=== PATIENT | male | born 1980 | race Asian ===

== ENCOUNTER 2024-07-21 19:34 | Inpatient (IN) | payer MEDICAID, SELFPAY ==
[2024-07-21 19:35] VITALS: BMI 18.2
[2024-07-21 20:04] VITALS: BP 151/125; BP 169/122; PULSE 150; RESP 22; TEMP 36.8; O2SAT 97
--- NOTE | 2024-07-21 20:17 | XR_ITS ---
Examination: PA lateral chest 2 views Technique: Upright PA lateral chest 2 views Exam date and time: July 21, 20242053 hrs. Indications: Shortness of breath today. Findings: Significant hyperexpansion The heart is small No lobar pneumonia or pulmonary edema Impression: Prominent hyperexpansion, consider asthma, COPD
--- NOTE | 2024-07-21 20:17 | EKG_ITS ---
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
--- NOTE | 2024-07-21 20:18 | PD.EDRME ---
Rapid Medical Screening Exam RME Arrival date/time: 07/21/24 19:34 44-year-old male past medical history of asthma presents emergency department complaining of shortness of breath that started today. Patient reports use inhaler with no relief. Chief Complaint: General Adult/Misc Complain Time Seen by Provider: 07/21/24 20:11 Vital signs: Vital Signs Temperature 98.3 F 07/21/24 20:04 Pulse Rate 150 H 07/21/24 20:04 Respiratory Rate 22 H 07/21/24 20:04 Blood Pressure 169/122 H 07/21/24 20:04 Pulse Oximetry (%) 97 07/21/24 20:04 Oxygen Delivery Method Room Air 07/21/24 20:04 Vital signs reviewed by provider: Yes
[2024-07-21 21:08] LABS: Basophils # (Auto) 0.1 Thou/mm3 (0.0-0.2); Basophils % (Auto) 1 % (0-2.5); Eosinophils # (Auto) 0.1 Thou/mm3 (0.0-0.5); Eosinophils % (Auto) 1 % (0-10); Hematocrit 35.3 % (41.0-53.0); Hemoglobin 12.5 g/dL (13.5-16.0); Immature Granulocytes % (Auto) 0 % (0-0); Immature Granulocytes Auto 0.01 Thou/mm3 (0.00-0.00); Lymphocytes % (Auto) 41 % (10-50); Mean Corpuscular HGB Conc 35.4 g/dl (31.0-37.0); Mean Corpuscular Hemoglobin 30.6 pg (25.0-35.0); Mean Corpuscular Volume 87 fL (80-100); Monocytes # (Auto) 0.4 Thou/mm3 (0.0-0.8); Monocytes % (Auto) 8 % (0-12); Neutrophils # (Auto) 2.4 Thou/mm3 (1.8-7.7); Neutrophils % (Auto) 49 % (37-80); Nucleated Red Blood Cell % 0 /100 WBC (0); Platelet Count 240 Thou/mm3 (140-440); RDW Standard Deviation 42.2 fL (35.1-43.9); Red Blood Count 4.08 Miln/mm3 (4.50-5.90)
[2024-07-21] MEDS: predniSONE 20 MG TABLET 60 MG PO (21:17)
[2024-07-21 21:29] LABS: Alanine Aminotransferase 20 U/L (10-49); Albumin, Serum 3.7 gm/dL (3.5-5.0); Albumin/Globulin Ratio 1.2 (1.2-2.2); Alkaline Phosphatase 264 U/L (46-116); Anion Gap 13 (7-16); Aspartate Amino Transferase 56 U/L (0-34); BUN/Creatinine Ratio 6 Ratio (12-20); Bilirubin,Total 1.3 mg/dL (0.3-1.2); Blood Urea Nitrogen 7 mg/dL (9-23); Calcium 8.9 mg/dL (8.3-10.6); Calcium (Corrected) 9.1 mg/dL (8.5-10.1); Chloride 102 mMol/L (98-107); Creatinine (Component) 1.1 mg/dL (0.6-1.3); Glucose 114 mg/dL (74-106); Osmolality,Calculated 282 (275-295); Sodium 142 mMol/L (136-145); Total Protein 6.7 gm/dL (5.7-8.2); Troponin I < 0.020 ng/mL (0.0-0.045); eGFR > 60 See Note
[2024-07-21 21:31] LABS: Potassium 2.7 mMol/L (3.4-5.1)
[2024-07-21] MEDS: SODIUM CHLORIDE RT SOL 0.9% 3 ML NEBU INH (21:31)
[2024-07-21] MEDS: IPRATROPIUM RT 0.5 MG/ 2.5 ML NEBU 1 MG INH (21:32)
[2024-07-21 21:33] VITALS: PULSE 121
[2024-07-21] MEDS: ALBUTEROL RT 2.5 MG/0.5 ML NEBU 10 MG INH (21:33)
[2024-07-21 21:34] LABS: B-Type Natriuretic Peptide 26 pg/mL (0-100)
[2024-07-21 21:41] VITALS: PULSE 121; RESP 19; O2SAT 100
[2024-07-22] VITALS (33 sets, daily range): BP systolic 110–174; BP diastolic 78–149; PULSE 86–149; RESP 13–27; TEMP 36.5–37.4; O2SAT 84–100
--- NOTE | 2024-07-22 02:14 | PD.EDADULT ---
ED General RME/HPI General Chief complaint: General Adult/Misc Complain Stated complaint: SHAKING, NOT EATING, ASTHMA Time Seen by Provider: 07/21/24 20:11 Arrival date/time: 07/21/24 19:34 Limitations: no limitations RME / HPI RME / HPI narrative: 07/21/24 19:34 44-year-old male past medical history of asthma presents emergency department complaining of shortness of breath that started today. Patient reports use inhaler with no relief. -------- Dr. Covarrubias's Main ED Evaluation: 44yo male with a history of alcoholism, HTN, asthma presents to the ED for a chief complaint of shortness of breath x today. Patient states he's had generalized body aches, cough, and shortness of breath that worsened after he smoked cigarettes today. He endorses having shakiness. He denies any nausea, vomiting, diarrhea, fever, chills, hallucinations or any other associated symptoms. Patient states he drinks heavily daily, and smokes cigarettes and marijuana. Related Data Previous Rx's ?Medication ?Instructions ?Recorded albuterol sulfate 90 mcg/actuation 2 puff inhalation PRN #1 g 01/24/18 aerosol inhaler albuterol sulfate 90 mcg/actuation 1 puff inhalation PRN #6.7 grams 01/24/18 aerosol inhaler (ProAir HFA) acetaminophen 650 mg 650 mg PO Q8H PRN fever or pain 12/11/22 tablet,extended release #30 tabs diphenhydramine HCl 50 mg capsule 50 mg PO Q6H PRN allergic reaction 03/13/24 #20 caps prednisone 10 mg tablet 30 mg (3 x 10 mg) PO BID #18 tabs 03/13/24 Allergies Allergy/AdvReac Type Severity Reaction Status Date / Time bee venom protein (honey bee) Allergy Verified 03/12/24 23:09 Review of Systems Review of Systems Systems Reviewed: All systems reviewed, normal except as documented Past Medical History Past Medical History NEUROLOGIC: Negative Neurological Disorders CARDIAC: Positive Cardiac Disorders and Hypertension; Negative Congestive Heart Failure RESPIRATORY: Positive Asthma; Negative Chronic Obstructive Pulmonary Disease (COPD) GASTROINTESTINAL: Negative Gastrointestinal Disorders GENITOURINARY: Negative Genitourinary Disorders or Renal Disease MUSCULOSKELETAL: Negative Musculoskeletal Disorders ENDOCRINE: Negative Endocrine Disorders, Diabetes Mellitus Type 1 or Diabetes Mellitus Type 2 HEMATOLOGIC: Negative Blood Disorders or Sickle Cell Disease OTHER HISTORY: Negative Autoimmune Disease, Blood Transfusions, Anesthesia Reactions or MRSA Family History FAMILY HISTORY: Negative Family Cardiac Disorders Surgical History SURGICAL: Negative Cardiac Surgery, Endocrine Surgery, Ear Surgery, Abdominal Surgery, Nephrectomy or Neurologic Surgery Social History SMOKING STATUS: Current every day smoker SECOND HAND EXPOSURE: Yes SUBSTANCE USE: marijuana ED Exam General Limitations: Present no limitations General appearance: Present alert, in no apparent distress, cachectic and other (very thin) Head Head exam: Present atraumatic Eye Eye exam: Present PERRL, EOMI and other (eyes are sunken in) ENT ENT exam: Present normal exam, normal oropharynx and mucous membranes dry Neck Neck exam: Present normal inspection, full ROM and trachea midline Chest Chest inspection: Present normal inspection and symmetric chest wall rise Respiratory Respiratory exam: Present normal lung sounds bilaterally Cardiovascular Cardiovascular exam: Present regular rate, normal rhythm and normal heart sounds Abdominal Exam Abdominal exam: Present soft and normal bowel sounds; Absent tenderness or rebound Extremities Exam Extremities exam: Present normal inspection and full ROM Back Exam Back exam: Present normal inspection and full ROM Neurological Exam Neurological exam: Present alert, oriented X3 and CN II-XII intact Psychiatric Psychiatric exam: Present normal affect and normal mood Skin Skin exam: Present warm, dry, intact and normal color; Absent rash Course Quality Measures none Orders Category Date Time Status Bedside Influenza A&B Antigen Test NOW Care 07/21/24 20:18 Completed COVID-19 Screening Questionnaire NOW Care 07/22/24 04:31 Active Decision to Admit X1 Care 07/22/24 04:31 Active EKG (ED ONLY) *Do not use* NOW Care 07/21/24 20:17 Completed EKG (ED Only) Stat Exams 07/21/24 20:17 Draft XR chest 2V Stat Exams 07/21/24 20:17 Completed Alcohol, Blood Medical Stat Lab 07/22/24 00:00 Completed BNP [B-Type Natriuretic Peptide] Stat Lab 07/21/24 20:36 Completed CBC Stat Lab 07/21/24 20:36 Completed Comprehensive Metabolic Panel Stat Lab 07/21/24 20:36 Completed Drug Screen,Urine Stat Lab 07/21/24 20:17 Ordered Troponin I Stat Lab 07/21/24 20:36 Completed ALBUTEROL RT 0.5ml [Proventil Rt 0.5ml] Med 07/21/24 20:16 Discontinued 10 mg INH X1 ONE Dexamethasone Inj [Decadron Inj] Med 07/22/24 02:10 Discontinued 10 mg IVP X1 ONE Folic Acid Inj Med 07/22/24 03:50 Discontinued 1 mg IVP X1 ONE Ipratropium [place] Rt Rosalina [Atrovent Rt Rosalina] Med 07/21/24 20:16 Discontinued 1 mg INH X1 ONE LORazepam [Ativan Inj] Med 07/22/24 02:25 Discontinued 2 mg IVP X1 ONE LORazepam [Ativan] Med 07/22/24 01:53 Discontinued 2 mg PO X1 ONE Metoprolol Tartrate Inj [Lopressor Inj] Med 07/22/24 02:12 Discontinued 5 mg IVP X1 ONE PHENobarbitaL Med 07/22/24 02:27 Discontinued 130 mg PO X1 ONE Potassium Chloride [K-Dur] Med 07/22/24 02:11 Discontinued 40 meq PO X1 ONE Sodium Chloride Rt [place]al[place] 0.9% [NS Rt Rosalina 0.9%] Med 07/21/24 20:16 Active 3 ml INH PRN PRN Thiamine Inj [Vitamin B-1 Inj] 100 mg Med 07/22/24 03:50 Discontinued Sodium Chloride 0.9% [Ns] 100 ml IV X1 predniSONE Med 07/21/24 20:16 Discontinued 60 mg PO X1 ONE Vital Signs Vital signs: Vital Signs Temperature 98.3 F 07/21/24 20:04 Pulse Rate 150 H 07/21/24 20:04 Respiratory Rate 22 H 07/21/24 20:04 Blood Pressure 169/122 H 07/21/24 20:04 Pulse Oximetry (%) 97 07/21/24 20:04 Oxygen Delivery Method Room Air 07/21/24 20:04 Pulse ox is 97% on room air, which is normal according to my interpretation. Procedures -ED Smoking Cessation Time Spent Discussing Smoking Cessation w/Patient (min): 5 Patient Acknowledges Need for Cessation: Yes Additional Comments: The patient was counseled as to the multiple risks to their health from continued use of tobacco products. It was explained that continuing to smoke may lead to multiple short and snf negative health consequences, including but not limited to mouth/esophageal/lung cancer, COPD, and heart disease. The patient states she/he understands these risks and also understands the options and resources available to them to help them stop smoking. Nicotine replacement therapy, local hotlines, and local resources were discussed as viable options for helping them stop their tobacco use. The total time spent counseling the patient regarding tobacco cessation was 5 minutes. [facility] Patient data External records reviewed:: [facility] previous records (Per chart review, patient was seen here on 03/12/24 for chronic alcoholism.) Clinical information provided by:: patient Social determinants that could affect healthcare access:: alcohol use Patient has the following chronic illnesses:: HTN, asthma How is presenting disease/condition affected by chronic disease/condition?: exacerbated by Evaluation data The following diagnostics were reviewed and interpreted by me:: lab results, radiology exam(s) and EKG tracing(s) Lab and/or radiology exams considered but not ordered:: none Interpretation Summary: CBC is normal, Potassium is low at 2.7, troponin is normal, BNP is normal, AST and Alkaline Phosphatase are elevated, Bedside Influenza is negative, Blood Alcohol is negative, according to my interpretation. EKG done at 2022, sinus tachycardia, rate of 150, ST-T changes in V2 and V3, no ST elevations, QTc: 402, according to my interpretation. Repeat EKG done at 404, sinus tachycardia, rate of 118, VT interval improved at 126, nonspecific ST-T wave changes improved, according to my interpretation. ---- [place] [facility] Report Signed Patient: JONATHON VALLE. Record#: [id number] Birthdate: 1980 Age/Sex: 44 / M Location: [facility] Attending Dr: Ordering Physician: Bela ROBLEDO)Oleksandr Date of Service: 07/21/24 Procedure(s): XR chest 2V Accession Number(s): [id number] cc: Phoenix Combs MD; Oleksandr Lopez (FNP)~ Examination: PA lateral chest 2 views Technique: Upright PA lateral chest 2 views Exam date and time: July 21, 20242053 hrs. Indications: Shortness of breath today. Findings: Significant hyperexpansion The heart is small No lobar pneumonia or pulmonary edema Impression: Prominent hyperexpansion, consider asthma, COPD Dictated By: Phoenix Combs MD Signed By: <Electronically signed by Phoenix Combs MD in OV> 07/21/240 Medications Medications considered but not ordered:: none Medication administrations:: Medication Administration History Sodium Chloride (Sodium Chloride Rt Rosalina 0.9% 3 Ml Nebu) 3 ml INH PRN PRN PRN Reason: SOLN Stop: 08/20/24 20:15 Last Admin: 07/21/24 21:31 Dose: 3 ml Documented By: FLORIN Discontinued Medications Albuterol (Albuterol Rt 2.5 Mg/0.5 Ml Nebu) 10 mg INH X1 ONE Stop: 07/21/24 20:17 Last Admin: 07/21/24 21:33 Dose: 10 mg Documented By: FLORIN Dexamethasone Sodium Phosphate (Dexamethasone Sod Phos Inj 4 Mg/Ml Vial) 10 mg IVP X1 ONE; Protocol Stop: 07/22/24 02:11 Last Admin: 07/22/24 02:19 Dose: 10 mg Documented By: TC Folic Acid (Folic Acid Inj 1 Mg/0.2 Ml) 1 mg IVP X1 ONE Stop: 07/22/24 03:51 Last Admin: 07/22/24 04:15 Dose: 1 mg Documented By: NICOLA Thiamine HCl 100 mg/ Sodium (Chloride) 101 mls @ 202 mls/hr IV X1 ONE Stop: 07/22/24 04:19 Last Admin: 07/22/24 04:15 Dose: 202 mls/hr Documented By: NICOLA Ipratropium [place] (Ipratropium Rt 0.5 Mg/ 2.5 Ml Nebu) 1 mg INH X1 ONE Stop: 07/21/24 20:17 Last Admin: 07/21/24 21:32 Dose: 1 mg Documented By: FLORIN Comments: Lorazepam (Lorazepam 0.5 Mg Tablet) 2 mg PO X1 ONE Stop: 07/22/24 01:54 Last Admin: 07/22/24 02:13 Dose: Not Given Documented By: TC Non-Admin Reason: Discontinued Lorazepam (Lorazepam 2 Mg/Ml Vial) 2 mg IVP X1 ONE Stop: 07/22/24 02:26 Last Admin: 07/22/24 02:29 Dose: 2 mg Documented By: TC Metoprolol Tartrate (Metoprolol Tartrate Inj 1 Mg/Ml Amp 5 Ml) 5 mg IVP X1 ONE Stop: 07/22/24 02:13 Last Admin: 07/22/24 03:11 Dose: Not Given Documented By: TC Non-Admin Reason: Contraindicated Phenobarbital (Phenobarbital Elix 20 Mg/5 Ml Udc) 130 mg PO X1 ONE Stop: 07/22/24 02:28 Last Admin: 07/22/24 04:16 Dose: Not Given Documented By: TC Non-Admin Reason: Contraindicated Potassium Chloride (Potassium Chloride 20 Meq Tabcr) 40 meq PO X1 ONE Stop: 07/22/24 02:12 Last Admin: 07/22/24 02:19 Dose: 40 meq Documented By: TC Prednisone (Prednisone 20 Mg Tablet) 60 mg PO X1 ONE Stop: 07/21/24 20:17 Last Admin: 07/21/24 21:17 Dose: 60 mg Documented By: NICOLA Comments: pt moved to room 14 for tx at this time see above Consultations Consultation(s) initiated? (list below): Yes Consultation #1 (Physician, Specialty, Details): Discussed case with [Dr. Nash] from Hospitalist service regarding admission. Discussed patients ED course, exam findings, labs, and radiology results. The Hospitalist [agrees] to accept the patient for admission. Time: 04:30 Diagnosis Differential Diagnosis ED Complaint MDM: alcohol withdrawal, dehydration, STEMI, NSTEMI, pneumonia Most likely diagnosis given after review of the tests above:: see below Admission Indicated Admission indicated?: indicated Explain why admission is indicated or not indicated:: Admission criteria met. Admission Request Was there a request for admission?: Yes Admission Attestation Admission request attestation: Discussed case with [] from Hospitalist service regarding admission. Discussed patients ED course, exam findings, labs, and radiology results. The Hospitalist [agrees,declines] to accept the patient for admission. Disposition Plan Disposition Plan: Admit Medical Decision Making MDM Narrative MDM Narrative: This is a 44-year-old male with history of heavy alcohol use drinking greater than a bottle of samson per day coming in with asthma-like symptoms for 24 hours which caused him to decrease and/or stop drinking, initial CIWA is 2 but then patient started having hypertension and significant trembling. Ativan is given with heart rate improved from the 140s down to 115. Potassium is replaced orally. Throughout [place], non-STEMI, pulmonary embolism, and chest x-ray is showing chronic COPD changes. Patient is treated with banana bag and IV fluids. Repeat EKG initially showed some ST-T wave changes inferiorly but on repeat EKG patient is sinus tach with now normal VT interval with improved heart rate down to 115. No chest pain at this time. Differential Diagnosis Differential Diagnosis: alcohol withdrawal, dehydration, STEMI, NSTEMI, pneumonia Lab Data 07/21/24 20:36 07/21/24 20:36 Labs: Lab Results 07/21/24 07/22/24 Range/Units 20:36 00:00 WBC 5.0 (3.8-10.6) Thou/mm3 RBC 4.08 L (4.50-5.90) Miln/mm3 Hgb 12.5 L (13.5-16.0) g/dL Hct 35.3 L (41.0-53.0) % MCV 87 (80-100) fL MCH 30.6 (25.0-35.0) pg MCHC 35.4 (31.0-37.0) g/dl RDW Std Deviation 42.2 (35.1-43.9) fL Plt Count 240 (140-440) Thou/mm3 Neut % (Auto) 49 (37-80) % Lymph % (Auto) 41 (10-50) % [place] % (Auto) 8 (0-12) % Eos % (Auto) 1 (0-10) % Baso % (Auto) 1 (0-2.5) % Neut # (Auto) 2.4 (1.8-7.7) Thou/mm3 Lymph # (Auto) 2.0 (1.0-4.8) Thou/mm3 [place] # (Auto) 0.4 (0.0-0.8) Thou/mm3 Eos # (Auto) 0.1 (0.0-0.5) Thou/mm3 Baso # (Auto) 0.1 (0.0-0.2) Thou/mm3 Immature Gran # (Auto) 0.01 H (0.00-0.00) Thou/mm3 Absolute Nucleated RBC 0.00 (0.00-0.00) Thou/mm3 Immature Gran % 0 (0-0) % Nucleated RBC % 0 (0) /100 WBC Sodium 142 (136-145) mMol/L Potassium 2.7 L* (3.4-5.1) mMol/L Chloride 102 (98-107) mMol/L Carbon Dioxide 27.0 (20.0-31.0) mMol/L Anion Gap 13 (7-16) BUN 7 L (9-23) mg/dL Creatinine 1.1 (0.6-1.3) mg/dL Estim Creat Clear Calc 66.0 (>60) mL/min eGFR > 60 (60 - ) See Note BUN/Creatinine Ratio 6 L (12-20) Ratio Glucose 114 H (74-106) mg/dL Calculated Osmolality 282 (275-295) Calcium 8.9 (8.3-10.6) mg/dL Corrected Calcium 9.1 (8.5-10.1) mg/dL Total Bilirubin 1.3 H (0.3-1.2) mg/dL AST 56 H (0-34) U/L ALT 20 (10-49) U/L Alkaline Phosphatase 264 H (46-116) U/L Troponin I < 0.020 (0.0-0.045) ng/mL B-Natriuretic Peptide 26 (0-100) pg/mL Total Protein 6.7 (5.7-8.2) gm/dL Albumin 3.7 (3.5-5.0) gm/dL Globulin 3.0 (2.3-3.5) gm/dL Albumin/Globulin Ratio 1.2 (1.2-2.2) Ethyl Alcohol < 3.0 (0-10.0) mg/dL Discharge Plan Plan Patient Disposition: HOME (Self Care) Patient condition on transfer: Stable Prescriptions/Referrals Prescriptions/Med Rec: No Action albuterol sulfate [ProAir HFA] 8.5 GM HFA aerosol inhaler 1 puff Inhalation PRN Qty: 6.7 0RF albuterol sulfate 90 mcg/actuation HFA aerosol inhaler 2 puff Inhalation PRN Qty: 1 0RF prednisone 10 mg tablet 30 mg PO BID Qty: 18 0RF Rx Instructions: administer with food or milk diphenhydramine HCl 50 mg capsule 50 mg PO Q6H PRN (Reason: allergic reaction) Qty: 20 0RF acetaminophen 650 mg tablet extended release 650 mg PO Q8H PRN (Reason: fever or pain) Qty: 30 0RF Rx Instructions: swallow whole; do not chew/break/dissolve/open Referrals: Martine Man PA-C [Primary Care Provider] - In 1 week Problem List Clinical Impression: Alcohol withdrawal, Tachycardia Patient/Caregiver Discharge Instructions Print Language: Spanish Stand Alone Forms: Verena Award Info., Patient Portal Info Letter
[2024-07-22] MEDS: DEXAMETHASONE SOD PHOS INJ 4 MG/ML VIAL 10 MG IVP (02:19)
[2024-07-22] MEDS: POTASSIUM CHLORIDE 20 mEq TABCR 40 MEQ PO (02:19)
[2024-07-22] MEDS: LORazepam 2 MG/ML VIAL IVP (02:29)
[2024-07-22] MEDS: THIAMINE INJ 100 MG in SODIUM CHLORIDE 0.9% 100 ML 202 MG IV (04:15)
[2024-07-22] MEDS: FOLIC ACID INJ 1 MG/0.2 ML IVP (04:15)
[2024-07-22 04:20] LABS: Alcohol, Blood Medical < 3.0 mg/dL (0-10.0)
--- NOTE | 2024-07-22 05:33 | PD.RESHP ---
Documentation for date of: 07/22/24 [facility] History of Present Illness Chief complaint: Shortness of breath History of present illness: At the time of examining the patient, patient is completely lethargic and not able to provide history. So most of the history is taken from chart review A 44-year-old male with significant past medical history of smoking, alcohol abuse, hypertension, asthma presented to the hospital with chief complaints of shortness of breath since 1 day. Also endorsed that he is having generalized bodyaches, cough and shortness of breath that got worsened after he smoked cigarettes. Denies fever, nausea, vomiting, diarrhea. In the ED, patient received prednisone, nebulizations and later received a dose of lorazepam 2 Mg as patient is agitated due to alcohol withdrawal and at the time of examination by hospitalist team, patient is lethargic able to respond to his name, follow verbal commands and on assessment GCS is 11. Discussed about the patient's condition with the ED doctor, Mike Barreto who reported that patient is having GCS of 15 and alert awake oriented x 3 before getting lorazepam. As the patient is agitated with elevated blood pressure, tachycardia and being restless, received a dose of lorazepam in the ED. Not unsure of his last alcohol drink. As GCS is 11 and the altered sensorium is due to lorazepam IV push, no need of ICU level of care for now. Will monitor on the floors ED Course: -Initial vitals were blood pressure 169/122 mmHg, pulse rate 150/min, respiratory rate 22/min, temperature 98.3 ?F, SpO2 97% with room air. -Labs significant for Hb 12.5, sodium 142, potassium 2.7, glucose 114, total bilirubin 1.3, AST 56, ALT 20, ALP 264, ethyl alcohol <3. -Chest x-ray showed significant hyperexpansion of bilateral lung moore. EKG showed sinus tachycardia. -In the ED, patient was given DuoNebs nebulization, dexamethasone, lorazepam, potassium, metoprolol tartrate, prednisone 60 Mg, thiamine. -Patient was admitted for acute exacerbation of COPD/asthma, alcohol withdrawal. Past medical history: Hypertension, asthma Past surgical history: Unknown Social history: Smoking, alcohol, marijuana abuse Review of Systems Review of Systems ROS Unobtainable: unobtainable due to mental status Exam Vital Signs Temp Pulse Resp BP Pulse Ox O2 Del Method 98.7 F 105 H 27 H 111/82 100 Room Air 07/22/24 01:37 07/22/24 05:07 07/22/24 05:07 07/22/24 03:04 07/22/24 05:07 07/22/24 03:04 Narrative Exam General: Awake. cachectic HEENT: Normocephalic, atraumatic, mucous membranes moist. Heart: Regular rate and rhythm, no murmurs. Lungs: Clear to auscultation with decreased breath sounds bilaterally Abdomen: Soft, nondistended, nontender, positive bowel sounds. ?No guarding or rebound tenderness. Neurologic: lethargic, no gross neurological deficit, and patient able to move all 4 extremities. Extremities: No edema. Skin: No rash or ecchymoses. Results: Labs 07/22/24 07:56 07/22/24 18:11 Labs: Short CBC 07/21/24 Range/Units 20:36 WBC 5.0 (3.8-10.6) Thou/mm3 Hgb 12.5 L (13.5-16.0) g/dL Hct 35.3 L (41.0-53.0) % Plt Count 240 (140-440) Thou/mm3 BMP 07/21/24 20:36 Sodium 142 Potassium 2.7 L* Chloride 102 Carbon Dioxide 27.0 BUN 7 L Creatinine 1.1 Glucose 114 H Calcium 8.9 Cardiac Enzymes 07/21/24 Range/Units 20:36 Troponin I < 0.020 (0.0-0.045) ng/mL Liver Function 07/21/24 Range/Units 20:36 Total Bilirubin 1.3 H (0.3-1.2) mg/dL AST 56 H (0-34) U/L ALT 20 (10-49) U/L Alkaline Phosphatase 264 H (46-116) U/L Albumin 3.7 (3.5-5.0) gm/dL Quality Measures Quality Measures none Medications Home Medications and Allergies Allergies Allergy/AdvReac Type Severity Reaction Status Date / Time bee venom protein (honey bee) Allergy Verified 03/12/24 23:09 Visit Medications Acetaminophen (Acetaminophen 325 Mg Tablet) 650 mg PO Q6H PRN PRN Reason: Fever >101.5 Stop: 08/21/24 04:55 Albuterol/Ipratropium (Albuterol/Ipratropium (Duoneb) Rt Rosalina 3 Ml Nebu) 3 ml INH Q6HRRT PRN PRN Reason: sob or wheeze Stop: 08/21/24 06:59 Enoxaparin Sodium (Enoxaparin Sod Inj 40 Mg/0.4 Ml Syringe) 40 mg SC QDAY [facility] Stop: 08/05/24 08:59 Potassium Chloride (Kcl Ivpb) 10 meq in 100 mls @ 100 mls/hr IV Q1H [facility]ICK Stop: 07/22/24 09:00 Lorazepam (Lorazepam 0.5 Mg Tablet) 0.5 mg PO Q4HR PRN PRN Reason: CIWA Score 2-6 Stop: 07/27/24 05:01 Lorazepam (Lorazepam 0.5 Mg Tablet) 1 mg PO Q4HR PRN PRN Reason: CIWA SCORE 7-11 Stop: 07/27/24 05:01 Lorazepam (Lorazepam 0.5 Mg Tablet) 2 mg PO Q4HR PRN PRN Reason: CIWA SCORE 12-15 Stop: 07/27/24 05:01 Magnesium Hydroxide (Milk Of Magnesia Susp 30 Ml Udc) 30 ml PO QDAY PRN; Protocol PRN Reason: CONSTIPATION Stop: 08/21/24 04:55 Ondansetron HCl (Ondansetron Inj 2 Mg/Ml Inj 2 Ml) 4 mg IV Q6H PRN; Protocol PRN Reason: NAUSEA OR VOMITING Stop: 08/21/24 04:55 Pantoprazole Sodium (Pantoprazole 40 Mg Tablet) 40 mg PO QDAY [facility] Stop: 08/21/24 08:59 Sodium Chloride (Sodium Chloride Rt Rosalina 0.9% 3 Ml Nebu) 3 ml INH PRN PRN PRN Reason: SOLN Stop: 08/20/24 20:15 Last Admin: 07/21/24 21:31 Dose: 3 ml Thiamine HCl (Thiamine 100 Mg Tablet) 100 mg PO QDAY [facility] Stop: 08/21/24 08:59 Discontinued Medications Albuterol (Albuterol Rt 2.5 Mg/0.5 Ml Nebu) 10 mg INH X1 ONE Stop: 07/21/24 20:17 Last Admin: 07/21/24 21:33 Dose: 10 mg Dexamethasone Sodium Phosphate (Dexamethasone Sod Phos Inj 4 Mg/Ml Vial) 10 mg IVP X1 ONE; Protocol Stop: 07/22/24 02:11 Last Admin: 07/22/24 02:19 Dose: 10 mg Folic Acid (Folic Acid Inj 1 Mg/0.2 Ml) 1 mg IVP X1 ONE Stop: 07/22/24 03:51 Last Admin: 07/22/24 04:15 Dose: 1 mg Thiamine HCl 100 mg/ Sodium (Chloride) 101 mls @ 202 mls/hr IV X1 ONE Stop: 07/22/24 04:19 Last Admin: 07/22/24 04:15 Dose: 202 mls/hr Ipratropium Fisher (Ipratropium Rt 0.5 Mg/ 2.5 Ml Nebu) 1 mg INH X1 ONE Stop: 07/21/24 20:17 Last Admin: 07/21/24 21:32 Dose: 1 mg Lorazepam (Lorazepam 0.5 Mg Tablet) 2 mg PO X1 ONE Stop: 07/22/24 01:54 Last Admin: 07/22/24 02:13 Dose: Not Given Lorazepam (Lorazepam 2 Mg/Ml Vial) 2 mg IVP X1 ONE Stop: 07/22/24 02:26 Last Admin: 07/22/24 02:29 Dose: 2 mg Metoprolol Tartrate (Metoprolol Tartrate Inj 1 Mg/Ml Amp 5 Ml) 5 mg IVP X1 ONE Stop: 07/22/24 02:13 Last Admin: 07/22/24 03:11 Dose: Not Given Multivitamins/Minerals (Multivitamin Inj 10 Ml Vial) 10 ml IV X1 ONE Stop: 07/22/24 05:03 Phenobarbital (Phenobarbital Elix 20 Mg/5 Ml Udc) 130 mg PO X1 ONE Stop: 07/22/24 02:28 Last Admin: 07/22/24 04:16 Dose: Not Given Potassium Chloride (Potassium Chloride 20 Meq Tabcr) 40 meq PO X1 ONE Stop: 07/22/24 02:12 Last Admin: 07/22/24 02:19 Dose: 40 meq Prednisone (Prednisone 20 Mg Tablet) 60 mg PO X1 ONE Stop: 07/21/24 20:17 Last Admin: 07/21/24 21:17 Dose: 60 mg Assessment & Plan Plan A 44-year-old male with significant past medical history of smoking, alcohol abuse, hypertension, asthma presented to the hospital with chief complaints of shortness of breath since 1 day and admitted for acute exacerbation of asthma/COPD and alcohol withdrawal. # Acute exacerbation of asthma/COPD # History of asthma # Smoker -Presented to the ED with chief complaints of shortness of breath since 1 day after smoking -Patient had history of smoking 1 pack/day, unsure of duration -In the ED, patient was found to have wheeze on examination -Patient was treated with nebulizations, steroids in the ED -Vitals at the time of admission showed blood pressure 169/122 mmHg, pulse rate 150 bpm, respiratory rate 22/min. -On examination, noted bilateral decreased breath sounds without any wheeze -Labs showed Hb 12.5. -Chest x-ray showed prominent hyperexpansion of both lung moore without any infiltrates Plan -Started on 20 Mg prednisone p.o. for 5 days -oxygen as needed -Nicotine patches ordered -Nebulizations as needed -Smoking cessation counseling # Hypokalemia Likely due to poor oral intake and alcohol abuse -Potassium at the time of admission is 2.7 -Ordered 40 mEq of IV potassium and patient received 40 mill equivalents of oral in the ED -Monitor electrolytes and replete accordingly -Magnesium is ordered, follow-up with results. # Hyperbilirubinemia # Mild transaminitis Likely due to alcohol liver disease -Bilirubin at the time of admission is 1.3 and AST is 56, ALT 20 -CT abdomen done in 2022 showed fatty liver -Ultrasound liver is ordered to look for liver size and texture -Recommended alcohol cessation # Alcohol withdrawal # Alcohol abuse -Patient had history of alcohol abuse, samson -In the ED, patient was found to have elevated blood pressures, tachycardia and agitated for which patient was given 2 Mg of IV lorazepam -Patient is lethargic at the time of examination by hospitalist team due to medications, so unsure of last alcohol drink Plan -CIWA protocol ordered -Thiamine p.o. daily 100 Mg -A dose of multivitamin injection is given -Recommended social sciences chair referral # Normocytic normochromic anemia, likely nutritional # Cachexia, failure to thrive -Hemoglobin at the time of admission is 12.5 -A dose of multivitamin injection is given -Follow-up in the outpatient basis # Hypertension -Blood pressure at the time of admission is 169/122 mmHg, likely due to alcohol and nicotine withdrawal -Patient is using lisinopril 5 Mg at home, unsure of compliance -CIWA protocol and nicotine patch was ordered -Monitor blood pressures and add medications accordingly. Hospital Maintenance: Dispo: Tele DVT ppx: lovenox GI ppx: Pantoprazole Diet: N.p.o. for now in view of patient's mental status, resume feeds once it improves IV lines: peripheral Code status: Full Patient plan of care was discussed with the attending physician, Dr. Charity Reich, PGY1 Attending Provider Attestation/Addendum I have discussed and was present for the essential components of the history, physical examination, diagnosis, and treatment plan with the resident. I agree with the patient's care as documented by the resident and amended herein by me. Collin Nash, DO. Although this document has been carefully reviewed, there may still be some phonetic and other typographical errors. These errors are purely grammatical due to imperfections in the software program and should not be construed in any way to compromise the substance of the patient's medical care during this visit.
[2024-07-22] MEDS: POTASSIUM CHL 10 mEq IVPB 10 MEQ/100 ML BAG 100 MEQ IV ×4 (06:03→14:00)
--- NOTE | 2024-07-22 06:05 | XR_ITS ---
Examination: Abdomen sonogram, Limited Date and time of exam: July 22, 2024 0738 hours INDICATIONS: Diagnosis liver disease, elevated liver function tests on laboratory examination today Technique: Real-time lyon scale transabdominal sonographic images of the upper abdomen obtained. Findings: Gallbladder sludge Negative for gallstones Gallbladder wall is thickened 0.36 cm Common bile duct 0.37 cm Pancreatic head 1.6 cm Liver 13.8 cm fatty infiltration no focal liver lesions Normal hepatopedal portal venous flow Patent IVC IMPRESSION: Gallbladder sludge Borderline thickening gallbladder wall, clinical correlation advised, consider HIDA scan or MRCP follow-up to exclude cholecystitis Fatty liver
[2024-07-22 08:33] LABS: Basophils % (Auto) 0 % (0-2.5); Eosinophils % (Auto) 0 % (0-10); Hematocrit 27.8 % (41.0-53.0); Hemoglobin 9.9 g/dL (13.5-16.0); Immature Granulocytes % (Auto) 0 % (0-0); Immature Granulocytes Auto 0.02 Thou/mm3 (0.00-0.00); Lymphocytes # (Auto) 0.3 Thou/mm3 (1.0-4.8); Lymphocytes % (Auto) 5 % (10-50); Mean Corpuscular HGB Conc 35.6 g/dl (31.0-37.0); Mean Corpuscular Hemoglobin 31.2 pg (25.0-35.0); Mean Corpuscular Volume 88 fL (80-100); Monocytes # (Auto) 0.1 Thou/mm3 (0.0-0.8); Monocytes % (Auto) 1 % (0-12); Neutrophils % (Auto) 94 % (37-80); Nucleated Red Blood Cell % 0 /100 WBC (0); Platelet Count 184 Thou/mm3 (140-440); RDW Standard Deviation 45.1 fL (35.1-43.9); Red Blood Count 3.17 Miln/mm3 (4.50-5.90); White Blood Count 6.4 Thou/mm3 (3.8-10.6)
[2024-07-22 09:05] LABS: Alanine Aminotransferase 11 U/L (10-49); Albumin, Serum 2.9 gm/dL (3.5-5.0); Albumin/Globulin Ratio 1.3 (1.2-2.2); Alkaline Phosphatase 200 U/L (46-116); Anion Gap 9 (7-16); Aspartate Amino Transferase 34 U/L (0-34); BUN/Creatinine Ratio 9 Ratio (12-20); Bilirubin,Total 0.9 mg/dL (0.3-1.2); Blood Urea Nitrogen 8 mg/dL (9-23); Calcium 7.5 mg/dL (8.3-10.6); Calcium (Corrected) 8.4 mg/dL (8.5-10.1); Carbon Dioxide 23.3 mMol/L (20.0-31.0); Chloride 109 mMol/L (98-107); Creatinine (Component) 0.9 mg/dL (0.6-1.3); Estimated Creatinine Clearance 80.6 mL/min (>60); Globulin 2.3 gm/dL (2.3-3.5); Glucose 183 mg/dL (74-106); Magnesium 1.6 mg/dL (1.6-2.6); Osmolality,Calculated 284 (275-295); Potassium 3.1 mMol/L (3.4-5.1); Sodium 141 mMol/L (136-145); Total Protein 5.2 gm/dL (5.7-8.2); eGFR > 60 See Note
--- NOTE | 2024-07-22 10:12 | PC.CC ---
Patient is a 44 year-old male who presents to the hospital for alcohol withdrawl. ASWJanice made [id number] contact with patient. ASW introduced self, role, and reason for visit. Patient was not responsive and when asked if ASW could make contact with his brother, Connor listed on demographics patient stated yes. ASW made telephone contact with patient's brother, Connor Jaramillo . Per patient's brother the patient lives with his Brittnee . Patient is able to ambulate independently but struggles as he is unsteadily. Patient is able to complete his own ADLs. Patient has been drinking for multiple years, the brother is unsure how much the patient drinks on average per day. Patient receives primary care with Martine Man. Patient was unable to verbally state to ASW who his medical decision maker is should he be unable to make his own medical decisions. Upon discharge patient will be returning home. Patient was provided with community resource guide. ASW to follow-up with any discharge needs.
[2024-07-22] MEDS: PANTOPRAZOLE 40 MG TABLET PO (11:50)
[2024-07-22] MEDS: chlordiazePOXIDE HCl 25 MG CAPSULE PO ×3 (11:50→21:04)
[2024-07-22] MEDS: ENOXAPARIN SOD INJ 40 MG/0.4 ML SYRINGE SC (11:50)
[2024-07-22] MEDS: predniSONE 20 MG TABLET PO (11:50)
[2024-07-22] MEDS: THIAMINE 100 MG TABLET PO (11:50)
[2024-07-22 12:25] LABS: Amphetamine/Methamp Scrn,U Negative (Negative); Barbiturate Screen,Urine Negative (Negative); Benzodiazepines Screen,Urine Negative (Negative); Benzoylecgonine Screen, Ur Negative (Negative); Fentanyl Screen,Urine Negative (Negative); Opiate Screen,Urine Negative (Negative); THC Screen,Urine Negative (Negative)
--- NOTE | 2024-07-22 12:54 | PC.NURSE ---
Report given to ABDON Cazares
--- NOTE | 2024-07-22 13:21 | ESPR_ITS ---
<Statement entered by Alfa Guadarrama MD - 07/22/24 14:36> I saw and examined the patient, and I agree with current management stated by Dr Phil Baca MD,PGY1. Plan of care was discussed with the attending physician and resident physician. Disclaimer: Despite multiple revisions, due to the dictation software being used, the document bellow may not be free of grammatical errors including phonetic/typographic errors. However, this does not deter from our commitment to providing health care in the patient's best interest in mind. Dr. Chiara MD, PGY 2 Documentation for date of: 07/22/24 Subjective Subjective Interval history: No overnight events. Patient seen and examined at bedside. Patient was extremely lethargic, alert and oriented. Patient complained of shortness of breath, chills. Patient denied headache, nausea, vomiting, chest pain. CIWA protocol. Librium 3 times daily, will taper. Continue asthma exacerbation treatment. Exam Vital Signs Temp Pulse Resp BP Pulse Ox O2 Del Method 97.7 F 98 18 138/103 H 100 Room Air 07/22/24 12:37 07/22/24 12:37 07/22/24 12:37 07/22/24 12:37 07/22/24 12:37 07/22/24 12:37 Narrative Exam PE: Gen: Well-developed and well-nourished. Extremely cachectic. HEENT: NCAT, PERRLA, EOMI, MMM, anicteric conjunctivae. CVS: normal S1 and S2. RRR. No M/R/G. Resp: CTA B/L. No rhonchi, rales, crackles or wheezing. Abd: soft, non-tender, non-distended. BS+ in all 4 quadrants. MSK: Good ROM in BUE & BLE. No edema or rash. Neuro: CN II-XII grossly intact. Strength 5/5 in BUE & BLE. Alert and oriented x3. Tremors, mild diaphoresis. Psych: appropriate mood and affect. Objective Labs 07/22/24 07:56 07/22/24 18:11 Labs: Laboratory Results - last 24 hr 07/21/24 07/21/24 07/22/24 11:51 20:36 00:00 WBC 5.0 RBC 4.08 L Hgb 12.5 L Hct 35.3 L MCV 87 MCH 30.6 MCHC 35.4 RDW Std Deviation 42.2 Plt Count 240 Neut % (Auto) 49 Lymph % (Auto) 41 [place] % (Auto) 8 Eos % (Auto) 1 Baso % (Auto) 1 Neut # (Auto) 2.4 Lymph # (Auto) 2.0 [place] # (Auto) 0.4 Eos # (Auto) 0.1 Baso # (Auto) 0.1 Immature Gran # (Auto) 0.01 H Absolute Nucleated RBC 0.00 Immature Gran % 0 Nucleated RBC % 0 Sodium 142 Potassium 2.7 L* Chloride 102 Carbon Dioxide 27.0 Anion Gap 13 BUN 7 L Creatinine 1.1 Estim Creat Clear Calc 66.0 eGFR > 60 BUN/Creatinine Ratio 6 L Glucose 114 H Calculated Osmolality 282 Calcium 8.9 Corrected Calcium 9.1 Magnesium Total Bilirubin 1.3 H AST 56 H ALT 20 Alkaline Phosphatase 264 H Troponin I < 0.020 B-Natriuretic Peptide 26 Total Protein 6.7 Albumin 3.7 Globulin 3.0 Albumin/Globulin Ratio 1.2 Urine Opiates Screen Negative Urine Fentanyl Screen Negative Ur Barbiturates Screen Negative U Amphetamin/Meth Scrn Negative U Benzodiazepines Scrn Negative U Cocaine Metab Screen Negative U Marijuana (THC) Screen Negative Ethyl Alcohol < 3.0 07/22/24 07:56 WBC 6.4 RBC 3.17 L Hgb 9.9 L D Hct 27.8 L MCV 88 MCH 31.2 MCHC 35.6 RDW Std Deviation 45.1 H Plt Count 184 D Neut % (Auto) 94 H Lymph % (Auto) 5 L [place] % (Auto) 1 Eos % (Auto) 0 Baso % (Auto) 0 Neut # (Auto) 6.0 Lymph # (Auto) 0.3 L [place] # (Auto) 0.1 Eos # (Auto) 0.0 Baso # (Auto) 0.0 Immature Gran # (Auto) 0.02 H Absolute Nucleated RBC 0.00 Immature Gran % 0 Nucleated RBC % 0 Sodium 141 Potassium 3.1 L Chloride 109 H Carbon Dioxide 23.3 Anion Gap 9 BUN 8 L Creatinine 0.9 Estim Creat Clear Calc 80.6 eGFR > 60 BUN/Creatinine Ratio 9 L Glucose 183 H D Calculated Osmolality 284 Calcium 7.5 L Corrected Calcium 8.4 L Magnesium 1.6 Total Bilirubin 0.9 AST 34 ALT 11 Alkaline Phosphatase 200 H D Troponin I B-Natriuretic Peptide Total Protein 5.2 L Albumin 2.9 L D Globulin 2.3 Albumin/Globulin Ratio 1.3 Urine Opiates Screen Urine Fentanyl Screen Ur Barbiturates Screen U Amphetamin/Meth Scrn U Benzodiazepines Scrn U Cocaine Metab Screen U Marijuana (THC) Screen Ethyl Alcohol Quality Measures Quality Measures none Assessment & Plan Assessment Current Active Medications: Generic Name Dose Route Start Last Admin Trade Name Freq PRN Reason Stop Dose Admin Acetaminophen 650 mg 07/22/24 09:38 Acetaminophen 325 Mg Tablet PO 08/21/24 04:55 Q6H PRN Fever >100.3 Albuterol/Ipratropium 3 ml 07/22/24 04:56 Albuterol/Ipratropium (Duoneb) Rt Rosalina 3 Ml Nebu INH 08/21/24 06:59 Q6HRRT PRN sob or wheeze Chlordiazepoxide HCl 25 mg 07/22/24 09:45 07/22/24 11:50 Chlordiazepoxide Hcl 25 Mg Capsule PO 07/27/24 09:44 25 mg TID FREDERICK Administration Enoxaparin Sodium 40 mg 07/22/24 09:00 07/22/24 11:50 Enoxaparin Sod Inj 40 Mg/0.4 Ml Syringe SC 08/05/24 08:59 40 mg QDAY [facility]ICK Administration Lorazepam 0.5 mg 07/22/24 05:02 Lorazepam 0.5 Mg Tablet PO 07/27/24 05:01 Q4HR PRN CIWA Score 2-6 Lorazepam 1 mg 07/22/24 05:02 Lorazepam 0.5 Mg Tablet PO 07/27/24 05:01 Q4HR PRN CIWA SCORE 7-11 Lorazepam 2 mg 07/22/24 05:02 Lorazepam 0.5 Mg Tablet PO 07/27/24 05:01 Q4HR PRN CIWA SCORE 12-15 Magnesium Hydroxide 30 ml 07/22/24 04:56 Milk Of Magnesia Susp 30 Ml Udc PO 08/21/24 04:55 QDAY PRN CONSTIPATION Protocol Ondansetron HCl 4 mg 07/22/24 04:56 Ondansetron Inj 2 Mg/Ml Inj 2 Ml IV 08/21/24 04:55 Q6H PRN NAUSEA OR VOMITING Protocol Pantoprazole Sodium 40 mg 07/22/24 09:00 07/22/24 11:50 Pantoprazole 40 Mg Tablet PO 08/21/24 08:59 40 mg QDAY [facility]ICK Administration Prednisone 20 mg 07/22/24 09:00 07/22/24 11:50 Prednisone 20 Mg Tablet PO 07/25/24 06:00 20 mg QDAY [facility] Administration Scopolamine 1 mg 07/22/24 08:42 Scopolamine 1 Mg Tdsy TOP 08/21/24 08:41 Q72H PRN NAUSEA OR VOMITING Sodium Chloride 3 ml 07/21/24 20:16 07/21/24 21:31 Sodium Chloride Rt Rosalina 0.9% 3 Ml Nebu INH 08/20/24 20:15 3 ml PRN PRN Administration SOLN Thiamine HCl 100 mg 07/22/24 09:00 07/22/24 11:50 Thiamine 100 Mg Tablet PO 08/21/24 08:59 100 mg QDAY [facility] Administration Plan 44-year-old male with significant past medical history of smoking, alcohol abuse, hypertension, asthma presented to the hospital with chief complaints of shortness of breath since 1 day and admitted for acute exacerbation of asthma/COPD and alcohol withdrawal. #Alcohol withdrawal #Alcohol abuse Patient has history of alcohol abuse, states he drinks every day. In the ED, patient was found to have elevated blood pressures, tachycardia and agitated for which patient was given 2 Mg of IV lorazepam. Patient is unsure of last drink levels <3.0. -[facility] protocol ordered -Librium 25 mg p.o. 3 times daily, will taper -Thiamine p.o. daily 100 Mg -A dose of multivitamin injection is given -Recommended social services specialist referral -QTc prolonged (501), scopolamine patch used instead of Zofran for nausea #Acute exacerbation of asthma/COPD, improving #History of asthma #Smoker Presented to the ED with chief complaints of shortness of breath since 1 day after smoking. Patient had history of smoking 1 pack/day, unsure of duration. In the ED, patient was found to have wheeze on examination Patient was treated with nebulizations, steroids in the ED. Vitals at the time of admission showed blood pressure 169/122 mmHg, pulse rate 150 bpm, respiratory rate 22/min. On examination, noted bilateral decreased breath sounds without any wheeze. Chest x-ray showed prominent hyperexpansion of both lung moore without any infiltrates. Patient saturating well on room air. -Started on 20 Mg prednisone p.o. for 5 days -oxygen as needed -Nicotine patches ordered -Nebulizations as needed -Smoking cessation counseling #Hypokalemia Likely due to poor oral intake and alcohol abuse. Potassium at the time of admission is 2.7. Ordered 40 mEq of IV potassium and patient received 40 mill equivalents of oral in the ED. -Monitor electrolytes and replete accordingly -Magnesium is ordered, follow-up with results. #Hyperbilirubinemia #Mild transaminitis Likely due to alcohol liver disease. Bilirubin at the time of admission is 1.3 and AST is 56, ALT 20. CT abdomen done in 2022 showed fatty liver. Ultrasound liver showed fatty liver. -Recommended alcohol cessation #Normocytic normochromic anemia, likely nutritional #Cachexia, failure to thrive Hemoglobin at the time of admission is 12.5 . A dose of multivitamin injection is given. -Dietary consult, appreciate recommendations -Follow-up in the outpatient basis #Hypertension Blood pressure at the time of admission is 169/122 mmHg, likely due to alcohol and nicotine withdrawal. Patient is using lisinopril 5 Mg at home, unsure of compliance. CIWA protocol and nicotine patch was ordered -Resume home lisinopril. DVT prophylaxis: GI prophylaxis: Protonix Diet: Regular Lines: Peripheral IV Code status: Full code Plan of care discussed with senior resident Dr. Guadarrama PGY?[address] Jimenez. Caleb Bustamante MD PGY?1 Attending Provider Attestation/Addendum I have examined the patient, reviewed labs and imaging findings, discussed the case with the resident(s), and reviewed entered orders. I agree with the plan of care as outlined in this note, with these additional summaries/recommendations: Patient seen at bedside. Patient admitted for alcohol withdrawal. CIWA 8 on admission. Continue CIWA protocol and scheduled Librium. We will wean as tolerated. He does appear alert and oriented this morning although significant bilateral hand tremor present. Continue treatment for COPD exacerbation with DuoNebs & oral prednisone. Chest x-ray shows significant hyperexpansion. Mild hypokalemia and replacement given. We will consult social services specialist for alcohol resources once alcohol withdrawal more improved. Dr. Jimenez
[2024-07-22 18:50] LABS: Anion Gap 9 (7-16); BUN/Creatinine Ratio 11 Ratio (12-20); Blood Urea Nitrogen 9 mg/dL (9-23); Carbon Dioxide 24.4 mMol/L (20.0-31.0); Chloride 108 mMol/L (98-107); Creatinine (Component) 0.8 mg/dL (0.6-1.3); Estimated Creatinine Clearance 90.7 mL/min (>60); Glucose 131 mg/dL (74-106); Potassium 3.9 mMol/L (3.4-5.1); Sodium 141 mMol/L (136-145); eGFR > 60 See Note
[2024-07-22 18:51] LABS: Calcium 8.4 mg/dL (8.3-10.6); Osmolality,Calculated 281 (275-295)
[2024-07-22] MEDS: LORazepam 0.5 MG TABLET 1 MG PO (20:00)
[2024-07-23] VITALS (9 sets, daily range): BP systolic 130–159; BP diastolic 98–119; PULSE 87–116; RESP 12–21; TEMP 36.2–36.9; O2SAT 97–100; BMI 13.8; BMI 12.0
[2024-07-23] MEDS: LORazepam 0.5 MG TABLET 2 MG PO ×3 (00:04→16:29)
[2024-07-23] MEDS: NICOTINE PATCH 21 MG/24 HR PATCH.TD24 TOP ×2 (01:04→08:19)
[2024-07-23] MEDS: LORazepam 2 MG/ML VIAL IVP ×2 (01:18→01:41)
--- NOTE | 2024-07-23 07:00 | PC.NURSE ---
PT SLEEPING WELL SINCE LAST DOSE OF ATIVAN IV (AT 01:41). 1:1 SITTER IN ROOM. WHEN PT ARRIVED FROM MED SURG (AT 2316), PT WAS DISORIENTED TO PLACE (DID NOT KNOW HE WAS IN THE HOSPITAL NOR WHAT TOWN HE WAS IN, DIDN'T KNOW THE DATE OR MONTH.). PT WANTED TO GO OUTSIDE TO SMOKE, DIFFICULTLY REORIENTING PT. DR AWARE. DR PRESENT BY 0110. SEVERAL DOSES OF ATIVAN GIVEN ( PER ORDERS), LAST DOSE AT 0141. 0600 PO MED HELD (PT SLEEPING).
[2024-07-23] MEDS: Lisinopril 2.5 MG TABLET 5 MG PO (08:20)
[2024-07-23] MEDS: ENOXAPARIN SOD INJ 40 MG/0.4 ML SYRINGE SC (08:21)
[2024-07-23] MEDS: PANTOPRAZOLE 40 MG TABLET PO (08:21)
[2024-07-23] MEDS: predniSONE 20 MG TABLET PO (08:21)
[2024-07-23] MEDS: THIAMINE 100 MG TABLET PO (08:21)
[2024-07-23 10:18] LABS: Basophils % (Auto) 0 % (0-2.5); Eosinophils % (Auto) 0 % (0-10); Hematocrit 34.7 % (41.0-53.0); Hemoglobin 11.8 g/dL (13.5-16.0); Immature Granulocytes % (Auto) 1 % (0-0); Immature Granulocytes Auto 0.05 Thou/mm3 (0.00-0.00); Lymphocytes # (Auto) 1.3 Thou/mm3 (1.0-4.8); Lymphocytes % (Auto) 13 % (10-50); Mean Corpuscular Hemoglobin 30.3 pg (25.0-35.0); Mean Corpuscular Volume 89 fL (80-100); Monocytes # (Auto) 0.7 Thou/mm3 (0.0-0.8); Monocytes % (Auto) 7 % (0-12); Neutrophils # (Auto) 7.9 Thou/mm3 (1.8-7.7); Neutrophils % (Auto) 80 % (37-80); Nucleated Red Blood Cell # 0.04 Thou/mm3 (0.00-0.00); Nucleated Red Blood Cell % 0 /100 WBC (0); Platelet Count 167 Thou/mm3 (140-440); RDW Standard Deviation 44.1 fL (35.1-43.9); Red Blood Count 3.89 Miln/mm3 (4.50-5.90)
[2024-07-23 12:58] LABS: Alanine Aminotransferase 13 U/L (10-49); Albumin, Serum 2.9 gm/dL (3.5-5.0); Albumin/Globulin Ratio 1.4 (1.2-2.2); Alkaline Phosphatase 158 U/L (46-116); Anion Gap 6 (7-16); Aspartate Amino Transferase 19 U/L (0-34); BUN/Creatinine Ratio 16 Ratio (12-20); Bilirubin,Total 0.9 mg/dL (0.3-1.2); Blood Urea Nitrogen 11 mg/dL (9-23); Calcium 8.1 mg/dL (8.3-10.6); Carbon Dioxide 28.9 mMol/L (20.0-31.0); Chloride 107 mMol/L (98-107); Creatinine (Component) 0.7 mg/dL (0.6-1.3); Estimated Creatinine Clearance 78.9 mL/min (>60); Globulin 2.1 gm/dL (2.3-3.5); Glucose 100 mg/dL (74-106); Magnesium 1.9 mg/dL (1.6-2.6); Osmolality,Calculated 282 (275-295); Phosphorous 2.5 mg/dL (2.4-5.1); Potassium 3.6 mMol/L (3.4-5.1); Sodium 142 mMol/L (136-145); eGFR > 60 See Note
[2024-07-23] MEDS: chlordiazePOXIDE HCl 25 MG CAPSULE PO (13:09)
[2024-07-23] MEDS: LORazepam 2 MG/ML VIAL IV (13:09)
--- NOTE | 2024-07-23 14:20 | ESPR_ITS ---
<Statement entered by Alfa Guadarrama MD - 07/23/24 15:30> Patient was seen and examined at the bedside. Patient overnight had an elevated CIWA score and was altered and withdrawing badly. Night team adjusted this patient's CIWA score. We discontinued Librium and started phenobarbital 180 mg TID along with CIWA protocol. Hemoglobin stable at 11.8. Electrolytes unremarkable. Liver ultrasound showed fatty liver. Kidney functions remained stable. Blood pressure was elevated with tachycardia most likely due to withdrawal. Will continue with CIWA protocol and anticipate clinical improvement in next couple of days. All labs and orders were reviewed. I saw and examined the patient, and I agree with current management stated by Dr Dr Dianna MD,PGY1. Plan of care was discussed with the attending physician and resident physician. Disclaimer: Despite multiple revisions, due to the dictation software being used, the document bellow may not be free of grammatical errors including phonetic/typographic errors. However, this does not deter from our commitment to providing health care in the patient's best interest in mind. Dr. Chiara MD, PGY 2 Documentation for date of: 07/23/24 Subjective Subjective Interval history: Overnight: Patient was agitated and combative, CIWA score ranged 8?18. Patient required multiple doses of lorazepam. At bedside, patient was found to be altered, delirious, believed he was at home. Patient was extremely lethargic. Had notable weakness bilateral lower extremities. Noticeable tremors. Discontinue Librium, initiated phenobarbital scheduled. Continue to closely monitor. Exam Vital Signs Temp Pulse Resp BP Pulse Ox O2 Del Method 97.5 F 116 H 16 159/119 H 98 Room Air 07/23/24 08:00 07/23/24 08:20 07/23/24 08:00 07/23/24 08:20 07/23/24 08:00 07/23/24 08:00 Narrative Exam PE: Gen: Well-developed and well-nourished. Extremely cachectic. HEENT: NCAT, PERRLA, EOMI, MMM, anicteric conjunctivae. CVS: normal S1 and S2. RRR. No M/R/G. Resp: CTA B/L. No rhonchi, rales, crackles or wheezing. Abd: soft, non-tender, non-distended. BS+ in all 4 quadrants. MSK: Good ROM in BUE & BLE. No edema or rash. Neuro: CN II-XII grossly intact. Strength 5/5 in BUE. Alert and oriented x1. Tremors, mild diaphoresis. Bilateral lower extremity weakness. Psych: appropriate mood and affect. Objective Labs 07/24/24 05:50 07/24/24 05:50 Labs: Laboratory Results - last 24 hr 07/22/24 07/23/24 07/23/24 18:11 09:46 11:45 WBC 10.0 D RBC 3.89 L Hgb 11.8 L Hct 34.7 L MCV 89 MCH 30.3 MCHC 34.0 RDW Std Deviation 44.1 H Plt Count 167 Neut % (Auto) 80 Lymph % (Auto) 13 [place] % (Auto) 7 Eos % (Auto) 0 Baso % (Auto) 0 Neut # (Auto) 7.9 H Lymph # (Auto) 1.3 [place] # (Auto) 0.7 Eos # (Auto) 0.0 Baso # (Auto) 0.0 Immature Gran # (Auto) 0.05 H Absolute Nucleated RBC 0.04 H Immature Gran % 1 H Nucleated RBC % 0 Sodium 141 142 Potassium 3.9 D 3.6 Chloride 108 H 107 Carbon Dioxide 24.4 28.9 Anion Gap 9 6 L BUN 9 11 Creatinine 0.8 0.7 Estim Creat Clear Calc 90.7 78.9 eGFR > 60 > 60 BUN/Creatinine Ratio 11 L 16 Glucose 131 H D 100 Calculated Osmolality 281 282 Calcium 8.4 8.1 L Corrected Calcium 9.0 Phosphorus 2.5 Magnesium 1.9 Total Bilirubin 0.9 AST 19 ALT 13 Alkaline Phosphatase 158 H D Total Protein 5.0 L Albumin 2.9 L Globulin 2.1 L Albumin/Globulin Ratio 1.4 Quality Measures Quality Measures VTE prophylaxis Assessment & Plan Assessment Current Active Medications: Generic Name Dose Route Start Last Admin Trade Name Freq PRN Reason Stop Dose Admin Acetaminophen 650 mg 07/22/24 09:38 Acetaminophen 325 Mg Tablet PO 08/21/24 04:55 Q6H PRN Fever >100.3 Albuterol/Ipratropium 3 ml 07/22/24 04:56 Albuterol/Ipratropium (Duoneb) Rt Rosalina 3 Ml Nebu INH 08/21/24 06:59 Q6HRRT PRN sob or wheeze Chlordiazepoxide HCl 25 mg 07/22/24 09:45 07/23/24 13:09 Chlordiazepoxide Hcl 25 Mg Capsule PO 07/27/24 09:44 25 mg TID FREDERICK Administration Enoxaparin Sodium 40 mg 07/22/24 09:00 07/23/24 08:21 Enoxaparin Sod Inj 40 Mg/0.4 Ml Syringe SC 08/05/24 08:59 40 mg QDAY FREDERICK Administration Lisinopril 5 mg 07/23/24 09:00 07/23/24 08:20 Lisinopril 2.5 Mg Tablet PO 08/22/24 08:59 5 mg QDAY FREDERICK Administration Lorazepam 0.5 mg 07/22/24 05:02 Lorazepam 0.5 Mg Tablet PO 07/27/24 05:01 Q4HR PRN CIWA Score 2-6 Lorazepam 1 mg 07/22/24 05:02 07/22/24 20:00 Lorazepam 0.5 Mg Tablet PO 07/27/24 05:01 1 mg Q4HR PRN Administration CIWA SCORE 7-11 Lorazepam 2 mg 07/22/24 05:02 07/23/24 08:20 Lorazepam 0.5 Mg Tablet PO 07/27/24 05:01 2 mg Q4HR PRN Administration CIWA SCORE 12-15 Lorazepam 0.5 mg 07/23/24 01:03 Lorazepam 2 Mg/Ml Vial IV 07/28/24 01:02 Q2HR PRN CIWA SCORE 8-13 Lorazepam 1 mg 07/23/24 01:03 Lorazepam 2 Mg/Ml Vial IV 07/28/24 01:02 Q2HR PRN CIWA SCORE 14-19 Lorazepam 2 mg 07/23/24 01:03 07/23/24 13:09 Lorazepam 2 Mg/Ml Vial IV 07/28/24 01:02 2 mg Q2HR PRN Administration CIWA SCORE 20-25 Lorazepam 2 mg 07/23/24 01:03 Lorazepam 2 Mg/Ml Vial IVP X1 PRN Breakthrough Agitation Magnesium Hydroxide 30 ml 07/22/24 04:56 Milk Of Magnesia Susp 30 Ml Udc PO 08/21/24 04:55 QDAY PRN CONSTIPATION Protocol Nicotine 21 mg 07/23/24 00:39 07/23/24 08:19 Nicotine Patch 21 Mg/24 Hr Patch.Td24 TOP 08/22/24 00:38 21 mg QDAY FREDERICK Administration Ondansetron HCl 4 mg 07/22/24 04:56 Ondansetron Inj 2 Mg/Ml Inj 2 Ml IV 08/21/24 04:55 Q6H PRN NAUSEA OR VOMITING Protocol Pantoprazole Sodium 40 mg 07/22/24 09:00 07/23/24 08:21 Pantoprazole 40 Mg Tablet PO 08/21/24 08:59 40 mg QDAY FREDERICK Administration Prednisone 20 mg 07/22/24 09:00 07/23/24 08:21 Prednisone 20 Mg Tablet PO 07/25/24 06:00 20 mg QDAY FREDERICK Administration Scopolamine 1 mg 07/22/24 08:42 Scopolamine 1 Mg Tdsy TOP 08/21/24 08:41 Q72H PRN NAUSEA OR VOMITING Sennosides 1 tab 07/23/24 10:10 Senna Tablet PO 08/22/24 10:09 QDAY PRN CONSTIPATION Protocol Sodium Chloride 3 ml 07/21/24 20:16 07/21/24 21:31 Sodium Chloride Rt Rosalina 0.9% 3 Ml Nebu INH 08/20/24 20:15 3 ml PRN PRN Administration SOLN Thiamine HCl 100 mg 07/22/24 09:00 07/23/24 08:21 Thiamine 100 Mg Tablet PO 08/21/24 08:59 100 mg QDAY FREDERICK Administration Plan 44-year-old male with significant past medical history of smoking, alcohol abuse, hypertension, asthma presented to the hospital with chief complaints of shortness of breath since 1 day and admitted for acute exacerbation of asthma/COPD and alcohol withdrawal. #Alcohol withdrawal #Alcohol abuse #Delirium tremens Patient has history of alcohol abuse, states he drinks every day. In the ED, patient was found to have elevated blood pressures, tachycardia and agitated for which patient was given 2 Mg of IV lorazepam. Patient is unsure of last drink levels <3.0. Patient continued to have elevated CIWA score levels despite scheduled Librium. Patient tremulous, delirious on exam. Believes he is at his home. -CIWA protocol ordered -Phenobarbital 130 mg IV 3 times daily -Thiamine p.o. daily 100 Mg -A dose of multivitamin injection is given -Recommended protective services social worker referral -QTc prolonged (501), scopolamine patch used instead of Zofran for nausea #Acute exacerbation of asthma/COPD, resolved #History of asthma #Smoker Presented to the ED with chief complaints of shortness of breath since 1 day after smoking. Patient had history of smoking 1 pack/day, unsure of duration. In the ED, patient was found to have wheeze on examination Patient was treated with nebulizations, steroids in the ED. Vitals at the time of admission showed blood pressure 169/122 mmHg, pulse rate 150 bpm, respiratory rate 22/min. On examination, noted bilateral decreased breath sounds without any wheeze. Chest x-ray showed prominent hyperexpansion of both lung moore without any infiltrates. Patient saturating well on room air. -Started on 20 Mg prednisone p.o. for 5 days -oxygen as needed -Nicotine patches ordered -Nebulizations as needed -Smoking cessation counseling #Normocytic normochromic anemia, likely nutritional #Cachexia, failure to thrive Hemoglobin at the time of admission is 12.5 . A dose of multivitamin injection is given. -Dietary consult, appreciate recommendations -PT eval -Every 6 hour blood sugar checks -Follow-up in the outpatient basis #Hyperbilirubinemia #Mild transaminitis Likely due to alcohol liver disease. Bilirubin at the time of admission is 1.3 and AST is 56, ALT 20. CT abdomen done in 2022 showed fatty liver. Ultrasound liver showed fatty liver. -Recommended alcohol cessation #Hypokalemia, resolved Likely due to poor oral intake and alcohol abuse. Potassium at the time of admission is 2.7. Ordered 40 mEq of IV potassium and patient received 40 mill equivalents of oral in the ED. -Monitor electrolytes and replete accordingly. #Hypertension Blood pressure at the time of admission is 169/122 mmHg, likely due to alcohol and nicotine withdrawal. Patient is using lisinopril 5 Mg at home, unsure of compliance. CIWA protocol and nicotine patch was ordered -Resume home lisinopril. DVT prophylaxis: GI prophylaxis: Protonix Diet: Regular Lines: Peripheral IV Code status: Full code Plan of care discussed with senior resident Dr. Guadarrama PGY?[address] Jimenez. Caleb Bustamante MD PGY?1 Attending Provider Attestation/Addendum I have examined the patient, reviewed labs and imaging findings, discussed the case with the resident(s), and reviewed entered orders. I agree with the plan of care as outlined in this note, with these additional summaries/recommendations: Patient seen at bedside. Overnight patient was agitated and required extra doses of benzodiazepines. Today at bedside his alcohol withdrawal appears worsened and appears delirious with significant bilateral hand tremor. CIWA has now up trended to 18 and 20. We will DC scheduled Librium and start phenobarbital. Continue CIWA with Ativan. We will continue to monitor patient closely and peer financial counselor on cessation once mentation is improved. Continue treatment for COPD exacerbation with DuoNebs & oral prednisone. Chest x-ray shows significant hyperexpansion. Repeat hematology and chemistry panel in AM. Dr. Jimenez
[2024-07-23] MEDS: PHENobarbital Inj 130 MG, SODIUM CHLORIDE 0.9% FLUSH 12 ML IVP (21:25)
[2024-07-24] VITALS (8 sets, daily range): BP systolic 120–141; BP diastolic 93–109; PULSE 90–104; RESP 15–19; TEMP 36.3–37; O2SAT 96–99; BMI 14.6
[2024-07-24] MEDS: PHENobarbital Inj 130 MG, SODIUM CHLORIDE 0.9% FLUSH 12 ML IVP ×2 (05:35→21:19)
[2024-07-24 06:29] LABS: Basophils % (Auto) 0 % (0-2.5); Eosinophils % (Auto) 0 % (0-10); Hematocrit 31.1 % (41.0-53.0); Hemoglobin 10.6 g/dL (13.5-16.0); Immature Granulocytes % (Auto) 0 % (0-0); Immature Granulocytes Auto 0.03 Thou/mm3 (0.00-0.00); Lymphocytes # (Auto) 1.4 Thou/mm3 (1.0-4.8); Lymphocytes % (Auto) 20 % (10-50); Mean Corpuscular HGB Conc 34.1 g/dl (31.0-37.0); Mean Corpuscular Hemoglobin 30.6 pg (25.0-35.0); Mean Corpuscular Volume 90 fL (80-100); Monocytes # (Auto) 0.5 Thou/mm3 (0.0-0.8); Monocytes % (Auto) 7 % (0-12); Neutrophils # (Auto) 5.2 Thou/mm3 (1.8-7.7); Neutrophils % (Auto) 72 % (37-80); Nucleated Red Blood Cell # 0.02 Thou/mm3 (0.00-0.00); Nucleated Red Blood Cell % 0 /100 WBC (0); Platelet Count 171 Thou/mm3 (140-440); RDW Standard Deviation 44.7 fL (35.1-43.9); Red Blood Count 3.46 Miln/mm3 (4.50-5.90); White Blood Count 7.1 Thou/mm3 (3.8-10.6)
[2024-07-24 07:03] LABS: Alanine Aminotransferase 17 U/L (10-49); Albumin, Serum 2.9 gm/dL (3.5-5.0); Albumin/Globulin Ratio 1.4 (1.2-2.2); Alkaline Phosphatase 157 U/L (46-116); Anion Gap 7 (7-16); Aspartate Amino Transferase 51 U/L (0-34); BUN/Creatinine Ratio 13 Ratio (12-20); Bilirubin,Total 0.6 mg/dL (0.3-1.2); Blood Urea Nitrogen 9 mg/dL (9-23); Calcium 8.2 mg/dL (8.3-10.6); Calcium (Corrected) 9.1 mg/dL (8.5-10.1); Chloride 107 mMol/L (98-107); Creatinine (Component) 0.7 mg/dL (0.6-1.3); Estimated Creatinine Clearance 83.5 mL/min (>60); Globulin 2.1 gm/dL (2.3-3.5); Glucose 115 mg/dL (74-106); Magnesium 1.8 mg/dL (1.6-2.6); Osmolality,Calculated 286 (275-295); Phosphorous 1.8 mg/dL (2.4-5.1); Potassium 3.5 mMol/L (3.4-5.1); Sodium 144 mMol/L (136-145); eGFR > 60 See Note
[2024-07-24] MEDS: THIAMINE 100 MG TABLET PO (08:41)
[2024-07-24] MEDS: Lisinopril 2.5 MG TABLET 5 MG PO (08:41)
[2024-07-24] MEDS: PANTOPRAZOLE 40 MG TABLET PO (08:41)
[2024-07-24] MEDS: NICOTINE PATCH 21 MG/24 HR PATCH.TD24 TOP (08:41)
[2024-07-24] MEDS: predniSONE 20 MG TABLET PO (08:41)
[2024-07-24] MEDS: ENOXAPARIN SOD INJ 40 MG/0.4 ML SYRINGE SC (08:42)
[2024-07-24] MEDS: LORazepam 0.5 MG TABLET 2 MG PO (08:53)
[2024-07-24] MEDS: POTASSIUM PHOS IV (09:14)
[2024-07-24] MEDS: SODIUM CHLORIDE 0.9% IV (09:14)
[2024-07-24 11:59] LABS: Hepatitis A Antibody IgM Non Reactive (Non React); Hepatitis B Core Antibody IgM Non Reactive (Non React); Hepatitis B Surface Antigen Non Reactive (Non React); Hepatitis C Antibody Non Reactive (Non React)
[2024-07-24 12:38] LABS: HIV (1&2) Antibody Rapid Non-Reactive
--- NOTE | 2024-07-24 13:37 | ESPR_ITS ---
<Statement entered by Alfa Guadarrama MD - 07/24/24 17:09> Patient was seen and examined at the bedside. Patient was seen drowsy most likely due to phenobarb therefore we decrease the dose of phenobarb to twice daily. Continue CIWA protocol. Patient reported to nurse overnight that [facility] [place] Patient appears cachectic therefore we ordered HIV and hep panel. Hemoglobin remained stable. Electrolytes were repleted. Dietitian is on board. PT recommended SNF .all labs and orders were reviewed. I saw and examined the patient, and I agree with current management stated by Dr Dianna MD,PGY1. Plan of care was discussed with the attending physician and resident physician. Disclaimer: Despite multiple revisions, due to the dictation software being used, the document bellow may not be free of grammatical errors including phonetic/typographic errors. However, this does not deter from our commitment to providing health care in the patient's best interest in mind. Dr. Chiara MD, PGY 2 Documentation for date of: 07/24/24 Subjective Subjective Interval history: No overnight events. Patient seen and examined at bedside. Patient resting comfortably bed, eating breakfast, tolerating well. Patient is lethargic, continues to complain of bilateral lower extremity weakness. Denies hallucinations, anxiety, tremors. Continue CIWA protocol. Phenobarbital titrated down to 130 twice daily. HIV and hepatitis panel negative. Exam Vital Signs Temp Pulse Resp BP Pulse Ox O2 Del Method 97.5 F 98 17 126/97 H 98 Room Air 07/24/24 08:00 07/24/24 09:12 07/24/24 09:12 07/24/24 08:41 07/24/24 09:12 07/24/24 08:00 Narrative Exam PE: Gen: Well-developed and well-nourished. Extremely cachectic. HEENT: NCAT, PERRLA, EOMI, MMM, anicteric conjunctivae. CVS: normal S1 and S2. RRR. No M/R/G. Resp: CTA B/L. No rhonchi, rales, crackles or wheezing. Abd: soft, non-tender, non-distended. BS+ in all 4 quadrants. MSK: Good ROM in BUE & BLE. No edema or rash. Neuro: CN II-XII grossly intact. Strength 5/5 in BUE. Alert and oriented x3. Lethargic. Bilateral lower extremity weakness. Psych: appropriate mood and affect. Objective Labs 07/25/24 05:35 07/25/24 05:35 Labs: Laboratory Results - last 24 hr 07/24/24 07/24/24 05:40 05:50 WBC 7.1 RBC 3.46 L Hgb 10.6 L Hct 31.1 L MCV 90 MCH 30.6 MCHC 34.1 RDW Std Deviation 44.7 H Plt Count 171 Neut % (Auto) 72 Lymph % (Auto) 20 [place] % (Auto) 7 Eos % (Auto) 0 Baso % (Auto) 0 Neut # (Auto) 5.2 Lymph # (Auto) 1.4 [place] # (Auto) 0.5 Eos # (Auto) 0.0 Baso # (Auto) 0.0 Immature Gran # (Auto) 0.03 H Absolute Nucleated RBC 0.02 H Immature Gran % 0 Nucleated RBC % 0 Sodium 144 Potassium 3.5 Chloride 107 Carbon Dioxide 30.0 Anion Gap 7 BUN 9 Creatinine 0.7 Estim Creat Clear Calc 83.5 eGFR > 60 BUN/Creatinine Ratio 13 Glucose 115 H Calculated Osmolality 286 Calcium 8.2 L Corrected Calcium 9.1 Phosphorus 1.8 L Magnesium 1.8 Total Bilirubin 0.6 AST 51 H ALT 17 Alkaline Phosphatase 157 H Total Protein 5.0 L Albumin 2.9 L Globulin 2.1 L Albumin/Globulin Ratio 1.4 Hepatitis A IgM Ab Non Reactive Hep Bs Antigen Non Reactive Hep B Core IgM Ab Non Reactive Hepatitis C Antibody Non Reactive HIV 1&2 Antibody Rapid Non-Reactive Quality Measures Quality Measures VTE prophylaxis Assessment & Plan Assessment Current Active Medications: Generic Name Dose Route Start Last Admin Trade Name Freq PRN Reason Stop Dose Admin Acetaminophen 650 mg 07/22/24 09:38 Acetaminophen 325 Mg Tablet PO 08/21/24 04:55 Q6H PRN Fever >100.3 Albuterol/Ipratropium 3 ml 07/22/24 04:56 Albuterol/Ipratropium (Duoneb) Rt Rosalina 3 Ml Nebu INH 08/21/24 06:59 Q6HRRT PRN sob or wheeze Phenobarbital Sodium 130 mg/ 0 mg 07/24/24 21:00 Sodium Chloride 12 ml IVP 08/07/24 20:59 BID FREDERICK Enoxaparin Sodium 40 mg 07/22/24 09:00 07/24/24 08:42 Enoxaparin Sod Inj 40 Mg/0.4 Ml Syringe SC 08/05/24 08:59 40 mg QDAY FREDERICK Administration Potassium Phosphate 30 mmol/ 510 mls @ 85 mls/hr 07/24/24 07:42 07/24/24 09:14 Sodium Chloride IV 07/24/24 13:41 85 mls/hr X1 ONE Administration Lisinopril 5 mg 07/23/24 09:00 07/24/24 08:41 Lisinopril 2.5 Mg Tablet PO 08/22/24 08:59 5 mg QDAY FREDERICK Administration Lorazepam 0.5 mg 07/22/24 05:02 Lorazepam 0.5 Mg Tablet PO 07/27/24 05:01 Q4HR PRN CIWA Score 2-6 Lorazepam 1 mg 07/22/24 05:02 07/22/24 20:00 Lorazepam 0.5 Mg Tablet PO 07/27/24 05:01 1 mg Q4HR PRN Administration CIWA SCORE 7-11 Lorazepam 2 mg 07/22/24 05:02 07/24/24 08:53 Lorazepam 0.5 Mg Tablet PO 07/27/24 05:01 2 mg Q4HR PRN Administration CIWA SCORE 12-15 Lorazepam 0.5 mg 07/23/24 01:03 Lorazepam 2 Mg/Ml Vial IV 07/28/24 01:02 Q2HR PRN CIWA SCORE 8-13 Lorazepam 1 mg 07/23/24 01:03 Lorazepam 2 Mg/Ml Vial IV 07/28/24 01:02 Q2HR PRN CIWA SCORE 14-19 Lorazepam 2 mg 07/23/24 01:03 07/23/24 13:09 Lorazepam 2 Mg/Ml Vial IV 07/28/24 01:02 2 mg Q2HR PRN Administration CIWA SCORE 20-25 Lorazepam 2 mg 07/23/24 01:03 Lorazepam 2 Mg/Ml Vial IVP X1 PRN Breakthrough Agitation Magnesium Hydroxide 30 ml 07/22/24 04:56 Milk Of Magnesia Susp 30 Ml Udc PO 08/21/24 04:55 QDAY PRN CONSTIPATION Protocol Nicotine 21 mg 07/23/24 00:39 07/24/24 08:41 Nicotine Patch 21 Mg/24 Hr Patch.Td24 TOP 08/22/24 00:38 21 mg QDAY FREDERICK Administration Ondansetron HCl 4 mg 07/22/24 04:56 Ondansetron Inj 2 Mg/Ml Inj 2 Ml IV 08/21/24 04:55 Q6H PRN NAUSEA OR VOMITING Protocol Pantoprazole Sodium 40 mg 07/22/24 09:00 07/24/24 08:41 Pantoprazole 40 Mg Tablet PO 08/21/24 08:59 40 mg QDAY FREDERICK Administration Prednisone 20 mg 07/22/24 09:00 07/24/24 08:41 Prednisone 20 Mg Tablet PO 07/25/24 06:00 20 mg QDAY FREDERICK Administration Scopolamine 1 mg 07/22/24 08:42 Scopolamine 1 Mg Tdsy TOP 08/21/24 08:41 Q72H PRN NAUSEA OR VOMITING Sennosides 1 tab 07/23/24 10:10 Senna Tablet PO 08/22/24 10:09 QDAY PRN CONSTIPATION Protocol Sodium Chloride 3 ml 07/21/24 20:16 07/21/24 21:31 Sodium Chloride Rt Rosalina 0.9% 3 Ml Nebu INH 08/20/24 20:15 3 ml PRN PRN Administration SOLN Thiamine HCl 100 mg 07/22/24 09:00 07/24/24 08:41 Thiamine 100 Mg Tablet PO 08/21/24 08:59 100 mg QDAY FREDERICK Administration Plan 44-year-old male with significant past medical history of smoking, alcohol abuse, hypertension, asthma presented to the hospital with chief complaints of shortness of breath since 1 day and admitted for acute exacerbation of asthma/COPD and alcohol withdrawal. #Alcohol withdrawal, improved #Alcohol abuse #Delirium tremens, resolved Patient has history of alcohol abuse, states he drinks every day. In the ED, patient was found to have elevated blood pressures, tachycardia and agitated for which patient was given 2 Mg of IV lorazepam. Patient is unsure of last drink levels <3.0. Patient continued to have elevated CIWA score levels despite scheduled Librium. Patient tremulous, delirious on exam. Believes he is at his home. -CIWA protocol ordered -Phenobarbital 130 mg IV 3 times daily -Thiamine p.o. daily 100 Mg -A dose of multivitamin injection is given -Recommended social services aide referral -QTc prolonged (501), scopolamine patch used instead of Zofran for nausea #Normocytic normochromic anemia, likely nutritional #Cachexia, failure to thrive Hemoglobin at the time of admission is 12.5 . A dose of multivitamin injection is given. Patient is extremely cachectic, chronic. Suspect malnutrition due to alcohol abuse. HIV test and hepatitis panel negative. -Dietary consult, appreciate recommendations -PT kevinal recommending SNF for rehab -Every 6 hour blood sugar checks -Follow-up in the outpatient basis #Acute exacerbation of asthma/COPD, resolved #History of asthma #Smoker Presented to the ED with chief complaints of shortness of breath since 1 day after smoking. Patient had history of smoking 1 pack/day, unsure of duration. In the ED, patient was found to have wheeze on examination Patient was treated with nebulizations, steroids in the ED. Vitals at the time of admission showed blood pressure 169/122 mmHg, pulse rate 150 bpm, respiratory rate 22/min. On examination, noted bilateral decreased breath sounds without any wheeze. Chest x-ray showed prominent hyperexpansion of both lung moore without any infiltrates. Patient saturating well on room air. -Started on 20 Mg prednisone p.o. for 5 days -oxygen as needed -Nicotine patches ordered -Nebulizations as needed -Smoking cessation counseling #Hyperbilirubinemia #Mild transaminitis Likely due to alcohol liver disease. Bilirubin at the time of admission is 1.3 and AST is 56, ALT 20. CT abdomen done in 2022 showed fatty liver. Ultrasound liver showed fatty liver. -Recommended alcohol cessation #Hypokalemia, resolved Likely due to poor oral intake and alcohol abuse. Potassium at the time of admission is 2.7. Ordered 40 mEq of IV potassium and patient received 40 mill equivalents of oral in the ED. -Monitor electrolytes and replete accordingly. #Hypertension Blood pressure at the time of admission is 169/122 mmHg, likely due to alcohol and nicotine withdrawal. Patient is using lisinopril 5 Mg at home, unsure of compliance. CIWA protocol and nicotine patch was ordered -Resume home lisinopril. DVT prophylaxis: Lovenox GI prophylaxis: Protonix Diet: Regular Lines: Peripheral IV Code status: Full code Plan of care discussed with senior resident Dr. Guadarrama PGY?[address] Jimenez. Caleb Bustamante MD PGY?1 Attending Provider Attestation/Addendum I have examined the patient, reviewed labs and imaging findings, discussed the case with the resident(s), and reviewed entered orders. I agree with the plan of care as outlined in this note, with these additional summaries/recommendations: Patient seen at bedside. No acute overnight events. Alcohol withdrawal appears somewhat improved this morning with CIWA 1 point. We will decrease phenobarbital today and continue to monitor CIWA closely. Continue CIWA with IV Ativan. Continue treatment for COPD exacerbation with DuoNebs & oral prednisone. Chest x-ray shows significant hyperexpansion. Repeat hematology and chemistry panel in AM. Dr. Jimenez
[2024-07-24] MEDS: LORazepam 0.5 MG TABLET 1 MG PO (16:16)
[2024-07-25] VITALS (9 sets, daily range): BP systolic 114–132; BP diastolic 87–99; PULSE 73–104; RESP 14–20; TEMP 36.1–36.8; O2SAT 96–99; BMI 14.7
[2024-07-25 05:55] LABS: Basophils % (Auto) 0 % (0-2.5); Eosinophils % (Auto) 0 % (0-10); Hematocrit 27.3 % (41.0-53.0); Hemoglobin 9.4 g/dL (13.5-16.0); Immature Granulocytes % (Auto) 0 % (0-0); Immature Granulocytes Auto 0.02 Thou/mm3 (0.00-0.00); Lymphocytes # (Auto) 1.3 Thou/mm3 (1.0-4.8); Lymphocytes % (Auto) 24 % (10-50); Mean Corpuscular HGB Conc 34.4 g/dl (31.0-37.0); Mean Corpuscular Hemoglobin 30.8 pg (25.0-35.0); Mean Corpuscular Volume 90 fL (80-100); Monocytes # (Auto) 0.5 Thou/mm3 (0.0-0.8); Monocytes % (Auto) 9 % (0-12); Neutrophils # (Auto) 3.5 Thou/mm3 (1.8-7.7); Neutrophils % (Auto) 67 % (37-80); Nucleated Red Blood Cell # 0.02 Thou/mm3 (0.00-0.00); Nucleated Red Blood Cell % 0 /100 WBC (0); Platelet Count 136 Thou/mm3 (140-440); RDW Standard Deviation 44.4 fL (35.1-43.9); Red Blood Count 3.05 Miln/mm3 (4.50-5.90); White Blood Count 5.3 Thou/mm3 (3.8-10.6)
[2024-07-25 06:22] LABS: Alanine Aminotransferase 21 U/L (10-49); Albumin, Serum 2.5 gm/dL (3.5-5.0); Albumin/Globulin Ratio 1.4 (1.2-2.2); Alkaline Phosphatase 128 U/L (46-116); Anion Gap 7 (7-16); Aspartate Amino Transferase 49 U/L (0-34); BUN/Creatinine Ratio 23 Ratio (12-20); Bilirubin,Total 0.3 mg/dL (0.3-1.2); Blood Urea Nitrogen 9 mg/dL (9-23); Calcium 7.7 mg/dL (8.3-10.6); Calcium (Corrected) 8.9 mg/dL (8.5-10.1); Chloride 108 mMol/L (98-107); Creatinine (Component) 0.4 mg/dL (0.6-1.3); Estimated Creatinine Clearance 146.7 mL/min (>60); Globulin 1.8 gm/dL (2.3-3.5); Glucose 109 mg/dL (74-106); Magnesium 1.8 mg/dL (1.6-2.6); Osmolality,Calculated 284 (275-295); Phosphorous 3.3 mg/dL (2.4-5.1); Potassium 3.7 mMol/L (3.4-5.1); Sodium 143 mMol/L (136-145); Total Protein 4.3 gm/dL (5.7-8.2); eGFR > 60 See Note
[2024-07-25] MEDS: ENOXAPARIN SOD INJ 40 MG/0.4 ML SYRINGE SC (08:09)
[2024-07-25] MEDS: Magnesium Sulfate 2 GM Ivpb 2 GM/50 ML BAG IV (08:09)
[2024-07-25] MEDS: PANTOPRAZOLE 40 MG TABLET PO (08:09)
[2024-07-25] MEDS: THIAMINE 100 MG TABLET PO (08:09)
[2024-07-25] MEDS: NICOTINE PATCH 21 MG/24 HR PATCH.TD24 TOP (08:09)
[2024-07-25] MEDS: POTASSIUM CHLORIDE 20 mEq TABCR PO (08:09)
[2024-07-25] MEDS: PHENobarbital Inj 130 MG, SODIUM CHLORIDE 0.9% FLUSH 12 ML IVP (08:10)
[2024-07-25] MEDS: Lisinopril 2.5 MG TABLET 5 MG PO (08:10)
[2024-07-25] MEDS: FOLIC ACID 1 MG TABLET PO (10:40)
--- NOTE | 2024-07-25 13:12 | ESPR_ITS ---
Documentation for date of: 07/25/24 Subjective Subjective Interval history: No overnight events reported. Patient examined at bedside this morning. Patient appeared somnolent but arousable. CIWA for this morning 12. Phenobarbital x 1 last dose given this morning. Phenobarbital DC'd for tomorrow. Continue CIWA protocol. Follow-up on folate levels. Previous B12 within limits on previous admission. Potassium repleted. Patient is Alert but not orientated. Stated he was invisible to others. Exam Vital Signs Temp Pulse Resp BP Pulse Ox O2 Del Method 97.2 F 79 17 117/87 H 96 Room Air 07/25/24 12:00 07/25/24 12:00 07/25/24 12:00 07/25/24 12:00 07/25/24 12:07/25/24 12:00 Narrative Exam General Appearance: Alert & Oriented X0, well-nourished male who is lying in bed in no acute distress HEENT: Skull symmetrical and atraumatic. Conjunctivae pin and moist. Pupils equal, round, reactive to light and accommodation (PERRL). External ear without lesion or discharge. Straight, nares patient, mucosa pink, no discharge. Cardio: Normal Rate and Rhythm with S1 and S2 heart sounds. No murmurs or extra heart sounds auscultated. No bruits on carotid auscultation. No peripheral edema or cyanosis. Lungs: Symmetric with good expansion. Chest and back non-tender. Breath sounds vesicular without crackles, wheezing or rhonchi Abdomen: Non-tender, Non-distended, Normal Reactive Bowel Sounds Neuro: Yes Alert, No cooperative, No oriented to person, No place, and No time. Speech clear. CN grossly intact. Upper motor strength 5/5 and Lower motor strength 5/5. Sensation intact. Objective Labs 07/25/24 05:35 07/25/24 05:35 Labs: Laboratory Results - last 24 hr 07/25/24 05:35 WBC 5.3 RBC 3.05 L Hgb 9.4 L Hct 27.3 L MCV 90 MCH 30.8 MCHC 34.4 RDW Std Deviation 44.4 H Plt Count 136 L D Neut % (Auto) 67 Lymph % (Auto) 24 Swisher % (Auto) 9 Eos % (Auto) 0 Baso % (Auto) 0 Neut # (Auto) 3.5 Lymph # (Auto) 1.3 Swisher # (Auto) 0.5 Eos # (Auto) 0.0 Baso # (Auto) 0.0 Immature Gran # (Auto) 0.02 H Absolute Nucleated RBC 0.02 H Immature Gran % 0 Nucleated RBC % 0 Sodium 143 Potassium 3.7 Chloride 108 H Carbon Dioxide 28.0 Anion Gap 7 BUN 9 Creatinine 0.4 L Estim Creat Clear Calc 146.7 eGFR > 60 BUN/Creatinine Ratio 23 H Glucose 109 H Calculated Osmolality 284 Calcium 7.7 L Corrected Calcium 8.9 Phosphorus 3.3 Magnesium 1.8 Total Bilirubin 0.3 AST 49 H ALT 21 Alkaline Phosphatase 128 H D Total Protein 4.3 L Albumin 2.5 L Globulin 1.8 L Albumin/Globulin Ratio 1.4 Quality Measures Quality Measures VTE prophylaxis Assessment & Plan Assessment Current Active Medications: Generic Name Dose Route Start Last Admin Trade Name Freq PRN Reason Stop Dose Admin Acetaminophen 650 mg 07/22/24 09:38 Acetaminophen 325 Mg Tablet PO 08/21/24 04:55 Q6H PRN Fever >100.3 Albuterol/Ipratropium 3 ml 07/22/24 04:56 Albuterol/Ipratropium (Duoneb) Rt Rosalina 3 Ml Nebu INH 08/21/24 06:59 Q6HRRT PRN sob or wheeze Enoxaparin Sodium 40 mg 07/22/24 09:00 07/25/24 08:09 Enoxaparin Sod Inj 40 Mg/0.4 Ml Syringe SC 08/05/24 08:59 40 mg QDAY FREDERICK Administration Folic Acid 1 mg 07/25/24 10:00 07/25/24 10:40 Folic Acid 1 Mg Tablet PO 08/24/24 09:59 1 mg QDAY FREDERICK Administration Lisinopril 5 mg 07/23/24 09:00 07/25/24 08:10 Lisinopril 2.5 Mg Tablet PO 08/22/24 08:59 5 mg QDAY FREDERICK Administration Lorazepam 0.5 mg 07/22/24 05:02 Lorazepam 0.5 Mg Tablet PO 07/27/24 05:01 Q4HR PRN CIWA Score 2-6 Lorazepam 1 mg 07/22/24 05:02 07/24/24 16:16 Lorazepam 0.5 Mg Tablet PO 07/27/24 05:01 1 mg Q4HR PRN Administration CIWA SCORE 7-11 Lorazepam 1 mg 07/23/24 01:03 Lorazepam 2 Mg/Ml Vial IV 07/28/24 01:02 Q2HR PRN CIWA SCORE 14-19 Lorazepam 2 mg 07/23/24 01:03 07/23/24 13:09 Lorazepam 2 Mg/Ml Vial IV 07/28/24 01:02 2 mg Q2HR PRN Administration CIWA SCORE 20-25 Lorazepam 2 mg 07/23/24 01:03 Lorazepam 2 Mg/Ml Vial IVP X1 PRN Breakthrough Agitation Lorazepam 2 mg 07/25/24 11:07 Lorazepam 0.5 Mg Tablet PO 07/27/24 05:01 Q4HR PRN CIWA SCORE 12-13 Lorazepam 0.5 mg 07/25/24 11:10 Lorazepam 2 Mg/Ml Vial IV 07/28/24 01:02 Q2HR PRN CIWA SCORE 8-11 Protocol Magnesium Hydroxide 30 ml 07/22/24 04:56 Milk Of Magnesia Susp 30 Ml Udc PO 08/21/24 04:55 QDAY PRN CONSTIPATION Protocol Nicotine 21 mg 07/23/24 00:39 07/25/24 08:09 Nicotine Patch 21 Mg/24 Hr Patch.Td24 TOP 08/22/24 00:38 21 mg QDAY FREDERICK Administration Pantoprazole Sodium 40 mg 07/22/24 09:00 07/25/24 08:09 Pantoprazole 40 Mg Tablet PO 08/21/24 08:59 40 mg QDAY FREDERICK Administration Scopolamine 1 mg 07/22/24 08:42 Scopolamine 1 Mg Tdsy TOP 08/21/24 08:41 Q72H PRN NAUSEA OR VOMITING Sennosides 1 tab 07/23/24 10:10 Senna Tablet PO 08/22/24 10:09 QDAY PRN CONSTIPATION Protocol Sodium Chloride 3 ml 07/21/24 20:16 07/21/24 21:31 Sodium Chloride Rt Rosalina 0.9% 3 Ml Nebu INH 08/20/24 20:15 3 ml PRN PRN Administration SOLN Thiamine HCl 100 mg 07/22/24 09:00 07/25/24 08:09 Thiamine 100 Mg Tablet PO 08/21/24 08:59 100 mg QDAY FREDERICK Administration Plan 44-year-old male with significant past medical history of smoking, alcohol abuse, hypertension, asthma presented to the hospital with chief complaints of shortness of breath since 1 day and admitted for acute exacerbation of asthma/COPD and alcohol withdrawal. #Alcohol withdrawal, improving #Alcohol Use Disorder #Delirium tremens, resolved Patient has history of alcohol abuse, states he drinks every day. In the ED, patient was found to have elevated blood pressures, tachycardia and agitated for which patient was given 2 Mg of IV lorazepam. Patient is unsure of last drink levels <3.0. Patient continued to have elevated CIWA score levels despite scheduled Librium. Patient tremulous, delirious on exam. Patient appeared altered this morning but arousable. -CIWA protocol ordered -Thiamine p.o. daily 100 Mg -Folate Qday -A dose of multivitamin injection is given -Recommended social worker assistant referral -QTc prolonged (501), scopolamine patch used instead of Zofran for nausea #Normocytic normochromic anemia, likely nutritional #Cachexia, failure to thrive Hemoglobin at the time of admission is 12.5 . A dose of multivitamin injection is given. Patient is extremely cachectic, chronic. Suspect malnutrition due to alcohol abuse. HIV test and hepatitis panel negative. -Dietary consult, appreciate recommendations -PT eval recommending SNF for rehab -Every 6 hour blood sugar checks -Follow-up in the outpatient basis #Acute exacerbation of asthma/COPD, resolved #History of asthma #Smoker Presented to the ED with chief complaints of shortness of breath since 1 day after smoking. Patient had history of smoking 1 pack/day, unsure of duration. In the ED, patient was found to have wheeze on examination Patient was treated with nebulizations, steroids in the ED. Vitals at the time of admission showed blood pressure 169/122 mmHg, pulse rate 150 bpm, respiratory rate 22/min. On examination, noted bilateral decreased breath sounds without any wheeze. Chest x-ray showed prominent hyperexpansion of both lung moore without any infiltrates. Patient saturating well on room air. -Started on 20 Mg prednisone p.o. for 5 days -oxygen as needed -Nicotine patches ordered -Nebulizations as needed -Smoking cessation counseling #Mild transaminitis, improving #Hyperbilirubinemia, Resolved. Likely due to alcohol liver disease. Bilirubin at the time of admission is 1.3 and AST is 56, ALT 20. CT abdomen done in 2022 showed fatty liver. Ultrasound liver showed fatty liver. -Recommended alcohol cessation #Hypokalemia, resolved Likely due to poor oral intake and alcohol abuse. Potassium at the time of admission is 2.7. Ordered 40 mEq of IV potassium and patient received 40 mill equivalents of oral in the ED. -Monitor electrolytes and replete accordingly. #Hypertension Blood pressure at the time of admission is 169/122 mmHg, likely due to alcohol and nicotine withdrawal. Patient is using lisinopril 5 Mg at home, unsure of compliance. CIWA protocol and nicotine patch was ordered -Resume home lisinopril. DVT prophylaxis: Lovenox GI prophylaxis: Protonix Diet: Regular Lines: Peripheral IV Code status: Full code - The patient's plan was discussed with attending Dr. Jimenez and senior residents Dr. Familia Manning MD PGY1 Internal Medicine Attending Provider Attestation/Addendum I have examined the patient, reviewed labs and imaging findings, discussed the case with the resident(s), and reviewed entered orders. I agree with the plan of care as outlined in this note, with these additional summaries/recommendations: Patient seen at bedside. No acute overnight events. Patient appears somnolent after receiving phenobarbital this morning. We will discontinue phenobarbital and continue CIWA protocol. Patient continues to be in significant alcohol withdrawal and we will monitor closely for worsening symptoms or hallucinations. Continue treatment for COPD exacerbation with DuoNebs & oral prednisone. Chest x-ray shows significant hyperexpansion. Repeat hematology and chemistry panel in AM. Dr. Jimenez
[2024-07-25 18:51] LABS: Folate 6.56 ng/mL (>5.38)
[2024-07-25] MEDS: LORazepam 0.5 MG TABLET PO (22:52)
[2024-07-26] VITALS (11 sets, daily range): BP systolic 103–137; BP diastolic 74–107; PULSE 81–137; RESP 12–78; TEMP 36.1–37.2; O2SAT 92–100; BMI 14.7
[2024-07-26] MEDS: LORazepam 2 MG/ML VIAL 1 MG IV (02:10)
[2024-07-26] MEDS: LORazepam 2 MG/ML VIAL IM (02:35)
--- NOTE | 2024-07-26 02:43 | PC.NURSE ---
patient became agitated when he began dressing to leave. I was trying to explain and reorient patient. He was agitated, and said he wanted to throw the tele box at me. he had it in his hand. I stepped out and called a beatriz lyon. Dr. Rose came to bedside and we gave im ativan and restrained patient. He is very confused, does not know where he is at. We were able to place another iv while he was restrained. he was begging security to shoot him in the head. He has a tele sitter and yelling out. will monitor closely.
[2024-07-26 06:42] LABS: Basophils % (Auto) 0 % (0-2.5); Eosinophils # (Auto) 0.2 Thou/mm3 (0.0-0.5); Eosinophils % (Auto) 3 % (0-10); Hematocrit 28.7 % (41.0-53.0); Hemoglobin 9.8 g/dL (13.5-16.0); Immature Granulocytes % (Auto) 1 % (0-0); Immature Granulocytes Auto 0.03 Thou/mm3 (0.00-0.00); Lymphocytes # (Auto) 1.8 Thou/mm3 (1.0-4.8); Lymphocytes % (Auto) 30 % (10-50); Mean Corpuscular HGB Conc 34.1 g/dl (31.0-37.0); Mean Corpuscular Hemoglobin 30.9 pg (25.0-35.0); Mean Corpuscular Volume 91 fL (80-100); Monocytes # (Auto) 0.5 Thou/mm3 (0.0-0.8); Monocytes % (Auto) 8 % (0-12); Neutrophils # (Auto) 3.4 Thou/mm3 (1.8-7.7); Neutrophils % (Auto) 58 % (37-80); Nucleated Red Blood Cell % 0 /100 WBC (0); Platelet Count 152 Thou/mm3 (140-440); RDW Standard Deviation 43.8 fL (35.1-43.9); Red Blood Count 3.17 Miln/mm3 (4.50-5.90); White Blood Count 5.9 Thou/mm3 (3.8-10.6)
[2024-07-26 07:16] LABS: Alanine Aminotransferase 28 U/L (10-49); Albumin, Serum 2.7 gm/dL (3.5-5.0); Albumin/Globulin Ratio 1.5 (1.2-2.2); Alkaline Phosphatase 122 U/L (46-116); Anion Gap 8 (7-16); Aspartate Amino Transferase 58 U/L (0-34); BUN/Creatinine Ratio 28 Ratio (12-20); Bilirubin,Total 0.5 mg/dL (0.3-1.2); Blood Urea Nitrogen 11 mg/dL (9-23); Calcium 7.7 mg/dL (8.3-10.6); Calcium (Corrected) 8.7 mg/dL (8.5-10.1); Carbon Dioxide 26.4 mMol/L (20.0-31.0); Chloride 110 mMol/L (98-107); Creatinine (Component) 0.4 mg/dL (0.6-1.3); Estimated Creatinine Clearance 146.7 mL/min (>60); Globulin 1.8 gm/dL (2.3-3.5); Glucose 70 mg/dL (74-106); Magnesium 1.9 mg/dL (1.6-2.6); Osmolality,Calculated 284 (275-295); Phosphorous 2.8 mg/dL (2.4-5.1); Potassium 3.9 mMol/L (3.4-5.1); Sodium 144 mMol/L (136-145); Total Protein 4.5 gm/dL (5.7-8.2); eGFR > 60 See Note
[2024-07-26] MEDS: ENOXAPARIN SOD INJ 40 MG/0.4 ML SYRINGE SC (09:29)
[2024-07-26] MEDS: NICOTINE PATCH 21 MG/24 HR PATCH.TD24 TOP (09:29)
[2024-07-26] MEDS: PANTOPRAZOLE 40 MG TABLET PO (09:30)
[2024-07-26] MEDS: THIAMINE 100 MG TABLET PO (09:30)
[2024-07-26] MEDS: Lisinopril 2.5 MG TABLET 5 MG PO (09:30)
[2024-07-26] MEDS: FOLIC ACID 1 MG TABLET PO (09:30)
[2024-07-26] MEDS: chlordiazePOXIDE HCl 25 MG CAPSULE PO ×3 (11:07→22:24)
--- NOTE | 2024-07-26 13:01 | PD.RESPRO ---
Documentation for date of: 07/26/24 Subjective Subjective Interval history: No overnight events. Patient seen and examined at bedside. Patient mildly tremulous, disoriented, able to follow commands. Alert and interactive. Denies anxiety, nausea, vomiting. Librium 3 times daily, will titrate down. Exam Vital Signs Temp Pulse Resp BP Pulse Ox O2 Del Method 97.0 F 81 18 128/99 H 99 Room Air 07/26/24 12:00 07/26/24 12:00 07/26/24 12:00 07/26/24 12:00 07/26/24 12:00 07/26/24 12:00 Narrative Exam PE: Gen: Well-developed and well-nourished. Extremely cachectic. HEENT: NCAT, PERRLA, EOMI, MMM, anicteric conjunctivae. CVS: normal S1 and S2. RRR. No M/R/G. Resp: CTA B/L. No rhonchi, rales, crackles or wheezing. Abd: soft, non-tender, non-distended. BS+ in all 4 quadrants. MSK: Good ROM in BUE & BLE. No edema or rash. Neuro: CN II-XII grossly intact. Strength 5/5 in BUE. Alert and oriented x1. Bilateral lower extremity weakness. Psych: appropriate mood and affect. Objective Labs 07/26/24 05:14 07/26/24 05:14 Labs: Laboratory Results - last 24 hr 07/25/24 07/26/24 05:35 05:14 WBC 5.9 RBC 3.17 L Hgb 9.8 L Hct 28.7 L MCV 91 MCH 30.9 MCHC 34.1 RDW Std Deviation 43.8 Plt Count 152 Neut % (Auto) 58 Lymph % (Auto) 30 Ray % (Auto) 8 Eos % (Auto) 3 Baso % (Auto) 0 Neut # (Auto) 3.4 Lymph # (Auto) 1.8 Ray # (Auto) 0.5 Eos # (Auto) 0.2 Baso # (Auto) 0.0 Immature Gran # (Auto) 0.03 H Absolute Nucleated RBC 0.00 Immature Gran % 1 H Nucleated RBC % 0 Sodium 144 Potassium 3.9 Chloride 110 H Carbon Dioxide 26.4 Anion Gap 8 BUN 11 Creatinine 0.4 L Estim Creat Clear Calc 146.7 eGFR > 60 BUN/Creatinine Ratio 28 H Glucose 70 L Calculated Osmolality 284 Calcium 7.7 L Corrected Calcium 8.7 Phosphorus 2.8 Magnesium 1.9 Total Bilirubin 0.5 AST 58 H ALT 28 Alkaline Phosphatase 122 H Total Protein 4.5 L Albumin 2.7 L Globulin 1.8 L Albumin/Globulin Ratio 1.5 Folate 6.56 Quality Measures Quality Measures VTE prophylaxis Assessment & Plan Assessment Current Active Medications: Generic Name Dose Route Start Last Admin Trade Name Freq PRN Reason Stop Dose Admin Acetaminophen 650 mg 07/22/24 09:38 Acetaminophen 325 Mg Tablet PO 08/21/24 04:55 Q6H PRN Fever >100.3 Albuterol/Ipratropium 3 ml 07/22/24 04:56 Albuterol/Ipratropium (Duoneb) Rt Rosalina 3 Ml Nebu INH 08/21/24 06:59 Q6HRRT PRN sob or wheeze Chlordiazepoxide HCl 25 mg 07/26/24 14:00 Chlordiazepoxide Hcl 25 Mg Capsule PO 07/31/24 13:59 TID FREDERICK Enoxaparin Sodium 40 mg 07/22/24 09:00 07/26/24 09:29 Enoxaparin Sod Inj 40 Mg/0.4 Ml Syringe SC 08/05/24 08:59 40 mg QDAY FREDERICK Administration Folic Acid 1 mg 07/25/24 10:00 07/26/24 09:30 Folic Acid 1 Mg Tablet PO 08/24/24 09:59 1 mg QDAY FREDERICK Administration Lisinopril 5 mg 07/23/24 09:00 07/26/24 09:30 Lisinopril 2.5 Mg Tablet PO 08/22/24 08:59 5 mg QDAY FREDERICK Administration Lorazepam 0.5 mg 07/22/24 05:02 07/25/24 22:52 Lorazepam 0.5 Mg Tablet PO 07/27/24 05:01 0.5 mg Q4HR PRN Administration CIWA Score 2-6 Lorazepam 1 mg 07/22/24 05:02 07/24/24 16:16 Lorazepam 0.5 Mg Tablet PO 07/27/24 05:01 1 mg Q4HR PRN Administration CIWA SCORE 7-11 Lorazepam 1 mg 07/23/24 01:03 07/26/24 02:10 Lorazepam 2 Mg/Ml Vial IV 07/28/24 01:02 1 mg Q2HR PRN Administration CIWA SCORE 14-19 Lorazepam 2 mg 07/23/24 01:03 07/23/24 13:09 Lorazepam 2 Mg/Ml Vial IV 07/28/24 01:02 2 mg Q2HR PRN Administration CIWA SCORE 20-25 Lorazepam 2 mg 07/23/24 01:03 Lorazepam 2 Mg/Ml Vial IVP X1 PRN Breakthrough Agitation Lorazepam 2 mg 07/25/24 11:07 Lorazepam 0.5 Mg Tablet PO 07/27/24 05:01 Q4HR PRN CIWA SCORE 12-13 Lorazepam 0.5 mg 07/25/24 11:10 Lorazepam 2 Mg/Ml Vial IV 07/28/24 01:02 Q2HR PRN CIWA SCORE 8-11 Protocol Magnesium Hydroxide 30 ml 07/22/24 04:56 Milk Of Magnesia Susp 30 Ml Udc PO 08/21/24 04:55 QDAY PRN CONSTIPATION Protocol Nicotine 21 mg 07/23/24 00:39 07/26/24 09:29 Nicotine Patch 21 Mg/24 Hr Patch.Td24 TOP 08/22/24 00:38 21 mg QDAY FREDERICK Administration Pantoprazole Sodium 40 mg 07/22/24 09:00 07/26/24 09:30 Pantoprazole 40 Mg Tablet PO 08/21/24 08:59 40 mg QDAY FREDERICK Administration Scopolamine 1 mg 07/22/24 08:42 Scopolamine 1 Mg Tdsy TOP 08/21/24 08:41 Q72H PRN NAUSEA OR VOMITING Sennosides 1 tab 07/23/24 10:10 Senna Tablet PO 08/22/24 10:09 QDAY PRN CONSTIPATION Protocol Sodium Chloride 3 ml 07/21/24 20:16 07/21/24 21:31 Sodium Chloride Rt Rosalina 0.9% 3 Ml Nebu INH 08/20/24 20:15 3 ml PRN PRN Administration SOLN Thiamine HCl 100 mg 07/22/24 09:00 07/26/24 09:30 Thiamine 100 Mg Tablet PO 08/21/24 08:59 100 mg QDAY FREDERICK Administration Plan 44-year-old male with significant past medical history of smoking, alcohol abuse, hypertension, asthma presented to the hospital with chief complaints of shortness of breath since 1 day and admitted for acute exacerbation of asthma/COPD and alcohol withdrawal. #Alcohol withdrawal, improving #Alcohol Use Disorder #Delirium tremens, resolved Patient has history of alcohol abuse, states he drinks every day. In the ED, patient was found to have elevated blood pressures, tachycardia and agitated for which patient was given 2 Mg of IV lorazepam. Patient is unsure of last drink levels <3.0. Patient continued to have elevated CIWA score levels despite scheduled Librium. Patient tremulous, delirious on exam. Patient appeared altered this morning but arousable. -Librium 25 mg p.o. 3 times daily -CIWA protocol ordered -Thiamine p.o. daily 100 Mg -Folate Qday -A dose of multivitamin injection is given -Recommended social sciences instructor referral -QTc prolonged (501), scopolamine patch used instead of Zofran for nausea #Normocytic normochromic anemia, likely nutritional #Cachexia, failure to thrive Hemoglobin at the time of admission is 12.5 . A dose of multivitamin injection is given. Patient is extremely cachectic, chronic. Suspect malnutrition due to alcohol abuse. HIV test and hepatitis panel negative. -Dietary consult, appreciate recommendations -PT eval recommending SNF for rehab -Every 6 hour blood sugar checks -Follow-up in the outpatient basis #Acute exacerbation of asthma/COPD, resolved #History of asthma #Smoker Presented to the ED with chief complaints of shortness of breath since 1 day after smoking. Patient had history of smoking 1 pack/day, unsure of duration. In the ED, patient was found to have wheeze on examination Patient was treated with nebulizations, steroids in the ED. Vitals at the time of admission showed blood pressure 169/122 mmHg, pulse rate 150 bpm, respiratory rate 22/min. On examination, noted bilateral decreased breath sounds without any wheeze. Chest x-ray showed prominent hyperexpansion of both lung moore without any infiltrates. Patient saturating well on room air. -Started on 20 Mg prednisone p.o. for 5 days -oxygen as needed -Nicotine patches ordered -Nebulizations as needed -Smoking cessation counseling #Mild transaminitis, improving #Hyperbilirubinemia, Resolved. Likely due to alcohol liver disease. Bilirubin at the time of admission is 1.3 and AST is 56, ALT 20. CT abdomen done in 2022 showed fatty liver. Ultrasound liver showed fatty liver. -Recommended alcohol cessation #Hypokalemia, resolved Likely due to poor oral intake and alcohol abuse. Potassium at the time of admission is 2.7. Ordered 40 mEq of IV potassium and patient received 40 mill equivalents of oral in the ED. -Monitor electrolytes and replete accordingly. #Hypertension Blood pressure at the time of admission is 169/122 mmHg, likely due to alcohol and nicotine withdrawal. Patient is using lisinopril 5 Mg at home, unsure of compliance. CIWA protocol and nicotine patch was ordered -Resume home lisinopril. DVT prophylaxis: Lovenox GI prophylaxis: Protonix Diet: Regular Lines: Peripheral IV Code status: Full code Plan of care discussed with attending Dr. Jimenez. Caleb Bustamante MD PGY-1 Attending Provider Attestation/Addendum I have examined the patient, reviewed labs and imaging findings, discussed the case with the resident(s), and reviewed entered orders. I agree with the plan of care as outlined in this note, with these additional summaries/recommendations: Patient seen at bedside. No acute overnight events. Overnight patient had episode of agitation and was given additional IV Ativan. Today at bedside patient continues to have significant alcohol withdrawal. Status post phenobarbital. We will resume scheduled Librium and continue CIWA protocol. Patient appears to still have altered mental status but overall improving. We will certified rehabilitation counselor patient on cessation of alcohol once mentation is more improved. Continue treatment for COPD exacerbation with DuoNebs & oral prednisone. Chest x-ray shows significant hyperexpansion. Repeat hematology and chemistry panel in AM. Dr. Jimenez
[2024-07-26] MEDS: ALBUTEROL/IPRATROPIUM (Duoneb) RT SOL 3 ML NEBU INH (14:54)
--- NOTE | 2024-07-26 15:18 | XR_ITS ---
Examination: AP chest single view TECHNIQUE: Portable AP upright chest single view Standing time: July 26, 2024 1529 hours INDICATIONS: Hypoxia difficulty breathing today. FINDINGS: Normal heart size Significant hyperexpansion No pneumonia or pulmonary edema Mild osteopenia IMPRESSION: COPD No pneumonia or pulmonary edema
[2024-07-26 16:18] LABS: Base Excess 2 (-3-3); HCO3 25 mEq/L (20-26); Inspired Oxygen, FIO2 21 %; O2 Saturation 101 % (91-98); PCO2 33 mmHg (32.0-48.0); PO2 187 mmHg (83-108); pH, Arterial 7.48 (7.35-7.45)
[2024-07-26 16:19] LABS: Allen Test Performed/OK; Puncture Site Right Radial
[2024-07-26] MEDS: LORazepam 2 MG/ML VIAL IV (20:02)
--- NOTE | 2024-07-26 22:31 | PC.NURSE ---
at 1999, patient was attempting to leave, tore off tele box, and was trying to climb out of bed. we attempted to redirect him without success. He became threatening and a beatriz lyon was called, Dr. Rose came to bedside, wrist restraints applied and ativan given. tolerating restriaints without a problem
[2024-07-27] VITALS (10 sets, daily range): BP systolic 121–145; BP diastolic 87–106; PULSE 90–133; RESP 12–18; TEMP 36.1–37.3; O2SAT 94–100; BMI 15.0
[2024-07-27 06:26] LABS: Basophils % (Auto) 0 % (0-2.5); Eosinophils % (Auto) 0 % (0-10); Hematocrit 30.2 % (41.0-53.0); Hemoglobin 10.4 g/dL (13.5-16.0); Immature Granulocytes % (Auto) 0 % (0-0); Immature Granulocytes Auto 0.04 Thou/mm3 (0.00-0.00); Lymphocytes # (Auto) 1.2 Thou/mm3 (1.0-4.8); Lymphocytes % (Auto) 9 % (10-50); Mean Corpuscular HGB Conc 34.4 g/dl (31.0-37.0); Mean Corpuscular Hemoglobin 30.7 pg (25.0-35.0); Mean Corpuscular Volume 89 fL (80-100); Monocytes # (Auto) 1.3 Thou/mm3 (0.0-0.8); Monocytes % (Auto) 10 % (0-12); Neutrophils # (Auto) 10.3 Thou/mm3 (1.8-7.7); Neutrophils % (Auto) 80 % (37-80); Nucleated Red Blood Cell % 0 /100 WBC (0); Platelet Count 139 Thou/mm3 (140-440); RDW Standard Deviation 44.5 fL (35.1-43.9); Red Blood Count 3.39 Miln/mm3 (4.50-5.90); White Blood Count 12.9 Thou/mm3 (3.8-10.6)
[2024-07-27 06:58] LABS: Alanine Aminotransferase 26 U/L (10-49); Albumin, Serum 2.8 gm/dL (3.5-5.0); Albumin/Globulin Ratio 1.4 (1.2-2.2); Alkaline Phosphatase 131 U/L (46-116); Anion Gap 7 (7-16); Aspartate Amino Transferase 39 U/L (0-34); BUN/Creatinine Ratio 26 Ratio (12-20); Bilirubin,Total 0.7 mg/dL (0.3-1.2); Blood Urea Nitrogen 13 mg/dL (9-23); Calcium 7.9 mg/dL (8.3-10.6); Calcium (Corrected) 8.9 mg/dL (8.5-10.1); Carbon Dioxide 26.7 mMol/L (20.0-31.0); Chloride 104 mMol/L (98-107); Creatinine (Component) 0.5 mg/dL (0.6-1.3); Estimated Creatinine Clearance 119.7 mL/min (>60); Glucose 85 mg/dL (74-106); Magnesium 1.8 mg/dL (1.6-2.6); Osmolality,Calculated 274 (275-295); Phosphorous 4.1 mg/dL (2.4-5.1); Potassium 4.4 mMol/L (3.4-5.1); Sodium 138 mMol/L (136-145); Total Protein 4.8 gm/dL (5.7-8.2); eGFR > 60 See Note
[2024-07-27] MEDS: Lisinopril 2.5 MG TABLET 5 MG PO (08:15)
[2024-07-27] MEDS: PANTOPRAZOLE 40 MG TABLET PO (08:15)
[2024-07-27] MEDS: THIAMINE 100 MG TABLET PO (08:15)
[2024-07-27] MEDS: NICOTINE PATCH 21 MG/24 HR PATCH.TD24 TOP (08:16)
[2024-07-27] MEDS: FOLIC ACID 1 MG TABLET PO (08:16)
[2024-07-27] MEDS: ENOXAPARIN SOD INJ 40 MG/0.4 ML SYRINGE SC (08:17)
[2024-07-27] MEDS: chlordiazePOXIDE HCl 25 MG CAPSULE PO ×2 (08:17→20:06)
[2024-07-27] MEDS: Magnesium Sulfate 2 GM Ivpb 2 GM/50 ML BAG IV (08:25)
--- NOTE | 2024-07-27 10:30 | PC.SS ---
Addendum entered by Yamila Castillo 07/28/24 15:13: SS met with patient at bedside to discuss discharge plan. SS informed him that PT and Doctors were recommending SNF. Patient refusing SNF and reported he was going to discharge home. SS contacted patient's brother, Connor and he informed SS that patient could not discharge home. SS informed him that patient was refusing PT and if he would not participate, insurance would not authorize. SS contacted Moreno from PT and he inform SS that he would attempt to perform PT evaluation again. SS will stand by for further needfs. Original Note: SS follow up note; Patient is on [facility] Protocol.
[2024-07-27 11:44] LABS: Vitamin B12 631 pg/mL (211-911)
--- NOTE | 2024-07-27 13:14 | ESPR_ITS ---
<Statement entered by Alfa Guadarrama MD - 07/27/24 14:32> Patient was seen and examined at the bedside this morning. Overnight, patient had no overnight events. Librium was reduced to twice daily and morning CIWA score was 3. Patient remains confused and was shaking. was present at bedside and she was explained that there is a concern for Warnicke's encephalopathy. Electrolytes were repleted. Kidney functions remained stable. White count improving. Will continue with CIWA protocol. Patient is tolerating diet. all labs and orders were reviewed. I saw and examined the patient, and I agree with current management stated by Dr Dianna MD,PGY1. Plan of care was discussed with the attending physician and resident physician. Disclaimer: Despite multiple revisions, due to the dictation software being used, the document bellow may not be free of grammatical errors including phonetic/typographic errors. However, this does not deter from our commitment to providing health care in the patient's best interest in mind. Dr. Chiara MD, PGY 2 Documentation for date of: 07/27/24 Subjective Subjective Interval history: No overnight events. Patient seen and examined at bedside. Patient lethargic, ANO x 2. Mildly tremulous. Denies chest pain, anxiety, nausea, vomiting. Librium decreased to twice daily. Exam Vital Signs Temp Pulse Resp BP Pulse Ox O2 Del Method O2 Flow Rate 97.9 F 107 H 17 123/93 H 95 Room Air 1 07/27/24 12:00 07/27/24 12:00 07/27/24 12:00 07/27/24 12:00 07/27/24 08:00 07/27/24 08:00 07/27/24 07:49 Narrative Exam PE: Gen: Well-developed and well-nourished. Extremely cachectic. HEENT: NCAT, PERRLA, EOMI, MMM, anicteric conjunctivae. CVS: normal S1 and S2. RRR. No M/R/G. Resp: CTA B/L. No rhonchi, rales, crackles or wheezing. Abd: soft, non-tender, non-distended. BS+ in all 4 quadrants. MSK: Good ROM in BUE & BLE. No edema or rash. Neuro: CN II-XII grossly intact. Strength 5/5 in BUE. Alert and oriented x2. Bilateral lower extremity weakness. Psych: appropriate mood and affect. Objective Labs 07/28/24 05:15 07/27/24 05:05 Labs: Laboratory Results - last 24 hr 07/26/24 07/27/24 16:03 05:05 WBC 12.9 H D RBC 3.39 L Hgb 10.4 L Hct 30.2 L MCV 89 MCH 30.7 MCHC 34.4 RDW Std Deviation 44.5 H Plt Count 139 L Neut % (Auto) 80 Lymph % (Auto) 9 L [place] % (Auto) 10 Eos % (Auto) 0 Baso % (Auto) 0 Neut # (Auto) 10.3 H Lymph # (Auto) 1.2 [place] # (Auto) 1.3 H Eos # (Auto) 0.0 Baso # (Auto) 0.0 Immature Gran # (Auto) 0.04 H Absolute Nucleated RBC 0.00 Immature Gran % 0 Nucleated RBC % 0 Puncture Site Right Radial ABG pH 7.48 H ABG pCO2 33 ABG pO2 187 H ABG HCO3 25 ABG O2 Saturation 101 H ABG Base Excess 2 FiO2 21 Sodium 138 Potassium 4.4 D Chloride 104 Carbon Dioxide 26.7 Anion Gap 7 BUN 13 Creatinine 0.5 L Estim Creat Clear Calc 119.7 eGFR > 60 BUN/Creatinine Ratio 26 H Glucose 85 Calculated Osmolality 274 L Calcium 7.9 L Corrected Calcium 8.9 Phosphorus 4.1 Magnesium 1.8 Total Bilirubin 0.7 AST 39 H ALT 26 Alkaline Phosphatase 131 H Total Protein 4.8 L Albumin 2.8 L Globulin 2.0 L Albumin/Globulin Ratio 1.4 Vitamin B12 631 ABG Interpretation ABG results: 07/26/24 16:03 ABG pH 7.48 H ABG pCO2 33 ABG pO2 187 H ABG HCO3 25 ABG O2 Saturation 101 H ABG Base Excess 2 Quality Measures Quality Measures VTE prophylaxis Assessment & Plan Assessment Current Active Medications: Generic Name Dose Route Start Last Admin Trade Name Freq PRN Reason Stop Dose Admin Acetaminophen 650 mg 07/22/24 09:38 Acetaminophen 325 Mg Tablet PO 08/21/24 04:55 Q6H PRN Fever >100.3 Albuterol/Ipratropium 3 ml 07/22/24 04:56 07/26/24 14:54 Albuterol/Ipratropium (Duoneb) Rt Rosalina 3 Ml Nebu INH 08/21/24 06:59 3 ml Q6HRRT PRN Administration sob or wheeze Chlordiazepoxide HCl 25 mg 07/27/24 21:00 Chlordiazepoxide Hcl 25 Mg Capsule PO 08/01/24 20:59 BID FREDERICK Enoxaparin Sodium 40 mg 07/22/24 09:00 07/27/24 08:17 Enoxaparin Sod Inj 40 Mg/0.4 Ml Syringe SC 08/05/24 08:59 40 mg QDAY FREDERICK Administration Folic Acid 1 mg 07/25/24 10:00 07/27/24 08:16 Folic Acid 1 Mg Tablet PO 08/24/24 09:59 1 mg QDAY FREDERICK Administration Lisinopril 5 mg 07/23/24 09:00 07/27/24 08:15 Lisinopril 2.5 Mg Tablet PO 08/22/24 08:59 5 mg QDAY FREDERICK Administration Lorazepam 1 mg 07/23/24 01:03 07/26/24 02:10 Lorazepam 2 Mg/Ml Vial IV 07/28/24 01:02 1 mg Q2HR PRN Administration CIWA SCORE 14-19 Lorazepam 2 mg 07/23/24 01:03 07/26/24 20:02 Lorazepam 2 Mg/Ml Vial IV 07/28/24 01:02 2 mg Q2HR PRN Administration CIWA SCORE 20-25 Lorazepam 2 mg 07/23/24 01:03 Lorazepam 2 Mg/Ml Vial IVP X1 PRN Breakthrough Agitation Lorazepam 0.5 mg 07/25/24 11:10 Lorazepam 2 Mg/Ml Vial IV 07/28/24 01:02 Q2HR PRN CIWA SCORE 8-11 Magnesium Hydroxide 30 ml 07/22/24 04:56 Milk Of Magnesia Susp 30 Ml Udc PO 08/21/24 04:55 QDAY PRN CONSTIPATION Protocol Nicotine 21 mg 07/23/24 00:39 07/27/24 08:16 Nicotine Patch 21 Mg/24 Hr Patch.Td24 TOP 08/22/24 00:38 21 mg QDAY FREDERICK Administration Pantoprazole Sodium 40 mg 07/22/24 09:00 07/27/24 08:15 Pantoprazole 40 Mg Tablet PO 08/21/24 08:59 40 mg QDAY FREDERICK Administration Scopolamine 1 mg 07/22/24 08:42 Scopolamine 1 Mg Tdsy TOP 08/21/24 08:41 Q72H PRN NAUSEA OR VOMITING Sennosides 1 tab 07/23/24 10:10 Senna Tablet PO 08/22/24 10:09 QDAY PRN CONSTIPATION Protocol Sodium Chloride 3 ml 07/21/24 20:16 07/21/24 21:31 Sodium Chloride Rt Rosalina 0.9% 3 Ml Nebu INH 08/20/24 20:15 3 ml PRN PRN Administration SOLN Thiamine HCl 100 mg 07/22/24 09:00 07/27/24 08:15 Thiamine 100 Mg Tablet PO 08/21/24 08:59 100 mg QDAY FREDERICK Administration Plan 44-year-old male with significant past medical history of smoking, alcohol abuse, hypertension, asthma presented to the hospital with chief complaints of shortness of breath since 1 day and admitted for acute exacerbation of asthma/COPD and alcohol withdrawal. #Alcohol withdrawal, improving #Alcohol Use Disorder #Delirium tremens, resolved Patient has history of alcohol abuse, states he drinks every day. In the ED, patient was found to have elevated blood pressures, tachycardia and agitated for which patient was given 2 Mg of IV lorazepam. Patient is unsure of last drink levels <3.0. Patient continued to have elevated CIWA score levels despite scheduled Librium. Patient tremulous, delirious on exam. Patient appeared altered this morning but arousable. Per patient's patient had symptoms of confusion, hallucination, weakness for 6 months. Concern for Warnicke's encephalopathy. -Librium 25 mg p.o. 2 times daily -CIWA protocol ordered -Thiamine p.o. daily 100 Mg -Folate Qday -A dose of multivitamin injection is given -Recommended manager social referral -QTc prolonged (501), scopolamine patch used instead of Zofran for nausea #Normocytic normochromic anemia, likely nutritional #Cachexia, failure to thrive Hemoglobin at the time of admission is 12.5 . A dose of multivitamin injection is given. Patient is extremely cachectic, chronic. Suspect malnutrition due to alcohol abuse. HIV test and hepatitis panel negative. -Dietary consult, appreciate recommendations -PT eval recommending SNF for rehab -Every 6 hour blood sugar checks -Follow-up in the outpatient basis #Acute exacerbation of asthma/COPD, resolved #History of asthma #Smoker Presented to the ED with chief complaints of shortness of breath since 1 day after smoking. Patient had history of smoking 1 pack/day, unsure of duration. In the ED, patient was found to have wheeze on examination Patient was treated with nebulizations, steroids in the ED. Vitals at the time of admission showed blood pressure 169/122 mmHg, pulse rate 150 bpm, respiratory rate 22/min. On examination, noted bilateral decreased breath sounds without any wheeze. Chest x-ray showed prominent hyperexpansion of both lung moore without any infiltrates. Patient saturating well on room air. 20 Mg prednisone p.o. for 5 days completed -oxygen as needed -Nicotine patches ordered -Nebulizations as needed -Smoking cessation counseling #Mild transaminitis, improving #Hyperbilirubinemia, Resolved. Likely due to alcohol liver disease. Bilirubin at the time of admission is 1.3 and AST is 56, ALT 20. CT abdomen done in 2022 showed fatty liver. Ultrasound liver showed fatty liver. -Recommended alcohol cessation #Hypokalemia, resolved Likely due to poor oral intake and alcohol abuse. Potassium at the time of admission is 2.7. Ordered 40 mEq of IV potassium and patient received 40 mill equivalents of oral in the ED. -Monitor electrolytes and replete accordingly. #Hypertension Blood pressure at the time of admission is 169/122 mmHg, likely due to alcohol and nicotine withdrawal. Patient is using lisinopril 5 Mg at home, unsure of compliance. CIWA protocol and nicotine patch was ordered -Resume home lisinopril. DVT prophylaxis: Lovenox GI prophylaxis: Protonix Diet: Regular Lines: Peripheral IV Code status: Full code Plan of care discussed with senior resident Dr. Guadarrama PGY?[address] Jimenez. Caleb Bustamante MD PGY-1 Attending Provider Attestation/Addendum I have examined the patient, reviewed labs and imaging findings, discussed the case with the resident(s), and reviewed entered orders. I agree with the plan of care as outlined in this note, with these additional summaries/recommendations: Patient seen at bedside. No acute overnight events. Today at bedside patient continues to have alcohol withdrawal. CIWA trending between 7 and 14. Status post phenobarbital. Decreased scheduled Librium to BID and continue CIWA protocol. Patient still has altered mental status but overall improving. We will social services counselor patient on cessation of alcohol once mentation is more improved. COPD exacerbation resolved, continue breathing treatments as needed. S/P steroids. Chest x-ray shows significant hyperexpansion. Patient was evaluated by PT and recommend SNF once medically cleared for discharge. Repeat hematology and chemistry panel in AM. Dr. Jimenez
[2024-07-28] VITALS (7 sets, daily range): BP systolic 129–146; BP diastolic 98–114; PULSE 76–118; RESP 16–18; TEMP 36.1–36.4; O2SAT 96–100; BMI 12.0
[2024-07-28 06:30] LABS: Basophils % (Auto) 0 % (0-2.5); Eosinophils # (Auto) 0.2 Thou/mm3 (0.0-0.5); Eosinophils % (Auto) 2 % (0-10); Hematocrit 32.1 % (41.0-53.0); Immature Granulocytes % (Auto) 1 % (0-0); Immature Granulocytes Auto 0.05 Thou/mm3 (0.00-0.00); Lymphocytes # (Auto) 1.2 Thou/mm3 (1.0-4.8); Lymphocytes % (Auto) 11 % (10-50); Mean Corpuscular HGB Conc 34.3 g/dl (31.0-37.0); Mean Corpuscular Hemoglobin 30.7 pg (25.0-35.0); Mean Corpuscular Volume 90 fL (80-100); Monocytes # (Auto) 1.3 Thou/mm3 (0.0-0.8); Monocytes % (Auto) 13 % (0-12); Neutrophils # (Auto) 7.7 Thou/mm3 (1.8-7.7); Neutrophils % (Auto) 74 % (37-80); Nucleated Red Blood Cell % 0 /100 WBC (0); Platelet Count 145 Thou/mm3 (140-440); RDW Standard Deviation 43.9 fL (35.1-43.9); Red Blood Count 3.58 Miln/mm3 (4.50-5.90); White Blood Count 10.4 Thou/mm3 (3.8-10.6)
[2024-07-28 07:31] LABS: Alanine Aminotransferase 27 U/L (10-49); Albumin, Serum 3.2 gm/dL (3.5-5.0); Albumin/Globulin Ratio 1.5 (1.2-2.2); Alkaline Phosphatase 150 U/L (46-116); Anion Gap 7 (7-16); Aspartate Amino Transferase 42 U/L (0-34); BUN/Creatinine Ratio 20 Ratio (12-20); Bilirubin,Total 0.7 mg/dL (0.3-1.2); Blood Urea Nitrogen 10 mg/dL (9-23); Calcium 8.5 mg/dL (8.3-10.6); Calcium (Corrected) 9.1 mg/dL (8.5-10.1); Chloride 104 mMol/L (98-107); Creatinine (Component) 0.5 mg/dL (0.6-1.3); Estimated Creatinine Clearance 119.7 mL/min (>60); Globulin 2.1 gm/dL (2.3-3.5); Glucose 71 mg/dL (74-106); Magnesium 2.1 mg/dL (1.6-2.6); Osmolality,Calculated 268 (275-295); Phosphorous 3.2 mg/dL (2.4-5.1); Potassium 4.1 mMol/L (3.4-5.1); Sodium 136 mMol/L (136-145); Total Protein 5.3 gm/dL (5.7-8.2); eGFR > 60 See Note
[2024-07-28] MEDS: THIAMINE 100 MG TABLET PO (08:39)
[2024-07-28] MEDS: chlordiazePOXIDE HCl 25 MG CAPSULE PO (08:39)
[2024-07-28] MEDS: FOLIC ACID 1 MG TABLET PO (08:39)
[2024-07-28] MEDS: Lisinopril 2.5 MG TABLET 5 MG PO (08:39)
[2024-07-28] MEDS: PANTOPRAZOLE 40 MG TABLET PO (08:39)
[2024-07-28] MEDS: NICOTINE PATCH 21 MG/24 HR PATCH.TD24 TOP (08:40)
[2024-07-28] MEDS: ENOXAPARIN SOD INJ 40 MG/0.4 ML SYRINGE SC (08:41)
--- NOTE | 2024-07-28 09:35 | PC.NURSE ---
[facility] downtime occurred on 07/28/24 from 0100 to 0700.
--- NOTE | 2024-07-28 13:19 | ESPR_ITS ---
<Statement entered by Alfa Guadarrama MD - 07/28/24 15:13> Patient was seen and examined at the bedside this morning. Patient was drowsy and had difficulty in answering questions. CIWA score was 6. We discontinued Librium and will continue CIWA protocol. Patient will likely going to SNF possibly tomorrow if he improves. Will likely hold on CIWA and evaluate for clinical improvement. Anticipating discharge in next 24-48 hours. I saw and examined the patient, and I agree with current management stated by Dr Miguel A MD,PGY1. Plan of care was discussed with the attending physician and resident physician. Disclaimer: Despite multiple revisions, due to the dictation software being used, the document bellow may not be free of grammatical errors including phonetic/typographic errors. However, this does not deter from our commitment to providing health care in the patient's best interest in mind. Dr. Maira MD, PGY 2 Documentation for date of: 07/28/24 Subjective Subjective Interval history: No overnight events. Patient seen and examined at bedside. Patient mildly lethargic, continues to be disoriented. Patient significantly improved in bilateral lower extremity strength. No specific complaints. Patient received 1 dose Librium today, DC'd. Will hold Ativan, give as needed. Exam Vital Signs Temp Pulse Resp BP Pulse Ox O2 Del Method O2 Flow Rate 97.2 F 94 16 139/103 H 100 Room Air 1 07/28/24 12:00 07/28/24 12:07/28/24 12:07/28/24 12:07/28/24 12:07/28/24 12:07/27/24 07:49 Narrative Exam PE: Gen: Well-developed and well-nourished. Extremely cachectic. HEENT: NCAT, PERRLA, EOMI, MMM, anicteric conjunctivae. CVS: normal S1 and S2. RRR. No M/R/G. Resp: CTA B/L. No rhonchi, rales, crackles or wheezing. Abd: soft, non-tender, non-distended. BS+ in all 4 quadrants. MSK: Good ROM in BUE & BLE. No edema or rash. Neuro: CN II-XII grossly intact. Strength 5/5 in BUE. Alert and oriented x2. Bilateral lower extremity weakness, significantly improved. Psych: appropriate mood and affect. Objective Labs 07/28/24 05:15 07/28/24 05:15 Labs: Laboratory Results - last 24 hr 07/28/24 05:15 WBC 10.4 RBC 3.58 L Hgb 11.0 L Hct 32.1 L MCV 90 MCH 30.7 MCHC 34.3 RDW Std Deviation 43.9 Plt Count 145 Neut % (Auto) 74 Lymph % (Auto) 11 [place] % (Auto) 13 H Eos % (Auto) 2 Baso % (Auto) 0 Neut # (Auto) 7.7 Lymph # (Auto) 1.2 [place] # (Auto) 1.3 H Eos # (Auto) 0.2 Baso # (Auto) 0.0 Immature Gran # (Auto) 0.05 H Absolute Nucleated RBC 0.00 Immature Gran % 1 H Nucleated RBC % 0 Sodium 136 Potassium 4.1 Chloride 104 Carbon Dioxide 25.0 Anion Gap 7 BUN 10 Creatinine 0.5 L Estim Creat Clear Calc 119.7 eGFR > 60 BUN/Creatinine Ratio 20 Glucose 71 L Calculated Osmolality 268 L Calcium 8.5 Corrected Calcium 9.1 Phosphorus 3.2 Magnesium 2.1 Total Bilirubin 0.7 AST 42 H ALT 27 Alkaline Phosphatase 150 H Total Protein 5.3 L Albumin 3.2 L Globulin 2.1 L Albumin/Globulin Ratio 1.5 ABG Interpretation ABG results: 07/26/24 16:03 ABG pH 7.48 H ABG pCO2 33 ABG pO2 187 H ABG HCO3 25 ABG O2 Saturation 101 H ABG Base Excess 2 Quality Measures Quality Measures VTE prophylaxis Assessment & Plan Assessment Current Active Medications: Generic Name Dose Route Start Last Admin Trade Name Prabhakar PRN Reason Stop Dose Admin Acetaminophen 650 mg 07/22/24 09:38 Acetaminophen 325 Mg Tablet PO 08/21/24 04:55 Q6H PRN Fever >100.3 Albuterol/Ipratropium 3 ml 07/22/24 04:56 07/26/24 14:54 Albuterol/Ipratropium (Duoneb) Rt Rosalina 3 Ml Nebu INH 08/21/24 06:59 3 ml Q6HRRT PRN Administration sob or wheeze Enoxaparin Sodium 40 mg 07/22/24 09:00 07/28/24 08:41 Enoxaparin Sod Inj 40 Mg/0.4 Ml Syringe SC 08/05/24 08:59 40 mg QDAY FREDERICK Administration Folic Acid 1 mg 07/25/24 10:00 07/28/24 08:39 Folic Acid 1 Mg Tablet PO 08/24/24 09:59 1 mg QDAY FREDERICK Administration Lisinopril 5 mg 07/23/24 09:00 07/28/24 08:39 Lisinopril 2.5 Mg Tablet PO 08/22/24 08:59 5 mg QDAY FREDERICK Administration Lorazepam 0.5 mg 07/28/24 00:13 Lorazepam 2 Mg/Ml Vial IV 08/02/24 00:12 Q2HR PRN CIWA SCORE 8-13 Lorazepam 1 mg 07/28/24 00:13 Lorazepam 2 Mg/Ml Vial IV 08/02/24 00:12 Q2HR PRN CIWA SCORE 14-19 Lorazepam 2 mg 07/28/24 00:13 Lorazepam 2 Mg/Ml Vial IV 08/02/24 00:12 Q2HR PRN CIWA SCORE 20-25 Lorazepam 2 mg 07/28/24 00:13 Lorazepam 2 Mg/Ml Vial IVP X1 PRN Breakthrough Agitation Magnesium Hydroxide 30 ml 07/22/24 04:56 Milk Of Magnesia Susp 30 Ml Udc PO 08/21/24 04:55 QDAY PRN CONSTIPATION Protocol Nicotine 21 mg 07/23/24 00:39 07/28/24 08:40 Nicotine Patch 21 Mg/24 Hr Patch.Td24 TOP 08/22/24 00:38 21 mg QDAY FREDERICK Administration Pantoprazole Sodium 40 mg 07/22/24 09:00 07/28/24 08:39 Pantoprazole 40 Mg Tablet PO 08/21/24 08:59 40 mg QDAY FREDERICK Administration Scopolamine 1 mg 07/22/24 08:42 Scopolamine 1 Mg Tdsy TOP 08/21/24 08:41 Q72H PRN NAUSEA OR VOMITING Sennosides 1 tab 07/23/24 10:10 Senna Tablet PO 08/22/24 10:09 QDAY PRN CONSTIPATION Protocol Sodium Chloride 3 ml 07/21/24 20:16 07/21/24 21:31 Sodium Chloride Rt Rosalina 0.9% 3 Ml Nebu INH 08/20/24 20:15 3 ml PRN PRN Administration SOLN Thiamine HCl 100 mg 07/22/24 09:00 07/28/24 08:39 Thiamine 100 Mg Tablet PO 08/21/24 08:59 100 mg QDAY FREDERICK Administration Plan 44-year-old male with significant past medical history of smoking, alcohol abuse, hypertension, asthma presented to the hospital with chief complaints of shortness of breath since 1 day and admitted for acute exacerbation of asthma/COPD and alcohol withdrawal. #Alcohol withdrawal, improving #Alcohol Use Disorder #Delirium tremens, resolved Patient has history of alcohol abuse, states he drinks every day. In the ED, patient was found to have elevated blood pressures, tachycardia and agitated for which patient was given 2 Mg of IV lorazepam. Patient is unsure of last drink levels <3.0. Patient continued to have elevated CIWA score levels despite scheduled Librium. Patient tremulous, delirious on exam. Patient appeared altered this morning but arousable. Per patient's patient had symptoms of confusion, hallucination, weakness for 6 months. Concern for Warnicke's encephalopathy. -Librium 25 mg p.o. x 1 today, held for tomorrow -CIWA protocol ordered, holding Ativan -Thiamine p.o. daily 100 Mg -Folate Qday -A dose of multivitamin injection is given -Recommended medical services coordinator referral -QTc prolonged (501), scopolamine patch used instead of Zofran for nausea #Normocytic normochromic anemia, likely nutritional #Cachexia, failure to thrive Hemoglobin at the time of admission is 12.5 . A dose of multivitamin injection is given. Patient is extremely cachectic, chronic. Suspect malnutrition due to alcohol abuse. HIV test and hepatitis panel negative. -Dietary consult, appreciate recommendations -PT eval recommending SNF for rehab -Every 6 hour blood sugar checks -Follow-up in the outpatient basis #Acute exacerbation of asthma/COPD, resolved #History of asthma #Smoker Presented to the ED with chief complaints of shortness of breath since 1 day after smoking. Patient had history of smoking 1 pack/day, unsure of duration. In the ED, patient was found to have wheeze on examination Patient was treated with nebulizations, steroids in the ED. Vitals at the time of admission showed blood pressure 169/122 mmHg, pulse rate 150 bpm, respiratory rate 22/min. On examination, noted bilateral decreased breath sounds without any wheeze. Chest x-ray showed prominent hyperexpansion of both lung moore without any infiltrates. Patient saturating well on room air. 20 Mg prednisone p.o. for 5 days completed -oxygen as needed -Nicotine patches ordered -Nebulizations as needed -Smoking cessation counseling #Mild transaminitis, improving #Hyperbilirubinemia, Resolved. Likely due to alcohol liver disease. Bilirubin at the time of admission is 1.3 and AST is 56, ALT 20. CT abdomen done in 2022 showed fatty liver. Ultrasound liver showed fatty liver. -Recommended alcohol cessation #Hypokalemia, resolved Likely due to poor oral intake and alcohol abuse. Potassium at the time of admission is 2.7. Ordered 40 mEq of IV potassium and patient received 40 mill equivalents of oral in the ED. -Monitor electrolytes and replete accordingly. #Hypertension Blood pressure at the time of admission is 169/122 mmHg, likely due to alcohol and nicotine withdrawal. Patient is using lisinopril 5 Mg at home, unsure of compliance. CIWA protocol and nicotine patch was ordered -Resume home lisinopril. DVT prophylaxis: Lovenox GI prophylaxis: Protonix Diet: Regular Lines: Peripheral IV Code status: Full code Plan of care discussed with senior resident Dr. Guadarrama PGY?[address] Jimenez. Caleb Bustamante MD PGY-1 Attending Provider Attestation/Addendum I have examined the patient, reviewed labs and imaging findings, discussed the case with the resident(s), and reviewed entered orders. I agree with the plan of care as outlined in this note, with these additional summaries/recommendations: Patient seen at bedside. No acute overnight events. Today at bedside patient continues to have alcohol withdrawal. CIWA trending between 7-10. Status post phenobarbital. We will discontinue CIWA and scheduled Librium today as we are concerned patient might have developed Warnicke's encephalopathy. Will continue thiamine and folic acid. Overall patient's mental status is significantly improved but not resolved as anticipated. We will delinquency counselor patient on cessation of alcohol once mentation is more improved. COPD exacerbation resolved, continue breathing treatments as needed. S/P steroids. Chest x-ray shows significant hyperexpansion. Patient was evaluated by PT and recommend SNF once medically cleared for discharge. Repeat hematology and chemistry panel in AM. Dr. Jimenez
[2024-07-28] MEDS: LORazepam 2 MG/ML VIAL 0.5 MG IV ×2 (16:36→23:57)
[2024-07-29] VITALS (8 sets, daily range): BP systolic 102–150; BP diastolic 74–114; PULSE 74–108; RESP 14–20; TEMP 35.9–36.2; O2SAT 95–99
--- NOTE | 2024-07-29 | XR_ITS ---
Examination: MRI of brain without intravenous contrast. MRI brain with intravenous contrast. Date and time of exam:July 29, 2024 at 2021 hours Comparison January 14, 2024 INDICATIONS: Confusion, clinical diagnosis of encephalopathy today Technique: Multiple axial and sagittal images of the brain to been obtained. Siemens high-resolution 1.52 Faustina short bore scanner utilized. Sagittal sections, T1 weighted images, TR 500, TE 14, are performed. Axial sections proton-density and T2-weighted images have been obtained. Inversion recovery axial images, TR 9260, TE 111, TR 2500. Diffusion weighted images, axial sections, TR 4800, TE 128, B value 1000. Axial sections, ADC map, TR 4800, TE 128. Axial and coronal images were also obtained post 7 cc gadolinium administered intravenously. Findings:: Enlargement of the sella turcica is not present. The optic chiasm and infundibular stalk are not remarkable. There is no localized enlargement of the medulla or karin. Fourth ventricle and cerebellar tonsils appear normal in position. No subacute area of hemorrhage density is seen. Fourth ventricle is midline. Mass in the cerebellopontine angle region is not evident. 7th and 8th nerve complexes exhibit symmetry Globes are symmetrical Orbital musculature including medial lateral rectus muscles do not exhibit abnormality Subtle hyperintense signal in cortical sulcal markings on the FLAIR image Effacement of the cortical sulcal markings is not identified. Mass effect upon the ventricular system is not identified. Diffusion-weighted images demonstrate no focus of restricted diffusion Contrast images demonstrate no abnormal enhancement Impression: Negative for acute hemorrhage mass effect or midline shift No acute infarct Subtle increased signal in the cerebral cortex diffusely on the FLAIR images, encephalopathy pattern, the appearance should be clinically correlated
--- NOTE | 2024-07-29 00:47 | PC.NURSE ---
MD Rose notified that pt is having breakthrough agitation, restlessness, confusion. I notified that I gave the 0.5 mg Ativan PRN almost an hour ago but it has no effect and patient's symptoms got worse.MD Rose said ok to give the 2mg ativan for breakthrough agitation. content manager Ashbey also made aware
[2024-07-29] MEDS: LORazepam 2 MG/ML VIAL IVP (00:50)
[2024-07-29 06:21] LABS: Basophils % (Auto) 1 % (0-2.5); Eosinophils # (Auto) 0.1 Thou/mm3 (0.0-0.5); Eosinophils % (Auto) 3 % (0-10); Hematocrit 30.7 % (41.0-53.0); Hemoglobin 10.5 g/dL (13.5-16.0); Immature Granulocytes % (Auto) 1 % (0-0); Immature Granulocytes Auto 0.02 Thou/mm3 (0.00-0.00); Lymphocytes % (Auto) 24 % (10-50); Mean Corpuscular HGB Conc 34.2 g/dl (31.0-37.0); Mean Corpuscular Hemoglobin 30.3 pg (25.0-35.0); Mean Corpuscular Volume 89 fL (80-100); Monocytes # (Auto) 0.8 Thou/mm3 (0.0-0.8); Monocytes % (Auto) 19 % (0-12); Neutrophils # (Auto) 2.2 Thou/mm3 (1.8-7.7); Neutrophils % (Auto) 54 % (37-80); Nucleated Red Blood Cell % 0 /100 WBC (0); Platelet Count 158 Thou/mm3 (140-440); Red Blood Count 3.47 Miln/mm3 (4.50-5.90); White Blood Count 4.1 Thou/mm3 (3.8-10.6)
[2024-07-29 06:39] LABS: Alanine Aminotransferase 23 U/L (10-49); Albumin, Serum 2.8 gm/dL (3.5-5.0); Albumin/Globulin Ratio 1.3 (1.2-2.2); Alkaline Phosphatase 115 U/L (46-116); Anion Gap 9 (7-16); Aspartate Amino Transferase 41 U/L (0-34); BUN/Creatinine Ratio 20 Ratio (12-20); Bilirubin,Total 0.4 mg/dL (0.3-1.2); Blood Urea Nitrogen 6 mg/dL (9-23); Calcium 8.8 mg/dL (8.3-10.6); Calcium (Corrected) 9.8 mg/dL (8.5-10.1); Carbon Dioxide 22.5 mMol/L (20.0-31.0); Chloride 113 mMol/L (98-107); Creatinine (Component) 0.3 mg/dL (0.6-1.3); Estimated Creatinine Clearance 174.5 mL/min (>60); Globulin 2.1 gm/dL (2.3-3.5); Glucose 71 mg/dL (74-106); Magnesium 2.1 mg/dL (1.6-2.6); Osmolality,Calculated 282 (275-295); Phosphorous 3.5 mg/dL (2.4-5.1); Potassium 4.2 mMol/L (3.4-5.1); Sodium 144 mMol/L (136-145); Total Protein 4.9 gm/dL (5.7-8.2); eGFR > 60 See Note
[2024-07-29] MEDS: ENOXAPARIN SOD INJ 40 MG/0.4 ML SYRINGE SC (09:38)
[2024-07-29] MEDS: NICOTINE PATCH 21 MG/24 HR PATCH.TD24 TOP (09:38)
--- NOTE | 2024-07-29 09:48 | PC.NURSE ---
Dr Barbosa notified that patient was asleep and didn't receive any of the 9am PO medications. Will attempt to give to patient once patient is awake and alert.
[2024-07-29] MEDS: DEXTROSE 50%-WATER INJ 50 ML SYRINGE IV (11:56)
--- NOTE | 2024-07-29 13:27 | ESPR_ITS ---
<Statement entered by Alfa Guadarrama MD - 07/29/24 14:16> Patient was seen and examined at the bedside this morning. Patient continues to remain confused despite being out of alcohol withdrawal timeline. We consulted neurology for further evaluation concern for Warnicke's Korsakoff encephalopathy. PT recommended SNF placement. was present at the bedside and she was explained that we will wait for neurology further recommendations and follow-up with MRI brain without contrast. Labs are unremarkable. Will continue with [facility] protocol. All labs and orders were reviewed. I saw and examined the patient, and I agree with current management stated by Dr Dianna MD,PGY1. Plan of care was discussed with the attending physician and resident physician. Disclaimer: Despite multiple revisions, due to the dictation software being used, the document bellow may not be free of grammatical errors including phonetic/typographic errors. However, this does not deter from our commitment to providing health care in the patient's best interest in mind. Dr. Chiara MD, PGY 2 Documentation for date of: 07/29/24 Subjective Subjective Interval history: Overnight: Patient extremely agitated, additional Ativan given. Patient seen and examined at bedside. Patient's somnolent, no specific complaints. Consulted neurology, ordered MRI to eval for Wernicke?Korsakoff encephalopathy. Exam Vital Signs Temp Pulse Resp BP Pulse Ox O2 Del Method O2 Flow Rate 96.7 F L 92 19 137/103 H 99 Room Air 1 07/29/24 12:00 07/29/24 12:00 07/29/24 12:07/29/24 12:07/29/24 12:07/29/24 08:00 07/27/24 07:49 Narrative Exam PE: Gen: Well-developed and well-nourished. Extremely cachectic. HEENT: NCAT, PERRLA, EOMI, MMM, anicteric conjunctivae. CVS: normal S1 and S2. RRR. No M/R/G. Resp: CTA B/L. No rhonchi, rales, crackles or wheezing. Abd: soft, non-tender, non-distended. BS+ in all 4 quadrants. MSK: Good ROM in BUE & BLE. No edema or rash. Neuro: CN II-XII grossly intact. Strength 5/5 in BUE. Alert and oriented x2. Bilateral lower extremity weakness, significantly improved. Somnolent. Psych: appropriate mood and affect. Objective Labs 07/29/24 05:26 07/29/24 05:26 Labs: Laboratory Results - last 24 hr 07/29/24 05:26 WBC 4.1 D RBC 3.47 L Hgb 10.5 L Hct 30.7 L MCV 89 MCH 30.3 MCHC 34.2 RDW Std Deviation 42.0 Plt Count 158 Neut % (Auto) 54 Lymph % (Auto) 24 [place] % (Auto) 19 H Eos % (Auto) 3 Baso % (Auto) 1 Neut # (Auto) 2.2 Lymph # (Auto) 1.0 [place] # (Auto) 0.8 Eos # (Auto) 0.1 Baso # (Auto) 0.0 Immature Gran # (Auto) 0.02 H Absolute Nucleated RBC 0.00 Immature Gran % 1 H Nucleated RBC % 0 Sodium 144 Potassium 4.2 Chloride 113 H Carbon Dioxide 22.5 Anion Gap 9 BUN 6 L Creatinine 0.3 L Estim Creat Clear Calc 174.5 eGFR > 60 BUN/Creatinine Ratio 20 Glucose 71 L Calculated Osmolality 282 Calcium 8.8 Corrected Calcium 9.8 Phosphorus 3.5 Magnesium 2.1 Total Bilirubin 0.4 AST 41 H ALT 23 Alkaline Phosphatase 115 D Total Protein 4.9 L Albumin 2.8 L Globulin 2.1 L Albumin/Globulin Ratio 1.3 ABG Interpretation ABG results: 07/26/24 16:03 ABG pH 7.48 H ABG pCO2 33 ABG pO2 187 H ABG HCO3 25 ABG O2 Saturation 101 H ABG Base Excess 2 Quality Measures Quality Measures VTE prophylaxis Assessment & Plan Assessment Current Active Medications: Generic Name Dose Route Start Last Admin Trade Name Freq PRN Reason Stop Dose Admin Acetaminophen 650 mg 07/22/24 09:38 Acetaminophen 325 Mg Tablet PO 08/21/24 04:55 Q6H PRN Fever >100.3 Albuterol/Ipratropium 3 ml 07/22/24 04:56 07/26/24 14:54 Albuterol/Ipratropium (Duoneb) Rt Rosalina 3 Ml Nebu INH 08/21/24 06:59 3 ml Q6HRRT PRN Administration sob or wheeze Enoxaparin Sodium 40 mg 07/22/24 09:00 07/29/24 09:38 Enoxaparin Sod Inj 40 Mg/0.4 Ml Syringe SC 08/05/24 08:59 40 mg QDAY FREDERICK Administration Folic Acid 1 mg 07/25/24 10:00 07/29/24 09:42 Folic Acid 1 Mg Tablet PO 08/24/24 09:59 Not Given QDAY FREDERICK Lisinopril 5 mg 07/23/24 09:00 07/29/24 09:43 Lisinopril 2.5 Mg Tablet PO 08/22/24 08:59 Not Given QDAY FREDERICK Lorazepam 0.5 mg 07/28/24 00:13 07/28/24 23:57 Lorazepam 2 Mg/Ml Vial IV 08/02/24 00:12 0.5 mg Q2HR PRN Administration CIWA SCORE 8-13 Lorazepam 1 mg 07/28/24 00:13 Lorazepam 2 Mg/Ml Vial IV 08/02/24 00:12 Q2HR PRN CIWA SCORE 14-19 Lorazepam 2 mg 07/28/24 00:13 Lorazepam 2 Mg/Ml Vial IV 08/02/24 00:12 Q2HR PRN CIWA SCORE 20-25 Magnesium Hydroxide 30 ml 07/22/24 04:56 Milk Of Magnesia Susp 30 Ml Udc PO 08/21/24 04:55 QDAY PRN CONSTIPATION Protocol Nicotine 21 mg 07/23/24 00:39 07/29/24 09:38 Nicotine Patch 21 Mg/24 Hr Patch.Td24 TOP 08/22/24 00:38 21 mg QDAY FREDERICK Administration Pantoprazole Sodium 40 mg 07/22/24 09:00 07/29/24 09:43 Pantoprazole 40 Mg Tablet PO 08/21/24 08:59 Not Given QDAY FREDERICK Scopolamine 1 mg 07/22/24 08:42 Scopolamine 1 Mg Tdsy TOP 08/21/24 08:41 Q72H PRN NAUSEA OR VOMITING Sennosides 1 tab 07/23/24 10:10 Senna Tablet PO 08/22/24 10:09 QDAY PRN CONSTIPATION Protocol Sodium Chloride 3 ml 07/21/24 20:16 07/21/24 21:31 Sodium Chloride Rt Rosalina 0.9% 3 Ml Nebu INH 08/20/24 20:15 3 ml PRN PRN Administration SOLN Thiamine HCl 100 mg 07/22/24 09:00 07/29/24 09:44 Thiamine 100 Mg Tablet PO 08/21/24 08:59 Not Given QDAY FREDERICK Plan 44-year-old male with significant past medical history of smoking, alcohol abuse, hypertension, asthma presented to the hospital with chief complaints of shortness of breath since 1 day and admitted for acute exacerbation of asthma/COPD and alcohol withdrawal. #Alcohol withdrawal, improving #Alcohol Use Disorder #Delirium tremens, resolved Patient has history of alcohol abuse, states he drinks every day. In the ED, patient was found to have elevated blood pressures, tachycardia and agitated for which patient was given 2 Mg of IV lorazepam. Patient is unsure of last drink levels <3.0. Patient continued to have elevated CIWA score levels despite scheduled Librium. Patient tremulous, delirious on exam. Patient appeared altered this morning but arousable. Per patient's patient had symptoms of confusion, hallucination, weakness for 6 months. Concern for Warnicke's encephalopathy. -Librium 25 mg p.o. x 1 today, held for tomorrow -CIWA protocol ordered, holding Ativan -Thiamine p.o. daily 100 Mg -Folate Qday -A dose of multivitamin injection is given -Recommended social science manager referral -QTc prolonged (501), scopolamine patch used instead of Zofran for nausea -Neuroconsult ordered, follow-up -MRI brain with and without contrast ordered, follow-up #Normocytic normochromic anemia, likely nutritional #Cachexia, failure to thrive Hemoglobin at the time of admission is 12.5 . A dose of multivitamin injection is given. Patient is extremely cachectic, chronic. Suspect malnutrition due to alcohol abuse. HIV test and hepatitis panel negative. -Dietary consult, appreciate recommendations -PT eval recommending SNF for rehab -Every 6 hour blood sugar checks -Follow-up in the outpatient basis #Acute exacerbation of asthma/COPD, resolved #History of asthma #Smoker Presented to the ED with chief complaints of shortness of breath since 1 day after smoking. Patient had history of smoking 1 pack/day, unsure of duration. In the ED, patient was found to have wheeze on examination Patient was treated with nebulizations, steroids in the ED. Vitals at the time of admission showed blood pressure 169/122 mmHg, pulse rate 150 bpm, respiratory rate 22/min. On examination, noted bilateral decreased breath sounds without any wheeze. Chest x-ray showed prominent hyperexpansion of both lung moore without any infiltrates. Patient saturating well on room air. 20 Mg prednisone p.o. for 5 days completed -oxygen as needed -Nicotine patches ordered -Nebulizations as needed -Smoking cessation counseling #Mild transaminitis, improving #Hyperbilirubinemia, Resolved. Likely due to alcohol liver disease. Bilirubin at the time of admission is 1.3 and AST is 56, ALT 20. CT abdomen done in 2022 showed fatty liver. Ultrasound liver showed fatty liver. -Recommended alcohol cessation #Hypokalemia, resolved Likely due to poor oral intake and alcohol abuse. Potassium at the time of admission is 2.7. Ordered 40 mEq of IV potassium and patient received 40 mill equivalents of oral in the ED. -Monitor electrolytes and replete accordingly. #Hypertension Blood pressure at the time of admission is 169/122 mmHg, likely due to alcohol and nicotine withdrawal. Patient is using lisinopril 5 Mg at home, unsure of compliance. CIWA protocol and nicotine patch was ordered -Resume home lisinopril. DVT prophylaxis: Lovenox GI prophylaxis: Protonix Diet: Regular Lines: Peripheral IV Code status: Full code Plan of care discussed with senior resident Dr. Guadarrama PGY?[address] Ross. Caleb Bustamante MD PGY-1 Attending Provider Attestation/Addendum I attest that I was physically present for the evaluation, physical examination, lab and imaging review of the patient with the residents. I discussed the case with the residents and agree with the findings and plans of care as documented above. At bedside today, patient was awake but confused. Unable to answer questions appropriately. Patient had a CIWA score of 6 this morning. Continues to be on folic acid, thiamine and multivitamin. Patient has been on CIWA protocol. Discussed with the at bedside, stated that patient has been having altered mentation on and off even at home for at least 2 months. Given that patient has been here for more than 7 days, continues to be confuse, had history of having altered mentation even at home, we will evaluate for further causes of encephalopathy including Warnicke's Korsakoff encephalopathy. We will obtain neurology consult and brain MRI. Teena Ross MD
--- NOTE | 2024-07-29 23:49 | PD.NEUROCONS ---
History of Present Illness Data of Consult Requesting Physician: Vladimir Jimenez MD Primary Care Provider: Martine Man PA-C Consult Narrative cc:: cc: Vladimir Jimenez MD Meds Home Medications and Allergies Allergies Allergy/AdvReac Type Severity Reaction Status Date / Time bee venom protein (honey bee) Allergy Verified 03/12/24 23:09 Exam - Neurology Vital Signs Temp Pulse Resp BP Pulse Ox O2 Del Method O2 Flow Rate 97.1 F 88 14 120/90 H 96 Room Air 1 07/29/24 20:00 07/29/24 20:00 07/29/24 20:00 07/29/24 20:00 07/29/24 20:00 07/29/24 20:00 07/29/24 20:00 Results Labs 07/29/24 05:26 07/29/24 05:26 Labs: Short CBC 07/29/24 Range/Units 05:26 WBC 4.1 D (3.8-10.6) Thou/mm3 Hgb 10.5 L (13.5-16.0) g/dL Hct 30.7 L (41.0-53.0) % Plt Count 158 (140-440) Thou/mm3 BMP 07/29/24 05:26 Sodium 144 Potassium 4.2 Chloride 113 H Carbon Dioxide 22.5 BUN 6 L Creatinine 0.3 L Glucose 71 L Calcium 8.8 Liver Function 07/29/24 Range/Units 05:26 Total Bilirubin 0.4 (0.3-1.2) mg/dL AST 41 H (0-34) U/L ALT 23 (10-49) U/L Alkaline Phosphatase 115 D (46-116) U/L Albumin 2.8 L (3.5-5.0) gm/dL ABG Interpretation ABG results: 07/26/24 16:03 ABG pH 7.48 H ABG pCO2 33 ABG pO2 187 H ABG HCO3 25 ABG O2 Saturation 101 H ABG Base Excess 2
[2024-07-30] VITALS (9 sets, daily range): BP systolic 88–133; BP diastolic 60–98; PULSE 82–115; RESP 14–99; TEMP 36.1–37.1; O2SAT 96–99; BMI 13.8; BMI 13.0
[2024-07-30] MEDS: ACETAMINOPHEN 325 MG TABLET 650 MG PO (03:06)
[2024-07-30] MEDS: THIAMINE INJ 500 MG in SODIUM CHLORIDE 0.9% 100 ML 205 MG IV ×3 (03:55→21:30)
[2024-07-30 05:55] LABS: Basophils % (Auto) 0 % (0-2.5); Eosinophils # (Auto) 0.1 Thou/mm3 (0.0-0.5); Eosinophils % (Auto) 2 % (0-10); Hematocrit 32.2 % (41.0-53.0); Immature Granulocytes % (Auto) 0 % (0-0); Immature Granulocytes Auto 0.02 Thou/mm3 (0.00-0.00); Lymphocytes # (Auto) 1.1 Thou/mm3 (1.0-4.8); Lymphocytes % (Auto) 20 % (10-50); Mean Corpuscular HGB Conc 34.2 g/dl (31.0-37.0); Mean Corpuscular Hemoglobin 30.5 pg (25.0-35.0); Mean Corpuscular Volume 89 fL (80-100); Monocytes # (Auto) 0.8 Thou/mm3 (0.0-0.8); Monocytes % (Auto) 14 % (0-12); Neutrophils # (Auto) 3.4 Thou/mm3 (1.8-7.7); Neutrophils % (Auto) 64 % (37-80); Nucleated Red Blood Cell % 0 /100 WBC (0); Platelet Count 196 Thou/mm3 (140-440); RDW Standard Deviation 42.6 fL (35.1-43.9); Red Blood Count 3.61 Miln/mm3 (4.50-5.90); White Blood Count 5.4 Thou/mm3 (3.8-10.6)
[2024-07-30 06:20] LABS: Alanine Aminotransferase 28 U/L (10-49); Albumin, Serum 2.8 gm/dL (3.5-5.0); Albumin/Globulin Ratio 1.2 (1.2-2.2); Alkaline Phosphatase 130 U/L (46-116); Anion Gap 9 (7-16); Aspartate Amino Transferase 39 U/L (0-34); BUN/Creatinine Ratio 20 Ratio (12-20); Bilirubin,Total 0.3 mg/dL (0.3-1.2); Blood Urea Nitrogen 10 mg/dL (9-23); Calcium 8.7 mg/dL (8.3-10.6); Calcium (Corrected) 9.7 mg/dL (8.5-10.1); Carbon Dioxide 24.5 mMol/L (20.0-31.0); Chloride 107 mMol/L (98-107); Creatinine (Component) 0.5 mg/dL (0.6-1.3); Estimated Creatinine Clearance 110.1 mL/min (>60); Globulin 2.3 gm/dL (2.3-3.5); Glucose 179 mg/dL (74-106); Magnesium 1.8 mg/dL (1.6-2.6); Osmolality,Calculated 282 (275-295); Phosphorous 3.4 mg/dL (2.4-5.1); Potassium 4.2 mMol/L (3.4-5.1); Sodium 140 mMol/L (136-145); Total Protein 5.1 gm/dL (5.7-8.2); eGFR > 60 See Note
[2024-07-30] MEDS: PANTOPRAZOLE 40 MG TABLET PO (09:04)
[2024-07-30] MEDS: FOLIC ACID 1 MG TABLET PO (09:04)
[2024-07-30] MEDS: Lisinopril 2.5 MG TABLET 5 MG PO (09:04)
[2024-07-30] MEDS: ENOXAPARIN SOD INJ 40 MG/0.4 ML SYRINGE SC (09:07)
--- NOTE | 2024-07-30 10:24 | PC.SS ---
Addendum entered by Yamial Castillo 07/30/24 14:36: SS contacted patient's and SS informed her that patient is still altered. SS informed them that authorization was peding to [facility]. Original Note: SS follow up note; AYDEE sent Passr through file exchange to [employer]. [employer] will submit for auth today.
--- NOTE | 2024-07-30 13:22 | ESPR_ITS ---
<Statement entered by Alfa Guadarrama MD - 07/30/24 14:54> Patient was seen and examined at the bedside. Patient appears to be confused and MRI brain was significant for increased signal and enhancement in the cerebral cortex. Night team placed order for thiamine 500 mg x 1 continuing thiamine 100 mg once daily. We are currently waiting on neurology recommendations. PT recommended SNF placement and patient will discharge to SNF possibly tomorrow. Continuing [facility] protocol. All labs and orders were reviewed. I saw and examined the patient, and I agree with current management stated by Dr Dianna MD,PGY1. Plan of care was discussed with the attending physician and resident physician. Disclaimer: Despite multiple revisions, due to the dictation software being used, the document bellow may not be free of grammatical errors including phonetic/typographic errors. However, this does not deter from our commitment to providing health care in the patient's best interest in mind. Dr. Chiara MD, PGY 2 Documentation for date of: 07/30/24 Subjective Subjective Interval history: No overnight events. Patient seen examined at bedside. Patient alert, remains disoriented, cooperative. Denies headache, chest pain, nausea, vomiting. MRI showed diffuse encephalopathy. Pending neuro recs. Exam Vital Signs Temp Pulse Resp BP Pulse Ox O2 Del Method O2 Flow Rate 98.8 F 106 H 16 115/83 99 Room Air 1 07/30/24 12:00 07/30/24 12:00 07/30/24 12:07/30/24 12:00 07/30/24 12:07/30/24 12:07/29/24 20:00 Narrative Exam PE: Gen: Well-developed and well-nourished. Extremely cachectic. HEENT: NCAT, PERRLA, EOMI, MMM, anicteric conjunctivae. CVS: normal S1 and S2. RRR. No M/R/G. Resp: CTA B/L. No rhonchi, rales, crackles or wheezing. Abd: soft, non-tender, non-distended. BS+ in all 4 quadrants. MSK: Good ROM in BUE & BLE. No edema or rash. Neuro: CN II-XII grossly intact. Strength 5/5 in BUE. Alert and oriented x2. Bilateral lower extremity weakness, significantly improved. Psych: appropriate mood and affect. Objective Labs 07/30/24 05:02 07/30/24 05:02 Labs: Laboratory Results - last 24 hr 07/30/24 05:02 WBC 5.4 RBC 3.61 L Hgb 11.0 L Hct 32.2 L MCV 89 MCH 30.5 MCHC 34.2 RDW Std Deviation 42.6 Plt Count 196 D Neut % (Auto) 64 Lymph % (Auto) 20 [place] % (Auto) 14 H Eos % (Auto) 2 Baso % (Auto) 0 Neut # (Auto) 3.4 Lymph # (Auto) 1.1 [place] # (Auto) 0.8 Eos # (Auto) 0.1 Baso # (Auto) 0.0 Immature Gran # (Auto) 0.02 H Absolute Nucleated RBC 0.00 Immature Gran % 0 Nucleated RBC % 0 Sodium 140 Potassium 4.2 Chloride 107 Carbon Dioxide 24.5 Anion Gap 9 BUN 10 Creatinine 0.5 L Estim Creat Clear Calc 110.1 eGFR > 60 BUN/Creatinine Ratio 20 Glucose 179 H D Calculated Osmolality 282 Calcium 8.7 Corrected Calcium 9.7 Phosphorus 3.4 Magnesium 1.8 Total Bilirubin 0.3 AST 39 H ALT 28 Alkaline Phosphatase 130 H Total Protein 5.1 L Albumin 2.8 L Globulin 2.3 Albumin/Globulin Ratio 1.2 ABG Interpretation ABG results: 07/26/24 16:03 ABG pH 7.48 H ABG pCO2 33 ABG pO2 187 H ABG HCO3 25 ABG O2 Saturation 101 H ABG Base Excess 2 Quality Measures Quality Measures VTE prophylaxis Assessment & Plan Assessment Current Active Medications: Generic Name Dose Route Start Last Admin Trade Name Prabhakar PRN Reason Stop Dose Admin Acetaminophen 650 mg 07/22/24 09:38 07/30/24 03:06 Acetaminophen 325 Mg Tablet PO 08/21/24 04:55 650 mg Q6H PRN Administration Fever >100.3 Albuterol/Ipratropium 3 ml 07/22/24 04:56 07/26/24 14:54 Albuterol/Ipratropium (Duoneb) Rt Rosalina 3 Ml Nebu INH 08/21/24 06:59 3 ml Q6HRRT PRN Administration sob or wheeze Enoxaparin Sodium 40 mg 07/22/24 09:00 07/30/24 09:07 Enoxaparin Sod Inj 40 Mg/0.4 Ml Syringe SC 08/05/24 08:59 40 mg QDAY FREDERICK Administration Folic Acid 1 mg 07/25/24 10:00 07/30/24 09:04 Folic Acid 1 Mg Tablet PO 08/24/24 09:59 1 mg QDAY FREDERICK Administration Lisinopril 5 mg 07/23/24 09:00 07/30/24 09:04 Lisinopril 2.5 Mg Tablet PO 08/22/24 08:59 5 mg QDAY FREDERICK Administration Lorazepam 0.5 mg 07/28/24 00:13 07/28/24 23:57 Lorazepam 2 Mg/Ml Vial IV 08/02/24 00:12 0.5 mg Q2HR PRN Administration CIWA SCORE 8-13 Lorazepam 1 mg 07/28/24 00:13 Lorazepam 2 Mg/Ml Vial IV 08/02/24 00:12 Q2HR PRN CIWA SCORE 14-19 Lorazepam 2 mg 07/28/24 00:13 Lorazepam 2 Mg/Ml Vial IV 08/02/24 00:12 Q2HR PRN CIWA SCORE 20-25 Magnesium Hydroxide 30 ml 07/22/24 04:56 Milk Of Magnesia Susp 30 Ml Udc PO 08/21/24 04:55 QDAY PRN CONSTIPATION Protocol Nicotine 21 mg 07/23/24 00:39 07/30/24 09:07 Nicotine Patch 21 Mg/24 Hr Patch.Td24 TOP 08/22/24 00:38 Not Given QDAY FREDERICK Pantoprazole Sodium 40 mg 07/22/24 09:00 07/30/24 09:04 Pantoprazole 40 Mg Tablet PO 08/21/24 08:59 40 mg QDAY FREDERICK Administration Scopolamine 1 mg 07/22/24 08:42 Scopolamine 1 Mg Tdsy TOP 08/21/24 08:41 Q72H PRN NAUSEA OR VOMITING Sennosides 1 tab 07/23/24 10:10 Senna Tablet PO 08/22/24 10:09 QDAY PRN CONSTIPATION Protocol Sodium Chloride 3 ml 07/21/24 20:16 07/21/24 21:31 Sodium Chloride Rt Rosalina 0.9% 3 Ml Nebu INH 08/20/24 20:15 3 ml PRN PRN Administration SOLN Thiamine HCl 100 mg 07/22/24 09:00 07/29/24 09:44 Thiamine 100 Mg Tablet PO 08/21/24 08:59 Not Given QDAY FREDERICK Plan 44-year-old male with significant past medical history of smoking, alcohol abuse, hypertension, asthma presented to the hospital with chief complaints of shortness of breath since 1 day and admitted for acute exacerbation of asthma/COPD and alcohol withdrawal. #Alcohol withdrawal, improving #Alcohol Use Disorder #Delirium tremens, resolved Patient has history of alcohol abuse, states he drinks every day. In the ED, patient was found to have elevated blood pressures, tachycardia and agitated for which patient was given 2 Mg of IV lorazepam. Patient is unsure of last drink levels <3.0. Patient continued to have elevated CIWA score levels despite scheduled Librium. Patient tremulous, delirious on exam. Patient appeared altered this morning but arousable. Per patient's patient had symptoms of confusion, hallucination, weakness for 6 months. Concern for Warnicke's encephalopathy. MRI showed diffuse encephalopathy. Pending neuro recs. -Librium 25 mg p.o. x 1 today, held for tomorrow -CIWA protocol ordered, holding Ativan -Thiamine 500 mg IV x 2 days -Folate Qday -Recommended high school social studies tutor referral -QTc prolonged (501), scopolamine patch used instead of Zofran for nausea -Neuroconsult ordered, follow-up -MRI brain with and without contrast ordered, follow-up #Normocytic normochromic anemia, likely nutritional #Cachexia, failure to thrive Hemoglobin at the time of admission is 12.5 . A dose of multivitamin injection is given. Patient is extremely cachectic, chronic. Suspect malnutrition due to alcohol abuse. HIV test and hepatitis panel negative. -Dietary consult, appreciate recommendations -PT eval recommending SNF for rehab -Every 6 hour blood sugar checks -Follow-up in the outpatient basis #Acute exacerbation of asthma/COPD, resolved #History of asthma #Smoker Presented to the ED with chief complaints of shortness of breath since 1 day after smoking. Patient had history of smoking 1 pack/day, unsure of duration. In the ED, patient was found to have wheeze on examination Patient was treated with nebulizations, steroids in the ED. Vitals at the time of admission showed blood pressure 169/122 mmHg, pulse rate 150 bpm, respiratory rate 22/min. On examination, noted bilateral decreased breath sounds without any wheeze. Chest x-ray showed prominent hyperexpansion of both lung moore without any infiltrates. Patient saturating well on room air. 20 Mg prednisone p.o. for 5 days completed -oxygen as needed -Nicotine patches ordered -Nebulizations as needed -Smoking cessation counseling #Mild transaminitis, improving #Hyperbilirubinemia, Resolved. Likely due to alcohol liver disease. Bilirubin at the time of admission is 1.3 and AST is 56, ALT 20. CT abdomen done in 2022 showed fatty liver. Ultrasound liver showed fatty liver. -Recommended alcohol cessation #Hypokalemia, resolved Likely due to poor oral intake and alcohol abuse. Potassium at the time of admission is 2.7. Ordered 40 mEq of IV potassium and patient received 40 mill equivalents of oral in the ED. -Monitor electrolytes and replete accordingly. #Hypertension Blood pressure at the time of admission is 169/122 mmHg, likely due to alcohol and nicotine withdrawal. Patient is using lisinopril 5 Mg at home, unsure of compliance. CIWA protocol and nicotine patch was ordered -Resume home lisinopril. DVT prophylaxis: Lovenox GI prophylaxis: Protonix Diet: Regular Lines: Peripheral IV Code status: Full code Plan of care discussed with senior resident Dr. Guadarrama PGY?[address] Ross. Caleb Bustamante MD PGY-1 Attending Provider Attestation/Addendum I attest that I was physically present for the evaluation, physical examination, lab and imaging review of the patient with the residents. I discussed the case with the residents and agree with the findings and plans of care as documented above. At bedside today, patient appears more awake, was able to answer few questions but remains confused. MRI was done, which showed findings suggestive of diffuse encephalopathy. Continues to be on CIWA protocol. Patient received thiamine 500 mg IV overnight, we will continue and await for neurology recommendations. Teena Ross MD
[2024-07-30] MEDS: LORazepam 2 MG/ML VIAL 1 MG IVP (18:41)
[2024-07-30] MEDS: HALOPERIDOL LACT INJ 5 MG/ML VIAL 2.5 MG IV (19:29)
--- NOTE | 2024-07-30 23:02 | RESP.EEG ---
EEG was attempted but Pt quickly became combative and threatening. EEG was not completed. ABDON Mcnair was made aware. to be notified.
--- NOTE | 2024-07-30 23:40 | PD.NEUROPROG ---
Documentation for date of: 07/30/24 Subjective Subjective Interval history: Patient was seen in telemetry today. His mental status is improved, close to baseline, able to feed himself. Try to carry on a conversation even though there is no one with him. Exam - Neurology Vital Signs Temp Pulse Resp BP Pulse Ox O2 Del Method O2 Flow Rate 97.8 F 82 27 H 88/72 L 99 Room Air 1 07/30/24 20:00 07/30/24 20:00 07/30/24 20:00 07/30/24 20:00 07/30/24 20:00 07/30/24 20:00 07/29/24 20:00 Narrative Exam GENERAL APPEARANCE: well-developed thin built in no acute distress. HEENT: Normocephalic, atraumatic, extraocular movements intact. Pupils: Equal reacting to light NECK: Supple, no JVD or bruits. CARDIOVASULAR: Heart: S1, S2 heard, regular without S3-S4 or murmur no rubs or gallops. LUNGS/CHEST: Clear to auscultation bilaterally. No rails, rhonchi, or wheezing. Normal inspection. ABDOMEN: Soft, nontender, with normal bowel sounds. No pulsatile masses. No rebound, rigidity, or guarding. Normal inspection and palpation. EXTREMITIES: Normal inspection and palpation. No edema, clubbing or cyanosis. SKIN: Warm and dry without rashes. Normal inspection. MUSCULOSKELETAL: No cervical, thoracic, lumbar or midline bony tenderness. Normal inspection. NEURO: Alert, awake and oriented x1. Cranial nerves: II through XII grossly intact. Speech and language: Normal with no dysarthria or dysphasia. Motor system: Tone and bulk: Normal: Strength: 5 out of 5 in all 4 extremities; No pronator drift noted. Deep tendon reflexes: Absent. Plantar reflex: Downgoing bilaterally. Sensory system: Impaired to all modalities of sensation bilaterally. Coordination: Impaired secondary to tremors. Gait: Not tested. No signs of meningeal irritation noted. PSYCHIATRIC: Limited Objective Labs 07/30/24 05:02 07/30/24 05:02 Labs: Laboratory Results - last 24 hr 07/30/24 05:02 WBC 5.4 RBC 3.61 L Hgb 11.0 L Hct 32.2 L MCV 89 MCH 30.5 MCHC 34.2 RDW Std Deviation 42.6 Plt Count 196 D Neut % (Auto) 64 Lymph % (Auto) 20 [place] % (Auto) 14 H Eos % (Auto) 2 Baso % (Auto) 0 Neut # (Auto) 3.4 Lymph # (Auto) 1.1 [place] # (Auto) 0.8 Eos # (Auto) 0.1 Baso # (Auto) 0.0 Immature Gran # (Auto) 0.02 H Absolute Nucleated RBC 0.00 Immature Gran % 0 Nucleated RBC % 0 Sodium 140 Potassium 4.2 Chloride 107 Carbon Dioxide 24.5 Anion Gap 9 BUN 10 Creatinine 0.5 L Estim Creat Clear Calc 110.1 eGFR > 60 BUN/Creatinine Ratio 20 Glucose 179 H D Calculated Osmolality 282 Calcium 8.7 Corrected Calcium 9.7 Phosphorus 3.4 Magnesium 1.8 Total Bilirubin 0.3 AST 39 H ALT 28 Alkaline Phosphatase 130 H Total Protein 5.1 L Albumin 2.8 L Globulin 2.3 Albumin/Globulin Ratio 1.2 ABG Interpretation ABG results: 07/26/24 16:03 ABG pH 7.48 H ABG pCO2 33 ABG pO2 187 H ABG HCO3 25 ABG O2 Saturation 101 H ABG Base Excess 2 Assessment & Plan Assessment and plan (1) Alcohol withdrawal: Status: Acute Assessment and plan: Improving overall, workup is negative so far. Continue with supportive care and to consider physical therapy as he is becoming cooperative.
[2024-07-30] MEDS: QUEtiapine FUMARATE 25 MG TABLET 12.5 MG PO (23:47)
[2024-07-31] VITALS (8 sets, daily range): BP systolic 99–120; BP diastolic 77–99; PULSE 81–118; RESP 13–99; TEMP 36.1–36.6; O2SAT 92–100; BMI 13.6
[2024-07-31] MEDS: THIAMINE INJ 500 MG in SODIUM CHLORIDE 0.9% 100 ML 205 MG IV ×3 (06:27→21:24)
[2024-07-31 06:53] LABS: Basophils % (Auto) 0 % (0-2.5); Eosinophils # (Auto) 0.1 Thou/mm3 (0.0-0.5); Eosinophils % (Auto) 1 % (0-10); Hematocrit 29.6 % (41.0-53.0); Hemoglobin 9.9 g/dL (13.5-16.0); Immature Granulocytes % (Auto) 1 % (0-0); Immature Granulocytes Auto 0.05 Thou/mm3 (0.00-0.00); Lymphocytes # (Auto) 1.6 Thou/mm3 (1.0-4.8); Lymphocytes % (Auto) 31 % (10-50); Mean Corpuscular HGB Conc 33.4 g/dl (31.0-37.0); Mean Corpuscular Hemoglobin 30.4 pg (25.0-35.0); Mean Corpuscular Volume 91 fL (80-100); Monocytes # (Auto) 0.7 Thou/mm3 (0.0-0.8); Monocytes % (Auto) 13 % (0-12); Neutrophils # (Auto) 2.8 Thou/mm3 (1.8-7.7); Neutrophils % (Auto) 54 % (37-80); Nucleated Red Blood Cell % 0 /100 WBC (0); Platelet Count 221 Thou/mm3 (140-440); RDW Standard Deviation 44.8 fL (35.1-43.9); Red Blood Count 3.26 Miln/mm3 (4.50-5.90); White Blood Count 5.2 Thou/mm3 (3.8-10.6)
[2024-07-31 07:16] LABS: Alanine Aminotransferase 25 U/L (10-49); Albumin, Serum 2.8 gm/dL (3.5-5.0); Albumin/Globulin Ratio 1.2 (1.2-2.2); Alkaline Phosphatase 116 U/L (46-116); Anion Gap 7 (7-16); Aspartate Amino Transferase 34 U/L (0-34); BUN/Creatinine Ratio 18 Ratio (12-20); Bilirubin,Total 0.3 mg/dL (0.3-1.2); Blood Urea Nitrogen 7 mg/dL (9-23); Calcium 8.7 mg/dL (8.3-10.6); Calcium (Corrected) 9.7 mg/dL (8.5-10.1); Carbon Dioxide 26.6 mMol/L (20.0-31.0); Chloride 110 mMol/L (98-107); Creatinine (Component) 0.4 mg/dL (0.6-1.3); Estimated Creatinine Clearance 136.2 mL/min (>60); Globulin 2.3 gm/dL (2.3-3.5); Glucose 69 mg/dL (74-106); Magnesium 1.8 mg/dL (1.6-2.6); Osmolality,Calculated 282 (275-295); Phosphorous 4.6 mg/dL (2.4-5.1); Potassium 4.2 mMol/L (3.4-5.1); Sodium 144 mMol/L (136-145); Total Protein 5.1 gm/dL (5.7-8.2); eGFR > 60 See Note
[2024-07-31] MEDS: ENOXAPARIN SOD INJ 40 MG/0.4 ML SYRINGE SC (09:17)
[2024-07-31] MEDS: NICOTINE PATCH 21 MG/24 HR PATCH.TD24 TOP (09:17)
[2024-07-31] MEDS: FOLIC ACID 1 MG TABLET PO (09:17)
[2024-07-31] MEDS: PANTOPRAZOLE 40 MG TABLET PO (09:17)
--- NOTE | 2024-07-31 09:21 | PC.SS ---
Addendum entered by STEPHANIA Trujillo 07/31/24 14:56: Rounding note: authorization to [facility] is pending. Patient also needs to be off restraints 24hrs before d/c to SNF. Original Note: SS follow up: Padmini at [facility] informs the authorization is pending for patient. Patient is also currently on restraints per Dr. Guadarrama.
--- NOTE | 2024-07-31 12:39 | RESP.EEG ---
I SPOKE WITH DR. Zepeda, SHE SAID I COULD D'C PTS EEG.
--- NOTE | 2024-07-31 13:54 | PD.RESPRO ---
Documentation for date of: 07/31/24 Subjective Subjective Interval history: Overnight: Patient is extremely sick with 1 dose Haldol and 2.5 mg Seroquel without improvement. Patient required wrist restraints. Patient calm by morning. Patient seen and examined at bedside. Patient had bilateral wrist restraints. Patient was calm, alert, but disoriented. Believed we were in a movie theater. Denies shortness of breath, stomach pain, nausea, vomiting. 50 mg Seroquel scheduled nightly. Evaluate for good control of agitation. Exam Vital Signs Temp Pulse Resp BP Pulse Ox O2 Del Method O2 Flow Rate 97.7 F 94 18 105/77 98 Room Air 1 07/31/24 12:00 07/31/24 12:00 07/31/24 12:00 07/31/24 12:00 07/31/24 08:00 07/31/24 08:00 07/29/24 20:00 Narrative Exam PE: Gen: Well-developed and well-nourished. Extremely cachectic. HEENT: NCAT, PERRLA, EOMI, MMM, anicteric conjunctivae. CVS: normal S1 and S2. RRR. No M/R/G. Resp: CTA B/L. No rhonchi, rales, crackles or wheezing. Abd: soft, non-tender, non-distended. BS+ in all 4 quadrants. MSK: Good ROM in BUE & BLE. No edema or rash. Neuro: CN II-XII grossly intact. Strength 5/5 in BUE. Alert and oriented x1. Bilateral lower extremity weakness, significantly improved. Psych: appropriate mood and affect. Objective Labs 07/31/24 05:23 07/31/24 05:23 Labs: Laboratory Results - last 24 hr 07/31/24 05:23 WBC 5.2 RBC 3.26 L Hgb 9.9 L Hct 29.6 L MCV 91 MCH 30.4 MCHC 33.4 RDW Std Deviation 44.8 H Plt Count 221 Neut % (Auto) 54 Lymph % (Auto) 31 [place] % (Auto) 13 H Eos % (Auto) 1 Baso % (Auto) 0 Neut # (Auto) 2.8 Lymph # (Auto) 1.6 [place] # (Auto) 0.7 Eos # (Auto) 0.1 Baso # (Auto) 0.0 Immature Gran # (Auto) 0.05 H Absolute Nucleated RBC 0.00 Immature Gran % 1 H Nucleated RBC % 0 Sodium 144 Potassium 4.2 Chloride 110 H Carbon Dioxide 26.6 Anion Gap 7 BUN 7 L Creatinine 0.4 L Estim Creat Clear Calc 136.2 eGFR > 60 BUN/Creatinine Ratio 18 Glucose 69 L D Calculated Osmolality 282 Calcium 8.7 Corrected Calcium 9.7 Phosphorus 4.6 Magnesium 1.8 Total Bilirubin 0.3 AST 34 ALT 25 Alkaline Phosphatase 116 Total Protein 5.1 L Albumin 2.8 L Globulin 2.3 Albumin/Globulin Ratio 1.2 ABG Interpretation ABG results: 07/26/24 16:03 ABG pH 7.48 H ABG pCO2 33 ABG pO2 187 H ABG HCO3 25 ABG O2 Saturation 101 H ABG Base Excess 2 Quality Measures Quality Measures VTE prophylaxis Assessment & Plan Assessment Current Active Medications: Generic Name Dose Route Start Last Admin Trade Name Freq PRN Reason Stop Dose Admin Acetaminophen 650 mg 07/22/24 09:38 07/30/24 03:06 Acetaminophen 325 Mg Tablet PO 08/21/24 04:55 650 mg Q6H PRN Administration Fever >100.3 Albuterol/Ipratropium 3 ml 07/22/24 04:56 07/26/24 14:54 Albuterol/Ipratropium (Duoneb) Rt Rosalina 3 Ml Nebu INH 08/21/24 06:59 3 ml Q6HRRT PRN Administration sob or wheeze Enoxaparin Sodium 40 mg 07/22/24 09:00 07/31/24 09:17 Enoxaparin Sod Inj 40 Mg/0.4 Ml Syringe SC 08/05/24 08:59 40 mg QDAY FREDERICK Administration Folic Acid 1 mg 07/25/24 10:00 07/31/24 09:17 Folic Acid 1 Mg Tablet PO 08/24/24 09:59 1 mg QDAY FREDERICK Administration Haloperidol Lactate 2 mg 07/30/24 23:26 Haloperidol Lact Inj 5 Mg/Ml Vial IM 08/29/24 23:25 X1 PRN Breakthrough Agitation Thiamine HCl 500 mg/ Sodium 105 mls @ 205 mls/hr 07/30/24 14:00 07/31/24 06:27 Chloride IV 08/29/24 13:59 205 mls/hr TID FREDERICK Administration Lisinopril 5 mg 07/23/24 09:00 07/31/24 09:23 Lisinopril 2.5 Mg Tablet PO 08/22/24 08:59 Not Given QDAY FREDERICK Lorazepam 0.5 mg 07/28/24 00:13 07/28/24 23:57 Lorazepam 2 Mg/Ml Vial IV 08/02/24 00:12 0.5 mg Q2HR PRN Administration CIWA SCORE 8-13 Lorazepam 1 mg 07/28/24 00:13 Lorazepam 2 Mg/Ml Vial IV 08/02/24 00:12 Q2HR PRN CIWA SCORE 14-19 Lorazepam 2 mg 07/28/24 00:13 Lorazepam 2 Mg/Ml Vial IV 08/02/24 00:12 Q2HR PRN CIWA SCORE 20-25 Magnesium Hydroxide 30 ml 07/22/24 04:56 Milk Of Magnesia Susp 30 Ml Udc PO 08/21/24 04:55 QDAY PRN CONSTIPATION Protocol Nicotine 21 mg 07/23/24 00:39 07/31/24 09:17 Nicotine Patch 21 Mg/24 Hr Patch.Td24 TOP 08/22/24 00:38 21 mg QDAY FREDERICK Administration Pantoprazole Sodium 40 mg 07/22/24 09:00 07/31/24 09:17 Pantoprazole 40 Mg Tablet PO 08/21/24 08:59 40 mg QDAY FREDERICK Administration Scopolamine 1 mg 07/22/24 08:42 Scopolamine 1 Mg Tdsy TOP 08/21/24 08:41 Q72H PRN NAUSEA OR VOMITING Sennosides 1 tab 07/23/24 10:10 Senna Tablet PO 08/22/24 10:09 QDAY PRN CONSTIPATION Protocol Sodium Chloride 3 ml 07/21/24 20:16 07/21/24 21:31 Sodium Chloride Rt Rosalina 0.9% 3 Ml Nebu INH 08/20/24 20:15 3 ml PRN PRN Administration SOLN Thiamine HCl 100 mg 07/22/24 09:00 07/29/24 09:44 Thiamine 100 Mg Tablet PO 08/21/24 08:59 Not Given QDAY FREDERICK Plan 44-year-old male with significant past medical history of smoking, alcohol abuse, hypertension, asthma presented to the hospital with chief complaints of shortness of breath since 1 day and admitted for acute exacerbation of asthma/COPD and alcohol withdrawal. #Alcohol withdrawal, improving #Alcohol Use Disorder #Delirium tremens, resolved #Warnicke Korsakoff encephalopathy Patient has history of alcohol abuse, states he drinks every day. In the ED, patient was found to have elevated blood pressures, tachycardia and agitated for which patient was given 2 Mg of IV lorazepam. Patient is unsure of last drink levels <3.0. Patient continued to have elevated CIWA score levels despite scheduled Librium. Patient tremulous, delirious on exam. Patient appeared altered this morning but arousable. Per patient's patient had symptoms of confusion, hallucination, weakness for 6 months. Concern for Warnicke's encephalopathy. MRI showed diffuse encephalopathy. Neurology recommending supportive care. Patient was very agitated overnight, despite 12.5 mg Seroquel and a dose of Haldol. Required restraints. Calm by morning. -CIWA protocol ordered, holding Ativan -Thiamine 500 mg IV x 2 days -Folate Qday -Recommended social human services assistants referral -QTc prolonged (501), scopolamine patch used instead of Zofran for nausea -Neuroconsult ordered, appreciate recs -Seroquel 25 mg p.o. twice daily as needed for agitation #Normocytic normochromic anemia, likely nutritional #Cachexia, failure to thrive Hemoglobin at the time of admission is 12.5 . A dose of multivitamin injection is given. Patient is extremely cachectic, chronic. Suspect malnutrition due to alcohol abuse. HIV test and hepatitis panel negative. -Dietary consult, appreciate recommendations -PT eval recommending SNF for rehab -Every 6 hour blood sugar checks -Follow-up in the outpatient basis #Acute exacerbation of asthma/COPD, resolved #History of asthma #Smoker Presented to the ED with chief complaints of shortness of breath since 1 day after smoking. Patient had history of smoking 1 pack/day, unsure of duration. In the ED, patient was found to have wheeze on examination Patient was treated with nebulizations, steroids in the ED. Vitals at the time of admission showed blood pressure 169/122 mmHg, pulse rate 150 bpm, respiratory rate 22/min. On examination, noted bilateral decreased breath sounds without any wheeze. Chest x-ray showed prominent hyperexpansion of both lung moore without any infiltrates. Patient saturating well on room air. 20 Mg prednisone p.o. for 5 days completed -oxygen as needed -Nicotine patches ordered -Nebulizations as needed -Smoking cessation counseling #Mild transaminitis, resolved #Hyperbilirubinemia, Resolved. Likely due to alcohol liver disease. Bilirubin at the time of admission is 1.3 and AST is 56, ALT 20. CT abdomen done in 2022 showed fatty liver. Ultrasound liver showed fatty liver. -Recommended alcohol cessation #Hypokalemia, resolved Likely due to poor oral intake and alcohol abuse. Potassium at the time of admission is 2.7. Ordered 40 mEq of IV potassium and patient received 40 mill equivalents of oral in the ED. -Monitor electrolytes and replete accordingly. #Hypertension Blood pressure at the time of admission is 169/122 mmHg, likely due to alcohol and nicotine withdrawal. Patient is using lisinopril 5 Mg at home, unsure of compliance. CIWA protocol and nicotine patch was ordered -Resume home lisinopril. DVT prophylaxis: Lovenox GI prophylaxis: Protonix Diet: Regular Lines: Peripheral IV Code status: Full code Plan of care discussed with senior resident Dr. Guadarrama PGY?[address] Rhodes. Caleb Bustamante MD PGY-1 Attending Provider Attestation/Addendum I attest that I was physically present for the evaluation, physical examination, lab and imaging review of the patient with the residents. I discussed the case with the residents and agree with the findings and plans of care as documented above. Pt seen and examined at bedside, mental status appears to be improving today. Was in restraints overnight, will establish a regimen for agitation with seroquel BID. If able to keep patient off of restraints for 24 hours and manage agitation, can discharge to SNF facility. Jose M Rhodes MD
[2024-07-31] MEDS: QUEtiapine FUMARATE 25 MG TABLET PO (16:36)
[2024-07-31] MEDS: HALOPERIDOL LACT INJ 5 MG/ML VIAL 2 MG IM (16:51)
[2024-07-31] MEDS: LORazepam 2 MG/ML VIAL 1 MG IV (19:33)
[2024-07-31] MEDS: OLANZapine INJ 10 MG, Sterile Water 2.1 ML IM (20:06)
--- NOTE | 2024-07-31 23:49 | PD.NEUROPROG ---
Documentation for date of: 07/31/24 Subjective Subjective Interval history: Patient was seen in telemetry today. His mental status is improved, close to baseline, able to feed himself. Getting upset and anxious wanting to be discharged to be with his family at home. Just received Haldol recently. Exam - Neurology Vital Signs Temp Pulse Resp BP Pulse Ox O2 Del Method O2 Flow Rate 97.0 F 107 H 15 117/82 97 Room Air 1 07/31/24 20:00 07/31/24 20:00 07/31/24 20:00 07/31/24 20:00 07/31/24 20:00 07/31/24 16:00 07/29/24 20:00 Narrative Exam GENERAL APPEARANCE: well-developed thin built in no acute distress. HEENT: Normocephalic, atraumatic, extraocular movements intact. Pupils: Equal reacting to light NECK: Supple, no JVD or bruits. CARDIOVASULAR: Heart: S1, S2 heard, regular without S3-S4 or murmur no rubs or gallops. LUNGS/CHEST: Clear to auscultation bilaterally. No rails, rhonchi, or wheezing. Normal inspection. ABDOMEN: Soft, nontender, with normal bowel sounds. No pulsatile masses. No rebound, rigidity, or guarding. Normal inspection and palpation. EXTREMITIES: Normal inspection and palpation. No edema, clubbing or cyanosis. SKIN: Warm and dry without rashes. Normal inspection. MUSCULOSKELETAL: No cervical, thoracic, lumbar or midline bony tenderness. Normal inspection. NEURO: Alert, awake and oriented x1. Cranial nerves: II through XII grossly intact. Speech and language: Normal with no dysarthria or dysphasia. Motor system: Tone and bulk: Normal: Strength: 5 out of 5 in all 4 extremities; No pronator drift noted. Deep tendon reflexes: Absent. Plantar reflex: Downgoing bilaterally. Sensory system: Impaired to all modalities of sensation bilaterally. Coordination: Impaired secondary to tremors. Gait: Not tested. No signs of meningeal irritation noted. PSYCHIATRIC: Limited Objective Labs 07/31/24 05:23 07/31/24 05:23 Labs: Laboratory Results - last 24 hr 07/31/24 05:23 WBC 5.2 RBC 3.26 L Hgb 9.9 L Hct 29.6 L MCV 91 MCH 30.4 MCHC 33.4 RDW Std Deviation 44.8 H Plt Count 221 Neut % (Auto) 54 Lymph % (Auto) 31 [place] % (Auto) 13 H Eos % (Auto) 1 Baso % (Auto) 0 Neut # (Auto) 2.8 Lymph # (Auto) 1.6 [place] # (Auto) 0.7 Eos # (Auto) 0.1 Baso # (Auto) 0.0 Immature Gran # (Auto) 0.05 H Absolute Nucleated RBC 0.00 Immature Gran % 1 H Nucleated RBC % 0 Sodium 144 Potassium 4.2 Chloride 110 H Carbon Dioxide 26.6 Anion Gap 7 BUN 7 L Creatinine 0.4 L Estim Creat Clear Calc 136.2 eGFR > 60 BUN/Creatinine Ratio 18 Glucose 69 L D Calculated Osmolality 282 Calcium 8.7 Corrected Calcium 9.7 Phosphorus 4.6 Magnesium 1.8 Total Bilirubin 0.3 AST 34 ALT 25 Alkaline Phosphatase 116 Total Protein 5.1 L Albumin 2.8 L Globulin 2.3 Albumin/Globulin Ratio 1.2 ABG Interpretation ABG results: 07/26/24 16:03 ABG pH 7.48 H ABG pCO2 33 ABG pO2 187 H ABG HCO3 25 ABG O2 Saturation 101 H ABG Base Excess 2 Assessment & Plan Assessment and plan (1) Alcohol withdrawal: Status: Acute Assessment and plan: Improving overall, workup is negative so far. Continue with supportive care and to consider physical therapy as he is becoming cooperative.
[2024-08-01] VITALS (10 sets, daily range): BP systolic 121–156; BP diastolic 93–118; PULSE 86–121; RESP 14–19; TEMP 35.8–37.3; O2SAT 96–99
[2024-08-01] MEDS: LORazepam 2 MG/ML VIAL 1 MG IV (01:39)
[2024-08-01] MEDS: THIAMINE INJ 500 MG in SODIUM CHLORIDE 0.9% 100 ML 205 MG IV ×3 (04:59→21:28)
[2024-08-01] MEDS: Lisinopril 2.5 MG TABLET 5 MG PO (10:01)
[2024-08-01] MEDS: ENOXAPARIN SOD INJ 40 MG/0.4 ML SYRINGE SC (10:02)
[2024-08-01] MEDS: FOLIC ACID 1 MG TABLET PO (10:02)
[2024-08-01] MEDS: MULTIVITAMINS TABLET 1 TAB PO (10:02)
[2024-08-01] MEDS: PANTOPRAZOLE 40 MG TABLET PO (10:02)
[2024-08-01] MEDS: QUEtiapine FUMARATE 25 MG TABLET PO ×3 (10:02→20:13)
[2024-08-01] MEDS: NICOTINE PATCH 21 MG/24 HR PATCH.TD24 TOP (10:03)
--- NOTE | 2024-08-01 13:30 | PD.RESPRO ---
Documentation for date of: 08/01/24 Subjective Subjective Interval history: Patient had to be restrained and given olanzapine last night secondary to agitation. This morning patient acting more appropriately, eating in bed. Still working on medicine titration to better control patient's nighttime delirium. Exam Vital Signs Temp Pulse Resp BP Pulse Ox O2 Del Method O2 Flow Rate 98.1 F 86 16 121/93 H 99 Room Air 1 08/01/24 12:00 08/01/24 12:00 08/01/24 12:00 08/01/24 12:00 08/01/24 12:00 08/01/24 12:00 08/01/24 12:00 Narrative Exam Constitutional: Ill-appearing, emaciated Head: Normocephalic/Atraumatic Eyes: no conjunctival injection , symmetrical lids. ENMT: Moist Mucous Membranes CVS: Regular rate and rhythm RESP: no increased work of breathing, resting comfortably on room air Skin: Warm to touch, Dry. Neuro: Alert and oriented to person, and date only. GCS 14. Moves all limbs spontaneously. Psych: Appropriate mood and affect. Objective Labs 08/03/24 05:25 08/03/24 05:25 ABG Interpretation ABG results: 07/26/24 16:03 ABG pH 7.48 H ABG pCO2 33 ABG pO2 187 H ABG HCO3 25 ABG O2 Saturation 101 H ABG Base Excess 2 Quality Measures Quality Measures VTE prophylaxis Assessment & Plan Assessment Current Active Medications: Generic Name Dose Route Start Last Admin Trade Name Freq PRN Reason Stop Dose Admin Acetaminophen 650 mg 07/22/24 09:38 07/30/24 03:06 Acetaminophen 325 Mg Tablet PO 08/21/24 04:55 650 mg Q6H PRN Administration Fever >100.3 Albuterol/Ipratropium 3 ml 07/22/24 04:56 07/26/24 14:54 Albuterol/Ipratropium (Duoneb) Rt Rosalina 3 Ml Nebu INH 08/21/24 06:59 3 ml Q6HRRT PRN Administration sob or wheeze Enoxaparin Sodium 40 mg 07/22/24 09:00 08/01/24 10:02 Enoxaparin Sod Inj 40 Mg/0.4 Ml Syringe SC 08/05/24 08:59 40 mg QDAY FREDERICK Administration Folic Acid 1 mg 07/25/24 10:00 08/01/24 10:02 Folic Acid 1 Mg Tablet PO 08/24/24 09:59 1 mg QDAY FREDERICK Administration Haloperidol Lactate 2 mg 07/31/24 14:25 07/31/24 16:51 Haloperidol Lact Inj 5 Mg/Ml Vial IM 08/29/24 23:25 2 mg X1 PRN Administration Breakthrough Agitation Thiamine HCl 500 mg/ Sodium 105 mls @ 205 mls/hr 07/30/24 14:00 08/01/24 13:23 Chloride IV 08/29/24 13:59 205 mls/hr TID FREDERICK Administration Lisinopril 5 mg 07/23/24 09:00 08/01/24 10:01 Lisinopril 2.5 Mg Tablet PO 08/22/24 08:59 5 mg QDAY FREDERICK Administration Lorazepam 0.5 mg 07/28/24 00:13 07/28/24 23:57 Lorazepam 2 Mg/Ml Vial IV 08/02/24 00:12 0.5 mg Q2HR PRN Administration CIWA SCORE 8-13 Lorazepam 1 mg 07/28/24 00:13 08/01/24 01:39 Lorazepam 2 Mg/Ml Vial IV 08/02/24 00:12 1 mg Q2HR PRN Administration CIWA SCORE 14-19 Lorazepam 2 mg 07/28/24 00:13 Lorazepam 2 Mg/Ml Vial IV 08/02/24 00:12 Q2HR PRN CIWA SCORE 20-25 Magnesium Hydroxide 30 ml 07/22/24 04:56 Milk Of Magnesia Susp 30 Ml Udc PO 08/21/24 04:55 QDAY PRN CONSTIPATION Protocol Multivitamins 1 tab 08/01/24 09:00 08/01/24 10:02 Multivitamins Tablet PO 08/31/24 08:59 1 tab QDAY FREDERICK Administration Nicotine 21 mg 07/23/24 00:39 08/01/24 10:03 Nicotine Patch 21 Mg/24 Hr Patch.Td24 TOP 08/22/24 00:38 21 mg QDAY FREDERICK Administration Pantoprazole Sodium 40 mg 07/22/24 09:00 08/01/24 10:02 Pantoprazole 40 Mg Tablet PO 08/21/24 08:59 40 mg QDAY FREDERICK Administration Quetiapine Fumarate 25 mg 08/01/24 08:15 08/01/24 13:23 Quetiapine Fumarate 25 Mg Tablet PO 08/31/24 08:14 25 mg TID FREDERICK Administration Scopolamine 1 mg 07/22/24 08:42 Scopolamine 1 Mg Tdsy TOP 08/21/24 08:41 Q72H PRN NAUSEA OR VOMITING Sennosides 1 tab 07/23/24 10:10 Senna Tablet PO 08/22/24 10:09 QDAY PRN CONSTIPATION Protocol Sodium Chloride 3 ml 07/21/24 20:16 07/21/24 21:31 Sodium Chloride Rt Rosalina 0.9% 3 Ml Nebu INH 08/20/24 20:15 3 ml PRN PRN Administration SOLN Thiamine HCl 100 mg 07/22/24 09:00 07/29/24 09:44 Thiamine 100 Mg Tablet PO 08/21/24 08:59 Not Given QDAY FREDERICK Plan 44-year-old male with significant past medical history of smoking, alcohol abuse, hypertension, asthma presented to the hospital with chief complaints of shortness of breath since 1 day and admitted for acute exacerbation of asthma/COPD and alcohol withdrawal. #Alcohol withdrawal, improving #Alcohol Use Disorder #Delirium tremens, resolved #Wernicke Korsakoff encephalopathy Patient has history of alcohol abuse, states he drinks every day. Per patient's patient had symptoms of confusion, hallucination, weakness for 6 months. Concern for Wernicke's encephalopathy. MRI showed diffuse encephalopathy. Neurology recommending supportive care. Patient continues to remain very agitated overnight, was restrained and required olanzapine.Calm by morning. -thiamine 500 mg IV TID -Folate Qday -QTc prolonged (501), scopolamine patch used instead of Zofran for nausea -Neuroconsult ordered, appreciate recs -Seroquel 25 mg p.o., increased to TID from BID today -Dispo: SNF once patient less delirious #Normocytic normochromic anemia, likely nutritional #Cachexia, failure to thrive Hemoglobin at the time of admission is 12.5 . A dose of multivitamin injection is given. Patient is extremely cachectic, chronic. Suspect malnutrition due to alcohol abuse. HIV test and hepatitis panel negative. -Dietary consult, appreciate recommendations -PT recommending SNF for rehab -Every 6 hour blood sugar checks -Follow-up in the outpatient basis #Acute exacerbation of asthma/COPD, resolved #History of asthma #Smoker -oxygen as needed -Nicotine patches ordered -Nebulizations as needed -Smoking cessation counseling #Mild transaminitis, resolved #Hyperbilirubinemia, Resolved. Likely due to alcohol liver disease. Bilirubin at the time of admission is 1.3 and AST is 56, ALT 20. CT abdomen done in 2022 showed fatty liver. Ultrasound liver showed fatty liver. -Recommended alcohol cessation #Hypokalemia, resolved Likely due to poor oral intake and alcohol abuse. Potassium at the time of admission is 2.7. -Monitor electrolytes and replete accordingly. #Hypertension -Resume home lisinopril. DVT prophylaxis: Lovenox GI prophylaxis: Protonix Diet: Regular Lines: Peripheral IV Code status: Full code Plan of care discussed with attending Dr. Rhodes. Leonard Paredes DO, PGY1 Attending Provider Attestation/Addendum I attest that I was physically present for the evaluation, physical examination, lab and imaging review of the patient with the residents. I discussed the case with the residents and agree with the findings and plans of care as documented above. Pt seen and examined at bedside, mental status appears to be improving today. Was in restraints overnight, will establish a regimen for agitation with seroquel BID. Anticipate discharge in next 24 to 48 hours if able to maintain off of restraints. Jose M Rhodes MD
[2024-08-01] MEDS: ACETAMINOPHEN 325 MG TABLET 650 MG PO (20:12)
--- NOTE | 2024-08-01 23:56 | PD.VPROG1 ---
Telemedicine visit statement This visit was conducted with the use of interactive audio and video telecommunications system that permits real time communication between the patient and the provider. Patient's verbal consent for virtual visit was obtained on 08/01/24 at 2356. Documentation for date of: 08/01/24 Subjective Subjective Interval history: Patient is in telemetry, intermittently confused and agitated, not bad. Anxious to be discharged home. Virtual exam Vital Signs Temp Pulse Resp BP Pulse Ox O2 Del Method O2 Flow Rate 99.1 F 102 H 16 135/93 H 98 Room Air 1 08/01/24 20:00 08/01/24 20:00 08/01/24 20:00 08/01/24 20:00 08/01/24 20:00 08/01/24 20:00 08/01/24 16:00 Objective Labs 08/03/24 05:25 08/03/24 05:25 ABG Interpretation ABG results: 07/26/24 16:03 ABG pH 7.48 H ABG pCO2 33 ABG pO2 187 H ABG HCO3 25 ABG O2 Saturation 101 H ABG Base Excess 2 Assessment & Plan Assessment (1) Alcohol withdrawal: suspect Wernicke's encephalopathy Improving overall, workup is negative so far. Continue with supportive care and to consider physical therapy as he is becoming cooperative. Continue with seroquel, thiamine and folate. Got discharged home.
[2024-08-02] VITALS (17 sets, daily range): BP systolic 117–154; BP diastolic 93–119; PULSE 114–140; RESP 13–99; TEMP 36.2–36.8; O2SAT 95–100
--- NOTE | 2024-08-02 02:00 | EKG_ITS ---
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
[2024-08-02] MEDS: THIAMINE INJ 500 MG in SODIUM CHLORIDE 0.9% 100 ML 205 MG IV ×2 (05:41→09:13)
[2024-08-02] MEDS: QUEtiapine FUMARATE 25 MG TABLET PO ×4 (05:42→20:18)
[2024-08-02 05:59] LABS: Basophils % (Auto) 1 % (0-2.5); Eosinophils % (Auto) 1 % (0-10); Hemoglobin 10.3 g/dL (13.5-16.0); Immature Granulocytes % (Auto) 1 % (0-0); Immature Granulocytes Auto 0.04 Thou/mm3 (0.00-0.00); Lymphocytes # (Auto) 1.5 Thou/mm3 (1.0-4.8); Lymphocytes % (Auto) 17 % (10-50); Mean Corpuscular HGB Conc 34.3 g/dl (31.0-37.0); Mean Corpuscular Hemoglobin 30.3 pg (25.0-35.0); Mean Corpuscular Volume 88 fL (80-100); Monocytes % (Auto) 12 % (0-12); Neutrophils # (Auto) 5.9 Thou/mm3 (1.8-7.7); Neutrophils % (Auto) 69 % (37-80); Nucleated Red Blood Cell % 0 /100 WBC (0); Platelet Count 272 Thou/mm3 (140-440); RDW Standard Deviation 43.5 fL (35.1-43.9); White Blood Count 8.6 Thou/mm3 (3.8-10.6)
[2024-08-02 06:20] LABS: Anion Gap 8 (7-16); BUN/Creatinine Ratio 15 Ratio (12-20); Blood Urea Nitrogen 9 mg/dL (9-23); Calcium 8.6 mg/dL (8.3-10.6); Carbon Dioxide 24.3 mMol/L (20.0-31.0); Chloride 107 mMol/L (98-107); Creatinine (Component) 0.6 mg/dL (0.6-1.3); Estimated Creatinine Clearance 86.7 mL/min (>60); Glucose 78 mg/dL (74-106); Osmolality,Calculated 275 (275-295); Potassium 4.2 mMol/L (3.4-5.1); Sodium 139 mMol/L (136-145); eGFR > 60 See Note
--- NOTE | 2024-08-02 08:22 | ESPR_ITS ---
Documentation for date of: 08/02/24 Subjective - Hospitalist Subjective Interval history: Patient seen and examined at bedside. Out of restraints overnight (>24 hours) and doing well this morning. appears more awake and responsive and alert. No other acute changes Exam Vital Signs Temp Pulse Resp BP Pulse Ox O2 Del Method O2 Flow Rate 99.4 F 102 H 20 136/99 H 97 Room Air 1 08/03/24 08:00 08/03/24 08:00 08/03/24 08:00 08/03/24 08:00 08/03/24 08:00 08/03/24 08:00 08/01/24 16:00 Narrative Constitutional: Ill-appearing, emaciated Head: Normocephalic/Atraumatic Eyes: no conjunctival injection , symmetrical lids. ENMT: Moist Mucous Membranes CVS: Regular rate and rhythm RESP: no increased work of breathing, resting comfortably on room air Skin: Warm to touch, Dry. Neuro: Alert and oriented to person, and date only. GCS 14. Moves all limbs spontaneously. Psych: Appropriate mood and affect Objective - Hospitalist Labs Diagram: 08/03/24 05:25 08/03/24 05:25 Labs: Laboratory Results - last 24 hr 08/03/24 05:25 WBC 6.6 RBC 3.56 L Hgb 10.7 L Hct 31.3 L MCV 88 MCH 30.1 MCHC 34.2 RDW Std Deviation 44.8 H Plt Count 324 D Neut % (Auto) 67 Lymph % (Auto) 19 [place] % (Auto) 13 H Eos % (Auto) 1 Baso % (Auto) 1 Neut # (Auto) 4.4 Lymph # (Auto) 1.2 [place] # (Auto) 0.8 Eos # (Auto) 0.1 Baso # (Auto) 0.0 Immature Gran # (Auto) 0.05 H Absolute Nucleated RBC 0.00 Immature Gran % 1 H Nucleated RBC % 0 Sodium 140 Potassium 4.0 Chloride 107 Carbon Dioxide 25.6 Anion Gap 7 BUN 9 Creatinine 0.5 L Estim Creat Clear Calc 104.0 eGFR > 60 BUN/Creatinine Ratio 18 Glucose 92 Calculated Osmolality 278 Calcium 8.7 ABG Interpretation ABG results: 07/26/24 16:03 ABG pH 7.48 H ABG pCO2 33 ABG pO2 187 H ABG HCO3 25 ABG O2 Saturation 101 H ABG Base Excess 2 Assessment & Plan Plan: 44-year-old male with significant past medical history of smoking, alcohol abuse, hypertension, asthma presented to the hospital with chief complaints of shortness of breath since 1 day and admitted for acute exacerbation of asthma/COPD and alcohol withdrawal. #Alcohol withdrawal, improving #Alcohol Use Disorder #Delirium tremens, resolved #Wernicke Korsakoff encephalopathy Patient has history of alcohol abuse, states he drinks every day. Per patient's patient had symptoms of confusion, hallucination, weakness for 6 months. Concern for Wernicke's encephalopathy. MRI showed diffuse encephalopathy. Neurology recommending supportive care. Patient continues to remain very agitated overnight, was restrained and required olanzapine.Calm by morning. -thiamine 500 mg IV TID -Folate Qday -QTc prolonged (501), scopolamine patch used instead of Zofran for nausea -Neuroconsult ordered, appreciate recs -Seroquel 25mg PO TID -Dispo: Patient has been out of restraints for last 24 hours and appears to be doing well. Discharge orders were placed today, to be sent on seroquel tid and po thiamine and folic acid as per discussion with neurology #Normocytic normochromic anemia, likely nutritional #Cachexia, failure to thrive Hemoglobin at the time of admission is 12.5 . A dose of multivitamin injection is given. Patient is extremely cachectic, chronic. Suspect malnutrition due to alcohol abuse. HIV test and hepatitis panel negative. -Dietary consult, appreciate recommendations -PT recommending SNF for rehab -Every 6 hour blood sugar checks -Follow-up outpatient basis #Acute exacerbation of asthma/COPD, resolved #History of asthma #Smoker -oxygen as needed -Nicotine patches ordered -Nebulizations as needed -Smoking cessation counseling #Hypertension -Resume home lisinopril. DVT prophylaxis: Lovenox GI prophylaxis: Protonix Diet: Regular Lines: Peripheral IV Code status: Full code Dispo: patient cleared for discharge today, orders placed Time Spent with Patient Time: Total time spent is greater than 50% in coordination of care (as documented) at patient's floor/unit and/or counseling patient: 45 Time with patient: Greater than 35 minutes Reason for Continued Stay Reason for continued stay: discharging today Quality Measures Quality Measures VTE prophylaxis
[2024-08-02] MEDS: MULTIVITAMINS TABLET 1 TAB PO (09:12)
[2024-08-02] MEDS: Lisinopril 2.5 MG TABLET 5 MG PO (09:12)
[2024-08-02] MEDS: PANTOPRAZOLE 40 MG TABLET PO (09:12)
[2024-08-02] MEDS: ENOXAPARIN SOD INJ 40 MG/0.4 ML SYRINGE SC (09:12)
[2024-08-02] MEDS: NICOTINE PATCH 21 MG/24 HR PATCH.TD24 TOP (09:13)
[2024-08-02] MEDS: FOLIC ACID 1 MG TABLET PO (09:14)
--- NOTE | 2024-08-02 15:00 | PD.HHDS ---
Planned Discharge Date 08/02/24 DS: Providers Provider Date of admission: 07/22/24 04:56 Primary care physician: Martine Man PA-C Admitting Provider: Jadon Nash DO Attending Provider on Admission: Vladimir Jimenez MD Consults: 07/22/24 06:21 Referral Smoking Cessation Counseling Routine Comment: Smoking Cessation Education Needed 07/22/24 14:24 Referral Physical Therapy Routine Comment: Physician Instructions: Referral Registered Dietitian Routine Comment: 07/23/24 09:47 Referral Physical Therapy Routine Comment: Physician Instructions: 07/29/24 09:50 Consult to Neurology / Tele-Neurology Routine Comment: Consulting Provider: Marvel De Souza Attending Provider on DC: Jose M Rhodes MD Discharging Provider: Jose M Rhodes MD Hospital Course - Hospitalist Time Spent with Patient Time attestation: Total time spent providing and/or coordinating discharge services: Discharge Results Labs Diagrams: 08/02/24 05:00 08/02/24 05:00 Labs: Short CBC 08/02/24 Range/Units 05:00 WBC 8.6 D (3.8-10.6) Thou/mm3 Hgb 10.3 L (13.5-16.0) g/dL Hct 30.0 L (41.0-53.0) % Plt Count 272 D (140-440) Thou/mm3 BMP 08/02/24 05:00 Sodium 139 Potassium 4.2 Chloride 107 Carbon Dioxide 24.3 BUN 9 Creatinine 0.6 Glucose 78 Calcium 8.6 Exam Vital Signs Temp Pulse Resp BP Pulse Ox O2 Del Method O2 Flow Rate 98.1 F 124 H 13 149/119 H 97 Room Air 1 08/02/24 12:00 08/02/24 12:00 08/02/24 12:00 08/02/24 12:00 08/02/24 12:00 08/02/24 12:00 08/01/24 16:00 Discharge Plan Plan Patient Disposition: Xfer Skilled Nsg Fac (SNF) Patient condition on transfer: Stable Prescriptions/Referrals Prescriptions/Med Rec: New folic acid 1 mg Tablet 1 mg PO QDAY 30 Days Qty: 30 0RF lisinopril 5 mg tablet 5 mg PO QDAY 30 Days Qty: 30 0RF pantoprazole 40 mg Tablet,Delayed Release (Dr/Ec) 40 mg PO QDAY 30 Days Qty: 30 0RF nicotine 21 mg/24 hr Patch 24 Hour 21 mg top QDAY Qty: 7 0RF scopolamine base 1 mg over 3 days patch 3 day 1 mg topical Q72H PRN (Reason: Nausea Or Vomiting) Qty: 4 0RF thiamine HCl (vitamin B1) 100 mg tablet 100 mg PO QDAY Qty: 180 0RF quetiapine [Seroquel] 25 mg tablet 25 mg PO BID PRN (Reason: withdrawal symptoms) Qty: 90 0RF quetiapine [Seroquel] 25 mg tablet 25 mg PO TID 30 Days Qty: 90 0RF Referrals: Martine Man PA-C [Primary Care Provider] - Marvel De Souza MD [Physician] - Patient/Caregiver Discharge Instructions Other Discharge Activity Instructions:: Continue seroquel 25mg three times daily Continue thiamine 100mg daily Continue folic acid 1mg tablet daily Continue all other home medications as prescribed Followup with primary care within 1 week Followup with neurology within 1-2 weeks Print Language: Occitan Stand Alone Forms: Verena Award Info., Patient Portal Info Letter Discharge Order Discharge Orders: Discharge (Routine); Ordered 08/02/24 Ordered By: Jose M Rhodes
[2024-08-02] MEDS: ACETAMINOPHEN 325 MG TABLET 650 MG PO (20:18)
--- NOTE | 2024-08-02 22:53 | VVPN_ITS ---
Telemedicine visit statement This visit was conducted with the use of interactive audio and video telecommunications system that permits real time communication between the patient and the provider. Patient's verbal consent for virtual visit was obtained on 08/02/24 at 2253. Documentation for date of: 08/02/24 Subjective Subjective Interval history: Patient is in telemetry, intermittently confused and agitated, needing to be on scheduled doses of Seroquel. Virtual exam Vital Signs Temp Pulse Resp BP Pulse Ox O2 Del Method O2 Flow Rate 97.6 F 126 H 14 123/95 H 99 Room Air 1 08/02/24 19:46 08/02/24 20:47 08/02/24 20:47 08/02/24 19:46 08/02/24 20:47 08/02/24 16:00 08/01/24 16:00 Objective Labs 08/02/24 05:00 08/02/24 05:00 Labs: Laboratory Results - last 24 hr 08/02/24 05:00 WBC 8.6 D RBC 3.40 L Hgb 10.3 L Hct 30.0 L MCV 88 MCH 30.3 MCHC 34.3 RDW Std Deviation 43.5 Plt Count 272 D Neut % (Auto) 69 Lymph % (Auto) 17 [place] % (Auto) 12 Eos % (Auto) 1 Baso % (Auto) 1 Neut # (Auto) 5.9 Lymph # (Auto) 1.5 [place] # (Auto) 1.0 H Eos # (Auto) 0.0 Baso # (Auto) 0.0 Immature Gran # (Auto) 0.04 H Absolute Nucleated RBC 0.00 Immature Gran % 1 H Nucleated RBC % 0 Sodium 139 Potassium 4.2 Chloride 107 Carbon Dioxide 24.3 Anion Gap 8 BUN 9 Creatinine 0.6 Estim Creat Clear Calc 86.7 eGFR > 60 BUN/Creatinine Ratio 15 Glucose 78 Calculated Osmolality 275 Calcium 8.6 ABG Interpretation ABG results: 07/26/24 16:03 ABG pH 7.48 H ABG pCO2 33 ABG pO2 187 H ABG HCO3 25 ABG O2 Saturation 101 H ABG Base Excess 2 Assessment & Plan Assessment (1) Alcohol withdrawal: suspect Wernicke's encephalopathy Improving overall, workup is negative so far. Continue with supportive care and to consider physical therapy as he is becoming cooperative. Continue with seroquel, thiamine and folate. Waiting for placement.
[2024-08-03] VITALS (7 sets, daily range): BP systolic 111–147; BP diastolic 79–111; PULSE 102–128; RESP 11–20; TEMP 35.9–37.4; O2SAT 96–99; BMI 13.0
[2024-08-03 06:20] LABS: Basophils % (Auto) 1 % (0-2.5); Eosinophils # (Auto) 0.1 Thou/mm3 (0.0-0.5); Eosinophils % (Auto) 1 % (0-10); Hematocrit 31.3 % (41.0-53.0); Hemoglobin 10.7 g/dL (13.5-16.0); Immature Granulocytes % (Auto) 1 % (0-0); Immature Granulocytes Auto 0.05 Thou/mm3 (0.00-0.00); Lymphocytes # (Auto) 1.2 Thou/mm3 (1.0-4.8); Lymphocytes % (Auto) 19 % (10-50); Mean Corpuscular HGB Conc 34.2 g/dl (31.0-37.0); Mean Corpuscular Hemoglobin 30.1 pg (25.0-35.0); Mean Corpuscular Volume 88 fL (80-100); Monocytes # (Auto) 0.8 Thou/mm3 (0.0-0.8); Monocytes % (Auto) 13 % (0-12); Neutrophils # (Auto) 4.4 Thou/mm3 (1.8-7.7); Neutrophils % (Auto) 67 % (37-80); Nucleated Red Blood Cell % 0 /100 WBC (0); Platelet Count 324 Thou/mm3 (140-440); RDW Standard Deviation 44.8 fL (35.1-43.9); Red Blood Count 3.56 Miln/mm3 (4.50-5.90); White Blood Count 6.6 Thou/mm3 (3.8-10.6)
[2024-08-03 06:40] LABS: Anion Gap 7 (7-16); BUN/Creatinine Ratio 18 Ratio (12-20); Blood Urea Nitrogen 9 mg/dL (9-23); Calcium 8.7 mg/dL (8.3-10.6); Carbon Dioxide 25.6 mMol/L (20.0-31.0); Chloride 107 mMol/L (98-107); Creatinine (Component) 0.5 mg/dL (0.6-1.3); Glucose 92 mg/dL (74-106); Osmolality,Calculated 278 (275-295); Sodium 140 mMol/L (136-145); eGFR > 60 See Note
--- NOTE | 2024-08-03 09:40 | PC.SS ---
Addendum entered by Yamila Castillo 08/03/24 16:08: SS follow up note; SS contacted [employer] to check status auth and she informed SS that she contacted patients insurance and at the time auth is still pending. SS met with patient at [facility] and patient is still adamant he wants to discharge to SNF. SS informed him he needed to speak with family, because his brother and his don't agree with patient discharging back home. SS will follow up with patient tomorrow. Original Note: SS follow up note; SS contacted Padmini from [place] to check status on auth and she informed SS that auth was pending at the time.
[2024-08-03] MEDS: FOLIC ACID 1 MG TABLET PO (09:53)
[2024-08-03] MEDS: PANTOPRAZOLE 40 MG TABLET PO (09:53)
[2024-08-03] MEDS: MULTIVITAMINS TABLET 1 TAB PO (09:53)
[2024-08-03] MEDS: Lisinopril 2.5 MG TABLET 5 MG PO (09:53)
[2024-08-03] MEDS: QUEtiapine FUMARATE 25 MG TABLET PO ×2 (09:54→20:13)
[2024-08-03] MEDS: NICOTINE PATCH 21 MG/24 HR PATCH.TD24 TOP (09:54)
[2024-08-03] MEDS: THIAMINE INJ 500 MG in SODIUM CHLORIDE 0.9% 100 ML 205 MG IV (09:54)
[2024-08-03] MEDS: ENOXAPARIN SOD INJ 40 MG/0.4 ML SYRINGE SC (10:13)
--- NOTE | 2024-08-03 13:40 | ESPR_ITS ---
<Statement entered by Marga Rob MD - 08/03/24 15:40> Patient seen and examined at bedside. He is awake, alert, eating his breakfast calmly at bedside. Per sitter, he is having some hallucinations this morning. His insurance authorization will go through. Will decrease his seroquel to once a day and reassess his mentation tomorrow. Anticipate discharge to SNF within 24-48 hours. Marga Rob MD PGY-3 Documentation for date of: 08/03/24 Subjective Subjective Interval history: Patient seen and examined at bedside. No overnight events. Patient is sitting calmly, less fidgeting than yesterday. Per sitter at bedside, stated that he continues to have hallucinations and sees family members or things on the TV. Otherwise is alert and oriented, responding to questions properly. Placement to SNF is pending authorization however he is denying the placement. Family is insisting on patient going to nursing facility. Hallucinations may be due to Seroquel dose. Will decrease from 25 mg 3 times daily to 25 mg daily. Obtain new urine analysis and cultures as hallucinations are less likely due to alcohol withdrawal since he has been in the hospital for 12 days. Exam Vital Signs Temp Pulse Resp BP Pulse Ox O2 Del Method O2 Flow Rate 99.4 F 116 H 18 123/87 H 99 Room Air 1 08/03/24 12:00 08/03/24 12:00 08/03/24 12:00 08/03/24 12:00 08/03/24 12:00 08/03/24 12:00 08/01/24 16:00 Narrative Exam General: sitting calmly, answering questions, No acute distress, cooperative HEENT: NCAT, No JVD noted. Mucosa moist. Pupils are equal and reactive to light bilaterally Cardiovascular: Normal S1 and S2. Regular rate and rhythm. Respiratory: Lungs are clear to auscultation bilaterally. No wheezing or crackles heard. Abdomen: Soft, nontender, not distended, normal bowel sounds. Skin: Warm to touch, dry, no rashes noted Musculoskeletal: No gross injuries. Able to move all 4 extremities. No pitting edema Neuro: Alert and oriented x3. No focal neuro deficits. Psych: Normal affect and mood, reported hallucinations by nursing staff Objective Labs 08/03/24 05:25 08/03/24 05:25 Labs: Laboratory Results - last 24 hr 08/03/24 05:25 WBC 6.6 RBC 3.56 L Hgb 10.7 L Hct 31.3 L MCV 88 MCH 30.1 MCHC 34.2 RDW Std Deviation 44.8 H Plt Count 324 D Neut % (Auto) 67 Lymph % (Auto) 19 [place] % (Auto) 13 H Eos % (Auto) 1 Baso % (Auto) 1 Neut # (Auto) 4.4 Lymph # (Auto) 1.2 [place] # (Auto) 0.8 Eos # (Auto) 0.1 Baso # (Auto) 0.0 Immature Gran # (Auto) 0.05 H Absolute Nucleated RBC 0.00 Immature Gran % 1 H Nucleated RBC % 0 Sodium 140 Potassium 4.0 Chloride 107 Carbon Dioxide 25.6 Anion Gap 7 BUN 9 Creatinine 0.5 L Estim Creat Clear Calc 104.0 eGFR > 60 BUN/Creatinine Ratio 18 Glucose 92 Calculated Osmolality 278 Calcium 8.7 ABG Interpretation ABG results: 07/26/24 16:03 ABG pH 7.48 H ABG pCO2 33 ABG pO2 187 H ABG HCO3 25 ABG O2 Saturation 101 H ABG Base Excess 2 Quality Measures Quality Measures VTE prophylaxis Assessment & Plan Assessment Current Active Medications: Generic Name Dose Route Start Last Admin Trade Name Freq PRN Reason Stop Dose Admin Acetaminophen 650 mg 07/22/24 09:38 08/02/24 20:18 Acetaminophen 325 Mg Tablet PO 08/21/24 04:55 650 mg Q6H PRN Administration Fever >100.3 Albuterol/Ipratropium 3 ml 07/22/24 04:56 07/26/24 14:54 Albuterol/Ipratropium (Duoneb) Rt Rosalina 3 Ml Nebu INH 08/21/24 06:59 3 ml Q6HRRT PRN Administration sob or wheeze Enoxaparin Sodium 40 mg 07/22/24 09:00 08/03/24 10:13 Enoxaparin Sod Inj 40 Mg/0.4 Ml Syringe SC 08/05/24 08:59 40 mg QDAY FREDERICK Administration Folic Acid 1 mg 07/25/24 10:00 08/03/24 09:53 Folic Acid 1 Mg Tablet PO 08/24/24 09:59 1 mg QDAY FREDERICK Administration Thiamine HCl 500 mg/ Sodium 105 mls @ 205 mls/hr 08/02/24 09:00 08/03/24 09:54 Chloride IV 09/01/24 08:59 205 mls/hr QDAY FREDERICK Administration Lisinopril 5 mg 07/23/24 09:00 08/03/24 09:53 Lisinopril 2.5 Mg Tablet PO 08/22/24 08:59 5 mg QDAY FREDERICK Administration Magnesium Hydroxide 30 ml 07/22/24 04:56 Milk Of Magnesia Susp 30 Ml Udc PO 08/21/24 04:55 QDAY PRN CONSTIPATION Protocol Multivitamins 1 tab 08/01/24 09:00 08/03/24 09:53 Multivitamins Tablet PO 08/31/24 08:59 1 tab QDAY FREDERICK Administration Nicotine 21 mg 07/23/24 00:39 08/03/24 09:54 Nicotine Patch 21 Mg/24 Hr Patch.Td24 TOP 08/22/24 00:38 21 mg QDAY FREDERICK Administration Pantoprazole Sodium 40 mg 07/22/24 09:00 08/03/24 09:53 Pantoprazole 40 Mg Tablet PO 08/21/24 08:59 40 mg QDAY FREDERICK Administration Quetiapine Fumarate 25 mg 08/03/24 21:00 Quetiapine Fumarate 25 Mg Tablet PO 09/02/24 20:59 HS FREDERICK Scopolamine 1 mg 07/22/24 08:42 Scopolamine 1 Mg Tdsy TOP 08/21/24 08:41 Q72H PRN NAUSEA OR VOMITING Sennosides 1 tab 07/23/24 10:10 Senna Tablet PO 08/22/24 10:09 QDAY PRN CONSTIPATION Protocol Sodium Chloride 3 ml 07/21/24 20:16 07/21/24 21:31 Sodium Chloride Rt Rosalina 0.9% 3 Ml Nebu INH 08/20/24 20:15 3 ml PRN PRN Administration SOLN Plan 44-year-old male with significant past medical history of smoking, alcohol abuse, hypertension, asthma presented to the hospital with chief complaints of shortness of breath since 1 day and admitted for acute exacerbation of asthma/COPD and alcohol withdrawal. #Alcohol withdrawal-resolved #Hx Alcohol Use Disorder #Delirium tremens, resolved #Wernicke Korsakoff encephalopathy Patient has history of alcohol abuse, states he drinks every day. Per patient's patient had symptoms of confusion, hallucination, weakness for 6 months. Concern for Wernicke's encephalopathy. MRI showed diffuse encephalopathy. Neurology recommending supportive care. Agitation has resolved, however continues to have hallucinations. -thiamine 500 mg IV TID -Folate Qday -QTc prolonged (501), scopolamine patch used instead of Zofran for nausea -Neuroconsult ordered, appreciate recs -Seroquel 25 mg p.o., decreased from TID to once daily today -Follow-up on new UA and urine cultures #Normocytic anemia #Cachexia, failure to thrive Hemoglobin at the time of admission is 12.5 . A dose of multivitamin injection is given. Patient is extremely cachectic, chronic. Suspect malnutrition due to alcohol abuse. No signs of acute blood loss. HIV test and hepatitis panel negative. -Dietary consult, appreciate recommendations -PT recommending SNF for rehab -Every 6 hour blood sugar checks -Follow-up in the outpatient basis -Daily CBC #Acute exacerbation of asthma/COPD, resolved #History of asthma #Smoker -oxygen as needed -Nicotine patches ordered -Nebulizations as needed -Smoking cessation counseling #Mild transaminitis, resolved #Hyperbilirubinemia, Resolved. Likely due to alcohol liver disease. Bilirubin at the time of admission is 1.3 and AST is 56, ALT 20. CT abdomen done in 2022 showed fatty liver. Ultrasound liver showed fatty liver. -Recommended alcohol cessation #Hypokalemia, resolved Likely due to poor oral intake and alcohol abuse. Potassium at the time of admission is 2.7. -Monitor electrolytes and replete accordingly. #Hypertension -Resume home lisinopril. DVT prophylaxis: Lovenox GI prophylaxis: Protonix Diet: Regular Lines: Peripheral IV Code status: Full code Plan of care discussed with attending Dr. Hernandez and senior Dr. Rob. Saira Cobos, PGY1
[2024-08-03 22:09] LABS: Collection Type, Urine Clean Catch; RBC,Urine 0 /hpf (0-3); Squamous Epithelial Cell,Urine 0 /hpf (0-5)
[2024-08-03 23:34] LABS: Bilirubin,Urine Negative (Negative); Blood,Urine Negative (Negative); Clarity,Urine Clear (Clear/Hazy); Color,Urine Lt-Yellow (Lt Yel-Yel); Glucose, Urine Negative (Negative); Ketones,Urine Negative (Negative); Leukocyte Esterase,Urine Negative (Negative); Nitrite,Urine Negative (Negative); Protein,Urine Negative (Neg - Trace); Specific Gravity,Urine 1.011 (1.001-1.035); Urobilinogen,Urine Negative mg/dL (0.0-1.0); WBC,Urine < 1 /hpf (0-5)
--- NOTE | 2024-08-03 23:51 | PD.NEUROPROG ---
Documentation for date of: 08/03/24 Subjective Subjective Interval history: Patient was seen in telemetry today. His mental status is improved, close to baseline, able to feed himself. Getting upset and anxious wanting to go out and smoke despite the nicotine patch. Exam - Neurology Vital Signs Temp Pulse Resp BP Pulse Ox O2 Del Method O2 Flow Rate 98.2 F 106 H 11 L 111/79 98 Room Air 1 08/03/24 16:00 08/03/24 16:08/03/24 16:08/03/24 16:08/03/24 16:08/03/24 16:08/01/24 16:00 Narrative Exam GENERAL APPEARANCE: well-developed thin built in no acute distress. HEENT: Normocephalic, atraumatic, extraocular movements intact. Pupils: Equal reacting to light NECK: Supple, no JVD or bruits. CARDIOVASULAR: Heart: S1, S2 heard, regular without S3-S4 or murmur no rubs or gallops. LUNGS/CHEST: Clear to auscultation bilaterally. No rails, rhonchi, or wheezing. Normal inspection. ABDOMEN: Soft, nontender, with normal bowel sounds. No pulsatile masses. No rebound, rigidity, or guarding. Normal inspection and palpation. EXTREMITIES: Normal inspection and palpation. No edema, clubbing or cyanosis. SKIN: Warm and dry without rashes. Normal inspection. MUSCULOSKELETAL: No cervical, thoracic, lumbar or midline bony tenderness. Normal inspection. NEURO: Alert, awake and oriented x2. Cranial nerves: II through XII grossly intact. Speech and language: Normal with no dysarthria or dysphasia. Motor system: Tone and bulk: Normal: Strength: 5 out of 5 in all 4 extremities; No pronator drift noted. Deep tendon reflexes: Absent. Plantar reflex: Downgoing bilaterally. Sensory system: Impaired to all modalities of sensation bilaterally. Coordination: Impaired secondary to tremors. Gait: Not tested. No signs of meningeal irritation noted. PSYCHIATRIC: Limited Objective Labs 08/03/24 05:25 08/03/24 05:25 Labs: Laboratory Results - last 24 hr 08/03/24 08/03/24 05:25 20:45 WBC 6.6 RBC 3.56 L Hgb 10.7 L Hct 31.3 L MCV 88 MCH 30.1 MCHC 34.2 RDW Std Deviation 44.8 H Plt Count 324 D Neut % (Auto) 67 Lymph % (Auto) 19 [place] % (Auto) 13 H Eos % (Auto) 1 Baso % (Auto) 1 Neut # (Auto) 4.4 Lymph # (Auto) 1.2 [place] # (Auto) 0.8 Eos # (Auto) 0.1 Baso # (Auto) 0.0 Immature Gran # (Auto) 0.05 H Absolute Nucleated RBC 0.00 Immature Gran % 1 H Nucleated RBC % 0 Sodium 140 Potassium 4.0 Chloride 107 Carbon Dioxide 25.6 Anion Gap 7 BUN 9 Creatinine 0.5 L Estim Creat Clear Calc 104.0 eGFR > 60 BUN/Creatinine Ratio 18 Glucose 92 Calculated Osmolality 278 Calcium 8.7 Ur Collection Type Clean Catch Urine Color Lt-Yellow Urine Clarity Clear Urine pH 5.0 Ur Specific [place] 1.011 Urine Protein Negative Urine Glucose (UA) Negative Urine Ketones Negative Urine Blood Negative Urine Nitrite Negative Urine Bilirubin Negative Urine Urobilinogen (Auto) Negative Ur Leukocyte Esterase Negative Urine RBC 0 Urine WBC < 1 Ur Squamous Epith Cells 0 Urine Bacteria None ABG Interpretation ABG results: 07/26/24 16:03 ABG pH 7.48 H ABG pCO2 33 ABG pO2 187 H ABG HCO3 25 ABG O2 Saturation 101 H ABG Base Excess 2 Assessment & Plan Assessment and plan (1) Alcohol withdrawal: Status: Acute Assessment and plan: Improving overall, workup is negative so far. Continue with supportive care and to consider physical therapy as he is becoming cooperative.
[2024-08-04] VITALS (8 sets, daily range): BP systolic 78–141; BP diastolic 52–115; PULSE 105–128; RESP 16–18; TEMP 36.3–37.6; O2SAT 94–99; BMI 12.6
[2024-08-04] MEDS: QUEtiapine FUMARATE 25 MG TABLET PO ×2 (00:11→09:38)
[2024-08-04] MEDS: FOLIC ACID 1 MG TABLET PO (09:09)
[2024-08-04] MEDS: NICOTINE PATCH 21 MG/24 HR PATCH.TD24 TOP (09:09)
[2024-08-04] MEDS: PANTOPRAZOLE 40 MG TABLET PO (09:10)
[2024-08-04] MEDS: MULTIVITAMINS TABLET 1 TAB PO (09:10)
[2024-08-04] MEDS: Lisinopril 2.5 MG TABLET 5 MG PO (09:10)
[2024-08-04] MEDS: THIAMINE INJ 500 MG in SODIUM CHLORIDE 0.9% 100 ML 205 MG IV (09:38)
--- NOTE | 2024-08-04 15:21 | ESPR_ITS ---
<Statement entered by Marga Rob MD - 08/04/24 15:46> Patient still having hallucinations, is in-and-out. Received extra dose of seroquel 25x1 last night. Dr. De Souza, neurology, following the case and recommends seroquel 50mg BID and adding buspirone as well. Will assess mentation tomorrow. Marga Rob MD PGY-3 Documentation for date of: 08/04/24 Subjective Subjective Interval history: Patient seen and examined at bedside. He continues to have hallucinations, tremor with movement, and attempts to get out of bed and walked on the hallways saying that he wants to leave for smoke. Overnight, he was given Seroquel 25 mg x1 due to agitation and worsening hallucinations. at bedside today was updated on patient's status. She also shared that he has been having these hallucinations/change in behavior occasionally in past few months. Episodes would last shortly but started happening more frequently past few weeks. prefers patient to go to SNF for more physical therapy however patient is denying that at this time. Will increase Seroquel to 50 mg twice daily and start buspirone 7.5 mg twice daily per neurology recommendations. Continue to assess daily mentation. Exam Vital Signs Temp Pulse Resp BP Pulse Ox O2 Del Method O2 Flow Rate 98.0 F 128 H 18 122/92 H 99 Room Air 1 08/04/24 12:00 08/04/24 09:10 08/04/24 12:00 08/04/24 12:00 08/04/24 12:00 08/04/24 12:00 08/04/24 04:00 Narrative Exam General: sitting calmly, answering questions, No acute distress, cooperative HEENT: NCAT, No JVD noted. Mucosa moist. Pupils are equal and reactive to light bilaterally Cardiovascular: Normal S1 and S2. Regular rate and rhythm. Respiratory: Lungs are clear to auscultation bilaterally. No wheezing or crackles heard. Abdomen: Soft, nontender, not distended, normal bowel sounds. Skin: Warm to touch, dry, no rashes noted Musculoskeletal: No gross injuries. Able to move all 4 extremities. No pitting edema Neuro: Alert and oriented x3. No focal neuro deficits. Tremor noticed when patient moves hands Psych: Normal affect and mood, reported hallucinations by nursing staff Objective Labs 08/03/24 05:25 08/03/24 05:25 Labs: Laboratory Results - last 24 hr 08/03/24 20:45 Ur Collection Type Clean Catch Urine Color Lt-Yellow Urine Clarity Clear Urine pH 5.0 Ur Specific [place] 1.011 Urine Protein Negative Urine Glucose (UA) Negative Urine Ketones Negative Urine Blood Negative Urine Nitrite Negative Urine Bilirubin Negative Urine Urobilinogen (Auto) Negative Ur Leukocyte Esterase Negative Urine RBC 0 Urine WBC < 1 Ur Squamous Epith Cells 0 Urine Bacteria None ABG Interpretation ABG results: 07/26/24 16:03 ABG pH 7.48 H ABG pCO2 33 ABG pO2 187 H ABG HCO3 25 ABG O2 Saturation 101 H ABG Base Excess 2 Quality Measures Quality Measures VTE prophylaxis Assessment & Plan Assessment Current Active Medications: Generic Name Dose Route Start Last Admin Trade Name Freq PRN Reason Stop Dose Admin Acetaminophen 650 mg 07/22/24 09:38 08/02/24 20:18 Acetaminophen 325 Mg Tablet PO 08/21/24 04:55 650 mg Q6H PRN Administration Fever >100.3 Albuterol/Ipratropium 3 ml 07/22/24 04:56 07/26/24 14:54 Albuterol/Ipratropium (Duoneb) Rt Rosalina 3 Ml Nebu INH 08/21/24 06:59 3 ml Q6HRRT PRN Administration sob or wheeze Enoxaparin Sodium 40 mg 07/22/24 09:00 08/04/24 09:11 Enoxaparin Sod Inj 40 Mg/0.4 Ml Syringe SC 08/05/24 08:59 Not Given QDAY [facility] Folic Acid 1 mg 07/25/24 10:00 08/04/24 09:09 Folic Acid 1 Mg Tablet PO 08/24/24 09:59 1 mg QDAY [facility] Administration Thiamine HCl 500 mg/ Sodium 105 mls @ 205 mls/hr 08/02/24 09:00 08/04/24 09:38 Chloride IV 09/01/24 08:59 205 mls/hr QDAY [facility] Administration Lisinopril 5 mg 07/23/24 09:00 08/04/24 09:10 Lisinopril 2.5 Mg Tablet PO 08/22/24 08:59 5 mg QDAY [facility] Administration Magnesium Hydroxide 30 ml 07/22/24 04:56 Milk Of Magnesia Susp 30 Ml Udc PO 08/21/24 04:55 QDAY PRN CONSTIPATION Protocol Melatonin 6 mg 08/04/24 21:00 Melatonin 3 Mg Tablet PO 09/03/24 20:59 HS [facility] Multivitamins 1 tab 08/01/24 09:00 08/04/24 09:10 Multivitamins Tablet PO 08/31/24 08:59 1 tab QDAY [facility] Administration Nicotine 21 mg 07/23/24 00:39 08/04/24 09:09 Nicotine Patch 21 Mg/24 Hr Patch.Td24 TOP 08/22/24 00:38 21 mg QDAY [facility] Administration Pantoprazole Sodium 40 mg 07/22/24 09:00 08/04/24 09:10 Pantoprazole 40 Mg Tablet PO 08/21/24 08:59 40 mg QDAY [facility] Administration Quetiapine Fumarate 25 mg 08/03/24 21:00 08/03/24 20:13 Quetiapine Fumarate 25 Mg Tablet PO 09/02/24 20:59 25 mg HS [facility] Administration Scopolamine 1 mg 07/22/24 08:42 Scopolamine 1 Mg Tdsy TOP 08/21/24 08:41 Q72H PRN NAUSEA OR VOMITING Sennosides 1 tab 07/23/24 10:10 Senna Tablet PO 08/22/24 10:09 QDAY PRN CONSTIPATION Protocol Sodium Chloride 3 ml 07/21/24 20:16 07/21/24 21:31 Sodium Chloride Rt Rosalina 0.9% 3 Ml Nebu INH 08/20/24 20:15 3 ml PRN PRN Administration SOLN Plan 44-year-old male with significant past medical history of smoking, alcohol abuse, hypertension, asthma presented to the hospital with chief complaints of shortness of breath since 1 day and admitted for acute exacerbation of asthma/COPD and alcohol withdrawal. #Alcohol withdrawal-resolved #Hx Alcohol Use Disorder #Delirium tremens, resolved #Wernicke Korsakoff encephalopathy Patient has history of alcohol abuse, states he drinks every day. Per patient's patient had symptoms of confusion, hallucination, weakness for 6 months. Concern for Wernicke's encephalopathy. MRI showed diffuse encephalopathy. Neurology recommending supportive care. Agitation has resolved, however continues to have hallucinations. -thiamine 500 mg IV TID -Folate Qday -QTc prolonged (501), scopolamine patch used instead of Zofran for nausea -Neuroconsult ordered, appreciate recs -Per neuro recs, increase Seroquel to 50 mg BID and start patient on buspirone 7.5 mg BID -Assess daily mentation -Repeat UA negative for infection #Normocytic anemia #Cachexia, failure to thrive Hemoglobin at the time of admission is 12.5 . A dose of multivitamin injection is given. Patient is extremely cachectic, chronic. Suspect malnutrition due to alcohol abuse. No signs of acute blood loss. HIV test and hepatitis panel negative. -Dietary consult, appreciate recommendations -PT recommending SNF for rehab -Every 6 hour blood sugar checks -Follow-up in the outpatient basis -Daily CBC #Acute exacerbation of asthma/COPD, resolved #History of asthma #Smoker -oxygen as needed -Nicotine patches ordered -Nebulizations as needed -Smoking cessation counseling #Mild transaminitis, resolved #Hyperbilirubinemia, Resolved. Likely due to alcohol liver disease. Bilirubin at the time of admission is 1.3 and AST is 56, ALT 20. CT abdomen done in 2022 showed fatty liver. Ultrasound liver showed fatty liver. -Recommended alcohol cessation #Hypokalemia, resolved Likely due to poor oral intake and alcohol abuse. Potassium at the time of admission is 2.7. -Monitor electrolytes and replete accordingly. #Hypertension -Resume home lisinopril. DVT prophylaxis: Lovenox GI prophylaxis: Protonix Diet: Regular Lines: Peripheral IV Code status: Full code Plan of care discussed with attending Dr. Hernandez and senior Dr. Rob. Saira Cobos, PGY1 Attending Provider Attestation/Addendum Face to face evaluation was performed by me. I have personally seen and examined the patient. I discussed the assessment and plan with the entire medicine team. I reviewed available medical records, imaging studies, laboratory results. I agree with the above subjective data, objective findings, assessment and plan except as corrected by me or noted below Alcohol withdrawal Delirium New psychosis he is hallucinating, not stable for dc seroquel- inccrease to 50 mg BID start buspirone- will start with 7.5 mg BID for now continue to adjust meds nicotine patch SNF placement in planned- but apparently patent was refusing it and wants to go home
[2024-08-04] MEDS: MELATONIN 3 MG TABLET 6 MG PO (20:51)
[2024-08-04] MEDS: BusPIRone HCL 5 MG TABLET 7.5 MG PO (20:51)
[2024-08-04] MEDS: QUEtiapine FUMARATE 25 MG TABLET 50 MG PO (20:51)
--- NOTE | 2024-08-04 23:49 | PD.NEUROPROG ---
Documentation for date of: 08/04/24 Subjective Subjective Interval history: Patient was seen in telemetry today. His mental status is improved, close to baseline with exception of intermittent confusion, able to feed himself. Getting upset and anxious wanting to go out and smoke despite the nicotine patch. Exam - Neurology Vital Signs Temp Pulse Resp BP Pulse Ox O2 Del Method O2 Flow Rate 98.9 F 105 H 18 106/81 98 Room Air 1 08/04/24 20:00 08/04/24 20:36 08/04/24 20:36 08/04/24 20:00 08/04/24 20:36 08/04/24 20:00 08/04/24 04:00 Narrative Exam GENERAL APPEARANCE: well-developed thin built in no acute distress. HEENT: Normocephalic, atraumatic, extraocular movements intact. Pupils: Equal reacting to light NECK: Supple, no JVD or bruits. CARDIOVASULAR: Heart: S1, S2 heard, regular without S3-S4 or murmur no rubs or gallops. LUNGS/CHEST: Clear to auscultation bilaterally. No rails, rhonchi, or wheezing. Normal inspection. ABDOMEN: Soft, nontender, with normal bowel sounds. No pulsatile masses. No rebound, rigidity, or guarding. Normal inspection and palpation. EXTREMITIES: Normal inspection and palpation. No edema, clubbing or cyanosis. SKIN: Warm and dry without rashes. Normal inspection. MUSCULOSKELETAL: No cervical, thoracic, lumbar or midline bony tenderness. Normal inspection. NEURO: Alert, awake and oriented x2. Cranial nerves: II through XII grossly intact. Speech and language: Normal with no dysarthria or dysphasia. Motor system: Tone and bulk: Normal: Strength: 5 out of 5 in all 4 extremities; No pronator drift noted. Deep tendon reflexes: Absent. Plantar reflex: Downgoing bilaterally. Sensory system: Impaired to all modalities of sensation bilaterally. Coordination: Impaired secondary to tremors. Gait: Not tested. No signs of meningeal irritation noted. PSYCHIATRIC: Limited Objective Labs 08/03/24 05:25 08/03/24 05:25 ABG Interpretation ABG results: 07/26/24 16:03 ABG pH 7.48 H ABG pCO2 33 ABG pO2 187 H ABG HCO3 25 ABG O2 Saturation 101 H ABG Base Excess 2 Assessment & Plan Assessment and plan (1) Alcohol withdrawal: Status: Acute Assessment and plan: Improving overall, workup is negative so far. Increase the Seroquel to 50 mg twice a day and added buspirone 7.5 mg 3 times a day. Continue with thiamine and folic acid Continue with supportive care and to consider physical therapy as he is becoming cooperative.
[2024-08-05] VITALS (8 sets, daily range): BP systolic 95–125; BP diastolic 72–97; PULSE 101–132; RESP 12–20; TEMP 36.2–37.2; O2SAT 97–98; BMI 12.6
[2024-08-05] MEDS: QUEtiapine FUMARATE 25 MG TABLET PO (02:46)
[2024-08-05] MEDS: NICOTINE PATCH 21 MG/24 HR PATCH.TD24 TOP (09:17)
[2024-08-05] MEDS: BusPIRone HCL 5 MG TABLET 7.5 MG PO (09:18)
[2024-08-05] MEDS: FOLIC ACID 1 MG TABLET PO (09:18)
[2024-08-05] MEDS: Lisinopril 2.5 MG TABLET 5 MG PO (09:18)
[2024-08-05] MEDS: MULTIVITAMINS TABLET 1 TAB PO (09:18)
[2024-08-05] MEDS: PANTOPRAZOLE 40 MG TABLET PO (09:19)
[2024-08-05] MEDS: QUEtiapine FUMARATE 25 MG TABLET 50 MG PO (09:19)
[2024-08-05] MEDS: THIAMINE INJ 500 MG in SODIUM CHLORIDE 0.9% 100 ML 205 MG IV (09:19)
--- NOTE | 2024-08-05 09:50 | PC.SS ---
SS met with pt and his at , pt wishes to return home. is agreeable with plan. Team updated.
--- NOTE | 2024-08-05 13:23 | ESDS_ITS ---
<Statement entered by Deborah Walker DO - 08/06/24 08:01> I, Deborah Walker DO, attest that I was physically present for the ramirez portions of the service and evaluated the patient with the resident and I reviewed and discussed the case with the resident and agree with the resident's findings and plans of care as documented above Planned Discharge Date 08/05/24 DS: Providers Provider Date of admission: 07/22/24 04:56 Primary care physician: Martine Man PA-C Admitting Provider: Jadon Nash DO Attending Provider on Admission: Deborah Walker DO Consults: 07/22/24 06:21 Referral Smoking Cessation Counseling Routine Comment: Smoking Cessation Education Needed 07/22/24 14:24 Referral Physical Therapy Routine Comment: Physician Instructions: Referral Registered Dietitian Routine Comment: 07/23/24 09:47 Referral Physical Therapy Routine Comment: Physician Instructions: 07/29/24 09:50 Consult to Neurology / Tele-Neurology Routine Comment: Consulting Provider: Marvel De Souza Attending Provider on DC: Saira Cobos MD Discharging Provider: Saira Cobos MD DS: Diagnosis Problem List Completed Was Problem List Reviewed/Reconciled?: Yes Hospital Course Hospital Course Hospital course: Reason for hospitalization: Alcohol withdral Robbin Jaramillo is 44 yr male with PMH of Neurologist Dr. De Souza was consulted for evaluation due to ongoing hallucinations. smoking, alcohol abuse, hypertension, asthma who presented to ED on 07/22/2024 due to shortness of breath. Patient had also been complaining of generalized bodyaches. On physical exam patient was alert and oriented x 3 but agitated. Was started on CIWA protocol after administering IV lorazepam after his stated that abdelrahman morris had been drinking the day prior. Vitals were significant for hypertension, tachycardia, tachypnea. He was admitted for alcohol withdrawal. He continued to remain confused despite being out of alcohol withdrawal time by day 7. MRI brain was significant for increased signal and enhancement in the cerebral cortex.Questionable Wernicke's encephalopathy versus underlying psychiatric issue. Neurologist Dr. De Souza was consulted for evaluation due to the ongoing hallucinations. Patient was started on Seroquel 50 mg 3 times daily and buspirone 7.5 mg twice daily. Family was counseled at bedside and strongly encouraged to undergo further evaluation by psychiatrist, stop drinking, and continue above medications. Patient is now in stable condition and ready for discharge. Recommendations were given as below. Discharge Recommendations: Continue Seroquel 50mg twice a day. Continue Buspirone 7.5 mg twice a day. Continue thiamine 100mg daily Continue folic acid 1mg tablet daily Continue all other home medications as prescribed Follow up with primary care within 1 week Follow up with neurology within 1-2 weeks Psych referral recommended. Hospital Diagnoses: #Alcohol withdrawal-resolved #Hx Alcohol Use Disorder #Delirium tremens, resolved #Wernicke Korsakoff encephalopathy #Normocytic anemia #Cachexia, failure to thrive #Acute exacerbation of asthma/COPD, resolved #History of asthma #Smoker #Mild transaminitis, resolved #Hyperbilirubinemia, Resolved. #Hypokalemia, resolved #Hx Hypertension The patient's management plan was discussed with my attending physician Dr. Walker and senior Dr. Rob. Saira Cobos MD, PGY-1 Time Spent with Patient Time attestation: Total time spent providing and/or coordinating discharge services: Time spent: Greater than 30 minutes Home Health Home Health Referral Orders: 08/05/24 09:54 Home Health Referral Routine Reason For Exam: alcohol withdrawal Home-Bound The patient must either because of illness or injury, need the aid of supportive devices such as crutches, canes, wheelchairs, and walkers; the use of special transportation; or the assistance of another person in order to leave their place of residence; OR have a condition such that leaving his or her home is medically contraindicated. In addition, the patient also meets the following criteria: patient is normally unable to leave the home and leaving home requires considerable taxing effort. Addendum to Home Health Certification Practitioner's Certification: I certify that the patient has been under my care in the hospital and the care of attending physician (see below). We had a [id number]-[id number] encounter on (see date below). My clinical findings indicate that the patient is home bound per the above criteria and the Home Health Services noted in these orders are medically necessary. The primary reason for the [id number] encounter is related to the fact that the patient requires home health services. Date Certifying Iqcp-ic-Gnuh Physician Encounter: 07/22/24 Physician's Name who will Assume Oversight for Services: Martine Man Physician's Phone No.who will Assume Oversight for Service: APPLICATION SUPPORT MANAGER - Community Resources: Yes PT to Evaluate: Yes PT to evaluate and provide a treatmnet plan to increase patient's mobility and strength. Wound Care: No IV Therapy: No RN Safety Evaluation: Yes RN to evaluate and create a plan of care that will produce positive outcomes. Palliative Treatment: No Palliative treatment and evaluate the need for hospice. Home Health Aide - Personal Care: Yes Home Health Aide to assist with any ADL's. Exam Vital Signs Temp Pulse Resp BP Pulse Ox O2 Del Method O2 Flow Rate 97.1 F 121 H 14 120/88 H 97 Room Air 1 08/05/24 12:00 08/05/24 12:08/05/24 12:08/05/24 12:08/05/24 12:08/05/24 12:08/04/24 04:00 Narrative Exam General: sitting calmly, answering questions, No acute distress, cooperative HEENT: NCAT, No JVD noted. Mucosa moist. Pupils are equal and reactive to light bilaterally, anicertic Cardiovascular: Normal S1 and S2. Regular rate and rhythm. Respiratory: Lungs are clear to auscultation bilaterally. No wheezing or crackles heard. Abdomen: Soft, nontender, not distended, normal bowel sounds. Skin: Warm to touch, dry, no rashes noted Musculoskeletal: No gross injuries. Able to move all 4 extremities. No pitting edema Neuro: Alert and oriented x3. No focal neuro deficits. Tremor noticed when patient moves hands Psych: Normal affect and mood, not hallucinating at bedside Discharge Plan Plan Patient Disposition: HOME (Self Care) Patient condition on transfer: Stable Prescriptions/Referrals Prescriptions/Med Rec: New folic acid 1 mg Tablet 1 mg PO QDAY 30 Days Qty: 30 0RF lisinopril 5 mg tablet 5 mg PO QDAY 30 Days Qty: 30 0RF pantoprazole 40 mg Tablet,Delayed Release (Dr/Ec) 40 mg PO QDAY 30 Days Qty: 30 0RF nicotine 21 mg/24 hr Patch 24 Hour 21 mg top QDAY Qty: 7 0RF scopolamine base 1 mg over 3 days patch 3 day 1 mg topical Q72H PRN (Reason: Nausea Or Vomiting) Qty: 4 0RF thiamine HCl (vitamin B1) 100 mg tablet 100 mg PO QDAY Qty: 180 0RF quetiapine [Seroquel] 50 mg tablet 50 mg PO BID Qty: 60 0RF buspirone 7.5 mg tablet 7.5 mg PO BID Qty: 60 0RF Referrals: Martine Man PA-C [Primary Care Provider] - Marvel De Souza MD [Physician] - Patient/Caregiver Discharge Instructions Other Discharge Activity Instructions:: Continue Seroquel 50mg twice a day. Continue Buspirone 7.5 mg twice a day. Continue thiamine 100mg daily Continue folic acid 1mg tablet daily Continue all other home medications as prescribed Follow up with primary care within 1 week Follow up with neurology within 1-2 weeks Psych referral recommended. Education Materials: Alcohol Addiction, Alcohol Withdrawal: What to Expect, Recovering from Addiction ... Print Language: Kiswahili Stand Alone Forms: Verena Award Info., Patient Portal Info Letter Discharge Order Discharge Orders: Discharge (Routine); Ordered 08/05/24 Ordered By: Saira Cobos Quality Discharge Quality Measures VTE prophylaxis
--- NOTE | 2024-08-05 14:23 | PC.SS ---
SS submitted [facility] referral via [facility] pending responses
--- NOTE | 2024-08-06 12:25 | PC.CM ---
Patient did not have a preference noted for home health so I faxed to all agencies.
== END 2024-08-05 16:50 | disposition home health service (06) | DRG 775 ==
LOC: SERX 07-22 02:27 → SERHOLD 07-22 05:57 → S2NX 07-23 06:14 → S3NX 07-23 06:14
PROVIDERS: Student in an Organized Health Care Education/Training Program; Admitting Provider Student in an Organized Health Care Education/Training Program; Emergency Provider Emergency Medicine; PCP Physician Assistant; Visit Provider Internal Medicine
DX: F10.231 Alcohol dependence with withdrawal delirium (principal); J44.1 Chronic obstructive pulmonary disease with (acute) exacerbation; I10 Essential (primary) hypertension; J45.901 Unspecified asthma with (acute) exacerbation; E51.2 Wernicke's encephalopathy; E87.6 Hypokalemia; K76.0 Fatty (change of) liver, not elsewhere classified; R62.7 Adult failure to thrive; F17.213 Nicotine dependence, cigarettes, with withdrawal; Z68.1 Body mass index [BMI] 19.9 or less, adult; R52 Pain, unspecified; R64 Cachexia; I26.99 Other pulmonary embolism without acute cor pulmonale; F12.10 Cannabis abuse, uncomplicated; F29 Unspecified psychosis not due to a substance or known physiological condition; D64.9 Anemia, unspecified; Z79.899 Other long term (current) drug therapy; Z78.1 Physical restraint status
CPT/HCPCS: 36415; 36600; 70553; 71045; 71046; 76705; 80048; 80053; 80074; 80307; 80320; 81001; 82607; 82746; 82803; 83735; 83880; 84100; 84484; 85025; 86703; 87086; 87400; 87811; 93005; 94640; 94644; 96365; 96366; 96372; 96375; 97162; 99285; A4216; A9270; A9579; J1100; J1630; J1650; J2060; J2358; J2560; J3411; J3475; J3480; J3490; J7040; J7050; J7512; G0480; J2359

== ENCOUNTER 2024-12-24 12:36 | Observation (INO) | payer MEDICAID, SELFPAY ==
[2024-12-24 13:44] VITALS: BP 129/102; PULSE 150; RESP 16; TEMP 36.8; O2SAT 93
--- NOTE | 2024-12-24 14:05 | XR_ITS ---
Examination: PA lateral chest 2 views TECHNIQUE: Upright PA lateral chest 2 views Date and time: December 24, 2024, 1424 hours Comparison July 26, 2024 INDICATIONS: Weakness chest pain today FINDINGS: Normal heart size COPD with significant hyperexpansion. No pneumonia or pulmonary edema Mild osteopenia IMPRESSION: COPD with significant hyperexpansion
--- NOTE | 2024-12-24 14:05 | XR_ITS ---
Examination: CT abdomen and pelvis without contrast. Coronal 3-D reconstructions. Sagittal 2-D reconstructions. Date and time of exam: 12/24/2024t 1410 hours Comparison December 10, 2022 INDICATIONS: Diffuse abdominal pain and nausea vomiting beginning 2 months ago CTDI: vol (mGy): 2.73 DLP: (mGycm): 125 Technique: Axial images of the abdomen have been obtained, 3 mm slice thickness Intravenous contrast material has not been administered. Low dose protocols were performed. One or more of the following dose reduction techniques were used; automated exposure control, adjustment of the mA and/or KV according to patient size, use of iterative reconstruction technique. Findings: No focal liver or splenic lesion Diffuse pancreatic calcifications No hydronephrosis renal or ureteral calculi Aorta normal size No definite gallstones No bowel obstruction Normal appendix No diverticulitis Minimal thickening of urinary bladder wall up to 3 mm Transverse prostate dimension 4.8 cm Moderate osteopenia IMPRESSION: Diffuse prominent pancreatic calcifications, seen with prior repeated episodes of pancreatitis No current peripancreatic edema although assessment is limited on this noncontrast study No renal or ureteral calculi Normal appendix Colonic diverticulosis Mild cystitis pattern
--- NOTE | 2024-12-24 14:05 | EKG_ITS ---
[facility] Test Date: 2024-12-24 Pat Name: JONATHON VALLE Department: Room: - Gender: Male Child Advocate: : 1980 Requested By: Refugio Starr Order Number: [id number] Reading MD: Refugio Starr Measurements Intervals Star Rate: 144 P: 86 [place]: 119 QRS: 91 QRSD: 78 T: 89 QT: 327 QTc: 506 Interpretive Statements SINUS TACHYCARDIA WITH SHORT [place] INTERVAL, POSSIBLE ATRIAL FLUTTER BORDERLINE RIGHT AXIS DEVIATION [QRS AXIS > 90] POSSIBLE RIGHT VENTRICULAR CONDUCTION DELAY [RSR (QR) IN V1/V2] NONSPECIFIC ST & T-WAVE ABNORMALITY ABNORMAL RHYTHM ECG Compared to ECG 08/02/2024 02:28:16 T-wave abnormality now present /store/S0/[id number].pdf
--- NOTE | 2024-12-24 14:07 | PD.EDRME ---
Rapid Medical Screening Exam RME Arrival date/time: 12/24/24 12:36 Chief Complaint: Weakness Time Seen by Provider: 12/24/24 13:50 Vital signs: Vital Signs Temperature 98.3 F 12/24/24 13:44 Pulse Rate 150 H 12/24/24 13:44 Respiratory Rate 16 12/24/24 13:44 Blood Pressure 129/102 H 12/24/24 13:44 Pulse Oximetry (%) 93 L 12/24/24 13:44 Oxygen Delivery Method Room Air 12/24/24 13:44 Vital signs reviewed by provider: Yes RME Narrative: 44-year-old male with past medical history of alcoholism, hypertension, tobacco use presents for evaluation of progressive weakness x 2 months. Patient endorses diffuse abdominal pain and intermittent nausea without vomiting. Patient reports last drink was x 5 days ago. Reports he drinks a liter of beer daily.
[2024-12-24 15:00] LABS: Basophils % (Auto) 0 % (0-2.5); Eosinophils % (Auto) 0 % (0-10); Hematocrit 30.1 % (41.0-53.0); Hemoglobin 10.9 g/dL (13.5-16.0); Immature Granulocytes % (Auto) 0 % (0-0); Immature Granulocytes Auto 0.03 Thou/mm3 (0.00-0.00); Lymphocytes % (Auto) 13 % (10-50); Mean Corpuscular HGB Conc 36.2 g/dl (31.0-37.0); Mean Corpuscular Hemoglobin 33.6 pg (25.0-35.0); Mean Corpuscular Volume 93 fL (80-100); Monocytes % (Auto) 13 % (0-12); Neutrophils # (Auto) 5.3 Thou/mm3 (1.8-7.7); Neutrophils % (Auto) 73 % (37-80); Nucleated Red Blood Cell # 0.06 Thou/mm3 (0.00-0.00); Nucleated Red Blood Cell % 1 /100 WBC (0); Platelet Count 277 Thou/mm3 (140-440); RDW Standard Deviation 48.1 fL (35.1-43.9); Red Blood Count 3.24 Miln/mm3 (4.50-5.90); White Blood Count 7.3 Thou/mm3 (3.8-10.6)
[2024-12-24 15:14] LABS: Partial Thromboplastin Time 23.7 Seconds (22.0-36.0); Prothrombin Time 11.1 Seconds (9.0-12.2)
[2024-12-24 15:17] LABS: Alanine Aminotransferase 13 U/L (10-49); Albumin, Serum 3.4 gm/dL (3.5-5.0); Albumin/Globulin Ratio 1.4 (1.2-2.2); Alcohol, Blood Medical < 10.0 mg/dL (0-10.0); Alkaline Phosphatase 148 U/L (46-116); Anion Gap 9 (7-16); Aspartate Amino Transferase 42 U/L (0-34); BUN/Creatinine Ratio 7 Ratio (12-20); Bilirubin,Total 2.2 mg/dL (0.3-1.2); Blood Urea Nitrogen 6 mg/dL (9-23); Calcium 8.5 mg/dL (8.3-10.6); Carbon Dioxide 27.5 mMol/L (20.0-31.0); Chloride 98 mMol/L (98-107); Creatinine (Component) 0.9 mg/dL (0.6-1.3); Globulin 2.5 gm/dL (2.3-3.5); Glucose 159 mg/dL (74-106); LDH (Lactate Dehydrogenase) 252 U/L (120-246); Lipase 25 U/L (12-53); Magnesium 1.7 mg/dL (1.6-2.6); Osmolality,Calculated 268 (275-295); Potassium 3.6 mMol/L (3.4-5.1); Sodium 134 mMol/L (136-145); Total Protein 5.9 gm/dL (5.7-8.2); Troponin I < 0.020 ng/mL (0.0-0.045); eGFR > 60 See Note
[2024-12-24 15:29] LABS: B-Type Natriuretic Peptide 41 pg/mL (0-100)
--- NOTE | 2024-12-24 19:21 | PC.NURSE ---
APPARENTLY PT LEFT ER , AMBULANCE BROUGHT HIM BACK, TERRAZZO TILE MAKER [place] INFORMED ME THAT HE CALLED AMBULANCE BECAUSE HE CAN'T WALK HOME. VS= 132/97, 148, 98% RA.
[2024-12-24 19:25] VITALS: BP 121/86; PULSE 140; RESP 18; TEMP 37.4; O2SAT 97
--- NOTE | 2024-12-24 19:55 | PD.EDWEAK ---
ED Weakness RME/HPI General Chief complaint: Weakness Stated complaint: Weakness X 2 months Time Seen by Provider: 12/24/24 13:50 Arrival date/time: 12/24/24 12:36 RME / HPI RME / HPI Narrative: 44-year-old male with past medical history of alcoholism, hypertension, tobacco use presents for evaluation of progressive weakness x 2 months. Patient endorses diffuse abdominal pain and intermittent nausea without vomiting. Patient reports last drink was x 5 days ago. Reports he drinks a liter of beer daily. --------- Dr. Pizano?s Main ED Evaluation: 44yo male with a history of alcoholism, HTN BIB his son presents to the ED for a chief complaint of worsening weakness over the last couple of months. Son states the patient drinks alcohol and smokes tobacco daily. Son states the patient has not been eating for the last few weeks. Son reports the patient has been having dementia-like symptoms since May and has been having difficulty taking care of him. No chest pain, shortness of breath or any other associated symptoms reported. Related Data Previous Rx's ?Medication ?Instructions ?Recorded nicotine 21 mg/24 hr daily 21 mg top QDAY #7 ea 07/28/24 transdermal patch scopolamine base 1 mg over 3 days 1 mg topical Q72H PRN Nausea Or 07/31/24 transdermal patch Vomiting #4 ea thiamine HCl (vitamin B1) 100 mg 100 mg PO QDAY #180 tabs 07/31/24 tablet buspirone 7.5 mg tablet 7.5 mg PO BID #60 tabs 08/05/24 quetiapine 50 mg tablet (Seroquel) 50 mg PO BID #60 tabs 08/05/24 Allergies Allergy/AdvReac Type Severity Reaction Status Date / Time bee venom protein (honey bee) Allergy Verified 12/24/24 12:40 Review of Systems Review of Systems Systems Reviewed: All systems reviewed, normal except as documented ED Exam Narrative Physical exam: GENERAL APPEARANCE: alert and oriented x 4, cachectic, no acute distress VITALS: All vitals were reviewed and the pulse ox is 97% on room air, which is normal according to my interpretation. HEENT: Normocephalic, atraumatic; pupils equal, round, reactive to light; EOMI; mucous membranes pink, moist; oropharynx clear NECK: Supple LUNGS: CTABL; no wheezes, no rales, no rhonchi HEART: Tachycardic, regular rhythm; normal S1, S2; no murmurs ABDOMEN: non distended; normal BS; soft, no tenderness, no guarding, no rebound; no masses, no organomegaly, no hernia BACK: no CVA tenderness EXTREMITIES: atraumatic; no edema NEUROLOGIC: awake; alert and oriented x4; cranial nerves II-XII grossly intact; no focal sensory or motor deficits PSYCHIATRIC: appropriate mood and affect SKIN: warm, dry, normal color; no rashes Course Course Course Narrative: CXR is ordered for determining the etiology of weakness. Quality Measures none Orders Category Date Time Status EKG (ED ONLY) *Do not use* NOW Care 12/24/24 14:05 Completed Insert IV NOW Care 12/24/24 14:[address] abdomen pelvis wo con Stat Exams 12/24/24 14:[address] cervical spine wo con Stat Exams 12/24/24 20:[address] head/brain wo con Stat Exams 12/24/24 20:48 Completed EKG (ED Only) Stat Exams 12/24/24 14:05 Draft XR chest 2V Stat Exams 12/24/24 14:05 Completed Alcohol, Blood Medical Stat Lab 12/24/24 14:48 Completed B-Type Natriuretic Peptide Stat Lab 12/24/24 14:48 Completed CBC Stat Lab 12/24/24 14:48 Completed Comprehensive Metabolic Panel Stat Lab 12/24/24 14:48 Completed Drug Screen,Urine Stat Lab 12/24/24 14:05 Ordered LDH (Lactate Dehydrogenase) Stat Lab 12/24/24 14:48 Completed Lipase Stat Lab 12/24/24 14:48 Completed Magnesium Stat Lab 12/24/24 14:48 Completed Partial Thromboplastin Time Stat Lab 12/24/24 14:48 Completed Prothrombin Time with INR Stat Lab 12/24/24 14:48 Completed Quantiferon-TB* Stat Lab 12/24/24 20:05 Ordered Syphilis Stat Lab 12/24/24 21:39 Completed Troponin I Stat Lab 12/24/24 14:48 Completed Urinalysis Stat Lab 12/24/24 14:05 Ordered Folic Acid Inj Med 12/24/24 20:06 Discontinued 1 mg IVP X1 ONE Magnesium Sulfate 2 GM Ivpb [Magnesium Sulfate Ivpb] Med 12/24/24 20:05 Discontinued 2 gm in 50 ml IV X1 Multivitamin. Med 12/24/24 20:08 Discontinued 15 ml PO X1 ONE Nicotine Patch [Nicoderm Patch] Med 12/24/24 20:08 Discontinued 21 mg TOP X1 ONE Sodium Chloride 0.9% 1000 ml [Ns] 1,000 ml Med 12/24/24 19:25 Discontinued IV 999 mls/hr Sodium Chloride 0.9% 1000 ml [Ns] 1,000 ml Med 12/24/24 19:25 Discontinued IV 999 mls/hr Sodium Chloride 0.9% 250 ml [Ns] 250 ml Med 12/24/24 14:06 Discontinued IV 999 mls/hr Thiamine Inj [Vitamin B-1 Inj] Med 12/24/24 20:06 Discontinued 100 mg IVP X1 ONE Vital Signs Vital signs: Vital Signs Temperature 98.3 F 12/24/24 13:44 Pulse Rate 150 H 12/24/24 13:44 Respiratory Rate 16 12/24/24 13:44 Blood Pressure 129/102 H 12/24/24 13:44 Pulse Oximetry (%) 93 L 12/24/24 13:44 Oxygen Delivery Method Room Air 12/24/24 13:44 Weakness MDM Narrative MDM Narrative:: Scribe Attestation: 12/24/24 - Alva Whittington am scribing for and in the presence of Dr. Pizano. Patient data External records reviewed:: [facility] previous records (Per chart review, patient was admitted here on 07/22/24 for alcohol withdrawal.) Clinical information provided by:: patient and family (son) Social determinants that could affect healthcare access:: substance use (alcohol and tobacco use) Patient has the following chronic illnesses:: HTN, asthma How is presenting disease/condition affected by chronic disease/condition?: uneffected by Evaluation data The following diagnostics were reviewed and interpreted by me:: lab results and radiology exam(s) Lab and/or radiology exams considered but not ordered:: none Interpretation Summary: CBC normal, PT/INR/PTT normal, Total Bilirubin 2.2, Troponin normal, BNP normal, Lipase normal, Blood Alcohol negative. EKG done at 1408, sinus tachycardia, rate of 144, normal intervals, normal axis, no acute ST or T wave changes, according to my interpretation. [facility] Report Signed Patient: JONATHON VALLE Record#: [id number] Birthdate: 1980 Age/Sex: 44 / M Location: [facility] Attending Dr: Ordering Physician: Refugio Wade PA-C Date of Service: 12/24/24 Procedure(s): XR chest 2V Accession Number(s): [id number] cc: Refugio Wade PA-C; Phoenix Combs MD; NO PRIMARY/FAMILY,PHYSICIAN~ Examination: PA lateral chest 2 views TECHNIQUE: Upright PA lateral chest 2 views Date and time: December 24, 2024, 1424 hours Comparison July 26, 2024 INDICATIONS: Weakness chest pain today FINDINGS: Normal heart size COPD with significant hyperexpansion. No pneumonia or pulmonary edema Mild osteopenia IMPRESSION: COPD with significant hyperexpansion Dictated By: Phoenix Combs MD Signed By: <Electronically signed by Phoenix Combs MD in OV> 12/24/24 1500 [facility] Report Signed Patient: JONATHON VALLE Record#: [id number] Birthdate: 1980 Age/Sex: 44 / M Location: [facility] Attending Dr: Ordering Physician: Refugio Wade PA-C Date of Service: 12/24/24 Procedure(s): CT abdomen pelvis wo con Accession Number(s): [id number] cc: Refugio Wade PA-C; Phoenix Combs MD; NO PRIMARY/FAMILY,PHYSICIAN~ Examination: CT abdomen and pelvis without contrast. Coronal 3-D reconstructions. Sagittal 2-D reconstructions. Date and time of exam: 5at 1410 hours Comparison December 10, 2022 INDICATIONS: Diffuse abdominal pain and nausea vomiting beginning 2 months ago CTDI: vol (mGy): 2.73 DLP: (mGycm): 125 Technique: Axial images of the abdomen have been obtained, 3 mm slice thickness Intravenous contrast material has not been administered. Low dose protocols were performed. One or more of the following dose reduction techniques were used; automated exposure control, adjustment of the mA and/or KV according to patient size, use of iterative reconstruction technique. Findings: No focal liver or splenic lesion Diffuse pancreatic calcifications No hydronephrosis renal or ureteral calculi Aorta normal size No definite gallstones No bowel obstruction Normal appendix No diverticulitis Minimal thickening of urinary bladder wall up to 3 mm Transverse prostate dimension 4.8 cm Moderate osteopenia IMPRESSION: Diffuse prominent pancreatic calcifications, seen with prior repeated episodes of pancreatitis No current peripancreatic edema although assessment is limited on this noncontrast study No renal or ureteral calculi Normal appendix Colonic diverticulosis Mild cystitis pattern Dictated By: Phoenix Combs MD Signed By: <Electronically signed by Phoenix Combs MD in OV> 12/24/24 1432 [facility] Report Signed Patient: JONATHON VALLE Record#: [id number] Birthdate: 1980 Age/Sex: 44 / M Location: [facility] Attending Dr: Ordering Physician: Nancy Pizano MD Date of Service: 12/24/24 Procedure(s): CT head/brain wo con Accession Number(s): [id number] cc: Phoenix Combs MD; NO PRIMARY/FAMILY,PHYSICIAN; Nancy Pizano MD~ Examination: CT brain head without contrast. 2-D sagittal coronal reconstructions Date and time of exam:December 24, 2024 1013 hours Compared to January 13, 2024 CTDI: vol (mGy):7. DLP: (mGycm):972. Technique: Multiple CT axial sections of the brain have been obtained, 5 mm slice thickness. Contrast has not been administered. 2-D sagittal, coronal reconstructions have been obtained Low dose protocols were performed. One or more of the following dose reduction techniques were used; automated exposure control, adjustment of the mA and/or KV according to patient size, use of iterative reconstruction technique. Findings: Study significantly degraded by patient motion No gross hemorrhage or mass effect IMPRESSION: The study is severely degraded by patient motion No gross hemorrhage or mass effect Dictated By: Phoenix Combs MD Signed By: <Electronically signed by Phoenix Combs MD in OV> 12/24/244 [facility] Report Signed Patient: JONATHON VALLE Record#: [id number] Birthdate: 1980 Age/Sex: 44 / M Location: [facility] Attending Dr: Ordering Physician: Nancy Pizano MD Date of Service: 12/24/24 Procedure(s): CT cervical spine wo con Accession Number(s): [id number] cc: Phoenix Combs MD; NO PRIMARY/FAMILY,PHYSICIAN; Nancy Pizano MD~ Examination: CT cervical spine without contrast 2-D sagittal reconstructions 2-D coronal reconstructions 3-D reconstructions. Exam date and time:December 24, 2024 1016 hours INDICATIONS: Patient fell today with injury to the neck, neck pain CTDI:vol (mGy) 7.68 DLP: (mGycm) 144 Technique: Multiple 2 mm axial sections of the cervical spine have been obtained. The coronal and sagittal reconstructions have been obtained. 3-D reconstructions have been obtained. Low dose protocols were performed. One or more of the following dose reduction techniques were used; automated exposure control, adjustment of the mA and/or KV according to patient size, use of iterative reconstruction technique. Findings: Axial sections demonstrate intact base of the skull. C1 exhibit satisfactory relationship to the odontoid. No acute cervical vertebral body fracture seen. Alignment posterior spinous processes satisfactory. Impression: No acute cervical fracture. Dictated By: Phoenix Combs MD Signed By: <Electronically signed by Phoenix Combs MD in OV> 12/24/242 Medications / Prescriptions Medications or Prescriptions considered but not ordered:: none Medication administrations:: Medication Administration History Discontinued Medications Folic Acid (Folic Acid Inj 1 Mg/0.2 Ml) 1 mg IVP X1 ONE Stop: 12/24/24 20:07 Last Admin: 12/24/24 20:59 Dose: 1 mg Documented By: EF Sodium Chloride (Ns) 250 mls @ 999 mls/hr IV .Q16M ONE Stop: 12/24/24 14:21 Last Admin: 12/24/24 21:27 Dose: Not Given Documented By: EF Non-Admin Reason: Cancelled by Provider Sodium Chloride (Ns) 1,000 mls @ 999 mls/hr IV .Q1H1M ONE Stop: 12/24/24 20:25 Last Infusion: 12/24/24 21:10 Dose: Infused Documented By: Admin: 12/24/24 20:09 Dose: 999 mls/hr Documented By: Sodium Chloride (Ns) 1,000 mls @ 999 mls/hr IV .Q1H1M ONE Stop: 12/24/24 20:25 Last Infusion: 12/24/24 22:01 Dose: Infused Documented By: Admin: 12/24/24 21:00 Dose: 999 mls/hr Documented By: EF Magnesium Sulfate (Magnesium Sulfate Ivpb) 2 gm in 50 mls @ 25 mls/hr IV X1 ONE Stop: 12/24/24 22:04 Last Admin: 12/24/24 21:36 Dose: 25 mls/hr Documented By: EF Multivitamins/Minerals (Multivitamin 15 Ml Udc) 15 ml PO X1 ONE Stop: 12/24/24 20:09 Last Admin: 12/24/24 21:00 Dose: 15 ml Documented By: EF Nicotine (Nicotine Patch 21 Mg/24 Hr Patch.Td24) 21 mg TOP X1 ONE Stop: 12/24/24 20:09 Thiamine HCl (Thiamine Inj 100 Mg/Ml Vial 2 Ml) 100 mg IVP X1 ONE Stop: 12/24/24 20:07 Last Admin: 12/24/24 20:59 Dose: 100 mg Documented By: EF see above Consultations Consultation(s) initiated? (list below): Yes Consultation #1 (Physician, Specialty, Details): Discussed case with Dr. Ramsay, attending Dr. Mak from Hospitalist service regarding admission. Discussed patients ED course, exam findings, labs, and radiology results. The Hospitalist agrees to accept the patient for admission. Time: 19:55 Diagnosis Weakness Differential Diagnosis: other (alcohol withdrawal, pancreatitis, malignancy, viral illness) Most likely diagnosis given after review of the tests above:: alcohol withdrawal, dehydration Admission Indicated Admission indicated?: indicated Admission Request Was there a request for admission?: Yes Admission Attestation Admission request attestation: Discussed case with [] from Hospitalist service regarding admission. Discussed patients ED course, exam findings, labs, and radiology results. The Hospitalist [agrees,declines] to accept the patient for admission. Disposition Plan Disposition Plan: Admit Discharge Plan Plan Patient Disposition: Admit Acute Care w/in Hospital Prescriptions/Referrals Prescriptions/Med Rec: No Action nicotine 21 mg/24 hr Patch 24 Hour 21 mg top QDAY Qty: 7 0RF scopolamine base 1 mg over 3 days patch 3 day 1 mg topical Q72H PRN (Reason: Nausea Or Vomiting) Qty: 4 0RF thiamine HCl (vitamin B1) 100 mg tablet 100 mg PO QDAY Qty: 180 0RF quetiapine [Seroquel] 50 mg tablet 50 mg PO BID Qty: 60 0RF buspirone 7.5 mg tablet 7.5 mg PO BID Qty: 60 0RF Referrals: No Primary/Family,Physician [Primary Care Provider] - In 1 week Problem List Clinical Impression: Alcohol withdrawal, Dehydration Patient/Caregiver Discharge Instructions Print Language: Kazakh Stand Alone Forms: [facility]rena Award Info., Patient Portal Info Letter
[2024-12-24] MEDS: SODIUM CHLORIDE 0.9% 1000 ML 1,000 ML 999 ML IV ×2 (20:09→21:00)
--- NOTE | 2024-12-24 20:48 | XR_ITS ---
Examination: CT cervical spine without contrast 2-D sagittal reconstructions 2-D coronal reconstructions 3-D reconstructions. Exam date and time:December 24, 2024 1016 hours INDICATIONS: Patient fell today with injury to the neck, neck pain CTDI:vol (mGy) 7.68 DLP: (mGycm) 144 Technique: Multiple 2 mm axial sections of the cervical spine have been obtained. The coronal and sagittal reconstructions have been obtained. 3-D reconstructions have been obtained. Low dose protocols were performed. One or more of the following dose reduction techniques were used; automated exposure control, adjustment of the mA and/or KV according to patient size, use of iterative reconstruction technique. Findings: Axial sections demonstrate intact base of the skull. C1 exhibit satisfactory relationship to the odontoid. No acute cervical vertebral body fracture seen. Alignment posterior spinous processes satisfactory. Impression: No acute cervical fracture.
--- NOTE | 2024-12-24 20:48 | XR_ITS ---
Examination: CT brain head without contrast. 2-D sagittal coronal reconstructions Date and time of exam:December 24, 2024 1013 hours Compared to January 13, 2024 CTDI: vol (mGy):7. DLP: (mGycm):972. Technique: Multiple CT axial sections of the brain have been obtained, 5 mm slice thickness. Contrast has not been administered. 2-D sagittal, coronal reconstructions have been obtained Low dose protocols were performed. One or more of the following dose reduction techniques were used; automated exposure control, adjustment of the mA and/or KV according to patient size, use of iterative reconstruction technique. Findings: Study significantly degraded by patient motion No gross hemorrhage or mass effect IMPRESSION: The study is severely degraded by patient motion No gross hemorrhage or mass effect
[2024-12-24] MEDS: FOLIC ACID INJ 1 MG/0.2 ML IVP (20:59)
[2024-12-24] MEDS: THIAMINE INJ 100 MG/ML VIAL 2 ML IVP (20:59)
[2024-12-24] MEDS: MULTIVITAMIN 15 ML UDC PO (21:00)
[2024-12-24] MEDS: Magnesium Sulfate 2 GM Ivpb 2 GM/50 ML BAG IV (21:36)
[2024-12-24 22:36] LABS: HIV (1&2) Antibody Rapid Non-Reactive
[2024-12-24 23:09] VITALS: BP 131/98; PULSE 102; RESP 17; TEMP 37.1; O2SAT 95
[2024-12-24 23:35] LABS: Syphilis Nonreactive (Nonreactive)
--- NOTE | 2024-12-24 23:44 | PD.RESHP ---
Documentation for date of: 12/24/24 HPI History of Present Illness Chief complaint: shaking, decreased appetite History of present illness: 44-year-old male with past medical history of alcohol use disorder, frequent admissions for alcohol withdrawal, hypertension, and asthma was admitted to the hospital on 12/24/2024 due to alcohol withdrawal symptoms. On assessment patient's son was at bedside and provided help with the patient's story and symptoms given that the patient has somewhat confusing stories. Patient stated that he started having shaking episodes 2 days ago and that he also had a fall in which he hit his head with the faucet of the shower. He stated that he had not drank any alcohol for the past 1 to 2 weeks, but son stated that his last drink was on Saturday of this week. Patient initially stated that he did not drink this Saturday, but on further assessment he stated that yes that he had some issues with alcohol and that he remembers the last drink was last week. Patient also states that he did have some abdominal pain, but did not have any vomiting. He also mentioned that he has been having some streaks of blood when he wipes after a bowel movement, but has not had any horacio red blood per rectum. Patient also stated that he has not been eating too well because he does not have an appetite, his son also stated that patient has been now taking his medication as initially when he was last discharged in August he was not taking his medications initially, but is now taking these. He denies having any seizures. Denies having any chest pain, shortness of breath, burning sensation in urination, hallucinations, vomiting episodes, or changes in bowel movements. On assessment patient CIWA score was 5-6. ED course: Initially came in mildly hypertensive, tachycardic, and afebrile. Initial labs were relevant for anemia, transaminitis, hyperbilirubinemia, and alcohol levels were less than 10. Initial imaging included abdomen/pelvis CT which showed colonic diverticulosis and diffuse prominent pancreatic calcifications. Additional imaging included chest x-ray which shows COPD pattern, head CT which was negative for hemorrhage or mass effect, cervical spine CT which was negative for any fractures, and EKG which showed sinus tachycardia. PMH: As above Social Hx: Admits alcohol use, admits marijuana use, admits smoking Medications: Med reconciliation pending Surgical Hx: Unknown Review of Systems Review of Systems Systems Reviewed: All systems reviewed, normal except as documented Past Medical History Past Medical History NEUROLOGIC: Negative Neurological Disorders CARDIAC: Positive Cardiac Disorders and Hypertension; Negative Congestive Heart Failure RESPIRATORY: Positive Asthma; Negative Chronic Obstructive Pulmonary Disease (COPD) GASTROINTESTINAL: Negative Gastrointestinal Disorders GENITOURINARY: Negative Genitourinary Disorders or Renal Disease MUSCULOSKELETAL: Negative Musculoskeletal Disorders ENDOCRINE: Negative Endocrine Disorders, Diabetes Mellitus Type 1 or Diabetes Mellitus Type 2 HEMATOLOGIC: Negative Blood Disorders or Sickle Cell Disease OTHER HISTORY: Negative Autoimmune Disease, Blood Transfusions, Anesthesia Reactions or MRSA Family History FAMILY HISTORY: Negative Family Cardiac Disorders Surgical History SURGICAL: Negative Cardiac Surgery, Endocrine Surgery, Ear Surgery, Abdominal Surgery, Nephrectomy or Neurologic Surgery Social History SMOKING STATUS: Current every day smoker SECOND HAND EXPOSURE: Yes SUBSTANCE USE: marijuana Exam Vital Signs Temp Pulse Resp BP Pulse Ox O2 Del Method 98.7 F 102 H 17 131/98 H 95 Room Air 12/24/24 23:09 12/24/24 23:09 12/24/24 23:09 12/24/24 23:09 12/24/24 23:09 12/24/24 23:09 Narrative Exam General: A/O x3, no acute distress, appears older than given age, cachectic Eyes: PERRL, EOMI. Anicteric, vision grossly intact. Ears: No ear pain, no ear discharge, Hearing grossly intact. Nose: No nasal discharge. Mouth/Throat: Dry mucous membranes, no redness, no lesions. Neck: Neck supple, non-tender, no cervical lymphadenopathy. Lungs: Clear CURT to auscultation and percussion, No accessory muscle use. Cardio: Normal S1/S2, regular rhythm, no murmurs, no JVD Abdomen: Soft, non-tender, no palpable masses, peristalsis present, no guarding or rebound. Extremities: Symmetrical, no significant deformities, no peripheral edema , non-tender, peripheral pulses presents, tremors CURT. Skin: No rashes, no lesions, warm to touch. Neuro: No focal neurological deficits. motor and sensory intact Psych: Anxious Results: Labs 12/24/24 14:48 12/24/24 14:48 Labs: Short CBC 12/24/24 Range/Units 14:48 WBC 7.3 (3.8-10.6) Thou/mm3 Hgb 10.9 L (13.5-16.0) g/dL Hct 30.1 L (41.0-53.0) % Plt Count 277 (140-440) Thou/mm3 BMP 12/24/24 14:48 Sodium 134 L Potassium 3.6 Chloride 98 Carbon Dioxide 27.5 BUN 6 L Creatinine 0.9 Glucose 159 H Calcium 8.5 Cardiac Enzymes 12/24/24 Range/Units 14:48 Troponin I < 0.020 (0.0-0.045) ng/mL Liver Function 12/24/24 Range/Units 14:48 Total Bilirubin 2.2 H (0.3-1.2) mg/dL AST 42 H (0-34) U/L ALT 13 (10-49) U/L Alkaline Phosphatase 148 H (46-116) U/L Albumin 3.4 L (3.5-5.0) gm/dL Quality Measures Quality Measures none Medications Home Medications and Allergies Home Medications ?Medication ?Instructions ?Recorded ?Confirmed ?Type albuterol sulfate 90 mcg/actuation 2 puff inhalation Q4H PRN 12/25/24 12/25/24 History aerosol inhaler shortness of breath or wheezing Allergies Allergy/AdvReac Type Severity Reaction Status Date / Time bee venom protein (honey bee) Allergy Verified 12/24/24 12:40 Visit Medications Acetaminophen (Acetaminophen 325 Mg Tablet) 650 mg PO Q6H PRN PRN Reason: Fever >100.4 Stop: 01/23/25 23:33 Hydrocodone Bitart/Acetaminophen (Hydrocodone/Apap 5/325 Tablet) 1 tab PO Q4HR PRN PRN Reason: PAIN SCALE 4-6 (Moderate Stop: 12/29/24 23:33 Albuterol/Ipratropium (Albuterol/Ipratropium (Duoneb) Rt Rosalina 3 Ml Nebu) 3 ml INH Q6HRRT PRN PRN Reason: SOB or wheezing Stop: 01/24/25 00:59 Folic Acid (Folic Acid 1 Mg Tablet) 1 mg PO BID FREDERICK Stop: 12/30/24 08:59 Sodium Chloride (Ns) 1,000 mls @ 75 mls/hr IV .[id number] FREDERICK Stop: 12/25/24 13:04 Lorazepam (Lorazepam 0.5 Mg Tablet) 0.5 mg PO Q4HR PRN PRN Reason: CIWA Score 2-6 Stop: 12/29/24 23:33 Lorazepam (Lorazepam 0.5 Mg Tablet) 1 mg PO Q4HR PRN PRN Reason: CIWA SCORE 7-11 Stop: 12/29/24 23:38 Lorazepam (Lorazepam 0.5 Mg Tablet) 2 mg PO Q4HR PRN PRN Reason: CIWA SCORE 12-15 Stop: 12/29/24 23:38 Morphine Sulfate (Morphine Sulf Inj 10 Mg/Ml Vial) 1 mg IVP Q2H PRN PRN Reason: PAIN SCALE 7-10 (Severe Stop: 12/29/24 23:33 Ondansetron HCl (Ondansetron Inj 2 Mg/Ml Inj 2 Ml) 4 mg IVP Q6H PRN; Protocol PRN Reason: NAUSEA OR VOMITING Stop: 01/23/25 23:33 Pantoprazole Sodium (Pantoprazole 40 Mg Tablet) 40 mg PO QDAY [facility] Stop: 01/24/25 08:59 Thiamine HCl (Thiamine 100 Mg Tablet) 100 mg PO BID FREDERICK Stop: 12/30/24 08:59 Discontinued Medications Folic Acid (Folic Acid Inj 1 Mg/0.2 Ml) 1 mg IVP X1 ONE Stop: 12/24/24 20:07 Last Admin: 12/24/24 20:59 Dose: 1 mg Sodium Chloride (Ns) 250 mls @ 999 mls/hr IV .Q16M ONE Stop: 12/24/24 14:21 Last Admin: 12/24/24 21:27 Dose: Not Given Sodium Chloride (Ns) 1,000 mls @ 999 mls/hr IV .Q1H1M ONE Stop: 12/24/24 20:25 Last Infusion: 12/24/24 21:10 Dose: Infused Sodium Chloride (Ns) 1,000 mls @ 999 mls/hr IV .Q1H1M ONE Stop: 12/24/24 20:25 Last Infusion: 12/24/24 22:01 Dose: Infused Magnesium Sulfate (Magnesium Sulfate Ivpb) 2 gm in 50 mls @ 25 mls/hr IV X1 ONE Stop: 12/24/24 22:04 Last Admin: 12/24/24 21:36 Dose: 25 mls/hr Multivitamins/Minerals (Multivitamin 15 Ml Udc) 15 ml PO X1 ONE Stop: 12/24/24 20:09 Last Admin: 12/24/24 21:00 Dose: 15 ml Nicotine (Nicotine Patch 21 Mg/24 Hr Patch.Td24) 21 mg TOP X1 ONE Stop: 12/24/24 20:09 Thiamine HCl (Thiamine Inj 100 Mg/Ml Vial 2 Ml) 100 mg IVP X1 ONE Stop: 12/24/24 20:07 Last Admin: 12/24/24 20:59 Dose: 100 mg Assessment & Plan Plan 44-year-old male with past medical history of alcohol use disorder, frequent admissions for alcohol withdrawal, hypertension, and asthma was admitted to the hospital on 12/24/2024 for alcohol withdrawal and failure to thrive. #Alcohol withdrawal #Failure to thrive #Chronic pancreatitis? #Hx of alcohol use #Transaminitis #Hyperbilirubinemia Patient came in due to having episodes of feeling shaky for the past 2 days. Patient has have very low appetite recently and has had weight loss as compared to previous admission on 08/[address] and cervical spine CT were negative for any intracranial bleed or fractures. Abdomen CT does show calcifications of the pancreas likely in the setting of repeated episodes of pancreatitis Patient CIWA score on my assessment was 5-6 Alkaline phosphatase 148 and AST 42 initially T bilirubin 2.2 likely in the setting of alcohol use. Plan: CIWA protocol Refer to registered dietitian Consider further evaluation of pancreatic calcifications status could be pancreatic cancer in the setting of weight loss and failure to thrive versus chronic pancreatitis Seizure precautions Chronic diseases: #Hx of hypertension #Hx of asthma Patient's blood pressure has been elevated likely due to alcohol withdrawal DuoNebs as needed Disposition: Patient admitted to med surg for alcohol withdrawal. Diet: Regular GI prophylaxis: protonix DVT prophylaxis: SCDs Code: Full Case disclosed with Attending Dr. Jonny Jose PGY1 Disclaimer: Even though this this note was dictated by speech recognition and even though it was carefully revised there may still be minor errors in surveyor geodetic due to voice recognition software. Attending Provider Attestation/Addendum 44-year-old male patient with alcohol use disorder, probable alcohol-related liver disease admitted for alcohol withdrawal. The patient said that he has asthma. He is not actively wheezing. The patient is poorly nourished. He weighs only 39.57 kg. BMI listed as 13.3. The patient is alert answers questions but has poor insight. He has no hallucinations. Will be admitted for alcohol withdrawal. The patient denies seizures. I discussed with and supervised the resident physician who took care of this patient. I agree with the assessment and plan as above.
[2024-12-25] VITALS (9 sets, daily range): BP systolic 113–131; BP diastolic 88–95; PULSE 102–114; RESP 16–99; TEMP 36–36.7; O2SAT 96–99; BMI 13.2; BMI 12.0
[2024-12-25] MEDS: SODIUM CHLORIDE 0.9% 1000 ML 1,000 ML 75 ML IV (00:37)
[2024-12-25 05:55] LABS: Quantiferon-TB* See Sep Rpt
[2024-12-25 05:57] LABS: Basophils % (Auto) 0 % (0-2.5); Eosinophils % (Auto) 0 % (0-10); Hematocrit 25.7 % (41.0-53.0); Hemoglobin 9.2 g/dL (13.5-16.0); Immature Granulocytes % (Auto) 1 % (0-0); Immature Granulocytes Auto 0.07 Thou/mm3 (0.00-0.00); Lymphocytes # (Auto) 1.6 Thou/mm3 (1.0-4.8); Lymphocytes % (Auto) 20 % (10-50); Mean Corpuscular HGB Conc 35.8 g/dl (31.0-37.0); Mean Corpuscular Hemoglobin 33.7 pg (25.0-35.0); Mean Corpuscular Volume 94 fL (80-100); Monocytes # (Auto) 1.3 Thou/mm3 (0.0-0.8); Monocytes % (Auto) 17 % (0-12); Neutrophils # (Auto) 4.9 Thou/mm3 (1.8-7.7); Neutrophils % (Auto) 62 % (37-80); Nucleated Red Blood Cell # 0.04 Thou/mm3 (0.00-0.00); Nucleated Red Blood Cell % 1 /100 WBC (0); Platelet Count 147 Thou/mm3 (140-440); RDW Standard Deviation 46.7 fL (35.1-43.9); Red Blood Count 2.73 Miln/mm3 (4.50-5.90); White Blood Count 7.9 Thou/mm3 (3.8-10.6)
[2024-12-25 06:31] LABS: Alanine Aminotransferase 14 U/L (10-49); Albumin, Serum 2.8 gm/dL (3.5-5.0); Albumin/Globulin Ratio 1.3 (1.2-2.2); Alkaline Phosphatase 113 U/L (46-116); Anion Gap 8 (7-16); Aspartate Amino Transferase 49 U/L (0-34); BUN/Creatinine Ratio 9 Ratio (12-20); Bilirubin,Total 1.2 mg/dL (0.3-1.2); Blood Urea Nitrogen 6 mg/dL (9-23); Calcium 7.5 mg/dL (8.3-10.6); Calcium (Corrected) 8.5 mg/dL (8.5-10.1); Chloride 103 mMol/L (98-107); Creatinine (Component) 0.7 mg/dL (0.6-1.3); Estimated Creatinine Clearance 75.4 mL/min (>60); Globulin 2.2 gm/dL (2.3-3.5); Glucose 99 mg/dL (74-106); Osmolality,Calculated 271 (275-295); Potassium 3.7 mMol/L (3.4-5.1); Sodium 137 mMol/L (136-145); Thyroid Stimulating Hormone 1.78 uIU/mL (0.55-4.78); eGFR > 60 See Note
[2024-12-25] MEDS: PANTOPRAZOLE 40 MG TABLET PO (08:05)
[2024-12-25] MEDS: FOLIC ACID 1 MG TABLET PO (08:06)
[2024-12-25] MEDS: THIAMINE 100 MG TABLET PO (08:06)
[2024-12-25 09:40] LABS: Amylase 183 U/L (30-118)
--- NOTE | 2024-12-25 12:31 | PC.NURSE ---
received discharge orders, called social service and left a voice mail, pending transportation for pt
--- NOTE | 2024-12-25 14:06 | ESPR_ITS ---
<Statement entered by Rachell Whitney MD - 12/28/24 14:53> I Rachell Whitney MD reviewed the note and agree with the resident's assessment & plan with exceptions as below. I have personally reviewed labs, imaging, home meds/prior records, examined the patient, formulated and discussed management plan with the IM team. A 44-year-old male admitted for EtOH withdrawal and acute pancreatitis. Currently patient has been tolerating diet well, no concern for withdrawal symptoms, patient is okay for discharge as below <Statement entered by Elkin Harrison MD - 12/25/24 18:39> I discussed with and supervised the internal medicine veterinary technician physician involved in the care of this patient. Patient assessment and plan was discussed with entire medicine team, including my attending. I agree with the assessment and plan as documented by internal medicine veterinary technician doctor. Patient care was discussed with my attending physician Dr. Devonte Harrison, PGY-2 Documentation for date of: 12/25/24 Subjective Subjective Interval history: No acute overnight events. CIWA 1 today. Has not required LORAZEPAM since admission. Denies hallucination, agitation, seizure or seizure-like activity. Tolerating oral intake without nausea or vomiting. Family at bedside stated they're unable to care for patient, patient in agreement to SNF. Pending placement. Exam Vital Signs Temp Pulse Resp BP Pulse Ox O2 Del Method 96.8 F 114 H 18 120/91 H 97 Nasal Cannula 12/25/24 12:00 12/25/24 12:00 12/25/24 12:00 12/25/24 12:00 12/25/24 12:12/25/24 08:00 Narrative Exam General: A/O x3, no acute distress, appears older than given age, cachectic Eyes: PERRL, EOMI. Anicteric, vision grossly intact. Ears: No ear pain, no ear discharge, Hearing grossly intact. Nose: No nasal discharge. Mouth/Throat: Dry mucous membranes, no redness, no lesions. Neck: Neck supple, non-tender, no cervical lymphadenopathy. Lungs: Clear CURT to auscultation and percussion, No accessory muscle use. Cardio: Normal S1/S2, regular rhythm, no murmurs, no JVD Abdomen: Soft, non-tender, no palpable masses, peristalsis present, no guarding or rebound. Extremities: Symmetrical, no significant deformities, no peripheral edema , non-tender, peripheral pulses presents, tremors CURT. Skin: No rashes, no lesions, warm to touch. Neuro: No focal neurological deficits. motor and sensory intact Psych: Anxious Objective Labs 12/25/24 05:10 12/25/24 05:10 Labs: Laboratory Results - last 24 hr 12/24/24 12/24/24 12/25/24 14:48 21:39 05:10 WBC 7.3 7.9 RBC 3.24 L 2.73 L Hgb 10.9 L 9.2 L Hct 30.1 L 25.7 L MCV 93 94 MCH 33.6 33.7 MCHC 36.2 35.8 RDW Std Deviation 48.1 H 46.7 H Plt Count 277 147 D Neut % (Auto) 73 62 Lymph % (Auto) 13 20 Barbour % (Auto) 13 H 17 H Eos % (Auto) 0 0 Baso % (Auto) 0 0 Neut # (Auto) 5.3 4.9 Lymph # (Auto) 1.0 1.6 Barbour # (Auto) 1.0 H 1.3 H Eos # (Auto) 0.0 0.0 Baso # (Auto) 0.0 0.0 Immature Gran # (Auto) 0.03 H 0.07 H Absolute Nucleated RBC 0.06 H 0.04 H Immature Gran % 0 1 H Nucleated RBC % 1 H 1 H PT 11.1 INR 1.0 APTT 23.7 Sodium 134 L 137 Potassium 3.6 3.7 Chloride 98 103 Carbon Dioxide 27.5 26.0 Anion Gap 9 8 BUN 6 L 6 L Creatinine 0.9 0.7 Estim Creat Clear Calc Not Performed. 75.4 eGFR > 60 > 60 BUN/Creatinine Ratio 7 L 9 L Glucose 159 H 99 D Calculated Osmolality 268 L 271 L Calcium 8.5 7.5 L Corrected Calcium 9.0 8.5 Magnesium 1.7 2.0 Total Bilirubin 2.2 H 1.2 D AST 42 H 49 H ALT 13 14 Alkaline Phosphatase 148 H 113 D Lactate Dehydrogenase 252 H Troponin I < 0.020 B-Natriuretic Peptide 41 Total Protein 5.9 5.0 L Albumin 3.4 L 2.8 L D Globulin 2.5 2.2 L Albumin/Globulin Ratio 1.4 1.3 Amylase 183 H Lipase 25 TSH 1.78 Ethyl Alcohol < 10.0 Syphilis Serology Nonreactive HIV 1&2 Antibody Rapid Non-Reactive Quality Measures Quality Measures none Assessment & Plan Assessment Current Active Medications: Generic Name Dose Route Start Last Admin Trade Name Freq PRN Reason Stop Dose Admin Acetaminophen 650 mg 12/24/24 23:34 Acetaminophen 325 Mg Tablet PO 01/23/25 23:33 Q6H PRN Fever >100.4 Hydrocodone Bitart/Acetaminophen 1 tab 12/24/24 23:34 Hydrocodone/Apap 5/325 Tablet PO 12/29/24 23:33 Q4HR PRN PAIN SCALE 4-6 (Moderate Albuterol/Ipratropium 3 ml 12/24/24 23:34 Albuterol/Ipratropium (Duoneb) Rt Rosalina 3 Ml Nebu INH 01/24/25 00:59 Q6HRRT PRN SOB or wheezing Folic Acid 1 mg 12/25/24 09:00 12/25/24 08:06 Folic Acid 1 Mg Tablet PO 12/30/24 08:59 1 mg BID FREDERICK Administration Sodium Chloride 1,000 mls @ 150 mls/hr 12/25/24 10:00 Ns IV 01/24/25 09:59 .Q6H40M FREDERICK Lorazepam 0.5 mg 12/24/24 23:34 Lorazepam 0.5 Mg Tablet PO 12/29/24 23:33 Q4HR PRN CIWA Score 2-6 Lorazepam 1 mg 12/24/24 23:39 Lorazepam 0.5 Mg Tablet PO 12/29/24 23:38 Q4HR PRN CIWA SCORE 7-11 Lorazepam 2 mg 12/24/24 23:39 Lorazepam 0.5 Mg Tablet PO 12/29/24 23:38 Q4HR PRN CIWA SCORE 12-15 Morphine Sulfate 1 mg 12/24/24 23:34 Morphine Sulf Inj 10 Mg/Ml Vial IVP 12/29/24 23:33 Q2H PRN PAIN SCALE 7-10 (Severe Ondansetron HCl 4 mg 12/24/24 23:34 Ondansetron Inj 2 Mg/Ml Inj 2 Ml IVP 01/23/25 23:33 Q6H PRN NAUSEA OR VOMITING Protocol Pantoprazole Sodium 40 mg 12/25/24 09:00 12/25/24 08:05 Pantoprazole 40 Mg Tablet PO 01/24/25 08:59 40 mg QDAY FREDERICK Administration Thiamine HCl 100 mg 12/25/24 09:00 12/25/24 08:06 Thiamine 100 Mg Tablet PO 12/30/24 08:59 100 mg BID FREDERICK Administration Plan 44-year-old male with past medical history of alcohol use disorder, frequent admissions for alcohol withdrawal, hypertension, and asthma was admitted to the hospital on 12/24/2024 for alcohol withdrawal and failure to thrive. Alcohol withdrawal Failure to thrive Acute on chronic pancreatitis Alcohol use disorder Transaminitis Hyperbilirubinemia Patient came in due to having episodes of feeling shaky for the past 2 days. Patient has have very low appetite recently and has had weight loss as compared to previous admission on 08/[address] and cervical spine CT were negative for any intracranial bleed or fractures. Abdomen CT does show calcifications of the pancreas likely in the setting of repeated episodes of pancreatitis Patient CIWA score on my assessment was 5-6 LFTs and DVT were elevated, but improved with fluids, likely dehydration combined with chronic alcoholic hepatocellular injury. CIWA 1 today, has not required LORAZEPAM since admission. Continued on IVF, tolerating oral intake without nausea or vomiting. ? Continue CIWA ? Seizure precaution ? Continue THIAMINE and folate ? Continue IVF HTN Asthma Currently BP soft. No signs of asthma exacerbation. ? DuoNebs PRN Schizophrenia? Family at bedside stated patient has been diagnosed with schizophrenia, noncompliant with medication. ? recommended outpatient follow-up for schizophrenia management ? Pending/placement Health maintenance Diet: Regular diet, tolerating well GI prophylaxis: PROTONIX DVT prophylaxis: HEPARIN subcu Antibiotics: Not indicated CODE STATUS: Full code Disposition: Pending SNF placement Case was discussed with attending physician and senior resident. DO ANAM Leigh This document was transcribed using voice recognition technology. Minor inaccuracies may be present.
[2024-12-25] MEDS: SODIUM CHLORIDE 0.9% 1000 ML 1,000 ML 150 ML IV (14:17)
--- NOTE | 2024-12-25 14:45 | PC.DIETICIAN ---
Dietitian note: Pt meets criteria for severe protein calorie malnutrition 2/2 decrease oral intake >3months, significant wt loss, severe muscle wasting, severe subcutaneous fat loss (9% change [id number]) Thank you
[2024-12-25 14:59] LABS: Collection Type, Urine Clean Catch
[2024-12-25 15:05] LABS: Bilirubin,Urine Negative (Negative); Blood,Urine Negative (Negative); Clarity,Urine Clear (Clear/Hazy); Color,Urine Yellow (Lt Yel-Yel); Glucose, Urine Negative (Negative); Hyaline Casts,Urine < 1 /hpf (0-1); Ketones,Urine Negative (Negative); Leukocyte Esterase,Urine Negative (Negative); Nitrite,Urine Negative (Negative); PH,Urine 6.5 (5.0-7.0); Protein,Urine Negative (Neg - Trace); RBC,Urine < 1 /hpf (0-3); Squamous Epithelial Cell,Urine < 1 /hpf (0-5); WBC,Urine 2 /hpf (0-5)
[2024-12-25 15:11] LABS: Amphetamine/Methamp Scrn,U Negative (Negative); Barbiturate Screen,Urine Negative (Negative); Benzodiazepines Screen,Urine Negative (Negative); Benzoylecgonine Screen, Ur Negative (Negative); Fentanyl Screen,Urine Negative (Negative); Opiate Screen,Urine Negative (Negative); THC Screen,Urine Negative (Negative)
--- NOTE | 2024-12-25 16:17 | PC.SS ---
Patient is alert/oriented. Patient was able to verify demographics. Patient states he resides with his mom and kids. Patient was admitted for alcohol withdrawl. Patient states he does not want any assistance with his drinking. He refused alcohol rehab. Patient states he's independent with ADL's. He states he drives. His alt medical decision maker is Connor, brother. PCP: Martine Mcarthur MD @ [facility]. SS met with patient's brother, Connor. Connor's concerns were that patient has psych issues and has Schizophrenia and alcohol abuse. Patient's a few months ago and ended up spiraling down further with his drinking. Patient is frail and hasn't been eating. He refused SNF after PT worked with him and stated he was max assist. SS updated brother who is the main carprovider. He states that he will continue to help him at home. Brother lives next door to patient. SS provided community resources for patient with alcohol rehab facilities and advised patient's brother to assist with Medicare as well. Patient will d/c home today with brother. Brother will picker and sorter load and unload patient by 6p.m. orders to be placed. Alt medical decision maker: Connor Jaramillo, brother,
--- NOTE | 2024-12-25 16:29 | ESDS_ITS ---
<Statement entered by Rachell Whitney MD - 12/28/24 15:01> I Rachell Whitney MD reviewed the note and agree with the resident's assessment & plan with exceptions as below. I have personally reviewed labs, imaging, home meds/prior records, examined the patient, formulated and discussed management plan with the IM team. <Statement entered by Elkin Harrison MD - 12/25/24 18:40> I discussed with and supervised the agronomy internship physician involved in the care of this patient. Patient assessment and plan was discussed with entire medicine team, including my attending. I agree with the assessment and plan as documented by agronomy internship doctor. Patient care was discussed with my attending physician Dr. Devonte Harrison, PGY-2 Planned Discharge Date 12/25/24 DS: Providers Provider Date of admission: 12/24/24 23:35 Primary care physician: Physician Nye Primary/Family Admitting Provider: Reynaldo Fuller MD Attending Provider on Admission: Rachell Whitney MD Consults: 12/25/24 00:06 Referral Registered Dietitian Routine Comment: 12/25/24 14:01 Referral Physical Therapy Routine Comment: Physician Instructions: Attending Provider on DC: Rachell Whitney MD Discharging Provider: Rachell Whitney MD DS: Diagnosis Problem List Completed Was Problem List Reviewed/Reconciled?: Yes Hospital Course Hospital Course Hospital course: 44-year-old male with past medical history of possible schizophrenia, alcohol use disorder, known to us for frequent admissions for alcohol withdrawal, hypertension, and asthma was admitted to the hospital on 12/24/2024 for alcohol withdrawal. His CIWA on admission was 5?6, which improved to 1. The following morning, did not require ATIVAN throughout the day. Has been no reported seizure or withdrawal symptoms. He also presented with abdominal pain and had CT findings of possible acute on chronic pancreatitis. He was continued on IV fluids. By the next morning, his symptoms have resolved, denied abdominal pain, tolerating oral intake without nausea or vomiting, having regular bowel movements. LFTs and TB was slightly elevated, likely dehydration, both returned to baseline after fluids. He was evaluated by physical therapy and will be discharged to home with home health. Vitals and labs were reviewed and were without significant derangement from baseline. Extensive discussion with patient regarding alcohol dependency, continuous alcohol use, recurrent admission, possibly worsening liver function at this point, who states he does not intend on quitting alcohol at this time. Already advised and recommended follow-up with PCP when he is ready to quit. He denies suicidal or homicidal thoughts or ideation. Of note, family bedside, reported patient has known diagnosis of schizophrenia, currently not medicated. Evidently, SEROQUEL is listed as external medication, however patient stated currently not taking. IMAGE FINDINGS: * CT abdomen showed diffuse prominent pancreatic calcification, consistent with findings from previous visits, no current peripancreatic edema, normal appendix, no renal or ureteral calculi, mild cystitis, colonic diverticulosis. * CXR showed COPD with hyperinflation. * CT cervical spine showed no acute cervical fracture. * Head CT showed no gross hemorrhage or mass effect, although study was degraded by motion. PATIENT INSTRUCTIONS: * Follow-up with Primary Care Provider within 1-2 weeks of discharge. * Recommended alcohol cessation, please discuss options with Primary Care Provider. * Return to Emergency Room if symptoms persist, worsen, or new symptoms develop. * Continue taking FOLATE and THIAMINE once daily until you see your Primary Care Provider. * Continue taking medications as prescribed below. ADMISSION DIAGNOSES: Alcohol withdrawal Failure to thrive Acute on chronic pancreatitis Alcohol use disorder Transaminitis Hyperbilirubinemia HTN Asthma Schizophrenia? (reported by family) Case was discussed with attending physician and senior resident. Uzair Miller DO PGYI Time Spent with Patient Time attestation: Total time spent providing and/or coordinating discharge services: Time spent: Greater than 30 minutes Exam Vital Signs Temp Pulse Resp BP Pulse Ox O2 Del Method 96.8 F 114 H 18 120/91 H 97 Nasal Cannula 12/25/24 12:12/25/24 12:12/25/24 12:12/25/24 12:12/25/24 12:12/25/24 08:00 Narrative Exam General: A/O x3, no acute distress, appears older than given age, cachectic Eyes: PERRL, EOMI. Anicteric, vision grossly intact. Ears: No ear pain, no ear discharge, Hearing grossly intact. Nose: No nasal discharge. Mouth/Throat: Dry mucous membranes, no redness, no lesions. Neck: Neck supple, non-tender, no cervical lymphadenopathy. Lungs: Clear CURT to auscultation and percussion, No accessory muscle use. Cardio: Normal S1/S2, regular rhythm, no murmurs, no JVD Abdomen: Soft, non-tender, no palpable masses, peristalsis present, no guarding or rebound. Extremities: Symmetrical, no significant deformities, no peripheral edema , no n-tender, peripheral pulses presents, tremors CURT. Skin: No rashes, no lesions, warm to touch. Neuro: No focal neurological deficits. motor and sensory intact Psych: Anxious Discharge Plan Plan Patient Disposition: HOME (Self Care) Patient condition on transfer: Stable Care Plan Goals: * Follow-up with Primary Care Provider within 1-2 weeks of discharge. * Recommended alcohol cessation, please discuss options with Primary Care Provider. * Discussed evaluation for schizophrenia with PCP, consider starting medications. * Return to Emergency Room if symptoms persist, worsen, or new symptoms develop. * Continue taking FOLATE and THIAMINE once daily until you see your Primary Care Provider. * Continue taking medications as prescribed below. Prescriptions/Referrals Prescriptions/Med Rec: New folic acid 1 mg tablet 1 mg PO QDAY Qty: 30 0RF Continued thiamine HCl (vitamin B1) 100 mg tablet 100 mg PO QDAY Qty: 180 0RF albuterol sulfate 90 mcg/actuation HFA aerosol inhaler 2 puff INHALATION Q4H PRN (Reason: shortness of breath or wheezing) Patient Comments: TAKE 2 PUFFS BY MOUTH EVERY 4 HOURS FOR SHORTNESS OF BREATH Discontinued nicotine 21 mg/24 hr Patch 24 Hour 21 mg top QDAY Qty: 7 0RF scopolamine base 1 mg over 3 days patch 3 day 1 mg topical Q72H PRN (Reason: Nausea Or Vomiting) Qty: 4 0RF quetiapine [Seroquel] 50 mg tablet 50 mg PO BID Qty: 60 0RF buspirone 7.5 mg tablet 7.5 mg PO BID Qty: 60 0RF Referrals: No Primary/Family,Physician [Primary Care Provider] - Patient/Caregiver Discharge Instructions Education Materials: Alcohol Withdrawal: What to Expect Print Language: Uzbek Stand Alone Forms: Verena Award Info., Patient Portal Info Letter, Work/Release Restrictions Discharge Order Discharge Orders: Discharge (Routine); Ordered 12/25/24 Ordered By: Uzair Miller Quality Discharge Quality Measures VTE prophylaxis
== END 2024-12-25 18:05 | disposition home or self-care (01) ==
LOC: SERX 20:03 → SERHOLD 23:47 → S3SX 12-25 03:27
PROVIDERS: Physician Assistant; Admitting Provider Internal Medicine; Emergency Provider Emergency Medicine; Visit Provider Student in an Organized Health Care Education/Training Program
DX: F10.239 Alcohol dependence with withdrawal, unspecified (principal); D64.9 Anemia, unspecified; E86.0 Dehydration; F12.90 Cannabis use, unspecified, uncomplicated; F17.200 Nicotine dependence, unspecified, uncomplicated; I10 Essential (primary) hypertension; J44.89 Other specified chronic obstructive pulmonary disease; K57.30 Diverticulosis of large intestine without perforation or abscess without bleeding; K85.90 Acute pancreatitis without necrosis or infection, unspecified; K86.1 Other chronic pancreatitis; N30.90 Cystitis, unspecified without hematuria; R62.7 Adult failure to thrive; Y90.9 Presence of alcohol in blood, level not specified; Z91.148 Patient's other noncompliance with medication regimen for other reason; Z01.810 Encounter for preprocedural cardiovascular examination; Z68.1 Body mass index [BMI] 19.9 or less, adult
CPT/HCPCS: 36415; 70450; 71046; 72125; 74176; 80053; 80307; 80320; 81001; 82150; 83615; 83690; 83735; 83880; 84443; 84484; 85025; 85610; 85730; 86480; 86703; 86780; 93005; 96361; 96365; 96366; 96375; 97162; 99285; G0378; J3411; J3475; J3490; J7030; A9270; G0480

== ENCOUNTER 2024-12-30 19:27 | Observation (INO) | payer MEDICAID, SELFPAY ==
[2024-12-30 19:28] VITALS: BMI 11.4
[2024-12-30 20:09] VITALS: BP 120/78; PULSE 120; RESP 20; TEMP 36.7; O2SAT 98
--- NOTE | 2024-12-30 20:25 | XR_ITS ---
Examination: Foot bilateral, 6 views Technique: AP, oblique, lateral views each foot total 6 views Date and time of exam: December 30, 20242027 hours INDICATIONS: Swelling and pain involving both feet today. FINDINGS: Prominent osteopenia No fracture involving either foot Swelling dorsum of each foot No cortical bone destruction No opaque foreign bodies IMPRESSION: No fractures No findings of osteomyelitis
--- NOTE | 2024-12-30 20:26 | PD.EDRME ---
Rapid Medical Screening Exam [facility] Arrival date/time: 12/30/24 19:27 44M with history of alcohol abuse presents to ED with bilateral foot swelling and pain. Family member with him states ants/flies were on him. Chief Complaint: Extremity Problem,Nontraumatic Vital signs: Vital Signs Temperature 98.1 F 12/30/24 20:09 Pulse Rate 120 H 12/30/24 20:09 Respiratory Rate 20 12/30/24 20:09 Blood Pressure 120/78 12/30/24 20:09 Pulse Oximetry (%) 98 12/30/24 20:09 Oxygen Delivery Method Room Air 12/30/24 20:09
[2024-12-30 21:21] LABS: Basophils # (Auto) 0.0 Thou/mm3 (0.0-0.2); Basophils % (Auto) 0 % (0-2.5); Eosinophils # (Auto) 0.1 Thou/mm3 (0.0-0.5); Eosinophils % (Auto) 1 % (0-10); Hematocrit 29.7 % (41.0-53.0); Hemoglobin 10.1 g/dL (13.5-16.0); Immature Granulocytes Auto 0.09 Thou/mm3 (0.00-0.00); Lymphocytes # (Auto) 1.3 Thou/mm3 (1.0-4.8); Lymphocytes % (Auto) 12 % (10-50); Mean Corpuscular HGB Conc 34.0 g/dl (31.0-37.0); Mean Corpuscular Hemoglobin 32.4 pg (25.0-35.0); Mean Corpuscular Volume 95 fL (80-100); Monocytes # (Auto) 0.8 Thou/mm3 (0.0-0.8); Monocytes % (Auto) 8 % (0-12); Neutrophils # (Auto) 8.1 Thou/mm3 (1.8-7.7); Neutrophils % (Auto) 78 % (37-80); Nucleated Red Blood Cell # 0.00 Thou/mm3 (0.00-0.00); Nucleated Red Blood Cell % 0 /100 WBC (0); Platelet Count 347 Thou/mm3 (140-440); RDW Standard Deviation 49.9 fL (35.1-43.9); Red Blood Count 3.12 Miln/mm3 (4.50-5.90); White Blood Count 10.3 Thou/mm3 (3.8-10.6)
[2024-12-30 22:32] LABS: Alanine Aminotransferase 15 U/L (10-49); Albumin, Serum 3.1 gm/dL (3.5-5.0); Albumin/Globulin Ratio 1.1 (1.2-2.2); Alkaline Phosphatase 97 U/L (46-116); Aspartate Amino Transferase 39 U/L (0-34); BUN/Creatinine Ratio 13 Ratio (12-20); Bilirubin,Total 1.9 mg/dL (0.3-1.2); Blood Urea Nitrogen 12 mg/dL (9-23); Calcium 8.8 mg/dL (8.3-10.6); Calcium (Corrected) 9.5 mg/dL (8.5-10.1); Carbon Dioxide 24.4 mMol/L (20.0-31.0); Creatinine (Component) 0.9 mg/dL (0.6-1.3); Estimated Creatinine Clearance 47.7 mL/min (>60); Globulin 2.8 gm/dL (2.3-3.5); Glucose 177 mg/dL (74-106); Total Protein 5.9 gm/dL (5.7-8.2); eGFR > 60 See Note
[2024-12-30 22:36] LABS: Anion Gap 14 (7-16); Chloride 107 mMol/L (98-107); Osmolality,Calculated 292 (275-295); Potassium 3.3 mMol/L (3.4-5.1); Sodium 145 mMol/L (136-145)
[2024-12-30 22:50] LABS: Sed Rate (ESR) 25 mm/hr (0-15)
[2024-12-30 22:53] LABS: C-Reactive Protein 6.3 mg/dL (0.0-0.9)
[2024-12-31] VITALS (13 sets, daily range): BP systolic 81–155; BP diastolic 58–124; PULSE 91–137; RESP 14–20; TEMP 36.2–36.6; O2SAT 95–100; BMI 11.4; BMI 12.4; BMI 12.0
--- NOTE | 2024-12-31 01:20 | XR_ITS ---
Examination: AP chest single view Technique one AP portable supine chest single view Date and time: December 31, 2024 0132 hours Comparison December 24, 2024 INDICATIONS: Tachycardia shortness of breath today. FINDINGS: COPD with prominent hyperexpansion. Normal heart size. No pneumonia or pulmonary edema IMPRESSION: Prominent hyperexpansion
--- NOTE | 2024-12-31 01:23 | XR_ITS ---
Examination: Abdomen sonogram, Limited Date and time of exam: December 31, 2024, 0223 hours INDICATIONS: Elevated liver function tests on laboratory examination today Technique: Real-time lyon scale transabdominal sonographic images of the upper abdomen obtained. Findings: Gallbladder sludge Negative for gallstones, normal gallbladder wall Normal common bile duct 0.3 cm No pancreatic mass. Liver 13.4 cm fatty infiltration Normal hepatopedal portal venous flow Patent IVC IMPRESSION: Negative for cholelithiasis, negative for cholecystitis Normal common bile duct
--- NOTE | 2024-12-31 01:28 | PD.EDEXREM ---
ED Extremity Problem RME/HPI General Chief complaint: Extremity Problem,Nontraumatic Stated complaint: BLE SWELLING Source: patient and family Arrival date/time: 12/30/24 19:27 Mode of arrival: ambulatory Limitations: no limitations RME / HPI RME / HPI Narrative: 12/30/24 19:27 44M with history of alcohol abuse presents to ED with bilateral foot swelling and pain. Family member with him states ants/flies were on him. --------- Dr. Manuel's Main ED Evaluation: 44yo male with a history of alcohol abuse BIB his son presents to the ED for a chief complaint of bilateral foot swelling. Son states he noticed the patient started having bilateral foot swelling today. He notes that the patient has not ate since yesterday. Patient complains of epigastric pain. No fever, chills, N/V or any other associated symptoms. Related Data Home Medications ?Medication ?Instructions ?Recorded ?Confirmed albuterol sulfate 90 mcg/actuation 2 puff inhalation Q4H PRN 12/25/24 12/25/24 aerosol inhaler shortness of breath or wheezing Previous Rx's ?Medication ?Instructions ?Recorded thiamine HCl (vitamin B1) 100 mg 100 mg PO QDAY #180 tabs 07/31/24 tablet folic acid 1 mg tablet 1 mg PO QDAY #30 tabs 12/25/24 Allergies Allergy/AdvReac Type Severity Reaction Status Date / Time bee venom protein (honey bee) Allergy Verified 12/30/24 19:28 Review of Systems Review of Systems Systems Reviewed: All systems reviewed, normal except as documented Past Medical History Past Medical History NEUROLOGIC: Negative Neurological Disorders CARDIAC: Positive Cardiac Disorders and Hypertension; Negative Congestive Heart Failure RESPIRATORY: Positive Asthma; Negative Chronic Obstructive Pulmonary Disease (COPD) GASTROINTESTINAL: Negative Gastrointestinal Disorders GENITOURINARY: Negative Genitourinary Disorders or Renal Disease MUSCULOSKELETAL: Negative Musculoskeletal Disorders ENDOCRINE: Negative Endocrine Disorders, Diabetes Mellitus Type 1 or Diabetes Mellitus Type 2 HEMATOLOGIC: Negative Blood Disorders or Sickle Cell Disease OTHER HISTORY: Negative Autoimmune Disease, Blood Transfusions, Anesthesia Reactions or MRSA Family History FAMILY HISTORY: Negative Family Cardiac Disorders Surgical History SURGICAL: Negative Cardiac Surgery, Endocrine Surgery, Ear Surgery, Abdominal Surgery, Nephrectomy or Neurologic Surgery Social History SMOKING STATUS: Former smoker SECOND HAND EXPOSURE: Yes SUBSTANCE USE: marijuana ED Exam General Limitations: Present no limitations General appearance: Present alert, in no apparent distress and cachectic Head Head exam: Present atraumatic Eye Eye exam: Present normal appearance, PERRL and EOMI ENT ENT exam: Present normal exam, normal oropharynx and mucous membranes dry Neck Neck exam: Present normal inspection, full ROM and trachea midline Chest Chest inspection: Present normal inspection and symmetric chest wall rise Respiratory Respiratory exam: Present normal lung sounds bilaterally Cardiovascular Cardiovascular exam: Present regular rate, normal rhythm and normal heart sounds Abdominal Exam Abdominal exam: Present soft and normal bowel sounds Extremities Exam Extremities exam: Present normal inspection and full ROM Back Exam Back exam: Present normal inspection and full ROM Neurological Exam Neurological exam: Present alert, oriented X3 and CN II-XII intact Psychiatric Psychiatric exam: Present normal affect and normal mood Skin Skin exam: Present warm, dry, intact and other (minimal jaundice) Course Quality Measures none Orders Category Date Time Status Patient Condition Routine Admission 12/31/24 05:[address] in Observation Status Routine Admission 12/31/24 05:17 Active Flu & Pneumonia Vaccine Screen ONCE Care 12/31/24 05:17 Active Thrasher [Urinary Catheter] QS Care 12/31/24 00:34 Active Notify provider NEEDED Care 12/31/24 05:17 Active Referral Physical Therapy Stat Cons 12/31/24 05:23 Active Referral Registered Dietitian Stat Cons 12/31/24 05:20 Active Referral Speech Therapy Stat Cons 12/31/24 05:23 Active Diet Cardiac Diet 12/31/24 Breakfast Active CXRP [XR chest 1V portable] Stat Exams 12/31/24 01:20 Taken MR stroke protocol brain wwo with MRA head and neck Exams 12/31/24 Stop Req Stat US gall bladder Stat Exams 12/31/24 01:23 Taken XR foot comp BI min 3V Stat Exams 12/30/24 20:25 Completed Alcohol, Blood Medical Stat Lab 12/31/24 01:36 Completed Ammonia Stat Lab 12/31/24 01:36 Completed Blood Culture (Lab) Stat Lab 12/31/24 01:36 Received CBC AM DRAW Lab 01/01/25 05:00 Ordered CBC AM DRAW Lab 01/02/25 05:00 Ordered CBC AM DRAW Lab 01/03/25 05:00 Ordered CBC Stat Lab 12/30/24 22:30 Completed CMP [Comprehensive Metabolic Panel] Stat Lab 12/30/24 21:12 Completed CRP [C-Reactive Protein] Stat Lab 12/30/24 21:12 Completed Comprehensive Metabolic Panel AM DRAW Lab 01/01/25 05:00 Ordered Comprehensive Metabolic Panel AM DRAW Lab 01/02/25 05:00 Ordered Comprehensive Metabolic Panel AM DRAW Lab 01/03/25 05:00 Ordered ESR [Sed Rate (ESR)] Stat Lab 12/30/24 22:30 Completed Ferritin Routine Lab 12/31/24 05:54 Ordered Iron Panel Routine Lab 12/31/24 05:54 Ordered Lactic Acid [Lactate (Lactic Acid)] Stat Lab 12/31/24 01:36 Completed Lactic Acid, 3 HR Stat Lab 12/31/24 04:45 Ordered Magnesium AM DRAW Lab 01/01/25 05:00 Ordered Phosphorous AM DRAW Lab 01/01/25 05:00 Ordered Procalcitonin Stat Lab 12/31/24 01:36 Completed Prothrombin Time with INR AM DRAW Lab 01/01/25 05:00 Ordered Thyroid Stimulating Hormone AM DRAW Lab 01/01/25 05:00 Ordered Acetaminophen Tab [Tylenol Tab] Med 12/31/24 05:17 Active 650 mg PO Q6H PRN Albumin Human 5% Ivpb [Albuminar-5 Ivpb] Med 12/31/24 05:21 Active 12.5 gm in 250 ml IV QDAY Heparin Inj Med 12/31/24 06:00 Active 5,000 unit SC Q8HR LORazepam [Ativan Inj] Med 12/31/24 01:22 Discontinued 1 mg IVP X1 ONE Ondansetron Inj [Zofran Inj] Med 12/31/24 05:17 Active 4 mg IVP Q6H PRN Ringers Lactated 1000 ml [Lactated Ringers] 1,000 ml Med 12/31/24 05:30 Active IV 75 mls/hr Sodium Chloride 0.9% 1000 ml [Ns] 1,000 ml Med 12/31/24 01:19 Discontinued IV 999 mls/hr Sodium Chloride 0.9% 1000 ml [Ns] 1,000 ml Med 12/31/24 01:21 Discontinued IV 999 mls/hr Thiamine Inj [Vitamin B-1 Inj] Med 12/31/24 09:00 Active 100 mg IVP QDAY Code Status Routine Oth 12/31/24 05:17 Ordered Referral Passenger Booking Clerk NOW 12/31/24 05:17 Active Vital Signs Vital signs: Vital Signs Temperature 98.1 F 12/30/24 20:09 Pulse Rate 120 H 12/30/24 20:09 Respiratory Rate 20 12/30/24 20:09 Blood Pressure 120/78 12/30/24 20:09 Pulse Oximetry (%) 98 12/30/24 20:09 Oxygen Delivery Method Room Air 12/30/24 20:09 Extremity Problem Patient data External records reviewed:: [facility] previous records (Per chart review, patient was seen here on 12/24/24 for alcohol withdrawal.) Clinical information provided by:: patient and family Social determinants that could affect healthcare access:: alcohol use Patient has the following chronic illnesses:: none How is presenting disease/condition affected by chronic disease/condition?: no chronic disease Evaluation data The following diagnostics were reviewed and interpreted by me:: lab results and radiology exam(s) Lab and/or radiology exams considered but not ordered:: none Interpretation Summary: CBC normal, ESR 25, Potassium 3.3, CRP 6.3, Lactic Acid 4.7, Procalcitonin normal, Blood Alcohol is negative. CXR -------- [facility] Report Signed Patient: JONATHON VALLE [facility]. Record#: [id number] Birthdate: 1980 Age/Sex: 44 / M Location: [facility] Attending Dr: Ordering Physician: Jan Garduno PA-C Date of Service: 12/30/24 Procedure(s): XR foot comp BI min 3V Accession Number(s): [id number] cc: Martine Man; Phoenix Combs MD; Jan Garduno PA-C~ Examination: Foot bilateral, 6 views Technique: AP, oblique, lateral views each foot total 6 views Date and time of exam: December 30, 20242027 hours INDICATIONS: Swelling and pain involving both feet today. FINDINGS: Prominent osteopenia No fracture involving either foot Swelling dorsum of each foot No cortical bone destruction No opaque foreign bodies IMPRESSION: No fractures No findings of osteomyelitis Dictated By: Phoenix Combs MD Signed By: <Electronically signed by Phoenix Combs MD in OV> 12/30/242120 ------ [facility] Preliminary Report Draft Patient: JONATHON VALLE [facility]. Record#: [id number] Birthdate: 1980 Age/Sex: 44 / M Location: [facility] Attending Dr: Ordering Physician: Date of Service: Procedure(s): Accession Number(s): cc: ~ Right upper quadrant abdominal ultrasound. December 31, 2024 at 0223 hours Clinical history: Elevated LFTs. Technique: Grayscale and color flow images of the right upper quadrant are provided. Hepatic and portal veins were also imaged with color flow images. Comparison: No prior study is available for comparison. Findings: The liver is echogenic, consistent with hepatic steatosis (fatty liver), and measures 13.4 cm in length. The contour is smooth, and no focal hepatic mass or intrahepatic biliary dilatation is seen. The gallbladder contains echogenic material consistent with sludge. No gallbladder wall thickening or pericholecystic fluid is demonstrated. Gallbladder wall measures 0.2 cm. The common bile duct is normal in calibre, measuring 0.3 cm. The pancreas is not well visualised due to overlying bowel gas. The main portal vein demonstrates normal hepatopetal flow, and the IVC is patent. Impression: Fatty liver. Gallbladder sludge without evidence of cholelithiasis, wall thickening, or pericholecystic fluid. No biliary ductal dilatation. Report Electronically Signed By: Roni Collazo 12/31/2024 4:15:28 AM [EST Medications / Prescriptions Medications or Prescriptions considered but not ordered:: none Medication administrations:: Medication Administration History Acetaminophen (Acetaminophen 325 Mg Tablet) 650 mg PO Q6H PRN PRN Reason: pain 1-3 &/or fever >100.1 Stop: 01/30/25 05:16 Heparin Sodium (Porcine) (Heparin Sod Inj 5000 Unit/Ml Vial) 5,000 unit SC Q8HR FREDERICK Stop: 01/14/25 05:59 Last Admin: 12/31/24 05:51 Dose: 5,000 unit Documented By: NICOLA Co-signed By: MICHELLE Lactated Ringer's (Lactated Ringers) 1,000 mls @ 75 mls/hr IV .[id number] [facility] Stop: 01/30/25 05:29 Albumin Human (Albuminar-5 Ivpb) 12.5 gm in 250 mls @ 100 mls/hr IV QDAY FREDERICK Stop: 01/04/25 05:20 Ondansetron HCl (Ondansetron Inj 2 Mg/Ml Inj 2 Ml) 4 mg IVP Q6H PRN; Protocol PRN Reason: NAUSEA OR VOMITING Stop: 01/30/25 05:16 Thiamine HCl (Thiamine Inj 100 Mg/Ml Vial 2 Ml) 100 mg IVP QDAY FREDERICK Stop: 01/30/25 08:59 Discontinued Medications Sodium Chloride (Ns) 1,000 mls @ 999 mls/hr IV .Q1H1M ONE Stop: 12/31/24 02:19 Last Infusion: 12/31/24 02:30 Dose: Infused Documented By: Admin: 12/31/24 01:48 Dose: 999 mls/hr Documented By: EE Sodium Chloride (Ns) 1,000 mls @ 999 mls/hr IV .Q1H1M ONE Stop: 12/31/24 02:21 Last Admin: 12/31/24 01:42 Dose: Not Given Documented By: NICOLA Non-Admin Reason: Cancelled by Provider Lorazepam (Lorazepam 2 Mg/Ml Vial) 1 mg IVP X1 ONE Stop: 12/31/24 01:23 Last Admin: 12/31/24 01:48 Dose: 1 mg Documented By: NICOLA see above Consultations Consultation(s) initiated? (list below): Yes Consultation #1 (Physician, Specialty, Details): Discussed case with the resident physician, attending Dr. Mak from Hospitalist service regarding admission. Discussed patients ED course, exam findings, labs, and radiology results. The Hospitalist agrees to accept the patient for admission. Time: 04:51 Diagnosis Extremity Problem Differential Diagnosis: cellulitis and other (failure to thrive, electrolyte abnormality, sepsis, occult infection, dehydration) Most likely diagnosis given after review of the tests above:: failure to thrive, elevated lactic acid Admission Indicated Admission indicated?: indicated Admission Request Was there a request for admission?: Yes Admission Attestation Admission request attestation: Discussed case with [] from Hospitalist service regarding admission. Discussed patients ED course, exam findings, labs, and radiology results. The Hospitalist [agrees,declines] to accept the patient for admission. Disposition Plan Disposition Plan: Admit Critical Care Time Critical Care Time Critical Care Time: Yes Total Critical Care Time (min.): 35 Attestation: The high probability of sudden, clinically significant deterioration in the patient?s condition required the highest level of my preparedness to intervene urgently. The services I provided to this patient were to treat and/or prevent clinically significant deterioration. Services included the following: chart data review, reviewing nursing notes and/or old charts, documentation time, consultant [employer] and [employer]. vice president [employer] (ex ) collaboration regarding findings and treatment options, medication orders and management, direct patient care, vital sign assessments and ordering, interpreting and reviewing diagnostic studies and lab tests. Aggregate critical care time includes only time during which I was engaged in work directly related to the patient?s care, as described above, whether at bedside or elsewhere in the Emergency Department. It did not include time spent performing other reported procedures or the services of residents, students, nurses or physician assistants. Discharge Plan Plan Patient Disposition: Admit Acute Care w/in Hospital Patient condition on transfer: Stable Prescriptions/Referrals Prescriptions/Med Rec: No Action thiamine HCl (vitamin B1) 100 mg tablet 100 mg PO QDAY Qty: 180 0RF albuterol sulfate 90 mcg/actuation HFA aerosol inhaler 2 puff INHALATION Q4H PRN (Reason: shortness of breath or wheezing) Patient Comments: TAKE 2 PUFFS BY MOUTH EVERY 4 HOURS FOR SHORTNESS OF BREATH folic acid 1 mg tablet 1 mg PO QDAY Qty: 30 0RF Referrals: Martine Man PA-C [Primary Care Provider] - In 1 week Problem List Clinical Impression: Adult failure to thrive, Elevated lactic acid level, Dehydration Patient/Caregiver Discharge Instructions Print Language: Ugandan Stand Alone Forms: Verena Award Info., Patient Portal Info Letter
[2024-12-31] MEDS: LORazepam 2 MG/ML VIAL 1 MG IVP (01:48)
[2024-12-31] MEDS: SODIUM CHLORIDE 0.9% 1000 ML 1,000 ML 999 ML IV (01:48)
[2024-12-31 02:30] LABS: Ammonia 33 uMol/L (11-32)
[2024-12-31 02:43] LABS: Alcohol, Blood Medical < 3.0 mg/dL (0-10.0); Procalcitonin 0.23 ng/ml (0.0-0.49)
[2024-12-31 02:51] LABS: Lactate (Lactic Acid) 4.7 mMol/L (0.4-2.0)
--- NOTE | 2024-12-31 04:16 | PRELIM_ITS ---
Right upper quadrant abdominal ultrasound. December 31, 2024 at 0223 hours Clinical history: Elevated LFTs. Technique: Grayscale and color flow images of the right upper quadrant are provided. Hepatic and portal veins were also imaged with color flow images. Comparison: No prior study is available for comparison. Findings: The liver is echogenic, consistent with hepatic steatosis (fatty liver), and measures 13.4 cm in length. The contour is smooth, and no focal hepatic mass or intrahepatic biliary dilatation is seen. The gallbladder contains echogenic material consistent with sludge. No gallbladder wall thickening or pericholecystic fluid is demonstrated. Gallbladder wall measures 0.2 cm. The common bile duct is normal in calibre, measuring 0.3 cm. The pancreas is not well visualised due to overlying bowel gas. The main portal vein demonstrates normal hepatopetal flow, and the IVC is patent. Impression: Fatty liver. Gallbladder sludge without evidence of cholelithiasis, wall thickening, or pericholecystic fluid. No biliary ductal dilatation. Report Electronically Signed By: Roni Collazo 12/31/2024 4:15:28 AM [EST]
[2024-12-31 04:45] LABS: Reflex Lactate? Y
--- NOTE | 2024-12-31 05:25 | ESHP_ITS ---
<Statement entered by Maynor White MD - 12/31/24 06:03> I have personally seen and examined the patient. I agree with the resident's assessment and plan as documented below. Maynor White DO PGY-2 Internal Medicine - [facility] Documentation for date of: 12/31/24 HPI History of Present Illness Chief complaint: Failure to thrive History of present illness: Robbin Jaramillo is a 44M with pmhx significant for alcohol use disorder, schizophrenia and BMI 11.5 who presents with failure to thrive, being debilitated and family unable to feed him. History collection limited due to extreme patient drowsiness. Patient has had multiple admissions for alcohol withdrawal most recently discharged 12/25, however patient's son at bedside reports that patient has not been drinking since last admission and is refusing all foods or eats very very small portions. Patient son reports that a few days ago patient has had episodes of speaking nonsense and other times is able to hold conversation. Patient's son also reports that yesterday he noticed shallow abrasions on patient's feet associated swelling. Patient denies chest pain or SOB. Right upper quadrant ultrasound showed fatty liver and gallbladder sludge without evidence of cholelithiasis wall thickening or pericholecystic fluid. In ED, BP 120/78, HR 120, Hgb 10.1 at baseline, K 3.3, lactic acid 4.7, ammonia 33, procal 0.23, T bili 1.9, AST 39, ALT 15, alcohol <3. In ED, given 1 L of NS and lorazepam 1 mg. PMH: As above Social Hx: Son denies alcohol use since last admission Medications: Med reconciliation pending Surgical Hx: Unknown Patient was admitted for observation. Review of Systems Review of Systems Systems Reviewed: All systems reviewed, normal except as documented Exam Vital Signs Temp Pulse Resp BP Pulse Ox O2 Del Method 97.2 F 107 H 16 138/112 H 100 Room Air 12/31/24 03:27 12/31/24 03:27 12/31/24 03:27 12/31/24 03:27 12/31/24 03:27 12/31/24 03:27 Narrative Exam General: no acute distress HEENT: mucous membranes dry, bilateral sclera anicteric Cardiovascular: regular rate and rhythm, S1/S2 present, no murmurs appreciated Pulmonary: clear to auscultation bilaterally, no rales/rhonchi/wheezes Abdominal: soft, tender to palpation, non-distended Extremities: +1 pitting edema of Lt foot Skin: warm and dry, intact, few shallow abrasions on dorsum of bilateral feet near ankles Neuro CN II-XII grossly intact, no focal deficits, following commands Results: Labs 12/30/24 22:30 12/30/24 21:12 Labs: Short CBC 12/30/24 Range/Units 22:30 WBC 10.3 (3.8-10.6) Thou/mm3 Hgb 10.1 L (13.5-16.0) g/dL Hct 29.7 L (41.0-53.0) % Plt Count 347 D (140-440) Thou/mm3 BMP 12/30/24 21:12 Sodium 145 Potassium 3.3 L Chloride 107 Carbon Dioxide 24.4 BUN 12 Creatinine 0.9 Glucose 177 H Calcium 8.8 Liver Function 12/30/24 Range/Units 21:12 Total Bilirubin 1.9 H (0.3-1.2) mg/dL AST 39 H (0-34) U/L ALT 15 (10-49) U/L Alkaline Phosphatase 97 (46-116) U/L Albumin 3.1 L (3.5-5.0) gm/dL Quality Measures Quality Measures VTE prophylaxis Medications Home Medications and Allergies Home Medications ?Medication ?Instructions ?Recorded ?Confirmed ?Type albuterol sulfate 90 mcg/actuation 2 puff inhalation Q 4H PRN 12/25/24 12/25/24 History aerosol inhaler shortness of breath or wheez ing Allergies Allergy/AdvReac Type Severity Reaction Status Date / Time bee venom protein (honey bee) Allergy Verified 12/30/24 19:28 Visit Medications Discontinued Medications Sodium Chloride (Ns) 1,000 mls @ 999 mls/hr IV .Q1H1M ONE Stop: 12/31/24 02:19 Last Infusion: 12/31/24 02:30 Dose: Infused Sodium Chloride (Ns) 1,000 mls @ 999 mls/hr IV .Q1H1M ONE Stop: 12/31/24 02:21 Last Admin: 12/31/24 01:42 Dose: Not Given Lorazepam (Lorazepam 2 Mg/Ml Vial) 1 mg IVP X1 ONE Stop: 12/31/24 01:23 Last Admin: 12/31/24 01:48 Dose: 1 mg Assessment & Plan Plan Robbin Jaramillo is a 44M with pmhx significant for alcohol use disorder, schizophrenia and BMI 11.5 who is admitted for failure to thrive. # Failure to thrive Patient son reports that patient has not been eating. BMI is 11.5. Lactic acid 4.7, ammonia 33, K 3.3 likely 2/2 dehydration. Infection less likely with no fever or elevated white count. Caution with refeeding syndrome, monitor Mg, K and phosphorous. - F/u repeat lactic acid, CBC, CMP, Mg, Phosphorus, PT/INT, TSH - F/u on CXR, BCx - Started on thamine 100 mg QD - Started on LR 75 m/lr and albumin 5% 12.5 gm - PT, speech and social media specialist ordered - Catalogue Maker consulted, consider TPN vs PEG tube placement with GI consult # Normocytic anemia Chronic. Likely 2/2 malnourishment. Less likely myleosuppression. Hgb 10 on admission, at baseline. - F/u iron panel and ferritin # Elevated liver enzymes # Hx of alcohol use disorder AST 33 and ALT 15, 2:1 ratio indicates alcoholic liver disease. T bili 1.9. No evidence of cirrhosis on RUQ US. Patient's son reports patient has not been drinking since last admission discharge (12/25). - CTM # Hx of schizophrenia Patient is not currently taking any medication. - CTM Hospital management: Disposition: [facility] for management of failure to thrive Diet: Cardiac with dysphagia level 1 pureed DVT prophylaxis: Heparin CODE STATUS: Full Code Plan of care discussed with attending Dr. Fuller, and PGY-2 Dr. White. Shanelle Tompkins, PGY-1 Attending Provider Attestation/Addendum 44-year-old male patient with alcohol abuse, schizophrenia, chronic pancreatitis/ insufficiency was brought in by his son because of failure to thrive. Patient has not been eating. He was found with ants and flies all over him. Patient is confused. He gets agitated sometimes. He is poorly nourished. BMI is 11.5. Patient will receive IV fluids start PPN if no good intake. Check cortisol. Social service discussion with the family to address support system. The patient apparently lives with his mom, a son and younger daughter and brother. His . The patient will require long-term treatment and rehab. He is at high risk for developing recurrent infections and readmission. Discussed with housestaff.
[2024-12-31] MEDS: HEPARIN SOD INJ 5000 UNIT/ML VIAL SC ×3 (05:51→23:01)
[2024-12-31] MEDS: ALBUMIN HUMAN 5% IVPB 12.5 GM/250 ML BTL IV (06:09)
[2024-12-31 06:18] LABS: Lactic Acid, 3 HR 2.3 mMol/L (0.4-2.0)
[2024-12-31] MEDS: RINGERS LACTATED 1000 ML 1,000 ML 75 ML IV ×2 (06:21→18:06)
[2024-12-31 06:58] LABS: Ferritin 930 ng/mL (10.5-307.3); Iron 45 mcg/dL (65-175); Percent Iron Saturation 31 % (20-55); Total Iron Binding Capacity 145 mcg/dL (250-425); Unsaturated Iron Binding 100 (225-295)
[2024-12-31] MEDS: POTASSIUM CHLORIDE 10% 20 MEQ/15 ML UDC 40 MEQ PO (08:35)
[2024-12-31] MEDS: hydrALAZINE INJ 20 MG/ML VIAL 10 MG IVP (09:57)
[2024-12-31] MEDS: THIAMINE INJ 100 MG/ML VIAL 2 ML IVP (09:59)
--- NOTE | 2024-12-31 10:26 | PC.NURSE ---
DR. LILLY MADE AWARE OF DUPLICATE ALBUMIN MEDICATION ON AUG, PER PHARMACY, IF ANOTHER DOSE OF THIS MEDICATION IS REQUIRED IT WOULD NEED ANOTHER ORDER X1. MADE AWARE.
--- NOTE | 2024-12-31 10:46 | PCS.ST ---
Swallow Evaluation completed. See report for details. Pt can tolerate soft minced foods/reg liquids. Needs 1:1 assistance. Consider PEG for supplemental nutrition.
[2024-12-31 10:59] LABS: Basophils # (Auto) 0.0 Thou/mm3 (0.0-0.2); Basophils % (Auto) 0 % (0-2.5); Eosinophils # (Auto) 0.1 Thou/mm3 (0.0-0.5); Eosinophils % (Auto) 1 % (0-10); Hematocrit 25.3 % (41.0-53.0); Hemoglobin 8.9 g/dL (13.5-16.0); Immature Granulocytes Auto 0.15 Thou/mm3 (0.00-0.00); Lymphocytes # (Auto) 1.8 Thou/mm3 (1.0-4.8); Lymphocytes % (Auto) 13 % (10-50); Mean Corpuscular HGB Conc 35.2 g/dl (31.0-37.0); Mean Corpuscular Hemoglobin 33.2 pg (25.0-35.0); Mean Corpuscular Volume 94 fL (80-100); Monocytes # (Auto) 0.9 Thou/mm3 (0.0-0.8); Monocytes % (Auto) 7 % (0-12); Neutrophils # (Auto) 10.4 Thou/mm3 (1.8-7.7); Neutrophils % (Auto) 78 % (37-80); Nucleated Red Blood Cell # 0.00 Thou/mm3 (0.00-0.00); Nucleated Red Blood Cell % 0 /100 WBC (0); Platelet Count 287 Thou/mm3 (140-440); RDW Standard Deviation 47.8 fL (35.1-43.9); Red Blood Count 2.68 Miln/mm3 (4.50-5.90); White Blood Count 13.4 Thou/mm3 (3.8-10.6)
[2024-12-31 11:15] LABS: Anion Gap 8 (7-16); BUN/Creatinine Ratio 11 Ratio (12-20); Blood Urea Nitrogen 9 mg/dL (9-23); Calcium 8.1 mg/dL (8.3-10.6); Carbon Dioxide 25.6 mMol/L (20.0-31.0); Chloride 114 mMol/L (98-107); Creatinine (Component) 0.8 mg/dL (0.6-1.3); Estimated Creatinine Clearance 53.7 mL/min (>60); Glucose 114 mg/dL (74-106); Osmolality,Calculated 293 (275-295); Potassium 3.2 mMol/L (3.4-5.1); Sodium 148 mMol/L (136-145); eGFR > 60 See Note
--- NOTE | 2024-12-31 11:31 | ESPR_ITS ---
<Statement entered by Taniya Small MD - 01/07/25 14:54> I reviewed above note and agree with findings and plans. I have also personally examined the patient with medicine team and went over assessment and plan with medical team including internet developer and resident physician. Documentation for date of: 12/31/24 Subjective Subjective Interval history: Patient examined at bedside. Patient denied chest pain, pressed down on all four quadrants, denied pain. No tenderness to suprapubic area. Urine analysis obtained. Plan for EGD. Continues to appear alert but not orientated X 1. Gastroenterolgy consulted for EGD and possible PEG tube palcement. NPO Patient has been examined at bedside this morning.? A.m. vitals and labs reviewed.? Patient continues to be altered. Unable to answer questions. Exam Vital Signs Temp Pulse Resp BP Pulse Ox O2 Del Method 97.6 F 91 20 123/84 96 Room Air 12/31/24 09:34 12/31/24 10:18 12/31/24 09:34 12/31/24 10:18 12/31/24 09:34 12/31/24 09:34 Narrative Exam GENERAL: Altered and drowsy NEURO: Unresponsive to both verbal and painful stimuli, Eyes midline. HEENT: Atraumatic, Normocephalic. mucous membranes moist. Eyes open, symmetrical, & clear HEART: Normal heart sounds LUNGS: Clear to auscultation with no wheezing or crackles. ABDOMEN: soft, non-distended, non-tender, bowel sounds heard, no guarding or rebound tenderness SKIN: No Rash or ecchymoses EXTREMITIES: +1 left lower leg pitting edema noted, no tenderness, shallow abrasions and swelling both feets. Objective Labs 01/02/25 04:38 01/02/25 04:38 Labs: Laboratory Results - last 24 hr 12/30/24 12/30/24 12/31/24 21:12 22:30 00:01 WBC 10.3 RBC 3.12 L Hgb 10.1 L Hct 29.7 L MCV 95 MCH 32.4 MCHC 34.0 RDW Std Deviation 49.9 H Plt Count 347 D Neut % (Auto) 78 Lymph % (Auto) 12 [place] % (Auto) 8 Eos % (Auto) 1 Baso % (Auto) 0 Neut # (Auto) 8.1 H Lymph # (Auto) 1.3 [place] # (Auto) 0.8 Eos # (Auto) 0.1 Baso # (Auto) 0.0 Immature Gran # (Auto) 0.09 H Absolute Nucleated RBC 0.00 Immature Gran % 1 H Nucleated RBC % 0 ESR 25 H Sodium 145 Potassium 3.3 L Chloride 107 Carbon Dioxide 24.4 Anion Gap 14 BUN 12 Creatinine 0.9 Estim Creat Clear Calc 47.7 L eGFR > 60 BUN/Creatinine Ratio 13 Glucose 177 H Calculated Osmolality 292 Lactic Acid Calcium 8.8 Corrected Calcium 9.5 Iron 45 L TIBC 145 L Iron Saturation 31 Unsat Iron Binding 100 L Ferritin 930 H Total Bilirubin 1.9 H AST 39 H ALT 15 Alkaline Phosphatase 97 Ammonia C-Reactive Prot, Quant 6.3 H Total Protein 5.9 Albumin 3.1 L Globulin 2.8 Albumin/Globulin Ratio 1.1 L Procalcitonin Ethyl Alcohol 12/31/24 12/31/24 12/31/24 01:36 06:02 10:28 WBC 13.4 H RBC 2.68 L Hgb 8.9 L Hct 25.3 L MCV 94 MCH 33.2 MCHC 35.2 RDW Std Deviation 47.8 H Plt Count 287 D Neut % (Auto) 78 Lymph % (Auto) 13 [place] % (Auto) 7 Eos % (Auto) 1 Baso % (Auto) 0 Neut # (Auto) 10.4 H Lymph # (Auto) 1.8 [place] # (Auto) 0.9 H Eos # (Auto) 0.1 Baso # (Auto) 0.0 Immature Gran # (Auto) 0.15 H Absolute Nucleated RBC 0.00 Immature Gran % 1 H Nucleated RBC % 0 ESR Sodium 148 H Potassium 3.2 L Chloride 114 H Carbon Dioxide 25.6 Anion Gap 8 BUN 9 Creatinine 0.8 Estim Creat Clear Calc 53.7 L eGFR > 60 BUN/Creatinine Ratio 11 L Glucose 114 H D Calculated Osmolality 293 Lactic Acid 4.7 H* 2.3 H Calcium 8.1 L Corrected Calcium Iron TIBC Iron Saturation Unsat Iron Binding Ferritin Total Bilirubin AST ALT Alkaline Phosphatase Ammonia 33 H C-Reactive Prot, Quant Total Protein Albumin Globulin Albumin/Globulin Ratio Procalcitonin 0.23 Ethyl Alcohol < 3.0 Quality Measures Quality Measures none Assessment & Plan Assessment Current Active Medications: Generic Name Dose Route Start Last Admin Trade Name Freq PRN Reason Stop Dose Admin Acetaminophen 650 mg 12/31/24 05:17 Acetaminophen 325 Mg Tablet PO 01/30/25 05:16 Q6H PRN pain 1-3 &/or fever >100.1 Ferrous Sulfate 325 mg 12/31/24 08:00 12/31/24 10:01 Ferrous Sulf 325 Mg Tablet PO 01/30/25 07:59 Not Given QOD FREDERICK Heparin Sodium (Porcine) 5,000 unit 12/31/24 06:00 12/31/24 05:51 Heparin Sod Inj 5000 Unit/Ml Vial SC 01/14/25 05:59 5,000 unit Q8HR FREDERICK Administration Hydralazine HCl 10 mg 12/31/24 08:48 12/31/24 09:57 Hydralazine Inj 20 Mg/Ml Vial IVP 01/30/25 08:47 10 mg Q4HR PRN Administration hypertension Lactated Ringer's 1,000 mls @ 75 mls/hr 12/31/24 05:30 12/31/24 06:21 Lactated Ringers IV 01/30/25 05:29 75 mls/hr .[id number] FREDERICK Administration Albumin Human 12.5 gm in 250 mls @ 100 mls/hr 12/31/24 05:21 12/31/24 10:26 Albuminar-5 Ivpb IV 01/04/25 05:20 Not Given QDAY FREDERICK Ondansetron HCl 4 mg 12/31/24 05:17 Ondansetron Inj 2 Mg/Ml Inj 2 Ml IVP 01/30/25 05:16 Q6H PRN NAUSEA OR VOMITING Protocol Thiamine HCl 100 mg 12/31/24 09:00 12/31/24 09:59 Thiamine Inj 100 Mg/Ml Vial 2 Ml IVP 01/30/25 08:59 100 mg QDAY FREDERICK Administration Plan 44-year-old male with past medical history of alcohol use disorder. Schizophrenia and BMI 11.5 was admitted to the hospital on 12/31/2024 due to with failure to thrive, being debilitated and family unable to feed him. #Failure to thrive #History of Alcohol use disorder admit 1 week ago #BMI 11.5 #Mild Transaminitis -AST 39, ALT:15, ALP:97, Total bili 1.9. -No CIWA given patient?s small BMI. Consider Ativan 0.5 mg po. If needed -Continue thiamine and folate -Continue IVF. #Nicotine use disorder -Nicotine patch qd Assessment and plan discussed with my attending physician Dr. Small and Dr. Manning (PGY-2) Dr. Gabriel (PGY-1)- Internal medicine resident
--- NOTE | 2024-12-31 12:13 | PC.DIETICIAN ---
Dietitian consult: Pt meets criteria for severe protein calorie malnutrition 2/2 decrease oral intake >3months, significant wt loss, severe muscle wasting, severe subcutaneous fat loss (9% change [id number]) Consider peg tube for termite control representative nutrition if within plan of care Obtain Mg, Phos level. Pt is at risk for refeeding syndrome. Thank you
--- NOTE | 2024-12-31 14:16 | PCS.ST ---
Assisted pt with lunch meal. Pt was eager and agreeable. Pt consumed 40% of meal. Tolerated with no s/s of aspiration.
[2024-12-31] MEDS: NICOTINE PATCH 14 MG/24 HR PATCH.TD24 TOP (20:32)
--- NOTE | 2024-12-31 21:08 | ESCONSULT_ITS ---
HPI Data of Consult Requesting Physician: Reynaldo Fuller MD Primary Care Provider: Martine Man PA-C Consult Narrative Reason for consult: failure to thrive, dysphagia History of present illness: 44 years old male evaluated at the request of the internal medicine team for failure to thrive On further review of the history in the presence of the attending RN patient does have dysphagia specially with solids He had failed initial swallow evaluation and now he is on dysphagia 2 diet Consideration has been given to either TPN or PEG placement My suggestion would be to do an upper endoscopy try to see if the patient has a proximal esophageal stricture dilated if his swallowing function improves no need for a PEG placement cc:: cc: Reynaldo Fuller MD Review of Systems Review of Systems Systems Reviewed: All systems reviewed, normal except as documented Meds Home Medications and Allergies Home Medications ?Medication ?Instructions ?Recorded ?Confirmed ?Type albuterol sulfate 90 mcg/actuation 2 puff inhalation Q 4H PRN 12/25/24 12/25/24 History aerosol inhaler shortness of breath or wheez ing Allergies Allergy/AdvReac Type Severity Reaction Status Date / Time bee venom protein (honey bee) Allergy Verified 12/30/24 19:28 Exam Vital Signs Temp Pulse Resp BP Pulse Ox O2 Del Method 97.6 F 106 H 14 141/93 H 96 Room Air 12/31/24 16:27 12/31/24 16:27 12/31/24 16:27 12/31/24 16:27 12/31/24 16:27 12/31/24 16:27 Constitutional Comments: Appears to be chronically ill and cachectic Routine Respiratory Exam Comments: Normal to auscultation Routine Abdominal Exam Comments: Soft nontender Results Labs 12/31/24 10:28 12/31/24 10:28 Labs: Short CBC 12/30/24 12/31/24 Range/Units 22:30 10:28 WBC 10.3 13.4 H (3.8-10.6) Thou/mm3 Hgb 10.1 L 8.9 L (13.5-16.0) g/dL Hct 29.7 L 25.3 L (41.0-53.0) % Plt Count 347 D 287 D (140-440) Thou/mm3 BMP 12/30/24 12/31/24 21:12 10:28 Sodium 145 148 H Potassium 3.3 L 3.2 L Chloride 107 114 H Carbon Dioxide 24.4 25.6 BUN 12 9 Creatinine 0.9 0.8 Glucose 177 H 114 H D Calcium 8.8 8.1 L Liver Function 12/30/24 Range/Units 21:12 Total Bilirubin 1.9 H (0.3-1.2) mg/dL AST 39 H (0-34) U/L ALT 15 (10-49) U/L Alkaline Phosphatase 97 (46-116) U/L Albumin 3.1 L (3.5-5.0) gm/dL Assessment and Plan Additional Assessment & Plan Additional Plan: # Failure to thrive # Dysphagia Plan Fiberoptic esophagogastroduodenoscopy with possible biopsy possible therapeutic intervention under intravenous moderate sedation N.p.o. midnight tonight Further follow-up after above Will hold off PEG placement Thank you very much for the opportunity to participate in the care of this patient
[2024-12-31 23:48] LABS: Collection Type, Urine Catheter; Squamous Epithelial Cell,Urine 0 /hpf (0-5)
[2025-01-01] VITALS (14 sets, daily range): BP systolic 112–149; BP diastolic 81–109; PULSE 76–102; RESP 12–21; TEMP 36.1–36.6; O2SAT 95–100
[2025-01-01 00:05] LABS: Bacteria,Urine 1+; Bilirubin,Urine 1+ (Negative); Blood,Urine 2+ (Negative); Clarity,Urine Turbid (Clear/Hazy); Color,Urine Drk-Yellow (Lt Yel-Yel); Glucose, Urine Negative (Negative); Hyaline Casts,Urine 1 /hpf (0-1); Ketones,Urine Trace (Negative); Leukocyte Esterase,Urine Positive (Negative); Nitrite,Urine Positive (Negative); PH,Urine 6.0 (5.0-7.0); Protein,Urine 1+ (Neg - Trace); RBC,Urine 144 /hpf (0-3); Specific Gravity,Urine 1.029 (1.001-1.035); Transitional Epi Cells,Urine 1 /hpf (0-5); Urobilinogen,Urine 12 mg/dL (0.0-1.0); WBC,Urine 696 /hpf (0-5)
[2025-01-01 00:44] LABS: Amphetamine/Methamp Scrn,U Negative (Negative); Barbiturate Screen,Urine Negative (Negative); Benzodiazepines Screen,Urine Negative (Negative); Benzoylecgonine Screen, Ur Negative (Negative); Fentanyl Screen,Urine Negative (Negative); Opiate Screen,Urine Negative (Negative); THC Screen,Urine Negative (Negative)
[2025-01-01] MEDS: HEPARIN SOD INJ 5000 UNIT/ML VIAL SC ×2 (05:37→21:28)
--- NOTE | 2025-01-01 05:41 | PC.NURSE ---
accessed pt's chart to assist main RN.
[2025-01-01 06:04] LABS: Basophils # (Auto) 0.0 Thou/mm3 (0.0-0.2); Basophils % (Auto) 0 % (0-2.5); Eosinophils # (Auto) 0.3 Thou/mm3 (0.0-0.5); Eosinophils % (Auto) 1 % (0-10); Hematocrit 26.7 % (41.0-53.0); Hemoglobin 9.4 g/dL (13.5-16.0); Immature Granulocytes Auto 0.21 Thou/mm3 (0.00-0.00); Lymphocytes # (Auto) 2.3 Thou/mm3 (1.0-4.8); Lymphocytes % (Auto) 13 % (10-50); Mean Corpuscular HGB Conc 35.2 g/dl (31.0-37.0); Mean Corpuscular Hemoglobin 33.1 pg (25.0-35.0); Mean Corpuscular Volume 94 fL (80-100); Monocytes # (Auto) 1.0 Thou/mm3 (0.0-0.8); Monocytes % (Auto) 5 % (0-12); Neutrophils # (Auto) 14.4 Thou/mm3 (1.8-7.7); Neutrophils % (Auto) 79 % (37-80); Nucleated Red Blood Cell # 0.00 Thou/mm3 (0.00-0.00); Nucleated Red Blood Cell % 0 /100 WBC (0); Platelet Count 249 Thou/mm3 (140-440); RDW Standard Deviation 47.3 fL (35.1-43.9); Red Blood Count 2.84 Miln/mm3 (4.50-5.90); White Blood Count 18.3 Thou/mm3 (3.8-10.6)
--- NOTE | 2025-01-01 06:41 | PC.NURSE ---
called brother Connor to obtain information about patient, explained possible procedure to be done today. States understanding and will receive call from doctor to explain procedure.
[2025-01-01 07:01] LABS: Alanine Aminotransferase 18 U/L (10-49); Albumin, Serum 2.6 gm/dL (3.5-5.0); Albumin/Globulin Ratio 1.1 (1.2-2.2); Alkaline Phosphatase 83 U/L (46-116); Anion Gap 8 (7-16); Aspartate Amino Transferase 59 U/L (0-34); BUN/Creatinine Ratio 15 Ratio (12-20); Bilirubin,Total 1.0 mg/dL (0.3-1.2); Blood Urea Nitrogen 9 mg/dL (9-23); Calcium 7.7 mg/dL (8.3-10.6); Calcium (Corrected) 8.8 mg/dL (8.5-10.1); Carbon Dioxide 28.9 mMol/L (20.0-31.0); Chloride 109 mMol/L (98-107); Creatinine (Component) 0.6 mg/dL (0.6-1.3); Estimated Creatinine Clearance 78.2 mL/min (>60); Globulin 2.3 gm/dL (2.3-3.5); Glucose 101 mg/dL (74-106); Magnesium 1.5 mg/dL (1.6-2.6); Osmolality,Calculated 289 (275-295); Phosphorous 1.8 mg/dL (2.4-5.1); Potassium 2.8 mMol/L (3.4-5.1); Sodium 146 mMol/L (136-145); Thyroid Stimulating Hormone 4.49 uIU/mL (0.55-4.78); Total Protein 4.9 gm/dL (5.7-8.2); eGFR > 60 See Note
[2025-01-01] MEDS: Magnesium Sulfate 2 GM Ivpb 2 GM/50 ML BAG IV (07:35)
[2025-01-01] MEDS: POTASSIUM CHL 10 mEq IVPB 10 MEQ/100 ML BAG 100 MEQ IV ×4 (07:38→11:06)
[2025-01-01] MEDS: RINGERS LACTATED 1000 ML 1,000 ML 75 ML IV ×2 (07:40→21:29)
[2025-01-01] MEDS: NAPH,KPH MBDB 1 PACKET (1.5 GM) PO ×2 (07:40→21:27)
[2025-01-01] MEDS: THIAMINE INJ 100 MG/ML VIAL 2 ML IVP (07:41)
[2025-01-01] MEDS: NICOTINE PATCH 14 MG/24 HR PATCH.TD24 TOP (07:41)
[2025-01-01 08:48] LABS: INR 1.1 (0.9-1.3); Prothrombin Time 11.9 Seconds (9.0-12.2)
[2025-01-01] MEDS: ALBUMIN HUMAN 5% IVPB 12.5 GM/250 ML BTL IV (09:36)
--- NOTE | 2025-01-01 09:58 | ESPR_ITS ---
<Statement entered by Taniya Small MD - 01/07/25 14:55> I reviewed above note and agree with findings and plans. I have also personally examined the patient with medicine team and went over assessment and plan with medical team including international sales manager and resident physician. Documentation for date of: 01/01/25 Subjective Subjective Interval history: No acute events overnight. Patient seen and examined at bedside this AM. Reported sore throat that started this morning, denies fever, chest pain, shortness of breath, nausea/vomiting, abdominal pain, dysuria. Denies choking on food/drink recently. Patient was notified that he was scheduled for EGD, requesting coffee or beer. Did not appear to comprehend that he could not eat or drink anything prior to procedure. AOx2, not oriented to time. Labs and vitals were reviewed. Afebrile. Repleted low levels of Mg, Ph, and K. WBC uptrending, 18 today. No further complaints at this time. Review of systems otherwise negative except what is mentioned above. Exam Vital Signs Temp Pulse Resp BP Pulse Ox O2 Del Method 97.6 F 92 16 138/109 H 100 Room Air 01/01/25 08:00 01/01/25 08:00 01/01/25 08:00 01/01/25 08:00 01/01/25 08:00 01/01/25 08:00 Narrative Exam Physical Exam General: Awake and in no acute distress. Cachectic. Conversational. Appears to be confabulating. HEENT: Normocephalic, atraumatic, mucous membranes moist. Heart: Slightly tachycardic. Regular rate and rhythm, normal S1 and S2, no murmurs appreciated. Lungs: Clear to auscultation with no wheezing or crackles. Abdomen: Soft, nondistended. RUQ tenderness on palpation, positive bowel sounds. No guarding or rebound tenderness. Neurologic: AOx2, not oriented to date, no gross neurological deficit, and patient able to move all 4 extremities. Extremities: No edema. Skin: No rash or ecchymoses. Objective Labs 01/01/25 05:08 01/01/25 13:26 Labs: Laboratory Results - last 24 hr 12/31/24 12/31/24 01/01/25 10:28 23:18 05:08 WBC 13.4 H 18.3 H RBC 2.68 L 2.84 L Hgb 8.9 L 9.4 L Hct 25.3 L 26.7 L MCV 94 94 MCH 33.2 33.1 MCHC 35.2 35.2 RDW Std Deviation 47.8 H 47.3 H Plt Count 287 D 249 D Neut % (Auto) 78 79 Lymph % (Auto) 13 13 [place] % (Auto) 7 5 Eos % (Auto) 1 1 Baso % (Auto) 0 0 Neut # (Auto) 10.4 H 14.4 H Lymph # (Auto) 1.8 2.3 [place] # (Auto) 0.9 H 1.0 H Eos # (Auto) 0.1 0.3 Baso # (Auto) 0.0 0.0 Immature Gran # (Auto) 0.15 H 0.21 H Absolute Nucleated RBC 0.00 0.00 Immature Gran % 1 H 1 H Nucleated RBC % 0 0 PT INR Sodium 148 H 146 H Potassium 3.2 L 2.8 L Chloride 114 H 109 H Carbon Dioxide 25.6 28.9 Anion Gap 8 8 BUN 9 9 Creatinine 0.8 0.6 Estim Creat Clear Calc 53.7 L 78.2 eGFR > 60 > 60 BUN/Creatinine Ratio 11 L 15 Glucose 114 H D 101 Calculated Osmolality 293 289 Calcium 8.1 L 7.7 L Corrected Calcium 8.8 Phosphorus 1.8 L Magnesium 1.5 L Total Bilirubin 1.0 D AST 59 H ALT 18 Alkaline Phosphatase 83 Total Protein 4.9 L Albumin 2.6 L D Globulin 2.3 Albumin/Globulin Ratio 1.1 L TSH 4.49 D Ur Collection Type Catheter Urine Color Drk-Yellow A Urine Clarity Turbid A Urine pH 6.0 Ur Specific [place] 1.029 Urine Protein 1+ A Urine Glucose (UA) Negative Urine Ketones Trace Urine Blood 2+ A Urine Nitrite Positive Urine Bilirubin 1+ A Urine Urobilinogen (Auto) 12 Ur Leukocyte Esterase Positive Urine RBC 144 H Urine WBC 696 H Ur Squamous Epith Cells 0 Ur Transition Epith Cell 1 Urine Bacteria 1+ A Hyaline Casts 1 Urine Opiates Screen Negative Urine Fentanyl Screen Negative Ur Barbiturates Screen Negative U Amphetamin/Meth Scrn Negative U Benzodiazepines Scrn Negative U Cocaine Metab Screen Negative U Marijuana (THC) Screen Negative 01/01/25 07:10 WBC RBC Hgb Hct MCV MCH MCHC RDW Std Deviation Plt Count Neut % (Auto) Lymph % (Auto) [place] % (Auto) Eos % (Auto) Baso % (Auto) Neut # (Auto) Lymph # (Auto) [place] # (Auto) Eos # (Auto) Baso # (Auto) Immature Gran # (Auto) Absolute Nucleated RBC Immature Gran % Nucleated RBC % PT 11.9 INR 1.1 Sodium Potassium Chloride Carbon Dioxide Anion Gap BUN Creatinine Estim Creat Clear Calc eGFR BUN/Creatinine Ratio Glucose Calculated Osmolality Calcium Corrected Calcium Phosphorus Magnesium Total Bilirubin AST ALT Alkaline Phosphatase Total Protein Albumin Globulin Albumin/Globulin Ratio TSH Ur Collection Type Urine Color Urine Clarity Urine pH Ur Specific [place] Urine Protein Urine Glucose (UA) Urine Ketones Urine Blood Urine Nitrite Urine Bilirubin Urine Urobilinogen (Auto) Ur Leukocyte Esterase Urine RBC Urine WBC Ur Squamous Epith Cells Ur Transition Epith Cell Urine Bacteria Hyaline Casts Urine Opiates Screen Urine Fentanyl Screen Ur Barbiturates Screen U Amphetamin/Meth Scrn U Benzodiazepines Scrn U Cocaine Metab Screen U Marijuana (THC) Screen Quality Measures Quality Measures none Assessment & Plan Assessment Current Active Medications: Generic Name Dose Route Start Last Admin Trade Name Freq PRN Reason Stop Dose Admin Acetaminophen 650 mg 12/31/24 05:17 Acetaminophen 325 Mg Tablet PO 01/30/25 05:16 Q6H PRN pain 1-3 &/or fever >100.1 Ferrous Sulfate 325 mg 12/31/24 08:00 12/31/24 10:01 Ferrous Sulf 325 Mg Tablet PO 01/30/25 07:59 Not Given QOD FREDERICK Heparin Sodium (Porcine) 5,000 unit 12/31/24 06:00 01/01/25 05:37 Heparin Sod Inj 5000 Unit/Ml Vial SC 01/14/25 05:59 5,000 unit Q8HR FREDERICK Administration Hydralazine HCl 10 mg 12/31/24 08:48 12/31/24 09:57 Hydralazine Inj 20 Mg/Ml Vial IVP 01/30/25 08:47 10 mg Q4HR PRN Administration hypertension Lactated Ringer's 1,000 mls @ 75 mls/hr 12/31/24 05:30 01/01/25 07:40 Lactated Ringers IV 01/30/25 05:29 75 mls/hr .[id number] FREDERICK Administration Albumin Human 12.5 gm in 250 mls @ 100 mls/hr 12/31/24 05:21 01/01/25 09:36 Albuminar-5 Ivpb IV 01/04/25 05:20 100 mls/hr QDAY FREDERICK Administration Potassium Chloride 10 meq in 100 mls @ 100 mls/hr 01/01/25 07:17 01/01/25 09:36 Kcl Ivpb IV 01/01/25 11:16 100 mls/hr Q1H FREDERICK Administration Nicotine 14 mg 12/31/24 18:45 01/01/25 07:41 Nicotine Patch 14 Mg/24 Hr Patch.Td24 TOP 01/30/25 18:44 14 mg QDAY FREDERICK Administration Ondansetron HCl 4 mg 12/31/24 05:17 Ondansetron Inj 2 Mg/Ml Inj 2 Ml IVP 01/30/25 05:16 Q6H PRN NAUSEA OR VOMITING Protocol Potassium Chloride 40 meq 01/01/25 12:00 Potassium Chloride 10% 20 Meq/15 Ml Udc GT 01/01/25 12:01 X1 ONE Potassium Phos/Sodium Phos 1 packet 01/01/25 09:00 01/01/25 07:40 [facility] 1 Packet (1.5 Gm) PO 01/31/25 08:59 1 packet BID FREDERICK Administration Thiamine HCl 100 mg 12/31/24 09:00 01/01/25 07:41 Thiamine Inj 100 Mg/Ml Vial 2 Ml IVP 01/30/25 08:59 100 mg QDAY FREDERICK Administration Plan Patient is a 44-year-old male with past medical history of alcohol use disorder, schizophrenia and BMI 11.5 was admitted to the hospital on 12/31/2024 for failure to thrive, being debilitated and family unable to feed him. #Failure to thrive #Underweight, BMI 11.5 #Dysphagia -Pending EEG today. Concern for stricture, if so then will dilate. -Continue IVF. -Monitor electrolytes, Mg, and phosphorus #History of Alcohol use disorder #Mild Transaminitis Has had multiple admissions for alcohol use disorder, latest last week. Reports last drink was last week; however patient is unreliable historian. -AST 39, ALT:15, ALP:97, Total bili 1.9. -No CIWA given patient?s small BMI. Consider Ativan 0.5 mg po. If needed -Continue thiamine and folate #Leukocytosis #UTI Reports new onset of sore throat this morning. Remains afebrile. WBC 18,000 and has been increasing since admission. Patient denies dysuria but UA 7/3 positive for nitrates and leukocyte esterase, WBC 696, 1+ bacteria. Blood culture negative. Repeat CXR today negative for aspiration pneumonia. -Monitor for pyrexia and increased work of breathing -Monitor CBC -Pending urine culture -Start IV ceftriaxone -Consider respiratory panel #Nicotine use disorder -Nicotine patch qd Health Maintenance Disposition: Telemetry DVT prophylaxis: Heparin GI prophylaxis: none Diet: NPO after midnight, resume dysphagia diet 2 after procedure CODE STATUS: Full code Patient plan of care was discussed with the attending physician, Dr. Small. Brandie Tompkins, PGY-1
--- NOTE | 2025-01-01 10:57 | XR_ITS ---
Examination: AP chest single view Technique: AP chest portable semiupright Date and time: January 01, 2025, 1108 hrs. Comparison December 31, 2024 Indications: Lymphoma diagnosis aspiration, shortness of breath today. Findings: Significant hyperexpansion. No aspiration pneumonia. Normal heart size Impression: Negative for aspiration pneumonia
[2025-01-01 13:58] LABS: Albumin, Serum 2.7 gm/dL (3.5-5.0); Anion Gap 6 (7-16); BUN/Creatinine Ratio 12 Ratio (12-20); Blood Urea Nitrogen 7 mg/dL (9-23); Calcium 7.7 mg/dL (8.3-10.6); Calcium (Corrected) 8.7 mg/dL (8.5-10.1); Carbon Dioxide 27.6 mMol/L (20.0-31.0); Chloride 110 mMol/L (98-107); Creatinine (Component) 0.6 mg/dL (0.6-1.3); Estimated Creatinine Clearance 78.2 mL/min (>60); Glucose 83 mg/dL (74-106); Osmolality,Calculated 283 (275-295); Phosphorous 1.8 mg/dL (2.4-5.1); Potassium 3.6 mMol/L (3.4-5.1); Sodium 144 mMol/L (136-145); eGFR > 60 See Note
[2025-01-01] MEDS: POTASSIUM CHLORIDE 10% 20 MEQ/15 ML UDC 40 MEQ GT (15:00)
[2025-01-01] MEDS: hydrALAZINE INJ 20 MG/ML VIAL 10 MG IVP (21:42)
[2025-01-01] MEDS: cefTRIAXone/D5w 1gm IV premix 1 GM/50 ML BAG IV (23:19)
[2025-01-02] VITALS (10 sets, daily range): BP systolic 107–150; BP diastolic 72–102; PULSE 95–109; RESP 14–21; TEMP 36–36.8; O2SAT 95–99; BMI 12.4
--- NOTE | 2025-01-02 03:03 | PC.NURSE ---
called Dr. Kidd regarding patient requesting something to help him sleep. Per doctor will put in orders.
[2025-01-02] MEDS: MELATONIN 3 MG TABLET PO (03:17)
[2025-01-02 05:27] LABS: Basophils # (Auto) 0.0 Thou/mm3 (0.0-0.2); Basophils % (Auto) 0 % (0-2.5); Eosinophils # (Auto) 0.1 Thou/mm3 (0.0-0.5); Eosinophils % (Auto) 1 % (0-10); Hematocrit 25.3 % (41.0-53.0); Hemoglobin 9.0 g/dL (13.5-16.0); Immature Granulocytes Auto 0.12 Thou/mm3 (0.00-0.00); Lymphocytes # (Auto) 1.3 Thou/mm3 (1.0-4.8); Lymphocytes % (Auto) 11 % (10-50); Mean Corpuscular HGB Conc 35.6 g/dl (31.0-37.0); Mean Corpuscular Hemoglobin 33.1 pg (25.0-35.0); Mean Corpuscular Volume 93 fL (80-100); Monocytes # (Auto) 0.6 Thou/mm3 (0.0-0.8); Monocytes % (Auto) 5 % (0-12); Neutrophils # (Auto) 9.9 Thou/mm3 (1.8-7.7); Neutrophils % (Auto) 83 % (37-80); Nucleated Red Blood Cell # 0.00 Thou/mm3 (0.00-0.00); Nucleated Red Blood Cell % 0 /100 WBC (0); Platelet Count 224 Thou/mm3 (140-440); RDW Standard Deviation 46.7 fL (35.1-43.9); Red Blood Count 2.72 Miln/mm3 (4.50-5.90); White Blood Count 12.0 Thou/mm3 (3.8-10.6)
[2025-01-02 06:08] LABS: Alanine Aminotransferase 18 U/L (10-49); Albumin, Serum 2.4 gm/dL (3.5-5.0); Albumin/Globulin Ratio 1.1 (1.2-2.2); Alkaline Phosphatase 85 U/L (46-116); Anion Gap 10 (7-16); Aspartate Amino Transferase 53 U/L (0-34); BUN/Creatinine Ratio 14 Ratio (12-20); Bilirubin,Total 0.6 mg/dL (0.3-1.2); Blood Urea Nitrogen 7 mg/dL (9-23); Calcium 7.6 mg/dL (8.3-10.6); Calcium (Corrected) 8.9 mg/dL (8.5-10.1); Carbon Dioxide 27.2 mMol/L (20.0-31.0); Chloride 107 mMol/L (98-107); Creatinine (Component) 0.5 mg/dL (0.6-1.3); Estimated Creatinine Clearance 93.9 mL/min (>60); Globulin 2.2 gm/dL (2.3-3.5); Glucose 113 mg/dL (74-106); Magnesium 1.6 mg/dL (1.6-2.6); Osmolality,Calculated 285 (275-295); Phosphorous 2.6 mg/dL (2.4-5.1); Potassium 3.4 mMol/L (3.4-5.1); Sodium 144 mMol/L (136-145); Total Protein 4.6 gm/dL (5.7-8.2); eGFR > 60 See Note
[2025-01-02] MEDS: ALBUMIN HUMAN 5% IVPB 12.5 GM/250 ML BTL IV (08:31)
[2025-01-02] MEDS: THIAMINE INJ 100 MG/ML VIAL 2 ML IVP (08:36)
[2025-01-02] MEDS: NAPH,KPH MBDB 1 PACKET (1.5 GM) PO ×2 (08:38→20:25)
[2025-01-02] MEDS: NICOTINE PATCH 14 MG/24 HR PATCH.TD24 TOP (08:38)
[2025-01-02] MEDS: cefTRIAXone/D5w 1gm IV premix 1 GM/50 ML BAG IV (08:38)
[2025-01-02] MEDS: RINGERS LACTATED 1000 ML 1,000 ML 75 ML IV (11:04)
--- NOTE | 2025-01-02 12:37 | ESPR_ITS ---
<Statement entered by Taniya Small MD - 01/09/25 11:43> I reviewed above note and agree with findings and plans. I have also personally examined the patient with medicine team and went over assessment and plan with medical team including commercial internship and resident physician. Documentation for date of: 01/02/25 Subjective Subjective Interval history: Patient was seen and examined at bedside. A.m. vitals and labs reviewed. The patient is awake and alert. When asked what was the last thing he remembers before going drowsy he noted that he was out of breath. The last time he had alcohol was a month ago. However, the patient is a poor historian with the possibility of confabulating. Given his current low BMI of 12.5, recommendation to attach PEG tube has been discussed but the patient refused. Denies chest pain, shortness of breath, fever, chills, headaches, dizziness. Exam Vital Signs Temp Pulse Resp BP Pulse Ox O2 Del Method O2 Flow Rate 98.3 F 102 H 21 H 109/93 H 95 Room Air 1 01/02/25 12:00 01/02/25 12:00 01/02/25 12:00 01/02/25 12:00 01/02/25 12:00 01/02/25 12:00 01/02/25 12:00 Narrative Exam General: Awake and in no acute distress. Cachectic. Conversational. Appears to be confabulating. HEENT: Normocephalic, atraumatic, mucous membranes moist. Heart: Slightly tachycardic. Regular rate and rhythm, normal S1 and S2, no murmurs appreciated. Lungs: Clear to auscultation with no wheezing or crackles. Abdomen: Soft, nondistended. RUQ tenderness on palpation, positive bowel sounds. No guarding or rebound tenderness. Neurologic: AOx2, not oriented to date, no gross neurological deficit, and patient able to move all 4 extremities. Extremities: No edema. Skin: No rash or ecchymoses. Objective Labs 01/02/25 04:38 01/02/25 04:38 Labs: Laboratory Results - last 24 hr 01/01/25 01/02/25 13:26 04:38 WBC 12.0 H D RBC 2.72 L Hgb 9.0 L Hct 25.3 L MCV 93 MCH 33.1 MCHC 35.6 RDW Std Deviation 46.7 H Plt Count 224 Neut % (Auto) 83 H Lymph % (Auto) 11 [place] % (Auto) 5 Eos % (Auto) 1 Baso % (Auto) 0 Neut # (Auto) 9.9 H Lymph # (Auto) 1.3 [place] # (Auto) 0.6 Eos # (Auto) 0.1 Baso # (Auto) 0.0 Immature Gran # (Auto) 0.12 H Absolute Nucleated RBC 0.00 Immature Gran % 1 H Nucleated RBC % 0 Sodium 144 144 Potassium 3.6 D 3.4 Chloride 110 H 107 Carbon Dioxide 27.6 27.2 Anion Gap 6 L 10 BUN 7 L 7 L Creatinine 0.6 0.5 L Estim Creat Clear Calc 78.2 93.9 eGFR > 60 > 60 BUN/Creatinine Ratio 12 14 Glucose 83 113 H Calculated Osmolality 283 285 Calcium 7.7 L 7.6 L Corrected Calcium 8.7 8.9 Phosphorus 1.8 L 2.6 Magnesium 1.6 Total Bilirubin 0.6 AST 53 H ALT 18 Alkaline Phosphatase 85 Total Protein 4.6 L Albumin 2.7 L 2.4 L Globulin 2.2 L Albumin/Globulin Ratio 1.1 L Quality Measures Quality Measures none Assessment & Plan Assessment Current Active Medications: Generic Name Dose Route Start Last Admin Trade Name Freq PRN Reason Stop Dose Admin Acetaminophen 650 mg 12/31/24 05:17 Acetaminophen 325 Mg Tablet PO 01/30/25 05:16 Q6H PRN pain 1-3 &/or fever >100.1 Ferrous Sulfate 325 mg 12/31/24 08:00 12/31/24 10:01 Ferrous Sulf 325 Mg Tablet PO 01/30/25 07:59 Not Given QOD FREDERICK Heparin Sodium (Porcine) 5,000 unit 12/31/24 06:00 01/02/25 06:14 Heparin Sod Inj 5000 Unit/Ml Vial SC 01/14/25 05:59 Not Given Q8HR FREDERICK Hydralazine HCl 10 mg 12/31/24 08:48 01/01/25 21:42 Hydralazine Inj 20 Mg/Ml Vial IVP 01/30/25 08:47 10 mg Q4HR PRN Administration hypertension Lactated Ringer's 1,000 mls @ 75 mls/hr 12/31/24 05:30 01/02/25 11:04 Lactated Ringers IV 01/30/25 05:29 75 mls/hr .[id number] FREDERICK Administration Albumin Human 12.5 gm in 250 mls @ 100 mls/hr 12/31/24 05:21 01/02/25 08:31 Albuminar-5 Ivpb IV 01/04/25 05:20 100 mls/hr QDAY FREDERICK Administration Ceftriaxone Sodium/Dextrose 1 gm in 50 mls @ 100 mls/hr 01/01/25 22:27 01/02/25 08:38 Rocephin/D5w 1gm Iv Premix IV 01/08/25 22:26 100 mls/hr QDAY FREDERICK Administration Mirtazapine 15 mg 01/02/25 21:00 Mirtazapine 15 Mg Tablet PO 02/01/25 20:59 HS FREDERICK Nicotine 14 mg 12/31/24 18:45 01/02/25 08:38 Nicotine Patch 14 Mg/24 Hr Patch.Td24 TOP 01/30/25 18:44 14 mg QDAY FREDERICK Administration Ondansetron HCl 4 mg 12/31/24 05:17 Ondansetron Inj 2 Mg/Ml Inj 2 Ml IVP 01/30/25 05:16 Q6H PRN NAUSEA OR VOMITING Protocol Potassium Phos/Sodium Phos 1 packet 01/01/25 09:00 01/02/25 08:38 N[facility] Mbdb 1 Packet (1.5 Gm) PO 01/31/25 08:59 1 packet BID FREDERICK Administration Thiamine HCl 100 mg 12/31/24 09:00 01/02/25 08:36 Thiamine Inj 100 Mg/Ml Vial 2 Ml IVP 01/30/25 08:59 100 mg QDAY FREDERICK Administration Plan Plan Patient is a 44-year-old male with past medical history of alcohol use disorder, schizophrenia and BMI 11.5 was admitted to the hospital on 12/31/2024 for failure to thrive, being debilitated and family unable to feed him. #Failure to thrive #Underweight, BMI 11.5 #Dysphagia -Continue IVF. -Monitor electrolytes, Mg, and phosphorus -EGD(01/01/2025): Esophagitis, gastritis with erythema, esophageal ulcers. Will benefit from placement of a PEG tube for nutritional support. -Placement of PEG tube discussed with the patient but the patient refused. #History of Alcohol use disorder #Mild Transaminitis Has had multiple admissions for alcohol use disorder, latest last week. Reports last drink was last week; however patient is unreliable historian. -AST 53, ALT:18, ALP:85, Total bili 0.6. -No CIWA given patient?s small BMI. Consider Ativan 0.5 mg po. If needed -Continue thiamine and folate #Leukocytosis #UTI Reports new onset of sore throat this morning. Remains afebrile. WBC 18,000 and has been increasing since admission. Patient denies dysuria but UA 7/3 positive for nitrates and leukocyte esterase, WBC 696, 1+ bacteria. Blood culture negative. Repeat CXR today negative for aspiration pneumonia. -Monitor for pyrexia and increased work of breathing -Monitor CBC -Pending urine culture -Start IV ceftriaxone -Consider respiratory panel #Nicotine use disorder -Nicotine patch qd Health Maintenance Disposition: Telemetry DVT prophylaxis: Heparin GI prophylaxis: none Diet: NPO after midnight, resume dysphagia diet 2 after procedure CODE STATUS: Full code Assessment and plan discussed with my attending physician Dr. Staci Gabriel (PGY-1)- Internal medicine resident
--- NOTE | 2025-01-02 16:57 | PC.SS ---
SS met pt at bedside, pt was lethargic and unable to speak with SS
--- NOTE | 2025-01-02 17:35 | PD.IMPROG ---
Documentation for date of: 01/02/25 Subjective Subjective Interval history: Patient has refused PEG placement We will continue to work with modified diet he can have Exam Vital Signs Temp Pulse Resp BP Pulse Ox O2 Del Method O2 Flow Rate 97.8 F 107 H 16 121/89 H 99 Room Air 1 01/02/25 15:51 01/02/25 16:33 01/02/25 15:51 01/02/25 15:51 01/02/25 15:51 01/02/25 15:51 01/02/25 12:00 Objective Labs 01/02/25 04:38 01/02/25 04:38 Labs: Laboratory Results - last 24 hr 01/02/25 04:38 WBC 12.0 H D RBC 2.72 L Hgb 9.0 L Hct 25.3 L MCV 93 MCH 33.1 MCHC 35.6 RDW Std Deviation 46.7 H Plt Count 224 Neut % (Auto) 83 H Lymph % (Auto) 11 [place] % (Auto) 5 Eos % (Auto) 1 Baso % (Auto) 0 Neut # (Auto) 9.9 H Lymph # (Auto) 1.3 [place] # (Auto) 0.6 Eos # (Auto) 0.1 Baso # (Auto) 0.0 Immature Gran # (Auto) 0.12 H Absolute Nucleated RBC 0.00 Immature Gran % 1 H Nucleated RBC % 0 Sodium 144 Potassium 3.4 Chloride 107 Carbon Dioxide 27.2 Anion Gap 10 BUN 7 L Creatinine 0.5 L Estim Creat Clear Calc 93.9 eGFR > 60 BUN/Creatinine Ratio 14 Glucose 113 H Calculated Osmolality 285 Calcium 7.6 L Corrected Calcium 8.9 Phosphorus 2.6 Magnesium 1.6 Total Bilirubin 0.6 AST 53 H ALT 18 Alkaline Phosphatase 85 Total Protein 4.6 L Albumin 2.4 L Globulin 2.2 L Albumin/Globulin Ratio 1.1 L Impressions Impression: Gastritis Failure to thrive Abnormal weight loss Still highly recommend PEG placement Hopefully patient will change his mind Assessment & Plan A&P Narrative # Failure to thrive # Dysphagia Plan Fiberoptic esophagogastroduodenoscopy with possible biopsy possible therapeutic intervention under intravenous moderate sedation N.p.o. midnight tonight Further follow-up after above Will hold off PEG placement Thank you very much for the opportunity to participate in the care of this patient Time Spent With Patient Time: Total time spent is greater than 50% in coordination of care (as documented) at patient's floor/unit and/or counseling patient:
[2025-01-02] MEDS: MIRTAZAPINE 15 MG TABLET PO (20:25)
[2025-01-03] VITALS (11 sets, daily range): BP systolic 121–151; BP diastolic 94–113; PULSE 102–123; RESP 13–19; TEMP 36.2–36.4; O2SAT 90–99
[2025-01-03] MEDS: RINGERS LACTATED 1000 ML 1,000 ML 75 ML IV ×2 (01:58→16:14)
[2025-01-03 08:34] LABS: Basophils # (Auto) 0.0 Thou/mm3 (0.0-0.2); Basophils % (Auto) 0 % (0-2.5); Eosinophils # (Auto) 0.1 Thou/mm3 (0.0-0.5); Eosinophils % (Auto) 1 % (0-10); Hematocrit 27.2 % (41.0-53.0); Hemoglobin 9.7 g/dL (13.5-16.0); Immature Granulocytes Auto 0.17 Thou/mm3 (0.00-0.00); Lymphocytes # (Auto) 1.1 Thou/mm3 (1.0-4.8); Lymphocytes % (Auto) 14 % (10-50); Mean Corpuscular HGB Conc 35.7 g/dl (31.0-37.0); Mean Corpuscular Hemoglobin 32.7 pg (25.0-35.0); Mean Corpuscular Volume 92 fL (80-100); Monocytes # (Auto) 0.4 Thou/mm3 (0.0-0.8); Monocytes % (Auto) 6 % (0-12); Neutrophils # (Auto) 6.1 Thou/mm3 (1.8-7.7); Neutrophils % (Auto) 77 % (37-80); Nucleated Red Blood Cell # 0.00 Thou/mm3 (0.00-0.00); Nucleated Red Blood Cell % 0 /100 WBC (0); Platelet Count 262 Thou/mm3 (140-440); RDW Standard Deviation 47.5 fL (35.1-43.9); Red Blood Count 2.97 Miln/mm3 (4.50-5.90); White Blood Count 7.9 Thou/mm3 (3.8-10.6)
[2025-01-03] MEDS: cefTRIAXone/D5w 1gm IV premix 1 GM/50 ML BAG IV (08:46)
[2025-01-03] MEDS: hydrALAZINE INJ 20 MG/ML VIAL 10 MG IVP (08:47)
[2025-01-03] MEDS: THIAMINE INJ 100 MG/ML VIAL 2 ML IVP (08:48)
[2025-01-03] MEDS: NICOTINE PATCH 14 MG/24 HR PATCH.TD24 TOP (08:49)
[2025-01-03] MEDS: NAPH,KPH MBDB 1 PACKET (1.5 GM) PO ×2 (08:50→21:43)
[2025-01-03 09:04] LABS: Alanine Aminotransferase 18 U/L (10-49); Albumin, Serum 2.7 gm/dL (3.5-5.0); Albumin/Globulin Ratio 1.1 (1.2-2.2); Alkaline Phosphatase 103 U/L (46-116); Anion Gap 9 (7-16); Aspartate Amino Transferase 47 U/L (0-34); BUN/Creatinine Ratio 10 Ratio (12-20); Bilirubin,Total 0.6 mg/dL (0.3-1.2); Blood Urea Nitrogen < 5 mg/dL (9-23); Calcium 7.9 mg/dL (8.3-10.6); Calcium (Corrected) 8.9 mg/dL (8.5-10.1); Carbon Dioxide 25.9 mMol/L (20.0-31.0); Chloride 107 mMol/L (98-107); Creatinine (Component) 0.5 mg/dL (0.6-1.3); Estimated Creatinine Clearance 93.9 mL/min (>60); Globulin 2.4 gm/dL (2.3-3.5); Glucose 125 mg/dL (74-106); Magnesium 1.6 mg/dL (1.6-2.6); Osmolality,Calculated 281 (275-295); Phosphorous 3.5 mg/dL (2.4-5.1); Potassium 3.5 mMol/L (3.4-5.1); Sodium 142 mMol/L (136-145); Total Protein 5.1 gm/dL (5.7-8.2); eGFR > 60 See Note
[2025-01-03] MEDS: ALBUMIN HUMAN 5% IVPB 12.5 GM/250 ML BTL IV (11:12)
--- NOTE | 2025-01-03 11:58 | EKG_ITS ---
[facility] Test Date: 2025-01-03 Pat Name: JONATHON VALLE [facility] [place] [employer]: RAJI : 1980 Requested By: Vito Dudley Order Number: [id number] Reading MD: Vito Dudley Measurements Intervals [place] Rate: 111 P: 82 MO: 107 QRS: 84 QRSD: 70 T: 89 QT: 355 QTc: 483 Interpretive Statements SINUS TACHYCARDIA WITH SHORT MO INTERVAL ABNORMAL RHYTHM ECG Compared to ECG 12/24/2024 14:08:40 T-wave abnormality no longer present /store/S0/[id number]
[2025-01-03] MEDS: METOPROLOL SUCCINATE XL 25 MG TABCR PO (12:13)
--- NOTE | 2025-01-03 14:20 | ESPR_ITS ---
<Statement entered by Taniya Small MD - 01/09/25 11:44> I reviewed above note and agree with findings and plans. I have also personally examined the patient with medicine team and went over assessment and plan with medical team including human resources intern and resident physician. Documentation for date of: 01/03/25 Subjective Subjective Interval history: Patient was seen and examined at bedside. A.m. vitals and labs reviewed. Patient is awake and alert. When asked what was the last thing he remembers before going drowsy he noted that he was out of breath and cannot remember what may have caused it. Still against using a PEG placement. Patient denies chest pain, shortness of breath, headaches ,vision loss, numbness, or hallucinations. Exam Vital Signs Temp Pulse Resp BP Pulse Ox O2 Del Method O2 Flow Rate 97.2 F 108 H 18 125/94 H 98 Room Air 1 01/03/25 12:00 01/03/25 12:41 01/03/25 12:00 01/03/25 12:13 01/03/25 12:00 01/03/25 12:00 01/02/25 12:00 Narrative Exam General: Awake and in no acute distress. Cachectic. Conversational. Appears to be confabulating. HEENT: Normocephalic, atraumatic, mucous membranes moist. Heart: Slightly tachycardic. Regular rate and rhythm, normal S1 and S2, no murmurs appreciated. Lungs: Clear to auscultation with no wheezing or crackles. Abdomen: Soft, nondistended. RUQ tenderness on palpation, positive bowel sounds. No guarding or rebound tenderness. Neurologic: AOx3, no gross neurological deficit, and patient able to move all 4 extremities. Extremities: No edema. multiple small lacerations Skin: No rash or ecchymoses. Objective Labs 01/03/25 08:20 01/03/25 08:20 Labs: Laboratory Results - last 24 hr 01/03/25 08:20 WBC 7.9 RBC 2.97 L Hgb 9.7 L Hct 27.2 L MCV 92 MCH 32.7 MCHC 35.7 RDW Std Deviation 47.5 H Plt Count 262 D Neut % (Auto) 77 Lymph % (Auto) 14 [place] % (Auto) 6 Eos % (Auto) 1 Baso % (Auto) 0 Neut # (Auto) 6.1 Lymph # (Auto) 1.1 [place] # (Auto) 0.4 Eos # (Auto) 0.1 Baso # (Auto) 0.0 Immature Gran # (Auto) 0.17 H Absolute Nucleated RBC 0.00 Immature Gran % 2 H Nucleated RBC % 0 Sodium 142 Potassium 3.5 Chloride 107 Carbon Dioxide 25.9 Anion Gap 9 BUN < 5 L Creatinine 0.5 L Estim Creat Clear Calc 93.9 eGFR > 60 BUN/Creatinine Ratio 10 L Glucose 125 H Calculated Osmolality 281 Calcium 7.9 L Corrected Calcium 8.9 Phosphorus 3.5 Magnesium 1.6 Total Bilirubin 0.6 AST 47 H ALT 18 Alkaline Phosphatase 103 D Total Protein 5.1 L Albumin 2.7 L Globulin 2.4 Albumin/Globulin Ratio 1.1 L Quality Measures Quality Measures none Assessment & Plan Assessment Current Active Medications: Generic Name Dose Route Start Last Admin Trade Name Freq PRN Reason Stop Dose Admin Acetaminophen 650 mg 12/31/24 05:17 Acetaminophen 325 Mg Tablet PO 01/30/25 05:16 Q6H PRN pain 1-3 &/or fever >100.1 Ferrous Sulfate 325 mg 12/31/24 08:00 12/31/24 10:01 Ferrous Sulf 325 Mg Tablet PO 01/30/25 07:59 Not Given QOD FREDERICK Heparin Sodium (Porcine) 5,000 unit 12/31/24 06:00 01/03/25 13:58 Heparin Sod Inj 5000 Unit/Ml Vial SC 01/14/25 05:59 Not Given Q8HR FREDERICK Hydralazine HCl 10 mg 12/31/24 08:48 01/03/25 08:47 Hydralazine Inj 20 Mg/Ml Vial IVP 01/30/25 08:47 10 mg Q4HR PRN Administration hypertension Lactated Ringer's 1,000 mls @ 75 mls/hr 12/31/24 05:30 01/03/25 01:58 Lactated Ringers IV 01/30/25 05:29 75 mls/hr .[id number] FREDERICK Administration Albumin Human 12.5 gm in 250 mls @ 100 mls/hr 12/31/24 05:21 01/03/25 11:12 Albuminar-5 Ivpb IV 01/04/25 05:20 100 mls/hr QDAY FREDERICK Administration Ceftriaxone Sodium/Dextrose 1 gm in 50 mls @ 100 mls/hr 01/01/25 22:27 01/03/25 08:46 Rocephin/D5w 1gm Iv Premix IV 01/08/25 22:26 100 mls/hr QDAY FREDERICK Administration Lorazepam 0.5 mg 01/03/25 13:39 Lorazepam 0.5 Mg Tablet PO 01/08/25 13:38 Q4HR PRN CIWA Score 2-6 Lorazepam 1 mg 01/03/25 13:39 Lorazepam 0.5 Mg Tablet PO 01/08/25 13:38 Q4HR PRN CIWA SCORE 7-11 Lorazepam 2 mg 01/03/25 13:39 Lorazepam 0.5 Mg Tablet PO 01/08/25 13:38 Q4HR PRN CIWA SCORE 12-15 Metoprolol Succinate 25 mg 01/03/25 12:00 01/03/25 12:13 Metoprolol Succinate Xl 25 Mg Tabcr PO 02/02/25 11:59 25 mg QDAY FREDERICK Administration Mirtazapine 15 mg 01/02/25 21:00 01/02/25 20:25 Mirtazapine 15 Mg Tablet PO 02/01/25 20:59 15 mg HS FREDERICK Administration Nicotine 14 mg 12/31/24 18:45 01/03/25 08:49 Nicotine Patch 14 Mg/24 Hr Patch.Td24 TOP 01/30/25 18:44 14 mg QDAY FREDERICK Administration Ondansetron HCl 4 mg 12/31/24 05:17 Ondansetron Inj 2 Mg/Ml Inj 2 Ml IVP 01/30/25 05:16 Q6H PRN NAUSEA OR VOMITING Protocol Potassium Phos/Sodium Phos 1 packet 01/01/25 09:00 01/03/25 08:50 Naph,[facility] Mb[facility] 1 Packet (1.5 Gm) PO 01/31/25 08:59 1 packet BID FREDERICK Administration Thiamine HCl 100 mg 12/31/24 09:00 01/03/25 08:48 Thiamine Inj 100 Mg/Ml Vial 2 Ml IVP 01/30/25 08:59 100 mg QDAY FREDERICK Administration Plan Patient is a 44-year-old male with past medical history of alcohol use disorder, schizophrenia and BMI 11.5 was admitted to the hospital on 12/31/2024 for failure to thrive, being debilitated and family unable to feed him. #Failure to thrive #Underweight, BMI 11.5 #Dysphagia -Monitor electrolytes, Mg, and phosphorus -EGD(01/01/2025): Esophagitis, gastritis with erythema, esophageal ulcers. Will benefit from placement of a PEG tube for nutritional support. -Placement of PEG tube discussed with the patient but the patient refused. -Referral to physical therapy. #History of Alcohol use disorder #Mild Transaminitis Has had multiple admissions for alcohol use disorder, latest last week. Reports last drink was last week; however patient is unreliable historian. -AST 47, ALT 18, ALP 103, Total bili 0.6 -Consider Ativan 0.5 mg po. If needed -Continue thiamine and folate -CIWA ordered #Leukocytosis #UTI Remains afebrile. Patient denies dysuria but UA 7/3 positive for nitrates and leukocyte esterase, WBC 696, 1+ bacteria. Blood culture negative. Repeat CXR (01/01/2025) negative for aspiration pneumonia. -Current WBC level downtrending to 7.9 from 12.0 -Continue IV ceftriaxone -Consider respiratory panel -Urine Culture: Gram Negative Perez #Sinus tachcardia -Possible alcohol use VS malnutrition -EKG ordered -Metoprolol 25mg PO qd ordered #Nicotine use disorder -Nicotine patch qd Assessment and plan discussed with my attending physician Dr. Staci Gabriel (PGY-1)- Internal medicine resident Health Maintenance Disposition: Telemetry DVT prophylaxis: Heparin GI prophylaxis: none Diet: NPO after midnight, resume dysphagia diet 2 after procedure CODE STATUS: Full code
--- NOTE | 2025-01-03 16:31 | PC.SS ---
Robbin Jaramillo is a 44- year old ?male admitted to [facility] for Failure to Thrive. SW made contact with pt at bedside. Pt was alert and 1x oriented as unable to answer basic questions such as where he was, day of week etc. Pt was able to give authorization to call Connor Jaramillo, brother, ?[phone]? and decision maker. Pt is unable to communicate effectively. Role and reason for the contact was explained to Connor Demographic information was verified with Connor. Connor pt verified resides at address on facesheet and telephone number is correct. Pt lives with his mother and Connor lives next door. Connor stated pt passed 3 months ago due to ?same thing as Robbin, alcohol consumption.? Connor stated he is unsure how much Robbin drinks just knows it is a lot. Pt has 2 children 18 year old son and 11 yearold daughter. Family struggles to try and help pt as he does not want to help himself; pt has been dx with mental health of schizophrenia and refuses to take medication or any medication prescribed. Pt last saw Dr. Martine Man sometime ago as Connor is not positive when last seen. Pt can complete ADLs when feels like it but mostly pt will not take care of himself nor will pt eat. Pt does not have DMEs. Family preference is for pt to go to [facility] as pt has been there before. PT has recommended SNF. SS will remain available for discharge instructions. No further intervention required at this time, social media intern would be available to address any further concerns. DC Plan: SNF PCP: Dr. Martine Man Emergency Contact: Connor Jaramillo, brother, ?[phone]? Address: Confirmed on face sheet
--- NOTE | 2025-01-03 16:33 | PC.SS ---
SS provided referral for all 5 SNF via [facility]; waiting for decision; preference is [place]
--- NOTE | 2025-01-03 18:04 | PD.IMPROG ---
Documentation for date of: 01/03/25 Subjective Subjective Interval history: Patient evaluated He absolutely does not want the PEG tube Exam Vital Signs Temp Pulse Resp BP Pulse Ox O2 Del Method O2 Flow Rate 97.6 F 109 H 19 121/94 H 99 Room Air 1 01/03/25 16:00 01/03/25 17:04 01/03/25 16:00 01/03/25 16:00 01/03/25 16:00 01/03/25 16:00 01/02/25 12:00 Objective Labs 01/03/25 08:20 01/03/25 08:20 Labs: Laboratory Results - last 24 hr 01/03/25 08:20 WBC 7.9 RBC 2.97 L Hgb 9.7 L Hct 27.2 L MCV 92 MCH 32.7 MCHC 35.7 RDW Std Deviation 47.5 H Plt Count 262 D Neut % (Auto) 77 Lymph % (Auto) 14 [place] % (Auto) 6 Eos % (Auto) 1 Baso % (Auto) 0 Neut # (Auto) 6.1 Lymph # (Auto) 1.1 [place] # (Auto) 0.4 Eos # (Auto) 0.1 Baso # (Auto) 0.0 Immature Gran # (Auto) 0.17 H Absolute Nucleated RBC 0.00 Immature Gran % 2 H Nucleated RBC % 0 Sodium 142 Potassium 3.5 Chloride 107 Carbon Dioxide 25.9 Anion Gap 9 BUN < 5 L Creatinine 0.5 L Estim Creat Clear Calc 93.9 eGFR > 60 BUN/Creatinine Ratio 10 L Glucose 125 H Calculated Osmolality 281 Calcium 7.9 L Corrected Calcium 8.9 Phosphorus 3.5 Magnesium 1.6 Total Bilirubin 0.6 AST 47 H ALT 18 Alkaline Phosphatase 103 D Total Protein 5.1 L Albumin 2.7 L Globulin 2.4 Albumin/Globulin Ratio 1.1 L Impressions Impression: Failure to thrive Patient refusing placement of a PEG tube Advance diet as tolerated Assessment & Plan A&P Narrative # Failure to thrive # Dysphagia Plan Fiberoptic esophagogastroduodenoscopy with possible biopsy possible therapeutic intervention under intravenous moderate sedation N.p.o. midnight tonight Further follow-up after above Will hold off PEG placement Thank you very much for the opportunity to participate in the care of this patient Time Spent With Patient Time: Total time spent is greater than 50% in coordination of care (as documented) at patient's floor/unit and/or counseling patient:
[2025-01-03] MEDS: MIRTAZAPINE 15 MG TABLET PO (21:43)
[2025-01-04] VITALS (11 sets, daily range): BP systolic 116–140; BP diastolic 83–106; PULSE 101–115; RESP 15–20; TEMP 36.2–36.7; O2SAT 94–99
[2025-01-04] MEDS: NAPH,KPH MBDB 1 PACKET (1.5 GM) PO ×2 (09:54→21:00)
[2025-01-04] MEDS: NICOTINE PATCH 14 MG/24 HR PATCH.TD24 TOP (09:54)
[2025-01-04] MEDS: cefTRIAXone/D5w 1gm IV premix 1 GM/50 ML BAG IV (09:54)
[2025-01-04] MEDS: METOPROLOL SUCCINATE XL 25 MG TABCR PO ×2 (09:56→11:46)
[2025-01-04] MEDS: THIAMINE INJ 100 MG/ML VIAL 2 ML IVP (09:57)
--- NOTE | 2025-01-04 11:13 | ESPR_ITS ---
<Statement entered by Taniya Small MD - 01/09/25 11:44> I reviewed above note and agree with findings and plans. I have also personally examined the patient with medicine team and went over assessment and plan with medical team including regulatory intern and resident physician. Documentation for date of: 01/04/25 Subjective Subjective Interval history: Senior attestation: Patient examined at bedside patient continues to be altered. Last CIWA score on 12/31/2024 2. Patient is continuing to drink as an outpatient. WBC count down trended blood culture negative after 48 hours, urine culture noted for E. coli--> consider transition to cefuroxime as an outpatient to complete 5 days of antibiotics until 01/06/2025. Patient previously lived at home with brother, unable to care for him. Given patient's tachycardia patient was started on metoprolol succinate 25 mg p.o. x 1 transition to metoprolol succinate XL 50 mg p.o. daily. Pending SNF considering [facility] possible bed on Saturday versus [facility] transitional versus [facility]. If sinus tachycardia overnight consider metoprolol to tartrate 5 mg IV push x 2 if blood pressure permits. Patient was seen and examined at bedside. A.m. vitals and labs reviewed. Patient is awake and alert. When asked what was the last thing he remembers before going drowsy he noted that he was out of breath and cannot remember what may have caused it. He is against using a PEG placement. Overnight he showed slight confusion. Refused to draw any labs. Patient denies chest pain, shortness of breath, headaches ,vision loss, numbness, or hallucinations. Exam Vital Signs Temp Pulse Resp BP Pulse Ox O2 Del Method O2 Flow Rate 97.6 F 110 H 18 132/96 H 99 Room Air 1 01/04/25 08:00 01/04/25 09:56 01/04/25 08:00 01/04/25 09:56 01/04/25 08:00 01/04/25 08:00 01/02/25 12:00 Narrative Exam General: Awake and in no acute distress. Cachectic. Conversational. Appears to be confabulating. HEENT: Normocephalic, atraumatic, mucous membranes moist. Heart: Slightly tachycardic. Regular rate and rhythm, normal S1 and S2, no murmurs appreciated. Lungs: Clear to auscultation with no wheezing or crackles. Abdomen: Soft, nondistended. RUQ tenderness on palpation, positive bowel sounds. No guarding or rebound tenderness. Neurologic: AOx3, no gross neurological deficit, and patient able to move all 4 extremities. Extremities: No edema. multiple small lacerations, Mild resting tremors Skin: No rash or ecchymoses. Objective Labs 01/03/25 08:20 01/03/25 08:20 Quality Measures Quality Measures none Assessment & Plan Assessment Current Active Medications: Generic Name Dose Route Start Last Admin Trade Name Freq PRN Reason Stop Dose Admin Acetaminophen 650 mg 12/31/24 05:17 Acetaminophen 325 Mg Tablet PO 01/30/25 05:16 Q6H PRN pain 1-3 &/or fever >100.1 Ferrous Sulfate 325 mg 12/31/24 08:00 12/31/24 10:01 Ferrous Sulf 325 Mg Tablet PO 01/30/25 07:59 Not Given QOD FREDERICK Heparin Sodium (Porcine) 5,000 unit 12/31/24 06:00 01/04/25 05:48 Heparin Sod Inj 5000 Unit/Ml Vial SC 01/14/25 05:59 Not Given Q8HR FREDERICK Hydralazine HCl 10 mg 12/31/24 08:48 01/03/25 08:47 Hydralazine Inj 20 Mg/Ml Vial IVP 01/30/25 08:47 10 mg Q4HR PRN Administration hypertension Ceftriaxone Sodium/Dextrose 1 gm in 50 mls @ 100 mls/hr 01/01/25 22:27 01/04/25 09:54 Rocephin/D5w 1gm Iv Premix IV 01/08/25 22:26 100 mls/hr QDAY FREDERICK Administration Lorazepam 0.5 mg 01/03/25 13:39 Lorazepam 0.5 Mg Tablet PO 01/08/25 13:38 Q4HR PRN CIWA Score 2-6 Lorazepam 1 mg 01/03/25 13:39 Lorazepam 0.5 Mg Tablet PO 01/08/25 13:38 Q4HR PRN CIWA SCORE 7-11 Lorazepam 2 mg 01/03/25 13:39 Lorazepam 0.5 Mg Tablet PO 01/08/25 13:38 Q4HR PRN CIWA SCORE 12-15 Metoprolol Succinate 50 mg 01/05/25 09:00 Metoprolol Succinate Xl 25 Mg Tabcr PO 02/04/25 08:59 QDAY FREDERICK Mirtazapine 15 mg 01/02/25 21:00 01/03/25 21:43 Mirtazapine 15 Mg Tablet PO 02/01/25 20:59 15 mg HS FREDERICK Administration Nicotine 14 mg 12/31/24 18:45 01/04/25 09:54 Nicotine Patch 14 Mg/24 Hr Patch.Td24 TOP 01/30/25 18:44 14 mg QDAY FREDERICK Administration Ondansetron HCl 4 mg 12/31/24 05:17 Ondansetron Inj 2 Mg/Ml Inj 2 Ml IVP 01/30/25 05:16 Q6H PRN NAUSEA OR VOMITING Protocol Potassium Phos/Sodium Phos 1 packet 01/01/25 09:00 01/04/25 09:54 Naph,[facility] Mbdb 1 Packet (1.5 Gm) PO 01/31/25 08:59 1 packet BID FREDERICK Administration Thiamine HCl 100 mg 12/31/24 09:00 01/04/25 09:57 Thiamine Inj 100 Mg/Ml Vial 2 Ml IVP 01/30/25 08:59 100 mg QDAY FREDERICK Administration Plan Patient is a 44-year-old male with past medical history of alcohol use disorder, schizophrenia and BMI 11.5 was admitted to the hospital on 12/31/2024 for failure to thrive, being debilitated and family unable to feed him. #Failure to thrive #Underweight, BMI 11.5 #Dysphagia -Monitor electrolytes, Mg, and phosphorus -EGD(01/01/2025): Esophagitis, gastritis with erythema, esophageal ulcers. Will benefit from placement of a PEG tube for nutritional support. -Placement of PEG tube discussed with the patient but the patient refused. -Miratazipine 15 mg PO HS -Referral to physical therapy, recommended SNF #History of Alcohol use disorder #Mild Transaminitis Has had multiple admissions for alcohol use disorder, latest last week. Reports last drink was last week; however patient is unreliable historian. -AST 47, ALT 18, ALP 103, Total bili 0.6 -Consider Ativan 0.5 mg po. If needed -Continue thiamine and folate -CIWA ordered #Leukocytosis #UTI Remains afebrile. Patient denies dysuria but UA 7/3 positive for nitrates and leukocyte esterase, WBC 696, 1+ bacteria. Blood culture negative. Repeat CXR (01/01/2025) negative for aspiration pneumonia. -WBC level downtrending to 7.9 from 12.0 (No current lab because patient refused to draw any labs) -Urine Culture:E.Coli Plan: -Ceftriaxone (01/01/2025-01/06/2025, complete 5 day course of antibiotics #Sinus tachcardia -Possible alcohol use VS malnutrition Plan: -Metoprolol 25mg PO qd ordered today. Will continue with metoprolol 50mg PO qd 01/04/2025 -consider metoprolol tartrate push if sinus tachycardia overnight. #Nicotine use disorder -Nicotine patch qd Health Maintenance Disposition: Telemetry DVT prophylaxis: Heparin GI prophylaxis: none Diet: NPO after midnight, resume dysphagia diet 2 after procedure CODE STATUS: Full code Assessment and plan discussed with my attending physician Dr. Small and Dr. Manning (PGY-2) Dr. Gabriel (PGY-1)- Internal medicine resident - The patient's plan was discussed with attending Dr. Staci Manning MD PGY2 Internal Medicine
--- NOTE | 2025-01-04 14:48 | PC.CC ---
PASRR Level 1 complete and downloaded; will require Level 2 clearance.
--- NOTE | 2025-01-04 15:55 | PC.SS ---
SS followed up with brother to discuss d/c. Pt is confused. Brother is requesting SNF and his choice is [facility]. SS followed up with Sushma from [facility] who explained they do not have male beds available and is aware brother is requesting [facility], Trish from [facility] explained she possibly will have male bed on Saturday, [facility], Liz jose[facility] is reviewing inquiry, and [facility] (insurance is out of network).
--- NOTE | 2025-01-04 19:42 | PD.IMPROG ---
Documentation for date of: 01/04/25 Subjective Subjective Interval history: Failure to thrive patient still refusing PEG tube placement Exam Vital Signs Temp Pulse Resp BP Pulse Ox O2 Del Method O2 Flow Rate 98.1 F 111 H 18 138/97 H 95 Room Air 1 01/04/25 16:00 01/04/25 16:43 01/04/25 16:00 01/04/25 16:00 01/04/25 16:00 01/04/25 16:00 01/02/25 12:00 Objective Labs 01/03/25 08:20 01/03/25 08:20 Impressions Impression: Failure to thrive Recommend PEG placement but patient is still refusing Assessment & Plan A&P Narrative # Failure to thrive # Dysphagia Plan Fiberoptic esophagogastroduodenoscopy with possible biopsy possible therapeutic intervention under intravenous moderate sedation N.p.o. midnight tonight Further follow-up after above Will hold off PEG placement Thank you very much for the opportunity to participate in the care of this patient Time Spent With Patient Time: Total time spent is greater than 50% in coordination of care (as documented) at patient's floor/unit and/or counseling patient:
[2025-01-04] MEDS: MIRTAZAPINE 15 MG TABLET PO (21:00)
[2025-01-05] VITALS (10 sets, daily range): BP systolic 108–121; BP diastolic 59–96; PULSE 66–107; RESP 12–19; TEMP 35.9–36.2; O2SAT 95–99; BMI 12.0
[2025-01-05] MEDS: NAPH,KPH MBDB 1 PACKET (1.5 GM) PO ×2 (08:51→20:04)
[2025-01-05] MEDS: cefTRIAXone/D5w 1gm IV premix 1 GM/50 ML BAG IV (08:51)
[2025-01-05] MEDS: THIAMINE INJ 100 MG/ML VIAL 2 ML IVP (08:51)
[2025-01-05] MEDS: NICOTINE PATCH 14 MG/24 HR PATCH.TD24 TOP (08:51)
[2025-01-05] MEDS: METOPROLOL SUCCINATE XL 25 MG TABCR 50 MG PO (08:52)
--- NOTE | 2025-01-05 11:19 | PC.SS ---
SS has sent SNF inquiry outside the area (120 mile radius from [place]) using [facility]. SS received call from Gertrudis at [facility], phone# [phone] who explained they can accept pt but requires insurance authorization. SS has sent PASRR using [facility]. SS met with pt's brother and his son who are agreeable to [facility] for short term rehab.
--- NOTE | 2025-01-05 11:24 | PD.RESPRO ---
Documentation for date of: 01/05/25 Exam Vital Signs Temp Pulse Resp BP Pulse Ox O2 Del Method O2 Flow Rate 96.9 F 92 19 112/90 H 99 Room Air 1 01/05/25 08:00 01/05/25 08:52 01/05/25 08:00 01/05/25 08:52 01/05/25 08:00 01/05/25 08:00 01/02/25 12:00 Objective Labs 01/03/25 08:20 01/03/25 08:20 Quality Measures Quality Measures none Assessment & Plan Assessment Current Active Medications: Generic Name Dose Route Start Last Admin Trade Name Freq PRN Reason Stop Dose Admin Acetaminophen 650 mg 12/31/24 05:17 Acetaminophen 325 Mg Tablet PO 01/30/25 05:16 Q6H PRN pain 1-3 &/or fever >100.1 Ferrous Sulfate 325 mg 12/31/24 08:00 12/31/24 10:01 Ferrous Sulf 325 Mg Tablet PO 01/30/25 07:59 Not Given QOD FREDERICK Heparin Sodium (Porcine) 5,000 unit 12/31/24 06:00 01/05/25 06:05 Heparin Sod Inj 5000 Unit/Ml Vial SC 01/14/25 05:59 Not Given Q8HR FREDERICK Hydralazine HCl 10 mg 12/31/24 08:48 01/03/25 08:47 Hydralazine Inj 20 Mg/Ml Vial IVP 01/30/25 08:47 10 mg Q4HR PRN Administration hypertension Ceftriaxone Sodium/Dextrose 1 gm in 50 mls @ 100 mls/hr 01/01/25 22:27 01/05/25 08:51 Rocephin/D5w 1gm Iv Premix IV 01/08/25 22:26 100 mls/hr QDAY FREDERICK Administration Lorazepam 0.5 mg 01/03/25 13:39 Lorazepam 0.5 Mg Tablet PO 01/08/25 13:38 Q4HR PRN CIWA Score 2-6 Lorazepam 1 mg 01/03/25 13:39 01/05/25 02:10 Lorazepam 0.5 Mg Tablet PO 01/08/25 13:38 1 mg Q4HR PRN Administration CIWA SCORE 7-11 Lorazepam 2 mg 01/03/25 13:39 Lorazepam 0.5 Mg Tablet PO 01/08/25 13:38 Q4HR PRN CIWA SCORE 12-15 Metoprolol Succinate 50 mg 01/05/25 09:00 01/05/25 08:52 Metoprolol Succinate Xl 25 Mg Tabcr PO 02/04/25 08:59 50 mg QDAY FREDERICK Administration Mirtazapine 15 mg 01/02/25 21:00 01/04/25 21:00 Mirtazapine 15 Mg Tablet PO 02/01/25 20:59 15 mg HS FREDERICK Administration Nicotine 14 mg 12/31/24 18:45 01/05/25 08:51 Nicotine Patch 14 Mg/24 Hr Patch.Td24 TOP 01/30/25 18:44 14 mg QDAY FREDERICK Administration Ondansetron HCl 4 mg 12/31/24 05:17 Ondansetron Inj 2 Mg/Ml Inj 2 Ml IVP 01/30/25 05:16 Q6H PRN NAUSEA OR VOMITING Protocol Potassium Phos/Sodium Phos 1 packet 01/01/25 09:00 01/05/25 08:51 Naph,[facility] Mbdb 1 Packet (1.5 Gm) PO 01/31/25 08:59 1 packet BID FREDERICK Administration Thiamine HCl 100 mg 12/31/24 09:00 01/05/25 08:51 Thiamine Inj 100 Mg/Ml Vial 2 Ml IVP 01/30/25 08:59 100 mg QDAY FREDERICK Administration
[2025-01-05] MEDS: HEPARIN SOD INJ 5000 UNIT/ML VIAL SC (14:23)
--- NOTE | 2025-01-05 14:30 | ESDS_ITS ---
<Statement entered by Taniya Small MD - 01/09/25 11:47> I reviewed above note and agree with findings and plans. I have also personally examined the patient with medicine team and went over assessment and plan with medical team including internal grinder and resident physician. Planned Discharge Date 01/06/25 DS: Providers Provider Date of admission: 12/31/24 06:16 Primary care physician: Martine Man PA-C Admitting Provider: Reynaldo Fuller MD Attending Provider on Admission: Taniya Small MD Consults: 12/31/24 05:20 Referral Registered Dietitian Stat Comment: 12/31/24 05:23 Referral Physical Therapy Stat Comment: Physician Instructions: Referral Speech Therapy Stat Comment: 12/31/24 07:58 Consult to Gastroenterology Routine Comment: Failure to thrive Consulting Provider: Jonnathan Gamboa 01/03/25 11:58 Referral Physical Therapy Routine Comment: Physician Instructions: 01/04/25 08:11 Referral Wound Care Routine Comment: Attending Provider on DC: RESIDENT Maria T Discharging Provider: RESIDENT Maria T DS: Diagnosis Problem List Completed Was Problem List Reviewed/Reconciled?: Yes Hospital Course Hospital Course Hospital course: Patient is a 44-year-old male with past medical history of alcohol use disorder and failure to thrive, BMI 11.5. Was admitted to the hospital on 12/31/2024 wit h failure to thrive, being debilitated and family unable to feed him. Patient's EGD noted for esophagitits, denied PEG tube, and given sinus tachycardia Metoprolol XL started. History of alcohol use diosrder, started on CIWA protocals. NO history of schizophrenia, per PCP. ED course: In ED, BP 120/78, HR 120, Hgb 10.1 at baseline, K 3.3, lactic acid 4.7, ammonia 33, procal 0.23, T bili 1.9, AST 39, ALT 15, alcohol <3. In ED, given 1 L of NS and lorazepam 1 mg. Hospital Course: Concern for failure to thrive, given BMI 11.1 on admission, patient oral has poor oral intake. Patient continues to drink despite repeated counseling of remaining abstinent. Mirtazapine started 15 mg orally oncea daily. Gastroenterology consulted, EGD unremarkable, with diffuse esophagitits. Patient refused PEG tube. UA positive and Urine culture positive, patient treated with antibiotics, ceftriaxone. Patient continues to consume alcoholic beverages, concern for alcohol withdrawn given altered Started on thiamine 100 mg QD, LR 75 m/lr and albumin 5% 12.5 gm. CXR at the time was negative for aspiration pneumonia. Patient was tachycardic, so metoprolol 25mg PO qd was given and later increased to metoprolol 50mg PO qd. Levofloxacin PO was prescribed at the time of discharge. Spoke with PCP, no history of schizophrenia reported. #Failure to thrive #Underweight, BMI 11.5 #DysphagiaP #History of Alcohol use disorder #Mild Transaminitis #Leukocytosis, improving #UTI #Sinus tachcardia #Nicotine use disorder Instructions: -Take levofloxacin antibiotic for urinary tract infection for 3 more days -You metoprolol succinate 25 mg once daily for fast heart rate, hold if systolic blood pressure less than 120 -Mirtazapine 15 mg once daily for appetite stimulation -Taking all medications as prescribed -Please follow up with your primary care provider within one week of discharge -If your symptoms worsen,please seek immediate medical attention and return to your nearest emergency room -If you do not have a primary care provider, you may follow up at the [facility] at [address] [place] [address] [address], [place] [address], Safe to Discharge to Intermediate Facility. Assessment and plan discussed with my attending physician Dr. Small and Dr. Manning (PGY-2) Dr. Gabriel (PGY-1)- Internal medicine resident - The patient's plan was discussed with attending Dr. Staci Manning MD PGY2 Internal Medicine Time Spent with Patient Time attestation: Total time spent providing and/or coordinating discharge services: Time spent: Greater than 30 minutes Exam Vital Signs Temp Pulse Resp BP Pulse Ox O2 Del Method O2 Flow Rate 97.1 F 90 18 112/59 L 95 Room Air 1 01/05/25 12:01/05/25 12:01/05/25 12:01/05/25 12:01/05/25 12:01/05/25 12:01/02/25 12:00 Narrative Exam General: Awake and in no acute distress. Cachectic. Conversational. Appears to be confabulating. HEENT: Normocephalic, atraumatic, mucous membranes moist. Heart: Slightly tachycardic. Regular rate and rhythm, normal S1 and S2, no murmurs appreciated. Lungs: Clear to auscultation with no wheezing or crackles. Abdomen: Soft, nondistended. RUQ tenderness on palpation, positive bowel sounds. No guarding or rebound tenderness. Neurologic: AOx3, no gross neurological deficit, and patient able to move all 4 extremities. Extremities: No edema. multiple small lacerations, Mild resting tremors Skin: No rash or ecchymoses. Discharge Plan Problem List Was Problem List Reviewed/Reconciled?: Yes Plan Patient Disposition: Xfer Skilled Nsg Fac (SNF) Disposition Comment: dc to SNF Patient condition on transfer: Stable Care Plan Goals: Instructions: -Safe to Discharge to Intermediate Facility. -Take levofloxacin antibiotic for urinary tract infection for 3 more days -You metoprolol succinate 25 mg once daily for fast heart rate, hold if systolic blood pressure less than 120 -Mirtazapine 15 mg once daily for appetite stimulation -Taking all medications as prescribed -Please follow up with your primary care provider within one week of discharge -If your symptoms worsen,please seek immediate medical attention and return to your nearest emergency room -If you do not have a primary care provider, you may follow up at the [facility] at [address], [place] [address], Prescriptions/Referrals Prescriptions/Med Rec: New nicotine 14 mg/24 hr Patch 24 Hour 14 mg top QDAY 28 Days Qty: 28 0RF mirtazapine 15 mg Tablet 15 mg PO HS 30 Days Qty: 30 0RF metoprolol succinate 25 mg Tablet Extended Release 24 Hr 50 mg PO QDAY 30 Days Qty: 60 0RF levofloxacin 500 mg tablet 500 mg PO QDAY 3 Days Qty: 3 0RF Continued thiamine HCl (vitamin B1) 100 mg tablet 100 mg PO QDAY Qty: 180 0RF folic acid 1 mg tablet 1 mg PO QDAY Qty: 30 0RF Discontinued albuterol sulfate 90 mcg/actuation HFA aerosol inhaler 2 puff INHALATION Q4H PRN (Reason: shortness of breath or wheezing) Patient Comments: TAKE 2 PUFFS BY MOUTH EVERY 4 HOURS FOR SHORTNESS OF BREATH Referrals: Maritne Man PA-C [Primary Care Provider] - Patient/Caregiver Discharge Instructions Education Materials: Alcohol Withdrawal: What to Expect Print Language: Bengali Stand Alone Forms: Verena Award Info., Patient Portal Info Letter Discharge Order Discharge Orders: Discharge (Routine); Ordered 01/05/25 Ordered By: Veda Manning Quality Discharge Quality Measures VTE prophylaxis
--- NOTE | 2025-01-05 15:27 | PC.SS ---
SS has sent d/c orders and d/c summary to [facility] and to patient's health insurance, [employer] fax# [phone]. SS has spoken to Megan from [facility] who explained she is working on insurance authorization.
[2025-01-05] MEDS: MIRTAZAPINE 15 MG TABLET PO (20:04)
--- NOTE | 2025-01-05 21:50 | PD.IMPROG ---
Documentation for date of: 01/05/25 Subjective Subjective Interval history: Poor intake Refusing still PEG placement Exam Vital Signs Temp Pulse Resp BP Pulse Ox O2 Del Method O2 Flow Rate 96.6 F L 83 12 108/76 97 Room Air 1 01/05/25 20:00 01/05/25 20:00 01/05/25 20:00 01/05/25 20:00 01/05/25 20:00 01/05/25 20:00 01/02/25 12:00 Objective Labs 01/03/25 08:20 01/03/25 08:20 Impressions Impression: Failure to thrive Highly recommend PEG placement when and if the patient agrees Assessment & Plan A&P Narrative # Failure to thrive # Dysphagia Plan Fiberoptic esophagogastroduodenoscopy with possible biopsy possible therapeutic intervention under intravenous moderate sedation N.p.o. midnight tonight Further follow-up after above Will hold off PEG placement Thank you very much for the opportunity to participate in the care of this patient Time Spent With Patient Time: Total time spent is greater than 50% in coordination of care (as documented) at patient's floor/unit and/or counseling patient:
[2025-01-06] VITALS (8 sets, daily range): BP systolic 91–146; BP diastolic 58–98; PULSE 66–85; RESP 15–17; TEMP 36–36.1; O2SAT 90–94
[2025-01-06] MEDS: HEPARIN SOD INJ 5000 UNIT/ML VIAL SC ×2 (05:07→14:54)
[2025-01-06] MEDS: THIAMINE INJ 100 MG/ML VIAL 2 ML IVP (08:22)
[2025-01-06] MEDS: METOPROLOL SUCCINATE XL 25 MG TABCR 50 MG PO (08:22)
[2025-01-06] MEDS: NICOTINE PATCH 14 MG/24 HR PATCH.TD24 TOP (08:22)
[2025-01-06] MEDS: cefTRIAXone/D5w 1gm IV premix 1 GM/50 ML BAG IV (08:22)
[2025-01-06] MEDS: NAPH,KPH MBDB 1 PACKET (1.5 GM) PO (08:23)
--- NOTE | 2025-01-06 10:38 | PC.SS ---
Follow up note: AYDEE received call [facility] sales representative who is requesting updated PT notes be faxed to [phone]. AYDEE has faxed updated information and [facility]ci is aware [facility] accepted. Insurance authorization is pending.
[2025-01-06] MEDS: POLYETHYLENE GLYCOL 17 GM PACKET PO (12:31)
--- NOTE | 2025-01-06 15:19 | PC.SS ---
AYDEE followed up with Nicci at [facility] [phone] who is reviewing PT information which was faxed this morning. AYDEE has provided Nicci with [facility]rud[facility] (admissions from [facility]) phone #. AYDEE attempted to call Gertrudis 2X but was only able to leave voicemail.
--- NOTE | 2025-01-06 15:55 | PD.RESDS ---
Planned Discharge Date 01/06/25 ------- Patient felt discharge on 01/05/2025 secondary to insurance authorization for SNF placement. Patient with a past medical history of alcohol use disorder and failure to thrive with the BMI on admission 11.5 kg/m?. Continue following and B1 vitamin. Continue antibiotic for urinary tract infection. Mirtazapine for hunger stimulation. Metoprolol succinate 25 mg daily for sinus tachycardia DS: Providers Provider Date of admission: 12/31/24 06:16 Primary care physician: Martine Man PA-C Admitting Provider: Reynaldo Fuller MD Attending Provider on Admission: Taniya Small MD Consults: 12/31/24 05:20 Referral Registered Dietitian Stat Comment: 12/31/24 05:23 Referral Physical Therapy Stat Comment: Physician Instructions: Referral Speech Therapy Stat Comment: 12/31/24 07:58 Consult to Gastroenterology Routine Comment: Failure to thrive Consulting Provider: Jonnathan Gamboa 01/03/25 11:58 Referral Physical Therapy Routine Comment: Physician Instructions: 01/04/25 08:11 Referral Wound Care Routine Comment: Attending Provider on DC: RESIDENT Maria T Discharging Provider: RESIDENT Maria T DS: Diagnosis Problem List Completed Was Problem List Reviewed/Reconciled?: Yes Hospital Course Hospital Course Hospital course: Patient is a 44-year-old male with past medical history of alcohol use disorder and failure to thrive, BMI 11.5. Was admitted to the hospital on 12/31/2024 with failure to thrive, being debilitated and family unable to feed him. Patient's EGD noted for esophagitits, denied PEG tube, and given sinus tachycardia Metoprolol XL started. History of alcohol use diosrder, started on CIWA protocals. NO history of schizophrenia, per PCP. ED course: In ED, BP 120/78, HR 120, Hgb 10.1 at baseline, K 3.3, lactic acid 4.7, ammonia 33, procal 0.23, T bili 1.9, AST 39, ALT 15, alcohol <3. In ED, given 1 L of NS and lorazepam 1 mg. Hospital Course: Concern for failure to thrive, given BMI 11.1 on admission, patient oral has poor oral intake. Patient continues to drink despite repeated counseling of remaining abstinent. Mirtazapine started 15 mg orally oncea daily. Gastroenterology consulted, EGD unremarkable, with diffuse esophagitits. Patient refused PEG tube. UA positive and Urine culture positive, patient treated with antibiotics, ceftriaxone. Patient continues to consume alcoholic beverages, concern for alcohol withdrawn given altered Started on thiamine 100 mg QD, LR 75 m/lr and albumin 5% 12.5 gm. CXR at the time was negative for aspiration pneumonia. Patient was tachycardic, so metoprolol 25mg PO qd was given and later increased to metoprolol 50mg PO qd. Levofloxacin PO was prescribed at the time of discharge. Spoke with PCP, no history of schizophrenia reported. #Failure to thrive #Underweight, BMI 11.5 #DysphagiaP #History of Alcohol use disorder #Mild Transaminitis #Leukocytosis, improving #UTI #Sinus tachcardia #Nicotine use disorder Instructions: -Take levofloxacin antibiotic for urinary tract infection for 2 more days -You metoprolol succinate 25 mg once daily for fast heart rate, hold if systolic blood pressure less than 120 -Mirtazapine 15 mg once daily for appetite stimulation -Taking all medications as prescribed -Please follow up with your primary care provider within one week of discharge -If your symptoms worsen,please seek immediate medical attention and return to your nearest emergency room -If you do not have a primary care provider, you may follow up at the [facility] at [address] [place] [address] [address], [place] [address], Safe to Discharge to Senior Living Facility. Assessment and plan discussed with my attending physician Dr. Small and Dr. Manning (PGY-2) Dr. Gabriel (PGY-1)- Internal medicine resident - The patient's plan was discussed with attending Dr. Staci Manning MD PGY2 Internal Medicine Time Spent with Patient Time attestation: Total time spent providing and/or coordinating discharge services: Time spent: Greater than 30 minutes Exam Vital Signs Temp Pulse Resp BP Pulse Ox O2 Del Method O2 Flow Rate 97.0 F 78 17 91/58 L 94 L Room Air 1 01/06/25 12:00 01/06/25 12:38 01/06/25 12:00 01/06/25 12:00 01/06/25 12:00 01/06/25 12:00 01/02/25 12:00 Discharge Plan Problem List Was Problem List Reviewed/Reconciled?: Yes Plan Patient Disposition: Xfer Skilled Nsg Fac (SNF) Disposition Comment: dc to SNF Patient condition on transfer: Stable Care Plan Goals: Instructions: -Safe to Discharge to Senior Living Facility. -Take levofloxacin antibiotic for urinary tract infection for 3 more days -You metoprolol succinate 25 mg once daily for fast heart rate, hold if systolic blood pressure less than 120 -Mirtazapine 15 mg once daily for appetite stimulation -Taking all medications as prescribed -Please follow up with your primary care provider within one week of discharge -If your symptoms worsen,please seek immediate medical attention and return to your nearest emergency room -If you do not have a primary care provider, you may follow up at the [facility] at [address] [place] [address] [address], [place] [address], Prescriptions/Referrals Prescriptions/Med Rec: New nicotine 14 mg/24 hr Patch 24 Hour 14 mg top QDAY 28 Days Qty: 28 0RF mirtazapine 15 mg Tablet 15 mg PO HS 30 Days Qty: 30 0RF metoprolol succinate 25 mg Tablet Extended Release 24 Hr 50 mg PO QDAY 30 Days Qty: 60 0RF levofloxacin 500 mg tablet 500 mg PO QDAY 3 Days Qty: 3 0RF Continued thiamine HCl (vitamin B1) 100 mg tablet 100 mg PO QDAY Qty: 180 0RF folic acid 1 mg tablet 1 mg PO QDAY Qty: 30 0RF Discontinued albuterol sulfate 90 mcg/actuation HFA aerosol inhaler 2 puff INHALATION Q4H PRN (Reason: shortness of breath or wheezing) Patient Comments: TAKE 2 PUFFS BY MOUTH EVERY 4 HOURS FOR SHORTNESS OF BREATH Referrals: Martine Man PA-C [Primary Care Provider] - Patient/Caregiver Discharge Instructions Education Materials: Alcohol Withdrawal: What to Expect Print Language: Swazi Stand Alone Forms: Verena Award Info., Patient Portal Info Letter Discharge Order Discharge Orders: Discharge (Routine); Ordered 01/05/25 Ordered By: Veda Manning Quality Discharge Quality Measures VTE prophylaxis
--- NOTE | 2025-01-06 16:06 | ESDS_ITS ---
<Statement entered by Taniya Small MD - 01/18/25 14:14> I reviewed above note and agree with findings and plans. I have also personally examined the patient with medicine team and went over assessment and plan with medical team including internist medical doctor md and resident physician. Planned Discharge Date 01/06/25 Patient felt discharge on 01/05/2025 secondary to insurance authorization for SNF placement. Patient with a past medical history of alcohol use disorder and failure to thrive with the BMI on admission 11.5 kg/m?. Continue following and B1 vitamin. Continue antibiotic for urinary tract infection. Mirtazapine for hunger stimulation. Metoprolol succinate 25 mg daily for sinus tachycardia DS: Providers Provider Date of admission: 12/31/24 06:16 Primary care physician: Martine Man PA-C Admitting Provider: Reynaldo Fuller MD Attending Provider on Admission: Taniya Small MD Consults: 12/31/24 05:20 Referral Registered Dietitian Stat Comment: 12/31/24 05:23 Referral Physical Therapy Stat Comment: Physician Instructions: Referral Speech Therapy Stat Comment: 12/31/24 07:58 Consult to Gastroenterology Routine Comment: Failure to thrive Consulting Provider: Jonnathan Gamboa 01/03/25 11:58 Referral Physical Therapy Routine Comment: Physician Instructions: 01/04/25 08:11 Referral Wound Care Routine Comment: Attending Provider on DC: RESIDENT Maria T Discharging Provider: RESIDENT Maria T DS: Diagnosis Problem List Completed Was Problem List Reviewed/Reconciled?: Yes Hospital Course Hospital Course Hospital course: Patient failed to discharge. Pending SNF placement. Continue all treatment as previous progressive note Patient is a 44-year-old male with past medical history of alcohol use disorder and failure to thrive, BMI 11.5. Was admitted to the hospital on 12/31/2024 with failure to thrive, being debilitated and family unable to feed him. Patient's EGD noted for esophagitits, denied PEG tube, and given sinus tachycardia Metoprolol XL started. History of alcohol use diosrder, started on CIWA protocals. NO history of schizophrenia, per PCP. ED course: In ED, BP 120/78, HR 120, Hgb 10.1 at baseline, K 3.3, lactic acid 4.7, ammonia 33, procal 0.23, T bili 1.9, AST 39, ALT 15, alcohol <3. In ED, given 1 L of NS and lorazepam 1 mg. Hospital Course: Concern for failure to thrive, given BMI 11.1 on admission, patient oral has poor oral intake. Patient continues to drink despite repeated counseling of remaining abstinent. Mirtazapine started 15 mg orally oncea daily. Gastroenterology consulted, EGD unremarkable, with diffuse esophagitits. Patient refused PEG tube. UA positive and Urine culture positive, patient treated with antibiotics, ceftriaxone. Patient continues to consume alcoholic beverages, concern for alcohol withdrawn given altered Started on thiamine 100 mg QD, LR 75 m/lr and albumin 5% 12.5 gm. CXR at the time was negative for aspiration pneumonia. Patient was tachycardic, so metoprolol 25mg PO qd was given and later increased to metoprolol 50mg PO qd. Levofloxacin PO was prescribed at the time of discharge. Spoke with PCP, no history of schizophrenia reported. #Failure to thrive #Underweight, BMI 11.5 #DysphagiaP #History of Alcohol use disorder #Mild Transaminitis #Leukocytosis, improving #UTI #Sinus tachcardia #Nicotine use disorder Instructions: -Take levofloxacin antibiotic for urinary tract infection for 2 more days -Take metoprolol succinate 25 mg once daily for fast heart rate, hold if systolic blood pressure less than 120 -Mirtazapine 15 mg once daily for appetite stimulation -Taking all medications as prescribed -Please follow up with your primary care provider within one week of discharge -If your symptoms worsen,please seek immediate medical attention and return to your nearest emergency room -If you do not have a primary care provider, you may follow up at the [facility] at [address] [place] [address] [address], [place] [address], Safe to Discharge to [facility]. Assessment and plan discussed with my attending physician Dr. Small and Dr. Manning (PGY-2) Dr. Gabriel (PGY-1)- Internal medicine resident - The patient's plan was discussed with attending Dr. Staci Manning MD PGY2 Internal Medicine Time Spent with Patient Time attestation: Total time spent providing and/or coordinating discharge services: at least thirty minutes of care and coordination. Time spent: Greater than 30 minutes Exam Vital Signs Temp Pulse Resp BP Pulse Ox O2 Del Method O2 Flow Rate 97.0 F 78 17 91/58 L 94 L Room Air 1 01/06/25 12:00 01/06/25 12:38 01/06/25 12:00 01/06/25 12:00 01/06/25 12:00 01/06/25 12:00 01/02/25 12:00 Narrative Exam General: Awake and in no acute distress. Cachectic. Conversational. Appears to be confabulating. HEENT: Normocephalic, atraumatic, mucous membranes moist. Heart: Slightly tachycardic. Regular rate and rhythm, normal S1 and S2, no murmurs appreciated. Lungs: Clear to auscultation with no wheezing or crackles. Abdomen: Soft, nondistended. RUQ tenderness on palpation, positive bowel sounds. No guarding or rebound tenderness. Neurologic: AOx3, no gross neurological deficit, and patient able to move all 4 extremities. Extremities: No edema. multiple small lacerations, Mild resting tremors Skin: No rash or ecchymoses. Discharge Plan Problem List Was Problem List Reviewed/Reconciled?: Yes Plan Patient Disposition: Xfer Skilled Nsg Fac (SNF) Disposition Comment: dc to SNF Patient condition on transfer: Stable Care Plan Goals: Instructions: -Safe to Discharge to [facility]. -Take levofloxacin antibiotic for urinary tract infection for 3 more days -You metoprolol succinate 25 mg once daily for fast heart rate, hold if systolic blood pressure less than 120 -Mirtazapine 15 mg once daily for appetite stimulation -Taking all medications as prescribed -Please follow up with your primary care provider within one week of discharge -If your symptoms worsen,please seek immediate medical attention and return to your nearest emergency room -If you do not have a primary care provider, you may follow up at the [facility] at [address], [place] [address], Prescriptions/Referrals Prescriptions/Med Rec: New nicotine 14 mg/24 hr Patch 24 Hour 14 mg top QDAY 28 Days Qty: 28 0RF mirtazapine 15 mg Tablet 15 mg PO HS 30 Days Qty: 30 0RF metoprolol succinate 25 mg Tablet Extended Release 24 Hr 50 mg PO QDAY 30 Days Qty: 60 0RF levofloxacin 500 mg tablet 500 mg PO QDAY 3 Days Qty: 3 0RF Continued thiamine HCl (vitamin B1) 100 mg tablet 100 mg PO QDAY Qty: 180 0RF folic acid 1 mg tablet 1 mg PO QDAY Qty: 30 0RF Discontinued albuterol sulfate 90 mcg/actuation HFA aerosol inhaler 2 puff INHALATION Q4H PRN (Reason: shortness of breath or wheezing) Patient Comments: TAKE 2 PUFFS BY MOUTH EVERY 4 HOURS FOR SHORTNESS OF BREATH Referrals: Martine Man PA-C [Primary Care Provider] - Patient/Caregiver Discharge Instructions Education Materials: Alcohol Withdrawal: What to Expect Print Language: Palauan Stand Alone Forms: Verena Award Info., Patient Portal Info Letter Discharge Order Discharge Orders: Discharge (Routine); Ordered 01/05/25 Ordered By: Veda Manning Quality Discharge Quality Measures VTE prophylaxis
--- NOTE | 2025-01-06 16:36 | PC.SS ---
SS received call from Megan at [facility] who has received insurance authorization and requesting transport time be arranged after 7pm. SS has called Linda from [facility] and requested [facility] and provided their phone#. Ref# [id number]. SS has spoken to Tanesha from [facility] who has placed on will call list until they have been contacted by [facility]. has sent patient's facesheet and ambulance form to [facility] using [facility]. Bedside nurse, Brittnee is aware. Brother, Connor has been left voicemail at his request from yesterday. Jagdeep CHEN and Velia are aware. Number for report is [phone] and has been provided to Sven Beaulieu.
--- NOTE | 2025-01-06 17:21 | PC.SS ---
SS update: contacted [place] [facility] team [phone] regarding transportation, Tanesha informed no call has been received at of yet from [facility]. Dispatch was provided with [facility] nursing station phone number to provide an ETA once received.
--- NOTE | 2025-01-06 20:01 | PC.NURSE ---
patient to discharge to [facility] ambulance personnel at bedside given report, last vital signs are stable. No pain reported. Patient left at 2003 via gurney.
[2025-01-18 07:42] LABS: Cortisol,total,LC/MS/MS* 30.8 mcg/dL
--- NOTE | 2025-01-21 13:39 | ESPR_ITS ---
<Statement entered by Taniya Small MD - 01/26/25 08:02> I reviewed above note and agree with findings and plans. I have also personally examined the patient with medicine team and went over assessment and plan with medical team including agronomy internship and resident physician. Documentation for date of: 01/05/25 No overnight events. Improved acute metabolic encephalopahty likely secondary to alcohol use disorder and UTI. Patient is pending SNF placement given failure to thrive. Subjective Subjective Interval history: Patient was seen and examined at bedside. A.m. vitals and labs reviewed. Patient is awake and alert. When asked what was the last thing he remembers before going drowsy he noted that he was out of breath and cannot remember what may have caused it. He is against using a PEG placement. Overnight he showed slight confusion. Refused to draw any labs. Patient denies chest pain, shortness of breath, headaches ,vision loss, numbness, or hallucinations. Exam Vital Signs Temp Pulse Resp BP Pulse Ox O2 Del Method O2 Flow Rate 96.8 F 71 17 116/68 94 L Room Air 1 01/06/25 16:00 01/06/25 18:18 01/06/25 16:00 01/06/25 16:00 01/06/25 16:00 01/06/25 16:00 01/02/25 12:00 Narrative Exam General: Awake and in no acute distress. Cachectic. Conversational. Appears to be confabulating. HEENT: Normocephalic, atraumatic, mucous membranes moist. Heart: Slightly tachycardic. Regular rate and rhythm, normal S1 and S2, no murmurs appreciated. Lungs: Clear to auscultation with no wheezing or crackles. Abdomen: Soft, nondistended. RUQ tenderness on palpation, positive bowel sounds. No guarding or rebound tenderness. Neurologic: AOx3, no gross neurological deficit, and patient able to move all 4 extremities. Extremities: No edema. multiple small lacerations, Mild resting tremors Skin: No rash or ecchymoses. Objective Labs 01/03/25 08:20 01/03/25 08:20 Quality Measures Quality Measures VTE prophylaxis Assessment & Plan Plan Patient is a 44-year-old male with past medical history of alcohol use disorder, schizophrenia and BMI 11.5 was admitted to the hospital on 12/31/2024 for failure to thrive, being debilitated and family unable to feed him. #Failure to thrive #Underweight, BMI 11.5 #Dysphagia -Monitor electrolytes, Mg, and phosphorus -EGD(01/01/2025): Esophagitis, gastritis with erythema, esophageal ulcers. Will benefit from placement of a PEG tube for nutritional support. -Placement of PEG tube discussed with the patient but the patient refused. -Miratazipine 15 mg PO HS -Referral to physical therapy, recommended SNF #History of Alcohol use disorder #Mild Transaminitis Has had multiple admissions for alcohol use disorder, latest last week. Reports last drink was last week; however patient is unreliable historian. -AST 47, ALT 18, ALP 103, Total bili 0.6 -Consider Ativan 0.5 mg po. If needed -Continue thiamine and folate -CIWA ordered #Leukocytosis #UTI Remains afebrile. Patient denies dysuria but UA 7/3 positive for nitrates and leukocyte esterase, WBC 696, 1+ bacteria. Blood culture negative. Repeat CXR (01/01/2025) negative for aspiration pneumonia. -WBC level downtrending to 7.9 from 12.0 (No current lab because patient refused to draw any labs) -Urine Culture:E.Coli Plan: -Ceftriaxone (01/01/2025-01/06/2025, complete 5 day course of antibiotics #Sinus tachcardia -Possible alcohol use VS malnutrition Plan: -Metoprolol 25mg PO qd ordered today. Will continue with metoprolol 50mg PO qd 01/04/2025 -consider metoprolol tartrate push if sinus tachycardia overnight. #Nicotine use disorder -Nicotine patch qd Health Maintenance Disposition: Telemetry DVT prophylaxis: Heparin GI prophylaxis: none Diet: NPO after midnight, resume dysphagia diet 2 after procedure CODE STATUS: Full code Assessment and plan discussed with my attending physician Dr. Small and Dr. Manning (PGY-2) Dr. Gabriel (PGY-1)- Internal medicine resident
== END 2025-01-06 20:04 | disposition skilled nursing facility (03) ==
LOC: SERX 12-31 04:54 → SERHOLD 12-31 21:45 → S3SX 12-31 21:45
PROVIDERS: Physician Assistant; Specialist; Student in an Organized Health Care Education/Training Program; Admitting Provider Internal Medicine; Emergency Provider Emergency Medicine; PCP Physician Assistant; Visit Provider Internal Medicine
PROC: (CPT 43239; principal; 2025-01-01 12:45)
DX: N39.0 Urinary tract infection, site not specified (principal); R62.7 Adult failure to thrive; R13.10 Dysphagia, unspecified; K86.1 Other chronic pancreatitis; K82.8 Other specified diseases of gallbladder; K76.0 Fatty (change of) liver, not elsewhere classified; R63.6 Underweight; K29.70 Gastritis, unspecified, without bleeding; K22.10 Ulcer of esophagus without bleeding; F10.10 Alcohol abuse, uncomplicated; E87.20 Acidosis, unspecified; F17.200 Nicotine dependence, unspecified, uncomplicated; Z68.1 Body mass index [BMI] 19.9 or less, adult; E86.0 Dehydration; D64.9 Anemia, unspecified; Z53.29 Procedure and treatment not carried out because of patient's decision for other reasons; F10.130 Alcohol abuse with withdrawal, uncomplicated; R00.0 Tachycardia, unspecified; R64 Cachexia; Z01.810 Encounter for preprocedural cardiovascular examination; R74.01 Elevation of levels of liver transaminase levels; R53.81 Other malaise; D72.829 Elevated white blood cell count, unspecified; R60.0 Localized edema; I10 Essential (primary) hypertension; J45.909 Unspecified asthma, uncomplicated
CPT/HCPCS: 43239; 36415; 71045; 73630; 76705; 80048; 80053; 80069; 80307; 80320; 81001; 82140; 82533; 82728; 83540; 83550; 83605; 83735; 84100; 84145; 84443; 85025; 85610; 85652; 86140; 87040; 87077; 87086; 87186; 92526; 92610; 93005; 96361; 96365; 96366; 96372; 96375; 96376; 97162; 99291; A4314; G0378; J0360; J0696; J1200; J1644; J2060; J2250; J3010; J3411; J3475; J3480; J7030; J7120; P9045; A9270; G0480